=== PATIENT | male | born 1935 | race Caucasian/White ===

== ENCOUNTER → 2016-12-01 | Outpatient (CLI) | payer BC ==
[~2016-12-01] MED LIST: ALPHTAB4 PO; ASCO500T3 PO; ASPCH81X PO; CALCTAB5 PO; CLOP1TAB15 PO; LISI10TA PO; LORA-741 PO; LPR25 PO; NTRGSL/4 SL; PRED-301 PO; PRED1SUS3 OPR; SIMV40TA2 PO
[2016-12-01 12:44] LABS: BLOOD UREA NITROGEN 25 mg/dl (7-18)
== END | disposition home or self-care (01) ==
LOC: C.LABPVFM 09:50
PROVIDERS: ATTEND Surgery
DX: K42.9 Umbilical hernia without obstruction or gangrene (principal)

== ENCOUNTER → 2016-12-02 | Outpatient (CLI) | payer BC ==
[~2016-12-02] MED LIST changes: +OPTIRAY 320 IV PRN
--- NOTE | 2016-12-02 11:46 | DIAGNOSTIC IMAGING REPORT ---
CT SCAN OF THE ABDOMEN AND PELVIS WITH IV CONTRAST CLINICAL HISTORY: Umbilical hernia. Preoperative examination. COMPARISON STUDY: Abdominal CT dated 07/10/2013. TECHNIQUE: Following the IV administration of 94 cc of Optiray 320, CT scan of the abdomen and pelvis is performed from the lung bases to the proximal femora. Images are reviewed in the axial, sagittal, and coronal planes. IV contrast was administered without complication. Automated dose control exposure was utilized. CT DOSE: 569.54 mGy.cm FINDINGS: Lung bases: The heart is enlarged and without pericardial effusion. The coronary arteries are densely calcified. Subendocardial fat deposition within the left ventricle suggest previous myocardial infarct. The lung bases are clear noting dependent atelectasis. There is a tiny hiatal hernia. Liver: The contrast-enhanced liver is normal in size, contour, and attenuation. There is no intrahepatic biliary ductal dilatation. The hepatic veins and portal veins are patent. Gallbladder: Gallstones are identified. The gallbladder is otherwise normal in appearance. Spleen: Normal in size and attenuation. Pancreas: Moderately atrophic and grossly unremarkable. Adrenal glands: Unremarkable. Kidneys: The contrast enhanced kidneys are atrophic and without hydronephrosis. The kidneys enhance symmetrically. Numerous foci of cortical scarring are seen bilaterally. Numerous bilateral renal cysts measure up to 8 cm. Additional subcentimeter cortical hypodensities also likely represent cysts but are too small for definitive characterization. Abdominal vasculature: There is advanced atherosclerotic calcification and ectasia of the abdominal aorta. There is focal thrombosis identified in the left internal iliac artery with a 1.2 cm aneurysm. High-grade stenosis is seen within the right internal iliac artery. Bowel: There is a small duodenal diverticulum. The colon is tortuous. There is moderate colonic fecal retention. There is mild to moderate colonic diverticulosis without CT evidence of acute diverticulitis. Findings are consistent with previous right hemicolectomy with ileocolic anastomosis. No bowel obstruction is seen. The appendix is not identified and presumed surgically absent. Peritoneum: There is no intraperitoneal free air or abdominal ascites. There are numerous small fat-containing ventral hernias. A supraumbilical hernia on image #180 shows an orifice measuring 2.7 cm. A slightly more inferior ventral hernia in the right upper abdomen is similar image #192. A fat-containing ventral hernia in the right midabdomen is seen on image #239. A fat-containing ventral hernia in the umbilicus is seen on image #300. A fat-containing hernia in the ventral pelvis as seen on image #332. Foci of fat necrosis are present within the omentum. Lymphadenopathy: None. Pelvic viscera: The prostate gland is diminutive. The bladder wall appears thickened and trabeculated suggesting the sequelae of chronic outlet obstruction. Skeletal structures: The skeletal structures are osteopenic. There is mild lumbosacral spondylosis. No lytic or blastic lesions are seen. IMPRESSION: 1. There are numerous small fat-containing ventral hernias identified as detailed above. None of these hernias contain bowel. 2. There are postoperative changes from right hemicolectomy with ileocolic anastomosis. No bowel obstruction is seen. 3. There is moderate colonic fecal retention. 4. Mild to moderate colonic diverticulosis without CT evidence of acute diverticulitis. 5. Cardiomegaly. 6. Cholelithiasis. 7. 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 8. Additional findings as above. Electronically signed by: Rakesh Lanier M.D. 12/02/2016 11:44 AM Dictated Date/Time: 12/02/2016 11:33 AM
== END | disposition home or self-care (01) ==
LOC: C.CTS 09:56
PROVIDERS: ATTEND Surgery
DX: K42.9 Umbilical hernia without obstruction or gangrene (principal); K43.9 Ventral hernia without obstruction or gangrene; K59.00 Constipation, unspecified; I51.7 Cardiomegaly; K80.20 Calculus of gallbladder without cholecystitis without obstruction; I72.3 Aneurysm of iliac artery

== ENCOUNTER → 2017-03-11 | Outpatient (CLI) | payer BC ==
[~2017-03-11] MED LIST changes: -OPTIRAY 320 IV PRN
[2017-03-11 13:00] LABS: ALT/SGPT 19 U/L (12-78); AST/SGOT 16 U/L (15-37); BLOOD UREA NITROGEN 22 mg/dl (7-18); BUN/CREATININE RATIO 18.6 (10-20); CALCIUM 8.3 mg/dl (8.5-10.1); CARBON DIOXIDE 30 mmol/L (21-32); CHLORIDE 109 mmol/L (98-107); GLUCOSE 111 mg/dl (70-99); POTASSIUM 4.2 mmol/L (3.5-5.1); SODIUM 142 mmol/L (136-145)
[2017-03-11 13:02] LABS: CHOLESTEROL/HDL RATIO 2.6
[2017-03-11 13:06] LABS: ALB/GLOB RATIO 1.2 (0.9-2); ALKALINE PHOSPHATASE 63 U/L (45-117)
== END | disposition home or self-care (01) ==
LOC: C.LABPVFM 07:42
PROVIDERS: ATTEND Family Medicine
DX: E55.9 Vitamin D deficiency, unspecified (principal); K42.9 Umbilical hernia without obstruction or gangrene; E78.5 Hyperlipidemia, unspecified

== ENCOUNTER → 2017-09-22 | Outpatient (CLI) | payer BC ==
[2017-09-22 13:47] LABS: CHOLESTEROL/HDL RATIO 2.3
[2017-09-22 13:56] LABS: ALT/SGPT 17 U/L (12-78); AST/SGOT 13 U/L (15-37); BLOOD UREA NITROGEN 16 mg/dl (7-18); BUN/CREATININE RATIO 14.3 (10-20); CALCIUM 8.2 mg/dl (8.5-10.1); CARBON DIOXIDE 27 mmol/L (21-32); CHLORIDE 109 mmol/L (98-107); CREATININE 1.13 mg/dl (0.60-1.40); GLUCOSE 92 mg/dl (70-99); POTASSIUM 3.9 mmol/L (3.5-5.1); SODIUM 143 mmol/L (136-145)
[2017-09-22 13:58] LABS: ALB/GLOB RATIO 1.1 (0.9-2); ALKALINE PHOSPHATASE 62 U/L (45-117)
== END | disposition home or self-care (01) ==
LOC: C.LABPVFM 07:24
PROVIDERS: ATTEND Family Medicine
DX: K43.2 Incisional hernia without obstruction or gangrene (principal); E78.5 Hyperlipidemia, unspecified

== ENCOUNTER 2018-06-19 21:33 | Inpatient (IN) | payer BC, OTHER ==
[~2018-06-19] VITALS: Ht 172.7 cm; Wt 85.1 kg
[2018-06-19] MEDS ORDERED: SODIUM CHLORIDE 0.9% 1000ML 1,000 ML IV SCH (21:42)
[2018-06-19 21:51] LABS: BASO % 0.3 %; BASO ABS # 0.02 K/uL (0-0.2); EOS % 0.7 %; EOS ABS # 0.05 K/uL (0-0.5); HEMOGLOBIN 14.1 g/dL (14.0-18.0); IG# 0.03 K/uL (0.00-0.02); LYMPH % 25.7 %; LYMPH ABS # 1.82 K/uL (1.2-3.4); MEAN CELL VOLUME 94.6 fL (80-100); MEAN CORPUSCULAR HEMOGLOBIN 31.8 pg (25-34); MEAN CORPUSCULAR HGB CONC 33.6 g/dl (32-36); MEAN PLATELET VOLUME 10.3 fL (7.4-10.4); MONO % 14.7 %; MONO ABS # 1.04 K/uL (0.11-0.59); NEUT % 58.2 %; NEUT ABS # 4.13 K/uL (1.4-6.5); PLATELET COUNT 173 K/uL (130-400); RED CELL DISTRIBUTION WIDTH CV 13.7 % (11.5-14.5); RED CELL DISTRIBUTION WIDTH SD 47.3 fL (36.4-46.3); WHITE BLOOD COUNT 7.09 K/uL (4.8-10.8)
--- NOTE | 2018-06-19 21:56 | DIAGNOSTIC IMAGING REPORT ---
CT OF THE HEAD WITHOUT CONTRAST CLINICAL HISTORY: Stroke alert. COMPARISON STUDY: No previous studies for comparison. CT DOSE: 537.48 mGy.cm TECHNIQUE: Helical axial images of the head were obtained without IV contrast. Automated exposure control was utilized for the study. A dose lowering technique was utilized adhering to the principles of ALARA. FINDINGS: No acute intracranial hemorrhage, midline shift or mass effect is present. Ventricular system is normal. The basilar cisterns are patent. There are no extra axial collections. White matter hypodensities suggest moderate small vessel disease. Apparent increased attenuation of a sylvian branch of the left middle cerebral artery is likely artifactual. There are no findings to suggest acute dural sinus thrombosis or acute territorial infarct. There are no significant calvarial abnormalities. Visualized portions of the sinuses and mastoid air cells are clear. IMPRESSION: 1. No acute intracranial hemorrhage or mass effect. 2. Apparent increased attenuation of a sylvian branch of the left middle cerebral artery is likely artifactual. Thrombus could appear similar although is considered less likely. Electronically signed by: Reuben Loaiza M.D. 06/19/2018 9:55 PM Dictated Date/Time: 06/19/2018 9:48 PM
[2018-06-19 22:02] LABS: PTT PATIENT 23.3 SECONDS (21.0-31.0)
[2018-06-19 22:15] LABS: BLOOD UREA NITROGEN 21 mg/dl (7-18); CALCIUM 8.4 mg/dl (8.5-10.1); CARBON DIOXIDE 24 mmol/L (21-32); CKMB 1.2 ng/ml (0.5-3.6); CREATININE 1.26 mg/dl (0.60-1.40); GLUCOSE 119 mg/dl (70-99); POTASSIUM 3.8 mmol/L (3.5-5.1); SODIUM 141 mmol/L (136-145)
[2018-06-19] MEDS ORDERED: OPTIRAY 320 IV PRN (22:15)
[2018-06-19] MEDS ORDERED: ASPIRIN 81 MG CHEW PO STA (22:30)
--- NOTE | 2018-06-19 22:32 | DIAGNOSTIC IMAGING REPORT ---
CT ANGIOGRAPHY OF THE NECK WITH CONTRAST CLINICAL HISTORY: Left-sided weakness. Slurred speech. COMPARISON STUDY: No previous studies for comparison. Technique: CT angiography of the carotid and vertebral arteries was obtained using Mopio 320 IV and 3D reconstruction on an independent workstation. NASCET criteria was utilized. A dose lowering technique was utilized adhering to the principles of ALARA. CT DOSE: 524.85 mGy.cm Findings: Lung apices are clear. There are minimal secretions within the trachea below the level of the thoracic inlet. No mucosal lesion is identified although these may be occult by CT. There is no cervical lymphadenopathy or mass. There is moderate plaque within visual portions of the aortic arch. There is no significant stenosis within the bilateral common carotid or internal carotid arteries. There is minimal plaque within the cervical portions of the bilateral internal carotid arteries. There is moderate plaque within the bilateral cavernous carotids without severe stenosis. There is no dissection within the major vessels of the neck. The left vertebral artery is dominant. There is moderate plaque with mild stenosis at the origin of the left vertebral artery which is tortuous. There is mild to moderate stenosis at the origin of the right vertebral artery. The right vertebral artery likely ends in PICA. The CTA of the head will be reported separately. IMPRESSION: 1. No stenosis within the bilateral common carotid or cervical portions of the internal carotid arteries. No dissection. 2. Dominant left vertebral artery. Moderate plaque at the origin of the left vertebral artery with mild stenosis. Electronically signed by: Reuben Loaiza M.D. 06/19/2018 10:31 PM Dictated Date/Time: 06/19/2018 10:23 PM
--- NOTE | 2018-06-19 22:35 | DIAGNOSTIC IMAGING REPORT ---
CTA ANGIOGRAPHY OF THE HEAD CLINICAL HISTORY: Left-sided weakness. Slurred speech. COMPARISON STUDY: Head CT performed earlier today. TECHNIQUE: Helical axial images of the head were obtained following uneventful intravenous administration of 89 cc of Optiray 320. A dose lowering technique was utilized adhering to the principles of ALARA. FINDINGS: There is moderate plaque within the bilateral cavernous carotids with mild stenosis. There is no severe stenosis within the intracranial vessels. No abrupt vessel cut off, intracranial aneurysm or dissection is identified. The right vertebral artery is diminutive and likely ends in PICA. Posterior circulation is intact. No acute intracranial hemorrhage, midline shift or mass effect is identified. Ventricular system is normal. Basilar cisterns are patent. IMPRESSION: 1. No abrupt vessel cut off or severe stenosis within the intracranial vessels. No intracranial aneurysm. 2. Moderate atherosclerotic plaque within the intracranial vessels without high-grade stenosis. Electronically signed by: Reuben Loaiza M.D. 06/19/2018 10:34 PM Dictated Date/Time: 06/19/2018 10:31 PM
--- NOTE | 2018-06-19 23:02 | DIAGNOSTIC IMAGING REPORT ---
CHEST ONE VIEW PORTABLE CLINICAL HISTORY: Stroke. COMPARISON STUDY: Chest radiograph September 24, 2013. FINDINGS: No pneumothorax is noted. Mild left basilar opacity is present. A possible small left pleural effusion is probably artifactual. There is no evidence for pulmonary edema. Mild cardiomegaly is unchanged. IMPRESSION: 1. No acute cardiopulmonary findings. 2. Mild left basilar opacity which favors atelectasis. Electronically signed by: Reuben Loaiza M.D. 06/19/2018 11:01 PM Dictated Date/Time: 06/19/2018 10:59 PM
--- NOTE | 2018-06-19 23:43 | EMERGENCY ROOM VISIT NOTE ---
History Report prepared by Jayy: Hodan Fuentes Under the Supervision of: Dr. Larry Barber D.O. First contact with patient: 21:36 Chief Complaint: NEURO SYMPTOMS Stated Complaint: Left sided weakness, slurred speech- now resolved History of Present Illness The patient is an 83 year old male who presents to the Emergency Room with complaints of sudden neuro symptoms starting 2.5 hours ago. Per nursing staff, the patient called his son around 1900 since he did not feel right. They report that the son arrived around 194. They state that the son reported his father babbling, left facial droop, and having left arm weakness. They state that by the time EMS arrived her symptoms resolved. The patient complains of left arm weakness. The patient denies headache, change in vision, chest pain, and abdominal pain. History limited secondary to mentation upon presentation. Source of History: patient, nursing staff Onset: 2.5 hours ago Position: other (left side) Quality: other (neuro symptoms) Timing: other (sudden) Associated Symptoms: + weakness, No headache, No chest pain, No abdominal pain Note: The nursing staff states that the patient' son complains of the patient having a left sided facial droop. The patient denies change in vision. Review of Systems See HPI for pertinent positives & negatives. A total of 10 systems reviewed and were otherwise negative. Past Medical & Surgical Medical Problems: (1) Heart disease (2) HTN (hypertension) Surgical Problems: (1) History of coronary artery stent placement Family History Cancer Diabetes mellitus FH: gallbladder disease Heart disease Hypertension Social History Smoking Status: Former Smoker Marital Status: Housing Status: lives with significant other Occupation Status: retired Current/Historical Medications Scheduled Rlihy-O-Lmazomhaeiawf (Beano), 1 TAB PO DAILY Ascorbic Acid (Vitamin C), 500 MG PO DAILY Aspirin (Aspirin 81 Low Dose), 1 TAB PO DAILY Clopidogrel (Plavix), 75 MG PO NOON Lisinopril (Zestril), 5 MG PO DAILY Metoprolol Tartrate (Lopressor), 25 MG PO BID Prednisone (Prednisone), 2.5 MG PO BID Simvastatin (Zocor), 40 MG PO HS Scheduled PRN Lorazepam (Ativan), 0.5-1 MG PO BID PRN for Anxiety Melatonin (Melatonin), 1 MG PO HS PRN for Sleep Nitroglycerin (Nitrostat), 0.4 MG SL UD PRN for Chest Pain Allergies Coded Allergies: Lactose Intolerance (GI) (Verified Allergy, Unknown, GI UPSET, 06/20/18) Penicillins (Verified Allergy, Unknown, HIVES, 06/20/18) Shellfish (Verified Allergy, Unknown, HIVES, 06/20/18) Sulfa Drugs (Verified Allergy, Unknown, HIVES, 06/20/18) Physical Exam Vital Signs Date Time Temp Pulse Resp B/P (MAP) Pulse Ox O2 Delivery O2 Flow Rate FiO2 06/20/18 00:03 63 20 185/100 95 Room Air 06/19/18 23:00 61 16 196/101 98 Room Air 06/19/18 22:25 67 16 204/90 96 Room Air 06/19/18 22:00 57 16 213/103 96 Room Air 06/19/18 21:51 96 Room Air 06/19/18 21:40 36.4 66 20 209/104 96 Room Air Physical Exam GENERAL: Sitting up in bed, confused, disheveled. EYE EXAM: normal conjunctiva. OROPHARYNX: no exudate, no erythema, lips, buccal mucosa, and tongue normal and mucous membranes are moist NECK: supple, no nuchal rigidity, no adenopathy, non-tender LUNGS: Clear to auscultation. Normal chest wall mechanics HEART: no murmurs, S1 normal and S2 normal ABDOMEN: abdomen soft, non-tender, normo-active bowel sounds, no masses, no rebound or guarding. BACK: Back is symmetrical on inspection and there is no deformity, no midline tenderness, no CVA tenderness. SKIN: no rashes and no bruising UPPER EXTREMITIES: upper extremities are grossly normal. LOWER EXTREMITIES: No pitting edema. NEURO EXAM: Awake, alert. Able to state name. Difficulty following commands. Slightly gargled speech. No weakness of the upper and lower extremities. No drift. Unable to perform finger to nose. Medical Decision & Procedures ER Provider Diagnostic Interpretation: Radiology results as stated below per my review and the radiologist's interpretation: CT OF THE HEAD WITHOUT CONTRAST CLINICAL HISTORY: Stroke alert. COMPARISON STUDY: No previous studies for comparison. CT DOSE: 537.48 mGy.cm TECHNIQUE: Helical axial images of the head were obtained without IV contrast. Automated exposure control was utilized for the study. A dose lowering technique was utilized adhering to the principles of ALARA. FINDINGS: No acute intracranial hemorrhage, midline shift or mass effect is present. Ventricular system is normal. The basilar cisterns are patent. There are no extra axial collections. White matter hypodensities suggest moderate small vessel disease. Apparent increased attenuation of a sylvian branch of the left middle cerebral artery is likely artifactual. There are no findings to suggest acute dural sinus thrombosis or acute territorial infarct. There are no significant calvarial abnormalities. Visualized portions of the sinuses and mastoid air cells are clear. IMPRESSION: 1. No acute intracranial hemorrhage or mass effect. 2. Apparent increased attenuation of a sylvian branch of the left middle cerebral artery is likely artifactual. Thrombus could appear similar although is considered less likely. Electronically signed by: Reuben Loaiza M.D. 06/19/2018 9:55 PM Dictated Date/Time: 06/19/2018 9:48 PM CHEST ONE VIEW PORTABLE CLINICAL HISTORY: Stroke. COMPARISON STUDY: Chest radiograph September 24, 2013. FINDINGS: No pneumothorax is noted. Mild left basilar opacity is present. A possible small left pleural effusion is probably artifactual. There is no evidence for pulmonary edema. Mild cardiomegaly is unchanged. IMPRESSION: 1. No acute cardiopulmonary findings. 2. Mild left basilar opacity which favors atelectasis. Electronically signed by: Reuben Loaiza M.D. 06/19/2018 11:01 PM Dictated Date/Time: 06/19/2018 10:[address] ANGIOGRAPHY OF THE NECK WITH CONTRAST CLINICAL HISTORY: Left-sided weakness. Slurred speech. COMPARISON STUDY: No previous studies for comparison. Technique: CT angiography of the carotid and vertebral arteries was obtained using NexioraTouchPal 320 IV and 3D reconstruction on an independent workstation. NASCET criteria was utilized. A dose lowering technique was utilized adhering to the principles of ALARA. CT DOSE: 524.85 mGy.cm Findings: Lung apices are clear. There are minimal secretions within the trachea below the level of the thoracic inlet. No mucosal lesion is identified although these may be occult by CT. There is no cervical lymphadenopathy or mass. There is moderate plaque within visual portions of the aortic arch. There is no significant stenosis within the bilateral common carotid or internal carotid arteries. There is minimal plaque within the cervical portions of the bilateral internal carotid arteries. There is moderate plaque within the bilateral cavernous carotids without severe stenosis. There is no dissection within the major vessels of the neck. The left vertebral artery is dominant. There is moderate plaque with mild stenosis at the origin of the left vertebral artery which is tortuous. There is mild to moderate stenosis at the origin of the right vertebral artery. The right vertebral artery likely ends in PICA. The CTA of the head will be reported separately. IMPRESSION: 1. No stenosis within the bilateral common carotid or cervical portions of the internal carotid arteries. No dissection. 2. Dominant left vertebral artery. Moderate plaque at the origin of the left vertebral artery with mild stenosis. Electronically signed by: Reuben Loaiza M.D. 06/19/2018 10:31 PM Dictated Date/Time: 06/19/2018 10:23 PM CTA ANGIOGRAPHY OF THE HEAD CLINICAL HISTORY: Left-sided weakness. Slurred speech. COMPARISON STUDY: Head CT performed earlier today. TECHNIQUE: Helical axial images of the head were obtained following uneventful intravenous administration of 89 cc of Optiray 320. A dose lowering technique was utilized adhering to the principles of ALARA. FINDINGS: There is moderate plaque within the bilateral cavernous carotids with mild stenosis. There is no severe stenosis within the intracranial vessels. No abrupt vessel cut off, intracranial aneurysm or dissection is identified. The right vertebral artery is diminutive and likely ends in PICA. Posterior circulation is intact. No acute intracranial hemorrhage, midline shift or mass effect is identified. Ventricular system is normal. Basilar cisterns are patent. IMPRESSION: 1. No abrupt vessel cut off or severe stenosis within the intracranial vessels. No intracranial aneurysm. 2. Moderate atherosclerotic plaque within the intracranial vessels without high-grade stenosis. Electronically signed by: Reuben Loaiza M.D. 06/19/2018 10:34 PM Dictated Date/Time: 06/19/2018 10:31 PM Laboratory Results 06/19/18 21:41 Red Blood Count 4.44, Mean Corpuscular Volume 94.6, Mean Corpuscular Hemoglobin 31.8, Mean Corpuscular Hemoglobin Concent 33.6, Mean Platelet Volume 10.3, Neutrophils (%) (Auto) 58.2, Lymphocytes (%) (Auto) 25.7, Monocytes (%) (Auto) 14.7, Eosinophils (%) (Auto) 0.7, Basophils (%) (Auto) 0.3, Neutrophils # (Auto ) 4.13, Lymphocytes # (Auto) 1.82, Monocytes # (Auto) 1.04, Eosinophils # (Auto ) 0.05, Basophils # (Auto) 0.02 06/19/18 21:41 Test 06/19/18 21:41 06/19/18 21:52 06/19/18 21:53 06/19/18 22:55 White Blood Count 7.09 K/uL (4.8-10.8) Red Blood Count 4.44 M/uL (4.7-6.1) Hemoglobin 14.1 g/dL (14.0-18.0) Hematocrit 42.0 % (42-52) Mean Corpuscular Volume 94.6 fL (80-100) Mean Corpuscular Hemoglobin 31.8 pg (25-34) Mean Corpuscular Hemoglobin Concent 33.6 g/dl (32-36) Platelet Count 173 K/uL (130-400) Mean Platelet Volume 10.3 fL (7.4-10.4) Neutrophils (%) (Auto) 58.2 % Lymphocytes (%) (Auto) 25.7 % Monocytes (%) (Auto) 14.7 % Eosinophils (%) (Auto) 0.7 % Basophils (%) (Auto) 0.3 % Neutrophils # (Auto) 4.13 K/uL (1.4-6.5) Lymphocytes # (Auto) 1.82 K/uL (1.2-3.4) Monocytes # (Auto) 1.04 K/uL (0.11-0.59) Eosinophils # (Auto) 0.05 K/uL (0-0.5) Basophils # (Auto) 0.02 K/uL (0-0.2) RDW Standard Deviation 47.3 fL (36.4-46.3) RDW Coefficient of Variation 13.7 % (11.5-14.5) Immature Granulocyte % (Auto) 0.4 % Immature Granulocyte # (Auto) 0.03 K/uL (0.00-0.02) Prothrombin Time 10.2 SECONDS (9.0-12.0) Prothromb Time International Ratio 1.0 (0.9-1.1) Activated Partial Thromboplast Time 23.3 SECONDS (21.0-31.0) Partial Thromboplastin Ratio 0.9 Anion Gap 10.0 mmol/L (3-11) Est Creatinine Clear Calc Drug Dose 49.0 ml/min Estimated GFR () 61.2 Estimated GFR (Non- 52.8 BUN/Creatinine Ratio 16.8 (10-20) Calcium Level 8.4 mg/dl (8.5-10.1) Magnesium Level 2.2 mg/dl (1.8-2.4) Total Creatine Kinase 55 U/L (39-308) Creatine Kinase MB 1.2 ng/ml (0.5-3.6) Creatine Kinase MB Ratio 2.2 (0-3.0) Troponin I < 0.015 ng/ml (0-0.045) Chemistry Specimen Hemolysis Lactic Acid Level 1.6 mmol/L (0.4-2.0) Bedside Glucose 111 mg/dl (70-99) Urine Color YELLOW Urine Appearance CLEAR (CLEAR) Urine pH 6.5 (4.5-7.5) Urine Specific Carmi 1.016 (1.000-1.030) Urine Protein NEG (NEG) Urine Glucose (UA) NEG (NEG) Urine Ketones NEG (NEG) Urine Occult Blood TRACE (NEG) Urine Nitrite NEG (NEG) Urine Bilirubin NEG (NEG) Urine Urobilinogen NEG (NEG) Urine Leukocyte Esterase NEG (NEG) Urine WBC (Auto) 0 /hpf (0-5) Urine RBC (Auto) 5-10 /hpf (0-4) Urine Hyaline Casts (Auto) 0 /lpf (0-5) Urine Epithelial Cells (Auto) 5-10 /lpf (0-5) Urine Bacteria (Auto) NEG (NEG) Laboratory results per my review. Medications Administered Medications (Trade) Dose Ordered Sig/Parker Route Start Time Stop Time Status Last Admin Dose Admin Sodium Chloride 1,000 ml @ 50 mls/hr Q20H IV 06/19/18 21:42 07/19/18 21:41 06/19/18 22:06 50 MLS/HR ECG Per My Interpretation Indication: weakness Rate (beats per minute): 60 Rhythm: sinus rhythm Findings: 1st degree AV block, other (normal axis, no PVCs) ED Course ED COURSE: Vital signs were reviewed and showed hypertension. The patients medical record was reviewed The above diagnostic studies were performed and reviewed. ED treatments and interventions as stated above. 8: The patient was evaluated in room A2. A complete history and physical examination was performed. 2141: Ordered NSS 1000 ml @ 50 mls/hr IV. 4: I discussed the patient's case with Dr. Savannah Odonnell. He recommends CTAs and no TPA at this time. 2253: I discussed the patient's case with Dr. Tyesha Odonnell. He will evaluate the patient via the tele-stroke. 2305: Upon reevaluation, the patient is doing okay. I discussed my findings with the patient and his family and they understand and agree with the treatment plan. Based on the patients age, coexisting illnesses, exam and lab findings the decision to treat as an inpatient was made. The patient remained stable while under my care. The patient will be evaluated for further management. 2313: I reviewed the patient's case with Dr. Nola BARBER Hospitalist. She will evaluate the patient for further management. 2326: I discussed the patient's case with Dr. Sandra Odonnell. He agrees with no TPA and bringing him in. Medical Decision Differential Diagnosis includes but is not limited to ischemic Stroke, hemorrhagic stroke, bells palsy, mass, neoplasm, migraine headache, seizure, subarachnoid hemorrhage, TIA, and transient global amnesia. Patient is an 83-year-old male who presents the ER for left-sided weakness associated with facial droop and slurred speech. The symptoms resolved upon presentation. On my evaluation patient was confused. Neurologic exam was intact otherwise. CBC along with BMP, lactic acid and troponin was negative. UA was negative. Patient was given fluids. CT head was performed and showed questionable left MCA per radiology which would not be consistent with presentation. Stroke alert was called on my initial evaluation. Discussed with neurology from [facility]. They agreed that he is not a TPA candidate. Recommended CTAs. CTs were performed and showed nothing to explain current symptoms. Patient was evaluated by neurology. They recommended fluids and admission for stroke workup. Patient is close to baseline upon admission assist with the hospitalist. Patient was updated at bedside. Medication Reconcilliation Current Medication List: was personally reviewed by me Blood Pressure Screening Patient's blood pressure: Elevated blood pressure Will be further monitored by the hospitalist. Consults Time Called: 2199 Consulting Physician: Dr. Nuñez Neurology Returned Call: [phone] I discussed the patient's case with Dr. Savannah Odonnell. He recommends CTAs and no TPA at this time. Additional Consults: Time Called: 2252 Consulted Physician: Dr. Arambula Neurology Returned Call: [phone] Additional Comments: I discussed the patient's case with Dr. Arambula Neurology. He will evaluate the patient via the tele-stroke. Time Called: 2304 Consulted Physician: Dr. Nola BARBER Hospitalist Returned Call: [phone] Additional Comments: I reviewed the patient's case with Dr. Nola BARBER Hospitalist. She will evaluate the patient for further management. Impression Primary Impression: TIA (transient ischemic attack) Additional Impression: HTN (hypertension) Scribe Attestation The scribe's documentation has been prepared under my direction and personally reviewed by me in its entirety. I confirm that the note above accurately reflects all work, treatment, procedures, and medical decision making performed by me. Departure Information Dispostion Being Evaluated By Hospitalist Referrals Gita Álvarez M.D. (PCP) Patient Instructions My [facility] Stroke History Time Last Known Well Unknown Stroke t-PA Criteria Reviewed Does NOT meet criteria for t-PA Reason t-PA Not Given Treatment not indicated Problem Qualifiers Additional Impression: HTN (hypertension) Hypertension type: unspecified Qualified Codes: I10 - Essential (primary) hypertension
[2018-06-20] MEDS ORDERED: PHARMACIST DISCHARGE MED REC CONSULT PRN
[2018-06-20] MEDS ORDERED: MAGNESIUM HYDROXIDE SUSP 30 ML UDC PO PRN
[2018-06-20] MEDS ORDERED: ACETAMINOPHEN 325 MG TAB PO PRN
[2018-06-20] MEDS ORDERED: ONDANSETRON INJ 2 MG/ML 2 ML VIAL IV PRN
[2018-06-20] MEDS ORDERED: ASPI1CHW12 PO ×2 (00:19)
[2018-06-20] MEDS ORDERED: LISI-729 PO ×2 (00:20)
[2018-06-20] MEDS ORDERED: ATV/1 PO ×2 (00:23)
[2018-06-20] MEDS ORDERED: MELA1CAP PO ×2 (00:24)
--- NOTE | 2018-06-20 00:43 | History and Physical ---
History & Physical Date & Time of Service: Jun 20, 2018 at 00:22 Chief Complaint: Left sided weakness, slurred speech- now resolved Primary Care Physician: Gita Álvarez M.D. History of Present Illness Source: patient Patient is a 83-year-old male with a past medical history of CAD, hypertension, hyperlipidemia, and arthritis on chronic prednisone that presents with a 1 hour episode of confusion and left-sided weakness. The patient states he was at home this evening watching television when he all of a sudden started having confusion with difficulty speaking and word finding. The patient called his son who states that his father was having slurred speech along with confusion and called EMS. The patient also states that he was having weakness and heaviness in his left arm during that period of time. He states that once he was picked up by EMS he started noticing improvement in the ambulance. On arrival to the ED he was initially confused although over the last hour states that he has returned to his baseline mental status. The patient denies any headaches, vision changes, lightheadedness, nausea, vomiting, fever, chills or any other acute complaints at this time. Past Medical/Surgical History Medical Problems: (1) Colon adenoma (2) Heart disease Surgical Problems: (1) History of coronary artery stent placement Family History Cancer Diabetes mellitus FH: gallbladder disease Heart disease Hypertension Social History Smoking Status: Former Smoker Marital Status: Housing status: lives with family Occupational Status: retired Immunizations History of Influenza Vaccine: Yes Influenza Vaccine Date: Aug 20, 2013 History of Tetanus Vaccine?: Unknown History of Pneumococcal: Yes Pneumococcal Date: Sep 20, 2012 History of Hepatitis B Vaccine: Unknown Allergies Coded Allergies: Lactose Intolerance (GI) (Verified Allergy, Unknown, GI UPSET, 06/20/18) Penicillins (Verified Allergy, Unknown, HIVES, 06/20/18) Shellfish (Verified Allergy, Unknown, HIVES, 06/20/18) Sulfa Drugs (Verified Allergy, Unknown, HIVES, 06/20/18) Home Medications Scheduled [id number] (Beano), 1 TAB PO DAILY Ascorbic Acid (Vitamin C), 500 MG PO DAILY Aspirin (Aspirin 81 Low Dose), 1 TAB PO DAILY Clopidogrel (Plavix), 75 MG PO NOON Lisinopril (Zestril), 5 MG PO DAILY Metoprolol Tartrate (Lopressor), 25 MG PO BID Prednisone (Prednisone), 2.5 MG PO BID Simvastatin (Zocor), 40 MG PO HS Scheduled PRN Lorazepam (Ativan), 0.5-1 MG PO BID PRN for Anxiety Melatonin (Melatonin), 1 MG PO HS PRN for Sleep Nitroglycerin (Nitrostat), 0.4 MG SL UD PRN for Chest Pain Review of Systems Constitutional: No fever, No chills, No sweats, No weakness, No fatigue Eyes: No worsening of vision, No diplopia Respiratory: No cough, No sputum, No wheezing, No shortness of breath, No dyspnea on exertion Cardiovascular: No chest pain, No palpitations Abdomen: No pain, No nausea, No vomiting, No diarrhea, No constipation Musculoskeletal: No joint pain, No swelling, No calf pain Genitourinary - Male: No dysuria, No urinary frequency Neurologic: No memory loss, No weakness, No numbness/tingling, No vertigo, No balance problems Endocrine: No fatigue, No excessive thirst, No excessive urination Physical Exam Vital Signs Date Time Temp Pulse Resp B/P (MAP) Pulse Ox O2 Delivery O2 Flow Rate FiO2 06/20/18 00:03 63 20 185/100 95 Room Air 06/19/18 23:00 61 16 196/101 98 Room Air 06/19/18 22:25 67 16 204/90 96 Room Air 06/19/18 22:00 57 16 213/103 96 Room Air 06/19/18 21:51 96 Room Air 06/19/18 21:40 36.4 66 20 209/104 96 Room Air General Appearance: WD/WN, no apparent distress Head: normocephalic, atraumatic Eyes: normal inspection, sclerae normal Neck: supple, no carotid bruits Respiratory/Chest: chest non-tender, lungs clear, normal breath sounds Cardiovascular: regular rate, rhythm, no edema, no gallop Abdomen/GI: normal bowel sounds, non tender, soft Extremities/Musculoskelatal: no calf tenderness, no pedal edema Neurologic/Psych: alert, normal reflexes, oriented x 3 Diagnostics Laboratory Results Results Past 24 Hours Test 06/19/18 21:41 06/19/18 21:52 06/19/18 21:53 06/19/18 22:55 Range/Units White Blood Count 7.09 4.8-10.8 K/uL Red Blood Count 4.44 4.7-6.1 M/uL Hemoglobin 14.1 14.0-18.0 g/dL Hematocrit 42.0 42-52 % Mean Corpuscular Volume 94.6 80-100 fL Mean Corpuscular Hemoglobin 31.8 25-34 pg Mean Corpuscular Hemoglobin Concent 33.6 32-36 g/dl Platelet Count 173 130-400 K/uL Mean Platelet Volume 10.3 7.4-10.4 fL Neutrophils (%) (Auto) 58.2 % Lymphocytes (%) (Auto) 25.7 % Monocytes (%) (Auto) 14.7 % Eosinophils (%) (Auto) 0.7 % Basophils (%) (Auto) 0.3 % Neutrophils # (Auto) 4.13 1.4-6.5 K/uL Lymphocytes # (Auto) 1.82 1.2-3.4 K/uL Monocytes # (Auto) 1.04 0.11-0.59 K/uL Eosinophils # (Auto) 0.05 0-0.5 K/uL Basophils # (Auto) 0.02 0-0.2 K/uL RDW Standard Deviation 47.3 36.4-46.3 fL RDW Coefficient of Variation 13.7 11.5-14.5 % Immature Granulocyte % (Auto) 0.4 % Immature Granulocyte # (Auto) 0.03 0.00-0.02 K/uL Prothrombin Time 10.2 9.0-12.0 SECONDS Prothromb Time International Ratio 1.0 0.9-1.1 Activated Partial Thromboplast Time 23.3 21.0-31.0 SECONDS Partial Thromboplastin Ratio 0.9 Sodium Level 141 136-145 mmol/L Potassium Level 3.8 3.5-5.1 mmol/L Chloride Level 108 98-107 mmol/L Carbon Dioxide Level 24 21-32 mmol/L Anion Gap 10.0 3-11 mmol/L Blood Urea Nitrogen 21 7-18 mg/dl Creatinine 1.26 0.60-1.40 mg/dl Est Creatinine Clear Calc Drug Dose 49.0 ml/min Estimated GFR () 61.2 Estimated GFR (Non- 52.8 BUN/Creatinine Ratio 16.8 10-20 Random Glucose 119 70-99 mg/dl Calcium Level 8.4 8.5-10.1 mg/dl Magnesium Level 2.2 1.8-2.4 mg/dl Total Creatine Kinase 55 39-308 U/L Creatine Kinase MB 1.2 0.5-3.6 ng/ml Creatine Kinase MB Ratio 2.2 0-3.0 Troponin I < 0.015 0-0.045 ng/ml Chemistry Specimen Hemolysis Lactic Acid Level 1.6 0.4-2.0 mmol/L Bedside Glucose 111 70-99 mg/dl Urine Color YELLOW Urine Appearance CLEAR CLEAR Urine pH 6.5 4.5-7.5 Urine Specific [place] 1.016 1.000-1.030 Urine Protein NEG NEG Urine Glucose (UA) NEG NEG Urine Ketones NEG NEG Urine Occult Blood TRACE NEG Urine Nitrite NEG NEG Urine Bilirubin NEG NEG Urine Urobilinogen NEG NEG Urine Leukocyte Esterase NEG NEG Urine WBC (Auto) 0 0-5 /hpf Urine RBC (Auto) 5-10 0-4 /hpf Urine Hyaline Casts (Auto) 0 0-5 /lpf Urine Epithelial Cells (Auto) 5-10 0-5 /lpf Urine Bacteria (Auto) NEG NEG Test 06/19/18 23:48 Range/Units Impression Assessment and Plan Patient is a 83-year-old male with a past medical history of CAD, hypertension, hyperlipidemia, and arthritis on chronic prednisone that presents with a 1 hour episode of confusion and left-sided weakness. Transient Ischemic Attack - CT Head: 1. No acute intracranial hemorrhage or mass effect. 2. Apparent increased attenuation of a sylvian branch of the left middle cerebral artery is likely artifactual. Thrombus could appear similar although is considered less likely. - CTA Head: 1. No abrupt vessel cut off or severe stenosis within the intracranial vessels. No intracranial aneurysm. 2. Moderate atherosclerotic plaque within the intracranial vessels without high- grade stenosis. - CTA Neck: 1. No stenosis within the bilateral common carotid or cervical portions of the internal carotid arteries. No dissection. 2. Dominant left vertebral artery. Moderate plaque at the origin of the left vertebral artery with mild stenosis. - MRI brain combo ordered - Echo ordered - Neurology consult - Bedside swallow eval - PT/OT - Neuro checks q4h - Continue Aspirin, Plavix, and Statin - Hold home antihypertensives - PRN IV Lopressor 5mg q4h - Admit Telemetry CAD s/p 3 stents - Continue home Aspirin and Plavix - EKG: NSR with 1st degree AV Block Hypertension - Hold home antihypertensives (Lisinopril and Lopressor) HLD - Continue home Statin Arthritis - Continue home Prednisone Anxiety - Hold home Ativan DVT - SCDs Code Status - Full Resuscitation Resuscitation Status Full Code VTE Prophylaxis Will order VTE Prophylaxis: Yes Resident Tracking Resident Involvement: Resident Care Provided Care Provided: Adult Hospital Medicine History Patient seen and examined, chart reviewed, case discussed with Dr. Jackson and I agree with his assessment and plan as documented above. Briefly, patient is an 83yo male with history of CAD s/p stent x 3, HTN, HLP on ASA/Plavix and Statin presenting with episode of stroke-like symptoms. 19:00 episode of confusion, left arm weakness, slurred speech which resolved within 1 hour. Patient presently with mild headache otherwise no complaints. Feels he is back to his baseline. Telestroke consulted - patient is not a candidate for tPA On physical exam patient is afebrile, HD stable, NAD Gen: AA&O HEENT: NC/AT, PERRL, MMM, neck supple, no JVD Heart: +S1/S2, regular, no m/r/g Lungs: CTA, no rales/rhonchi/wheezes Abd: +BS, soft, NT/ND Ext: warm, no edema Neuro: no deficits noted Labs and images reviewed. CTA with moderate plaque and mild L vertebral stenosis but no high grade lesions. Assessment/Plan: 83yo male with CAD, HTN, HLP presenting with stroke-like symptoms Concern for TIA. Admit to telemetry. MRI Brain. Neuro checks. Neuro consult. PT/OT Continue ASA, Plavix, Statin Permissive HTN - Labetalol IV PRN Remainder of plan as above
[2018-06-20] MEDS ORDERED: NITROGLYCERIN 0.4 MG SL PER TAB CHARGE SL PRN ×2 (00:45)
[2018-06-20 02:00] VITALS: BP 186/79; PULSE 62; TEMP 36.6; O2SAT 94; Ht 172.7 cm; Wt 85.1 kg
[2018-06-20] MEDS ORDERED: GADAVIST IV PRN (03:00)
[2018-06-20 03:18] VITALS: BP 165/82; PULSE 55; TEMP 36.4; O2SAT 94
[2018-06-20 05:47] LABS: BASO % 0.3 %; BASO ABS # 0.02 K/uL (0-0.2); EOS % 0.5 %; EOS ABS # 0.04 K/uL (0-0.5); HEMATOCRIT 40.1 % (42-52); HEMOGLOBIN 13.5 g/dL (14.0-18.0); IG# 0.04 K/uL (0.00-0.02); LYMPH ABS # 1.56 K/uL (1.2-3.4); MEAN CELL VOLUME 93.5 fL (80-100); MEAN CORPUSCULAR HEMOGLOBIN 31.5 pg (25-34); MEAN CORPUSCULAR HGB CONC 33.7 g/dl (32-36); MEAN PLATELET VOLUME 9.6 fL (7.4-10.4); MONO % 15.5 %; MONO ABS # 1.15 K/uL (0.11-0.59); NEUT % 62.2 %; NEUT ABS # 4.63 K/uL (1.4-6.5); PLATELET COUNT 145 K/uL (130-400); RED CELL DISTRIBUTION WIDTH CV 13.6 % (11.5-14.5); WHITE BLOOD COUNT 7.44 K/uL (4.8-10.8)
[2018-06-20 06:16] LABS: CREATININE 1.01 mg/dl (0.60-1.40); POTASSIUM 3.6 mmol/L (3.5-5.1)
[2018-06-20 06:31] VITALS: BP 180/79; PULSE 56; TEMP 36.6; O2SAT 94
[2018-06-20 06:47] LABS: HEMOGLOBIN A1C 6.5 % (4.5-5.6)
--- NOTE | 2018-06-20 07:17 | DIAGNOSTIC IMAGING REPORT ---
MRI OF THE BRAIN COMBO CLINICAL HISTORY: Left-sided weakness. COMPARISON STUDY: CT of the brain dated 06/19/2018. TECHNIQUE: MRI of the brain was performed utilizing various T1 and T2-weighted sequences in the axial, sagittal, and coronal planes. Contrast-enhanced sequences were acquired following the administration of 9 cc of Gadavist. The examination is modestly degraded by motion artifact. FINDINGS: Brain parenchyma: There are age-related involutional changes noting advanced confluent subcortical and periventricular microangiopathic disease. Small chronic lacunar infarcts are noted in the right edwina and the left cerebellar hemisphere. There is no hemorrhage or mass effect. There is no restricted diffusion to suggest acute ischemia. No enhancing mass lesion is identified on the postcontrast images. Jacob-white matter differentiation is preserved. No extra-axial fluid collection is seen. The cerebellar tonsils are normal in configuration. Ventricles, sulci, and cisterns: Prominent secondary to involutional change. Pituitary and sella: Partially empty sella is incidentally noted. Intracranial vasculature: Normal flow voids are maintained at the skull base. Orbits: The bony orbits are grossly intact. Orbital contents are normal in appearance noting bilateral ocular lens implants. Sinuses and mastoids: Clear. Calvarium: Unremarkable. Cervical cord: Partially visualized cervical spinal cord is normal in morphology and signal intensity. IMPRESSION: No acute intracranial abnormality. Electronically signed by: Rakesh Lanier M.D. 06/20/2018 7:16 AM Dictated Date/Time: 06/20/2018 7:05 AM
[2018-06-20] MEDS ORDERED: PERFLUTREN LIPID MICROSPHERE (DEFINITY) IV ONE (07:47)
[2018-06-20] MEDS ORDERED: CLOPIDOGREL BISULFATE 75 MG TAB PO SCH (09:00)
[2018-06-20] MEDS ORDERED: ASPIRIN 81 MG ECTAB PO SCH (09:00)
[2018-06-20] MEDS ORDERED: ASCORBIC ACID 500 MG TAB PO SCH (09:00)
--- NOTE | 2018-06-20 11:05 | Neurology Consultation ---
Neurology Consultation Date of Consultation: Jun 20, 2018. Attending Physician: Kyle Humphrey M.D. Primary Care Physician: Gita Álvarez M.D. Reason for Consultation: Consultation for TIA History of Present Illness Source: patient, clinic records, hospital records This is an 83-year-old male who presents with TIA-like symptoms. Reported that his left side suddenly felt numb and heavy yesterday lasting for 30 minutes to 1 hour. Was also noted to have garbled speech. Family reported that he seemed confused. Son reports that about a month ago he had a similar episode where he appeared confused and had garbled speech for about 20 minutes. There is no focal neurological symptoms at that time. Patient denies any history of seizures. Denies any history of strokes. Patient and family report that he has had in his neurological baseline this morning. Patient is on aspirin and Plavix per cardiology and is compliant with medications. Reports that maybe once a week he forgets to take his aspirin Plavix. Total cholesterol 127, LDL 67, HDL 47, triglycerides 65, hemoglobin A1c 6.5. MRI of the brain report and images reviewed by myself. Patient does have significant subcortical small vessel ischemic disease. Also signs that may be consistent with a tiny old right edwina and left cerebellar chronic ischemic stroke. CTA of the head and neck were reviewed and noted moderate atherosclerosis. No critical stenosis. Patient is followed by cardiology and outpatient notes were reviewed. Past Medical/Surgical History Medical Problems: (1) TIA (transient ischemic attack) Status: Acute Hypertension, CAD, dyslipidemia, anxiety Family History Family history significant for father and brother with stroke. Family history of diabetes, CAD, and hypertension Social History Patient is normally independent in his activities of daily living. Lives with his . No tobacco use. Smoking Status: Never smoker Marital Status: Housing Status: lives with significant other Occupation Status: retired Allergies Coded Allergies: Lactose Intolerance (GI) (Verified Allergy, Unknown, GI UPSET, 06/20/18) Penicillins (Verified Allergy, Unknown, HIVES, 06/20/18) Shellfish (Verified Allergy, Unknown, HIVES, 06/20/18) Sulfa Drugs (Verified Allergy, Unknown, HIVES, 06/20/18) Current Inpatient Medications Current Inpatient Medications Medications (Trade) Dose Ordered Sig/Parker Route Start Time Stop Time Status Last Admin Dose Admin Ioversol (Optiray 320) 100 ml UD PRN IV 06/19/18 22:15 06/23/18 22:14 Acetaminophen (Tylenol Tab) 650 mg Q4H PRN PO 06/20/18 00:00 07/20/18 00:00 06/20/18 04:49 650 MG Magnesium Hydroxide (Milk Of Magnesia Susp) 30 ml Q12H PRN PO 06/20/18 00:00 07/20/18 00:00 Ondansetron HCl (Zofran Inj) 4 mg Q6H PRN IV 06/20/18 00:00 07/20/18 00:00 Nitroglycerin (Nitrostat Tab) 0.4 mg UD PRN SL 06/20/18 00:00 07/20/18 00:00 Miscellaneous Information (Pharmacist Discharge Med Rec Consult) 1 ea UD PRN N/A 06/20/18 00:00 07/20/18 00:00 Ascorbic Acid (Vitamin C Tab) 500 mg DAILY PO 06/20/18 09:00 07/20/18 08:59 06/20/18 08:58 500 MG Aspirin (Ecotrin Tab) 81 mg DAILY PO 06/20/18 09:00 07/20/18 08:59 06/20/18 08:58 81 MG Clopidogrel Bisulfate (plAVix TAB) 75 mg QAM PO 06/20/18 09:00 07/20/18 08:59 06/20/18 08:58 75 MG Nitroglycerin (Nitrostat Tab) 0.4 mg UD PRN SL 06/20/18 00:45 07/20/18 00:44 Prednisone (PredniSONE TAB) 2.5 mg BID PO 06/20/18 09:00 07/20/18 08:59 06/20/18 08:58 2.5 MG Simvastatin (Zocor Tab) 40 mg HS PO 06/20/18 21:00 07/20/18 20:59 Gadobutrol (Gadavist) 9 mmol UD PRN IV 06/20/18 03:00 06/24/18 02:59 Review of Systems Complete review of systems otherwise negative except for the above-noted HPI. Physical Exam Vital Signs (Past 24 Hrs): Date Time Temp Pulse Resp B/P (MAP) Pulse Ox O2 Delivery O2 Flow Rate FiO2 06/20/18 08:00 Room Air 06/20/18 06:31 36.6 56 20 180/79 (112) 94 Room Air 06/20/18 03:18 36.4 55 20 165/82 (109) 94 Room Air 06/20/18 02:59 Room Air 06/20/18 02:00 36.6 62 22 186/79 94 Room Air 06/20/18 00:03 63 20 185/100 95 Room Air 06/19/18 23:00 61 16 196/101 98 Room Air 06/19/18 22:25 67 16 204/90 96 Room Air 06/19/18 22:00 57 16 213/103 96 Room Air 06/19/18 21:51 96 Room Air 06/19/18 21:40 36.4 66 20 209/104 96 Room Air Gen.: Patient is alert and oriented in no acute distress, sitting in chair Heart: Regular rate and rhythm Extremities: No gross deformities or rashes noted Neurological examination: Mental status: Patient is alert and oriented to person place and time. Able to give his own history. Good fund of knowledge. Attention and concentration normal for the situation. Recent and remote memory intact Speech is fluent without any dysarthria or aphasia noted Cranial nerves: Funduscopic examination was difficult to visualize. Pupils equally round and reactive to light. Extraocular muscles intact without nystagmus. No facial asymmetry noted. Facial sensation intact. Tongue midline. Good palatal elevation. Good shoulder shrug bilaterally. Hearing grossly intact voice. Strength: 5/5 both proximal and distal in all extremities .Tone is normal. Sensation: Grossly intact to light touch in all extremities Deep tendon reflexes: +1 in bilateral biceps and patellar. Coordination: Patient has good finger to nose without dysmetria Station within the chair is normal. Laboratory Results Past 24 Hours: 06/20/18 05:26 Red Blood Count 4.29, Mean Corpuscular Volume 93.5, Mean Corpuscular Hemoglobin 31.5, Mean Corpuscular Hemoglobin Concent 33.7, Mean Platelet Volume 9.6, Neutrophils (%) (Auto) 62.2, Lymphocytes (%) (Auto) 21.0, Monocytes (%) (Auto) 15.5, Eosinophils (%) (Auto) 0.5, Basophils (%) (Auto) 0.3, Neutrophils # (Auto ) 4.63, Lymphocytes # (Auto) 1.56, Monocytes # (Auto) 1.15, Eosinophils # (Auto ) 0.04, Basophils # (Auto) 0.02 06/20/18 05:26 Test 06/19/18 21:41 06/19/18 21:52 06/19/18 21:53 06/19/18 22:55 Prothrombin Time 10.2 SECONDS (9.0-12.0) Prothromb Time International Ratio 1.0 (0.9-1.1) Activated Partial Thromboplast Time 23.3 SECONDS (21.0-31.0) Partial Thromboplastin Ratio 0.9 Estimated Average Glucose 140 mg/dl Hemoglobin A1c 6.5 % (4.5-5.6) Magnesium Level 2.2 mg/dl (1.8-2.4) Total Creatine Kinase 55 U/L (39-308) Creatine Kinase MB 1.2 ng/ml (0.5-3.6) Creatine Kinase MB Ratio 2.2 (0-3.0) Troponin I < 0.015 ng/ml (0-0.045) Chemistry Specimen Hemolysis Lactic Acid Level 1.6 mmol/L (0.4-2.0) Bedside Glucose 111 mg/dl (70-99) Urine Color YELLOW Urine Appearance CLEAR (CLEAR) Urine pH 6.5 (4.5-7.5) Urine Specific [place] 1.016 (1.000-1.030) Urine Protein NEG (NEG) Urine Glucose (UA) NEG (NEG) Urine Ketones NEG (NEG) Urine Occult Blood TRACE (NEG) Urine Nitrite NEG (NEG) Urine Bilirubin NEG (NEG) Urine Urobilinogen NEG (NEG) Urine Leukocyte Esterase NEG (NEG) Urine WBC (Auto) 0 /hpf (0-5) Urine RBC (Auto) 5-10 /hpf (0-4) Urine Hyaline Casts (Auto) 0 /lpf (0-5) Urine Epithelial Cells (Auto) 5-10 /lpf (0-5) Urine Bacteria (Auto) NEG (NEG) Test 06/20/18 05:26 06/20/18 10:36 White Blood Count 7.44 K/uL (4.8-10.8) Red Blood Count 4.29 M/uL (4.7-6.1) Hemoglobin 13.5 g/dL (14.0-18.0) Hematocrit 40.1 % (42-52) Mean Corpuscular Volume 93.5 fL (80-100) Mean Corpuscular Hemoglobin 31.5 pg (25-34) Mean Corpuscular Hemoglobin Concent 33.7 g/dl (32-36) Platelet Count 145 K/uL (130-400) Mean Platelet Volume 9.6 fL (7.4-10.4) Neutrophils (%) (Auto) 62.2 % Lymphocytes (%) (Auto) 21.0 % Monocytes (%) (Auto) 15.5 % Eosinophils (%) (Auto) 0.5 % Basophils (%) (Auto) 0.3 % Neutrophils # (Auto) 4.63 K/uL (1.4-6.5) Lymphocytes # (Auto) 1.56 K/uL (1.2-3.4) Monocytes # (Auto) 1.15 K/uL (0.11-0.59) Eosinophils # (Auto) 0.04 K/uL (0-0.5) Basophils # (Auto) 0.02 K/uL (0-0.2) RDW Standard Deviation 46.0 fL (36.4-46.3) RDW Coefficient of Variation 13.6 % (11.5-14.5) Immature Granulocyte % (Auto) 0.5 % Immature Granulocyte # (Auto) 0.04 K/uL (0.00-0.02) Anion Gap 9.0 mmol/L (3-11) Est Creatinine Clear Calc Drug Dose 59.9 ml/min Estimated GFR () 79.9 Estimated GFR (Non- 68.9 BUN/Creatinine Ratio 16.2 (10-20) Calcium Level 8.0 mg/dl (8.5-10.1) Triglycerides Level 65 mg/dl (0-150) Cholesterol Level 127 mg/dl (0-200) HDL Cholesterol 47 mg/dl LDL Cholesterol, Calculated 67 mg/dl VLDL Cholesterol, Calculated 13 mg/dl Cholesterol/HDL Ratio 2.7 Imaging As noted above in HPI Impression This is a 83-year-old male with likely TIA involving confusion, left-sided numbness/heaviness, and garbled speech. Differential diagnosis includes focal seizure which could present as a stroke mimic (especially considering similar episode of confusion and garbled speech a month ago). Vascular risk factors include hypertension and dyslipidemia that appear to be under reasonable control at this time (hypertension in hospital would be consistent with stroke presentation). Patient is on max antiplatelet therapy of aspirin and Plavix. Patient is back to his neurological baseline at this time. Plan Recommend routine EEG to look for stroke mimics such as focal seizure. This can be done as an outpatient if desired. Follow-up echocardiogram results for cardiogenic causes for TIA I have sent for homocystine and anticardiolipin antibodies for other secondary causes of TIA/stroke. If the patient's in hospital workup is unremarkable, I would recommend a Holter monitor or 30 day event monitor to look for paroxysmal A. fib since this would change his medical management if he had it. Follow-up in neurology clinic for reevaluation in 1 month Instructed the patient that if he has any additional strokelike episodes, should return to the ER immediately. No recommended medication changes at this time. Neurological recommendations for stroke risk factor modifications: BP goals 130/80-110/70 after the 1st month Total cholesterol goal 100-200, and LDL goal less than 100 Hemoglobin A1c goal less than 7 Encourage regular cardiovascular exercise at least 30 minutes 3 times per week Thank you for allowing me to participate in this patient's care. If there is any questions or concerns, feel free to call/page me.
[2018-06-20 11:42] VITALS: BP 144/80; PULSE 61; TEMP 36.4; O2SAT 96
--- NOTE | 2018-06-20 12:05 | ECHOCARDIOGRAM REPORT ---
*NOTICE TO RECEIVING REPUBLICAN AGENCY This information is strictly Confidential and protected under [place] law. [place] law prohibits you from making any further disclosure of this information unless further disclosure is expressly permitted by the written consent of the person to whom it pertains or is authorized by law. A general authorization for the release of medical or other information is not sufficient for this purpose. Hospital accepts no responsibility if the information is made available to any other person, INCLUDING THE PATIENT. Interpretation Summary * Name: CONSTANTINO WEIR Study Date: 06/20/2018 06:51 AM BP: 165/82 mmHg * Patient Location: C.2E\S\E201\S\1 HR: 55 * : 1935 (M/d/yy) Gender: Male Height: 67 in * Age: 83 yrs Ethnicity: [place] Weight: 195 lb * Ordering Physician: Shmuel Jackson * Referring Physician: Self, Referred * Performed By: Sangita Rose RDCS * * Reason For Study: Alt. of Consciousness, Stroke * BSA: 2.0 m2 * -- Conclusions -- * 1. Normal LV size, borderline concentric LVH. * 2. LVEF 50-55%. Basilar inferior wall hypokinesis. * 3. Normal RV size and function. * 4. Grade I diastolic dysfunction. * 5. Aortic valve sclerosis without stenosis. * 6. Normal estimated RA and PA pressures. * 7. Negative salline contrast study for interatrial shunt. * 8. No prior studies for comparison. Procedure Details * A complete two-dimensional transthoracic echocardiogram was performed (2D, M-mode, Doppler and color flow Doppler). * The study was technically difficult. * The study was technically difficult, but visualization was adequate with the administration of Definity ultrasound contrast. * A saline contrast injection was performed to assess for cardiac shunting. * The injection was performed through an intravenous line in the right arm. * The attending nurse who injected the saline contrast was Carol Guillaume RN. * A total of 20 cc of agitated saline was given. * A contrast injection of Definity was performed to improve assessment of LV function. * Contrast was injected into an intravenous site in the right arm. * One vial of Definity ultrasound contrast was diluted in normal saline to a total volume of 10 ml. A total of '2' ml of solution was administered during imaging. * Lot # [id number] of Definity utilized for procedure. * Expiration date . * The attending nurse who injected the contrast agent was Carol Guillaume RN. Left Ventricle * The left ventricle is grossly normal size. * There is normal left ventricular wall thickness. * Ejection Fraction = 50-55%. * Basilar inferior wall hypokinetic Right Ventricle * The right ventricle is grossly normal size. * The right ventricular systolic function is normal as assessed by tricuspid annular plane systolic excursion (TAPSE) (normal >1.5 cm). Atria * The left atrium is mildly dilated. * The right atrium is mildly dilated. * Injection of contrast documented no interatrial shunt. Mitral Valve * The mitral valve is grossly normal. * There is no mitral valve stenosis. * There is trace mitral regurgitation. Tricuspid Valve * The tricuspid valve is not well visualized, but is grossly normal. * There is trace tricuspid regurgitation. Aortic Valve * The aortic valve opens well. * Aortic valve sclerosis mild, without significant aortic valvular stenosis. * The aortic valve is trileaflet. * No hemodynamically significant valvular aortic stenosis. * There is no significant aortic regurgitation. Pulmonic Valve * The pulmonary valve is inadequately visualized, but the Doppler data is adequate for interpretation. * Trace pulmonic valvular regurgitation. Great Vessels * The aortic root and proximal ascending aorta are normal sized. * Normal inferior vena cava size and collapsability with sniff indicates a normal right atrial pressure of 3 mmHg * There is no evidence of pulmonary hypertension. The PA systolic pressure is less than 36 mmHg. Left Ventricular Diastolic Function * Grade I diastolic dysfunction, (abnormal relaxation pattern). MMode 2D Measurements and Calculations IVSd 1.1 cm IVSs 1.1 cm LVIDd 4.4 cm LVIDs 3.1 cm LVPWd 1.2 cm LVPWs 1.5 cm IVS/LVPW 0.87 FS 27.9 % EDV(Teich) 85.5 ml ESV(Teich) 39.0 ml EF(Teich) 54.4 % EDV(cubed) 82.5 ml ESV(cubed) 30.9 ml EF(cubed) 62.6 % % IVS thick 5.9 % % LVPW thick 19.9 % LV mass(C)d 174.1 grams LV mass(C)dI 87.0 grams/m\S\2 LV mass(C)s 130.3 grams LV mass(C)sI 65.1 grams/m\S\2 SV(Teich) 46.5 ml SI(Teich) 23.2 ml/m\S\2 SV(cubed) 51.6 ml SI(cubed) 25.8 ml/m\S\2 Ao root diam 3.2 cm Ao root area 7.9 cm\S\2 ACS 1.8 cm LA dimension 3.5 cm asc Aorta Diam 3.7 cm LA/Ao 1.1 LVAd ap4 33.6 cm\S\2 LVLd ap4 7.8 cm EDV(MOD-sp4) 117.4 ml EDV(sp4-el) 122.9 ml LVAs ap4 23.6 cm\S\2 LVLs ap4 8.1 cm ESV(MOD-sp4) 59.5 ml ESV(sp4-el) 58.6 ml EF(MOD-sp4) 49.3 % EF(sp4-el) 52.3 % LVAd ap2 43.0 cm\S\2 LVLd ap2 9.3 cm EDV(MOD-sp2) 164.1 ml EDV(sp2-el) 169.7 ml LVAs ap2 29.3 cm\S\2 LVLs ap2 9.2 cm ESV(MOD-sp2) 81.8 ml ESV(sp2-el) 79.5 ml EF(MOD-sp2) 50.1 % EF(sp2-el) 53.2 % LVLd %diff 15.8 % EDV(MOD-bp) 150.8 ml LVLs %diff 11.7 % ESV(MOD-bp) 71.8 ml EF(MOD-bp) 52.4 % SV(MOD-sp4) 57.9 ml SI(MOD-sp4) 29.0 ml/m\S\2 SV(MOD-sp2) 82.3 ml SI(MOD-sp2) 41.1 ml/m\S\2 SV(MOD-bp) 79.1 ml SI(MOD-bp) 39.5 ml/m\S\2 SV(sp4-el) 64.3 ml SI(sp4-el) 32.1 ml/m\S\2 SV(sp2-el) 90.2 ml SI(sp2-el) 45.1 ml/m\S\2 Doppler Measurements and Calculations MV E max ashely 57.2 cm/sec MV A max ashely 87.3 cm/sec MV E/A 0.66 MV dec time 0.36 sec Ao V2 max 143.6 cm/sec Ao max PG 8.2 mmHg Ao max PG (full) 3.1 mmHg LV V1 max PG 5.1 mmHg LV V1 max 113.0 cm/sec PA V2 max 107.5 cm/sec PA max PG 4.6 mmHg PI max ashely 134.7 cm/sec PI max PG 7.3 mmHg PI dec slope 235.8 cm/sec\S\2 PI P1/2t 167.2 msec
--- NOTE | 2018-06-20 13:03 | Discharge Instructions ---
Discharge Instructions Date of Service Jun 20, 2018. Admission Reason for Admission: TIA Discharge Discharge Diagnosis / Problem: TIA Discharge Goals Goal(s): Diagnostic testing, Therapeutic intervention Activity Recommendations Activity Limitations: as noted below Lifting Limitations: gradually increase as tolerated Please complete workup with testing as recommended by Dr Nuñez, EEG ( brain wave test to eval for seizure) and holter monitor to evaluate for irregular heart beat that could lead to TIA . Instructions / Follow-Up Instructions / Follow-Up Risk Factors for Stroke: You can reduce your chances of stroke by working with your medical provider to adopt a healthy lifestyle. Some specific ways to lower your chance of stroke are: * If you are a smoker, now is the time to stop smoking cigarettes * If you are diabetic, improve the control of your blood sugars * Avoid excessive amounts of alcohol * Control high blood pressure * Lose weight if you are overweight * Be sure to lead an active lifestyle * Eat a healthy diet low in salt, cholesterol and fat You should know about other risk factors for stroke that you are unable to control. These include: * Age 55 years or older * Male gender * Certain racial groups: , or / * Family History of Stroke, Mini stroke or Heart Attack * Sickle Cell Disease Follow Up: It is important for you to keep your follow up appointments with your medical provider. Current Hospital Diet Patient's current hospital diet: AHA Diet (Heart Healthy) Discharge Diet Recommended Diet: AHA Diet (Heart Healthy) Pending Studies Studies pending at discharge: no Laboratory Results Hemoglobin A1c Test 06/19/18 21:41 Range/Units Estimated Average Glucose 140 mg/dl Hemoglobin A1c 6.5 H 4.5-5.6 % Lipid Panel Test 06/20/18 05:26 Range/Units Triglycerides Level 65 0-150 mg/dl Cholesterol Level 127 0-200 mg/dl HDL Cholesterol 47 mg/dl Cholesterol/HDL Ratio 2.7 LDL Cholesterol, Calculated 67 mg/dl Medical Emergencies . Who to Call and When: Medical Emergencies: Call 911 immediately if you experience any of the following warning signs and symptoms of Stroke: * Sudden numbness or weakness of the face, arm or leg, especially on one side of the body * Sudden confusion, trouble speaking or understanding * Sudden trouble seeing in one or both eyes * Sudden trouble walking, dizziness, loss of balance or coordination * Sudden severe headache with no cause Do not delay calling 911 if you experience any warning signs or symptoms of a stroke. Delay in seeking medical attention may affect what treatments can be given to you. . Non-Emergent Contact Non-Emergency issues call your: Primary Care Provider, Neurologist . . "Provider Documentation" section prepared by Kyle Humphrey. . Stroke Core Measures Reason no t-PA for Stroke: Treatment not indicated Reason no antithrom by day 2: Treatment provided - N/A Reason no antithrom at D/C: Treatment not indicated Reason no statin at D/C: Treatment provided - N/A Reason no anticoag w/a fib: Treatment provided - N/A
[2018-06-20 13:18] VITALS: BP 144/80; PULSE 61; TEMP 36.4; O2SAT 96
--- NOTE | 2018-06-20 13:20 | Discharge Summary ---
Discharge Summary Date of Service Jun 20, 2018. Discharge Summary Admission Date: Jun 19, 2018 at 23:58 Discharge Date: Jun 20, 2018 Discharge Disposition: Home Principal Diagnosis: tia Immunizations: Have You Had Influenza Vaccine: Yes Influenza Vaccine Date: Aug 20, 2013 History of Tetanus Vaccine?: Unknown History of Pneumococcal: Yes Pneumococcal Date: Sep 20, 2012 History of Hepatitis B Vaccine: Unknown Medication Reconciliation Continued Medications: Pncmg-P-Kchdkyyhkfdsz (Beano) 1 Tab Tab 1 TAB PO DAILY Ascorbic Acid (Vitamin C) 500 Mg Tab 500 MG PO DAILY Aspirin (Aspirin 81 Low Dose) 81 Mg Chw 1 TAB PO DAILY Clopidogrel (Plavix) 75 Mg Tab 75 MG PO NOON Lisinopril (Zestril) 5 Mg Tab 5 MG PO DAILY, TAB Lorazepam (Ativan) 1 Mg Tab 0.5-1 MG PO BID PRN for Anxiety, TAB Melatonin (Melatonin) 1 Mg Cap 1 MG PO HS PRN for Sleep Metoprolol Tartrate (Lopressor) 25 Mg Tab 25 MG PO BID Nitroglycerin (Nitrostat) 0.4 Mg Tab 0.4 MG SL UD PRN for Chest Pain PLACE 1 TABLET UNDER THE TONGUE EVERY 5 MINUTES UP TO 3 DOSES NEEDED FOR CHEST PAIN. Prednisone (Prednisone) 5 Mg Tab 2.5 MG PO BID Simvastatin (Zocor) 40 Mg Tab 40 MG PO HS Discharge Exam Review of Systems: Constitutional: No fever, No chills Cardiovascular: No chest pain, No orthopnea Abdomen: No pain, No nausea Neurologic: No memory loss, No paralysis, No weakness Physical Exam: General Appearance: WD/WN, no apparent distress Respiratory/Chest: chest non-tender, lungs clear, normal breath sounds Cardiovascular: regular rate, rhythm, no murmur Hospital Course 83 M with reversible speech issues, did have similar one week ago, neurologic imaging negative for acute or subacute stroke. Neurology will work up out pt with EEG and holter monitor. will continue with aspirin and plavix plus a statin at this point, pt is resistent to escalating statin to atorvo at this point family was present at bedside and updated Total Time Spent: Greater than 30 minutes This includes examination of the patient, discharge planning, medication reconciliation, and communication with other providers. Discharge Instructions Please refer to the electronic Patient Visit Report (Discharge Instructions) for additional information. Additional Copies To Lesli Yeboah D.O.
--- NOTE | 2018-06-20 14:03 | Pharmacy Progress Note ---
Pharmacist Stroke Counseling Date of Service Jun 20, 2018. Scope Pharmacy has been consulted to provide medication discharge counseling for this patient admitted with ischemic stroke/hemorrhagic stroke/ transient ischemic attack as per the Pharmacist Discharge Counseling for Stroke Patients Protocol. Medications on Discharge Continued Medications: Sgmls-Y-Qozzbaeqakius (Beano) 1 Tab Tab 1 TAB PO DAILY Ascorbic Acid (Vitamin C) 500 Mg Tab 500 MG PO DAILY Aspirin (Aspirin 81 Low Dose) 81 Mg Chw 1 TAB PO DAILY Clopidogrel (Plavix) 75 Mg Tab 75 MG PO NOON Lisinopril (Zestril) 5 Mg Tab 5 MG PO DAILY, TAB Lorazepam (Ativan) 1 Mg Tab 0.5-1 MG PO BID PRN for Anxiety, TAB Melatonin (Melatonin) 1 Mg Cap 1 MG PO HS PRN for Sleep Metoprolol Tartrate (Lopressor) 25 Mg Tab 25 MG PO BID Nitroglycerin (Nitrostat) 0.4 Mg Tab 0.4 MG SL UD PRN for Chest Pain PLACE 1 TABLET UNDER THE TONGUE EVERY 5 MINUTES UP TO 3 DOSES NEEDED FOR CHEST PAIN. Prednisone (Prednisone) 5 Mg Tab 2.5 MG PO BID Simvastatin (Zocor) 40 Mg Tab 40 MG PO HS Action The above medications, specifically ones for stroke treatment/prophylaxis, have been reviewed in detail with the patient and/or patient medical field representative(s) prior to discharge. This includes indication, common adverse reactions, drug interactions, and medication administration. Medication counseling has been employed using the teach-back method to ensure understanding. Outcome The patient and/or patient medical field representative(s) have demonstrated understanding of the medications. Please note, they are aware that the pharmacist will call them within 72 hours post-discharge to confirm that the appropriate medications are being taken and answer any further medication related questions the patient might have at that time. Contact information Individual to be contacted: Patient Relationship to patient (if applicable): n/a Phone number: [phone] Best time to call: 9 am or later Additional comments: Mr. Martinez was pleasant to speak with. He had no home medication changes during his stay and was already on aspirin/plavix/simvastatin. He had not questions regarding these medications and says that he has not had any issues with them in the past. He states that he is usually good at taking the medications but will forget every once in a while. Aware of follow-up phone call to be placed- if patient is at home cell phone does not have service- may need to try both numbers or try home number first. Thank you for allowing pharmacy to be involved in the care of this patient. Please call [phone] or [phone] with any additional questions
[2018-06-20] MEDS ORDERED: SIMVASTATIN 40 MG TAB PO SCH (21:00)
[2018-06-23 06:33] LABS: ANTICARDIOLIPID AB IGA <11 APL (< = 11)
--- NOTE | 2018-06-24 16:07 | Pharmacy Progress Note ---
Pharmacist Post D/C Phone Note Date of phone call: Jun 24, 2018. Individual with whom pharmacist spoke to: Patient The following questions were reviewed during the phone call with responses listed below each: Can you tell me the medications that you are currently taking as well as when and how you take each medication? Medications Dose Route/Sig Max Daily Dose Days Date Category Dose Instructions Melatonin 1 Mg Cap 1 Mg PO HS PRN 06/20/18 Reported Ativan (Lorazepam) 1 Mg Tab 0.5-1 Mg PO BID PRN 06/20/18 Reported Note: has 0.5mg tablets Zestril (Lisinopril) 5 Mg Tab 5 Mg PO DAILY 06/20/18 Reported Aspirin 81 Low Dose (Aspirin) 81 Mg Chw 1 Tab PO DAILY 06/20/18 Reported Plavix (Clopidogrel Bisulfate) 75 Mg Tab 75 Mg PO NOON 06/26/15 Reported Beano (Mbeas-R-Xkxmrdmmluros) 1 Tab Tab 1 Tab PO DAILY 06/26/15 Reported Vitamin C (Ascorbic Acid) 500 Mg Tab 500 Mg PO DAILY 04/01/13 Reported Lopressor (Metoprolol Tartrate) 25 Mg Tab 25 Mg PO BID 04/01/13 Reported Nitrostat (Nitroglycerin) 0.4 Mg Tab 0.4 Mg SL UD PRN 12/01/[address] 1 TABLET UNDER THE TONGUE EVERY 5 MINUTES UP TO 3 DOSES NEEDED FOR CHEST PAIN. Zocor (Simvastatin) 40 Mg Tab 40 Mg PO HS 12/01/06 Reported Prednisone 5 Mg Tab 2.5 Mg PO BID 12/01/06 Reported Docusate 100mg once daily Vitamin E 400 units once daily When have you missed any doses of your medications? - Denies, knows what to do if he forgets What side effects are you having from your medications? - Denies, has been on these Rx's for >5 years What questions do you have about your medications? - None at this time What problems are you having obtaining your medications? - Denies, has "good insurance" When is your next appointment with your primary care doctor? - Saw PCP today Additional comments: * No medication changes made this admission. Patient seems knowledgeable and aware of Rx's. Uses pillbox. The patient and/or patient outside energy sales representatives(s) were unable to be reached for a follow-up phone call within the 72 hour time frame. Thank you for allowing us to be involved in the care of this patient.
== END 2018-06-20 14:15 | disposition home or self-care (01) | DRG 69 ==
LOC: EDBD 21:33 → C.EDA 21:36 → C.2E 23:58 → ENRESERV 06-20 00:16 → C.2E 06-20 00:46
PROVIDERS: ADMIT Student in an Organized Health Care Education/Training Program; ATTEND Internal Medicine
DX: G45.9 Transient cerebral ischemic attack, unspecified (principal); I25.10 Atherosclerotic heart disease of native coronary artery without angina pectoris; I10 Essential (primary) hypertension; E78.5 Hyperlipidemia, unspecified; R41.0 Disorientation, unspecified; R53.1 Weakness; F41.9 Anxiety disorder, unspecified; Z79.52 Long term (current) use of systemic steroids; Z79.82 Long term (current) use of aspirin; Z79.899 Other long term (current) drug therapy; Z82.3 Family history of stroke; Z88.0 Allergy status to penicillin; Z88.2 Allergy status to sulfonamides; Z87.891 Personal history of nicotine dependence

== ENCOUNTER → 2018-06-23 | Outpatient (CLI) | payer BC ==
[~2018-06-23] MED LIST changes: +ASPI1CHW12 PO; +ATV/1 PO; +LISI-729 PO; +MELA1CAP PO
--- NOTE | 2018-06-24 13:33 | EEG Procedure Note ---
EEG Procedure Note Date of Service Jun 23, 2018. Start / End Times Start Time: 2:08pm End Time: 2:28pm Referring Physician Klye Humphrey History This is a 83-year-old male who presented with TIA-like symptoms. EEG for further evaluation of possible seizure etiology. Home Medication List Scheduled Apaum-Q-Bxpnwwlufjmol (Beano), 1 TAB PO DAILY Ascorbic Acid (Vitamin C), 500 MG PO DAILY Aspirin (Aspirin 81 Low Dose), 1 TAB PO DAILY Clopidogrel (Plavix), 75 MG PO NOON Lisinopril (Zestril), 5 MG PO DAILY Metoprolol Tartrate (Lopressor), 25 MG PO BID Prednisone (Prednisone), 2.5 MG PO BID Simvastatin (Zocor), 40 MG PO HS Scheduled PRN Lorazepam (Ativan), 0.5-1 MG PO BID PRN for Anxiety Melatonin (Melatonin), 1 MG PO HS PRN for Sleep Nitroglycerin (Nitrostat), 0.4 MG SL UD PRN for Chest Pain Description This is a 21 electrode EEG with a single channel dedicated to limited EKG. The electrodes were placed in accordance with the International 10-20 system. At the start of the recording the patient was in an awake state. Background was well organized and composed of symmetric mixed alpha and beta frequencies. There was a symmetric well-formed moderate amplitude 8-9 Hz posterior dominant rhythm that was reactive to eye opening and closure. Hyperventilation was not done. Intermittent photic stimulation at various frequencies produced no abnormalities. Drowsiness was indicated by loss of muscle artifact and slowing of background rhythm. There was no sleep transients. Interpretation This is a normal awake and drowsy routine EEG. There was no electrographic seizures or epileptiform discharges. Clinical Correlation A normal EEG does not rule out epilepsy if there is a strong clinical suspicion.
== END | disposition home or self-care (01) ==
LOC: C.NEUR 13:54
PROVIDERS: ATTEND Internal Medicine
DX: G45.9 Transient cerebral ischemic attack, unspecified (principal)

== ENCOUNTER 2020-01-31 10:39 | Observation (INO) ==
[2020-01-31] MEDS ORDERED: CLINDAMYCIN PHOS 300 MG/2 ML VIAL ONE (10:51)
[2020-01-31] MEDS ORDERED: fentaNYL citrate 100 MCG/2 ML VIAL ONE (11:11)
[2020-01-31] MEDS ORDERED: MIDAZOLAM HCL 5 MG/ML 1 ML VIAL ONE (11:11)
[2020-01-31] MEDS ORDERED: BACITRACIN OINT 0.9 GM PKT ONE (11:21)
[2020-01-31] MEDS ORDERED: BACITRACIN INJ 50,000 UNIT VIAL ONE (11:21)
[2020-01-31] MEDS ORDERED: LIDOCAINE HCL 1% 20 ML VIAL ONE (11:21)
--- NOTE | 2020-01-31 11:48 | History & Physical Bridge Note ---
Date of Service January 31, 2020 History & Physical Bridge Note I have examined the patient, reviewed the History & Physical and in the interval since the performance of the History & Physical I have noted the following changes of clinical significance: no changes noted. He continues to have exertional fatigue and chest discomfort and he continues to have intermittent lightheadedness and dizziness. I discussed the indications, procedure, risks and alternatives of pacemaker implantation with him and he understands and agrees to proceed. Consent obtained. I reviewed conscious sedation with him and he agrees. Consent obtained.
--- NOTE | 2020-01-31 11:49 | Pre Anesthesia Assessment ---
Date of Service January 31, 2020 Pre Sedation Assessment Vital Signs Temp Pulse Resp BP Pulse Ox 01/31/20 10:48 36.7 C 60 16 205/90 H 96 Cardiovascular RRR, no murmur, no edema + bradycardic Respiratory normal respiratory effort, lungs clear to auscultation Pre-Sedation Airway Assessment Smoking Status: Never smoker Hx Sleep Apnea: No Hx Difficult Intubation: No Short, Thick Neck: No Thyromental Distance: > or= 3.5 Finger Breadths Oral Cavity: + WNL Mallampati Class: III ASA: ASA3 NPO Status Date of Last Intake of Fluids: 01/30/20 Date of Last Intake of Solid Food: 01/30/20 Procedure Planning Contraindications for Sedation: none Current Medications Reviewed: Yes Notes The planned sedation has been discussed with the patient. Informed Consent was obtained. I have identified the patient, determined the appropriateness of sedation and have assessed the patient immediately prior to the procedure. All medicine(s) and interventions are by my order.
--- NOTE | 2020-01-31 13:02 | Electrophysiology Report ---
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 The left prepectoral region was anesthetized with 1% lidocaine local anesthetic and left axillary venipuncture was performed by percutaneous technique and a guidewire placed through the left subclavian vein into the superior vena cava. The area was further infiltrated with 1% lidocaine local anesthetic and a 5 cm incision was made parallel to the left clavicle and 2 cm below it and carried down to the anterior pectoralis fascia. A pacemaker pocket was formed by blunt dissection anterior to the pectoralis fascia and a bacitracin-soaked sponge (50,000 units in 50 cc normal saline solution) was placed in the pocket. An 8 [place] Medtronic lead introducer was placed over the guidewire into the left subclavian vein, the dilator and guidewire were removed and a bipolar active fixation steroid tipped ventricular lead was advanced through the introducer into the superior vena cava. A guidewire was placed through the introducer and the introducer was stripped from the lead and guidewire. Another 8 [place] Medtronic lead introducer was placed over the guidewire into the left subclavian vein, the dilator and guidewire were removed and a bipolar active fixation steroid tipped atrial lead was advanced through the introducer into the superior vena cava. A guidewire was placed back through the introducer and the introducer was stripped from the lead and guidewire. Using a curved stylette the ventricular lead was advanced through the right ventricular outflow tract into the pulmonary artery and then using a straight stylette was positioned in the right ventricular apex. The screw was extended fixing the lead in position. Pacing and sensing thresholds were evaluated in bipolar configuration and are recorded on the implant data sheet. Using a curved stylette the atrial lead was positioned in the region of the atrial appendage and the screw extended fixing the lead in position. Pacing and sensing thresholds were evaluated in bipolar configuration and are recorded on the implant data sheet. Once the leads were in position they were attached to the anterior pectoralis fascia using 2 sutures of 2-0 silk around each lead collar. The bacitracin-soa ked sponge was removed from the pocket, hemostasis was obtained, the pacemaker was attached to the leads and placed in the pocket with the leads coiled beneath it. The incision was closed with a running double subcutaneous closure of 3-0 Vicryl absorbable suture, followed by running subcuticular skin closure of 4-0 Vicryl absorbable suture. Bacitracin ointment was placed on the incision and a pressure dressing applied. [facility] [place] Electrophysiology codes Indication for Procedure (1) Mobitz (type) I (Wenckebach's) atrioventricular block: (2) Sinus node dysfunction: Pacing Procedure 1: Pacin Insert/Replace Pacer A & V PG Moderate Sedation Codes Moderate Sedation Codes Procedure 1: Sedation/Anesthesia: 58459 Mod Sedation by the same physician;Init15 Min Child Age 5 & Up Procedure 2: Sedation/Anesthesia: 38728 Mod Sedation by the same physician; Ea [id number] Minutes
[2020-01-31] MEDS ORDERED: BENZONATATE 100 MG CAPSULE PO PRN (13:05)
[2020-01-31] MEDS ORDERED: NITROGLYCERIN SL 0.4 MG/TAB TAB SL PRN (13:08)
--- NOTE | 2020-01-31 13:13 | Post Anesthesia Assessment ---
Date of Service January 31, 2020 Post Sedation Assessment Vital Signs Temp Pulse Resp BP Pulse Ox 01/31/20 13:00 62 17 121/102 H 94 01/31/20 10:48 36.7 C 60 16 205/90 H 96 Recovery Score Activity: Moves 4 extremities Respiration: Deep Breath/Cough Circulation: +/-20% PreAnes Value Consciousness: Fully Awake Oxygen Saturation: > 92% On Room Air Post Anesthesia Score: 10 Discharge Sedation Level of Care: Fast Track Phase II Post Sedation Plan On clinical assessment, the patient appears to have tolerated the sedation without complications. Patient is recovering as anticipated. Patient will continue to be monitored by nursing and may be discharged when sedation discharge criteria are met per below protocol. Upon Completions of procedure up to 15 minutes continue every 5 minute vital signs and the P.A.R. score; then discharge to a Phase I or Fast Track to Phase II per the following guidelines: * Discharge Patient to appropriate Phase II area if PAR is 8 or greater or return to pre- procedure baseline. The post - procedure orders will be as directed. * If PAR score is less than 8 or not return to pre-procedure baseline then patient will follow Phase I monitoring till PAR is reached for Phase II. The Phase I may be done in procedure room or may call to secure a Phase I area. * If naloxone or flumazenil are used for reversal, hold in Phase I for continued monitoring from when last reversal dose was given for a minimum of 60 minutes or longer pending the nurse and/or physician discretion of patient condition before discharge to Phase II. Please call the Sedation Physician to re-evaluate and complete post-note for discharge to Phase II area. Do NOT discharge from procedure sedation or Phase 1 until post- sedation evaluation note is complete by procedure /sedation MD Sedation Discharge Instructions to be given to the patient at discharge to home.
--- NOTE | 2020-01-31 13:59 | Electrocardiogram Report ---
Test Reason : Blood Pressure : / mmHG Vent. Rate : 061 BPM Atrial Rate : 060 BPM P-R Int : 206 ms QRS Dur : 186 ms QT Int : 496 ms P-R-T Axes : 016 -70 086 degrees QTc Int : 499 ms AV dual-paced rhythm Abnormal ECG When compared with ECG of 19-JUN-2018 21:57, Electronic ventricular pacemaker has replaced Sinus rhythm Confirmed by Billy Cutler ([id number]) on 01/31/2020 1:58:41 PM Referred By: Billy Cutler Confirmed By:Billy Cutler
[2020-01-31] MEDS: METOPROLOL TARTRATE 50 MG TAB PO SCH ×2 (14:58→20:56)
[2020-01-31] MEDS: ACETAMINOPHEN 325 MG TAB PO PRN (20:59)
[2020-01-31] MEDS ORDERED: SIMVASTATIN 40 MG TAB PO SCH (21:00)
[2020-02-01] MEDS: ACETAMINOPHEN 325 MG TAB PO PRN (03:40)
[2020-02-01] MEDS: METOPROLOL TARTRATE 50 MG TAB PO SCH (08:30)
[2020-02-01] MEDS ORDERED: POTASSIUM CHLORIDE 10 MEQ TABCR PO SCH (09:00)
[2020-02-01] MEDS ORDERED: ASPIRIN 81 MG ECTAB PO SCH (09:00)
[2020-02-01] MEDS ORDERED: FUROSEMIDE 20 MG TAB PO SCH (09:00)
[2020-02-01] MEDS ORDERED: ALPHA D GALACTOSIDASE PO SCH (09:00)
[2020-02-01] MEDS ORDERED: lisinopriL 5 MG TAB PO SCH (09:00)
[2020-02-01] MEDS ORDERED: DOCUSATE SODIUM 100 MG CAP PO SCH (09:00)
[2020-02-01] MEDS ORDERED: ASCORBIC ACID 500 MG TAB PO SCH (09:00)
[2020-02-01] MEDS ORDERED: CLOPIDOGREL BISULFATE 75 MG TAB PO SCH (09:00)
--- NOTE | 2020-02-01 09:20 | XRay Report ---
XR chest 2V PA/lateral CLINICAL HISTORY: EXACT TIME ORDERED Evaluate for pneumothorax and l COMPARISON STUDY: 12/13/2019 FINDINGS: The cardiac and mediastinal contours remain stable. There has been interval placement of a left subclavian dual-chamber central venous pacemaker. Electrode position appears unremarkable. There is no focal pulmonary consolidation. There is no failure. There are small pleural effusions. There i s no pneumothorax. There are subsegmental atelectatic changes at the left lung base.[ IMPRESSION: No evidence of pneumothorax status post placement of a left subclavian dual-chamber centr al venous pacemaker. ACT 112: Negative or not required by law. Electronically signed by: Candido Forman M.D. 02/01/2020 9:19 AM
--- NOTE | 2020-02-01 11:14 | Cardiology Progress Note ---
Date of Service February 01, 2020 Assessment & Plan (1) Status post placement of cardiac pacemaker: He is doing well postop, the site looks good today, the chest x-ray looks good and he feels well. The pacemaker is working well. He is stable for discharge. (2) Mobitz (type) I (Wenckebach's) atrioventricular block: He is pacing most of the time now, especially with the increase in beta- blockade. We left him programmed to the DDDR mode rather than adding MVP. (3) Sinus node dysfunction: He is pacing most of the time in the atrium, in part due to the increase in beta-blockade. He is in rate responsive mode. (4) Hypertension: He was very hypertensive yesterday, his blood pressure is considerably improved and is borderline today. With his coronary disease he probably should be on higher doses of beta-blockade so I am going to discharge him on 50 mg twice a day of metoprolol tartrate, we may be able to increase that as an outpatient. Admission and Anticipated Discharge Date Admission Date: January 31, 2020 Subjective He had some bleeding last evening following surgery, it was external and a pressure dressing was applied, there was no significant blood loss. Overnight he has felt well, he has minimal discomfort and no chest discomfort. No palpitations. Physical Exam Physical Exam: The site looks good, the original dressing from the OR was saturated, the pressure dressing over it has no significant blood on it. The incision is clean and dry today, there is no hematoma and only the expected ecchymosis. Results & Data ([facility]) Vital Signs (Past 12 Hours) Vital Signs Temp Pulse Pulse Resp BP BP Pulse Ox 02/01/20 10:33 36.5 C 60 20 142/69 H 145/75 H 95 02/01/20 08:00 36.5 C 60 20 142/69 H 95 02/01/20 04:29 36.4 C L 61 18 145/75 H 94 02/01/20 01:05 60 Diagnostic Findings Electrocardiogram: Appropriate AV sequential pacing. Telemetry: Normal pacing function, predominantly AV sequential pacing Chest x-ray: Good lead position, no pneumothorax Pacemaker evaluation: Excellent pacing and sensing characteristics PG Care Time/CCT Total # of Minutes Spent Total Time Spent with Patient: Total time spent is greater than 50% in coordination of care (as documented) at patient's floor/unit and/or counseling patient: Coding Level of Care Code 77192 Post Operative Follow-Up Diagnoses Status post placement of cardiac pacemaker Z95.0 Mobitz (type) I (Wenckebach's) atrioventricular block I44.1 Sinus node dysfunction I49.5 Hypertension I10 CPT Codes Dual Lead Pacemaker System - 51637 ([id number])
--- NOTE | 2020-02-13 07:37 | Discharge Summary ---
Date of Service January 31, 2020 Admission HPI Per Admitting Provider This is an 84-year-old male presenting with bradycardia and noted to be in second-degree AV block. He had periods of Mobitz type II AV block as well as periods of complete heart block and pauses in excess of 3 seconds. He therefore was brought to the hospital for pacemaker implantation. Admission Exam Per Admitting Provider Constitutional: Alert, cooperative and in no distress. Pulmonary: Clear to auscultation bilaterally. Cardiac: Regular slow rhythm with no murmur, gallop or rub. Abdomen: Soft, nontender with normal bowel sounds. Extremities: No edema. Skin: No rash, ecchymoses or petechiae. Principal Diagnosis Symptomatic second-degree AV block Discharge Exam [facility] Mallampati Class: III Respiratory normal respiratory effort, lungs clear to auscultation Cardiovascular RRR, no murmur, no edema Rate/Rhythm: + bradycardic Skin The incision was clean and dry without drainage. Discharge Data Allergies Allergy/AdvReac Type Severity Reaction Status Date / Time lactose Allergy Unknown GI UPSET Verified 02/06/20 19:11 Penicillins Allergy Unknown HIVES Verified 02/06/20 19:11 shellfish derived Allergy Unknown HIVES Verified 02/06/20 19:11 Sulfa (Sulfonamide Allergy Unknown HIVES Verified 02/06/20 19:11 Antibiotics) sulfamethoxazole Allergy . Verified 02/06/20 19:11 [From Bactrim] trimethoprim [From Bactrim] Allergy . Verified 02/06/20 19:11 Procedures Performed Operation Date: 01/31/20 12:00 Actual Procedures p Pacer with A/V Leads (Dual) - Nitin Rainey MD Ordered Studies 01/31/20 11:34 CL Cath Imgs for PACS use only Routine Hospital Course (1) Status post placement of cardiac pacemaker: He is doing well postop, the site looks good today, the chest x-ray looks good and he feels well. The pacemaker is working well. He is stable for discharge. (2) Mobitz (type) I (Wenckebach's) atrioventricular block: He is pacing most of the time now, especially with the increase in beta-blockade. We left him programmed to the DDDR mode rather than adding MVP. (3) Sinus node dysfunction: He is pacing most of the time in the atrium, in part due to the increase in beta-blockade. He is in rate responsive mode. (4) Hypertension: He was very hypertensive yesterday, his blood pressure is considerably improved and is borderline today. With his coronary disease he probably should be on higher doses of beta-blockade so I am going to discharge him on 50 mg twice a day of metoprolol tartrate, we may be able to increase that as an outpatient. Total Time Total Time Spent Total Time Spent (In Minutes): 20 Discharge Plan Discharge Items Patient Disposition: Home - Self-Care Reason For Visit: Complete Heart Block Discharge Diagnosis: Pacemaker implantation Activity: Per Instructions section Bathing: Keep incision dry Non-emergency contact: Primary Care Provider Call non-emergency contact if: you have any medication questions Follow-up/Referrals: Nitin Rainey MD [Physician] - 02/05/20 10:00 am Gita Álvarez MD [Primary Care Provider] - Diet: Heart Healthy Addtl Attending Provider Instructions: ACTIVITY RECOMMENDATIONS: * Do not raise affected arm over head for 2 weeks. SPECIAL CARE INSTRUCTIONS: * If bleeding occurs, apply direct pressure to area for 5 minutes. * Call your doctor if you have severe pain, fever, drainage or bleeding at site. * Keep dressing on and dry for 48 hours then remove. * Keep any scheduled doctor's appointment. * Implant Card - hand held device with website information given. SKIN IRRITATION: * You may experience some redness and/or swelling in the area where radiation was administered. If any skin irritation occurs, please contact your family physician. FOLLOW UP VISIT: Keep any scheduled doctor appointments. Pending Studies at Discharge: No Stand-Alone Forms: My [facility], Smoking Cessation Medications and DC Order Prescriptions: Continued simvastatin 40 mg tablet 40 mg PO QPM Qty: 90 RF: 3 melatonin 1 mg tablet 1 mg PO HS PRN (Reason: Sleep) RF: 0 rnzwf-y-dijzwidmciekj 150 unit tablet 1 tab PO QAM RF: 0 ascorbic acid (vitamin C) 500 mg tablet 500 mg PO QAM RF: 0 docusate sodium 100 mg capsule 300 mg PO QPM RF: 0 nitroglycerin 0.4 mg tablet, sublingual 0.4 mg SL DIRECTED PRN (Reason: Chest Pain) Qty: 1 RF: 0 vitamin E succinate 400 unit tablet 600 units PO BID RF: 0 prednisone 5 mg tablet 5 mg PO QPM Qty: 180 RF: 0 Discontinued metoprolol tartrate 25 mg tablet 12.5 mg PO BID Qty: 180 RF: 3 No Action metoprolol tartrate 100 mg tablet 100 mg PO BID Qty: 60 RF: 11 aspirin 81 mg Tablet,Delayed Release (Dr/Ec) 81 mg PO QAM RF: 0 clopidogrel 75 mg tablet 75 mg PO QAM RF: 0 lisinopril 5 mg tablet 5 mg PO QAM RF: 0 Discharge Orders: Discharge Order (Routine); Ordered 02/01/20 Ordered By: Nitin Rainey Admission Data Admit Date/Time: 01/31/20 12:22 Attending Provider: Nitin Rainey Admit Provider: Nitin Rainey Primary Care Provider: Gita Álvarez Other Interventions: Discharge Summary Assessment (RN) Last Done: 02/01/20 10:33 DC Date/Time DO NOT enter until pt leaves facility: 02/01/20 14:47 Coding Level of Care Code 45920 OBS Care - Discharge Diagnoses Status post placement of cardiac pacemaker Z95.0 Mobitz (type) I (Wenckebach's) atrioventricular block I44.1 Sinus node dysfunction I49.5 Hypertension I10 Hypertension type: unspecified
== END 2020-02-01 14:47 | disposition home or self-care (01) ==
LOC: 2S 10:39 → EP 10:39

== ENCOUNTER 2020-04-22 07:02 | Observation (INO) ==
[2020-04-22] MEDS ORDERED: NITROGLYCERIN SL 0.4 MG/TAB TAB SL PRN ×2 (07:25→10:43)
--- NOTE | 2020-04-22 07:49 | XRay Report ---
XR chest 1V portable HISTORY: Atypical Chest Pain COMPARISON: Chest 02/06/2020. FINDINGS: No pneumothorax. The heart is top normal in size. This remains unchanged. Left-sided dual-c hamber pacemaker is again noted. No evidence for pulmonary edema. Bibasilar linear densities, left gr eater than right persists. Suspect a trace left pleural effusion. This is also unchanged. IMPRESSION: No significant change compared to the prior study. No acute process. Bibasilar linear densities and a trace left pleural effusion persists. ACT 112: Negative or not required by law. Electronically signed by: Andrew Tafoya M.D. 04/22/2020 7:47 AM
[2020-04-22 08:05] LABS: Basophils # (auto) 0.01 K/uL (0-0.2); Basophils % (auto) 0.1 %; Eosinophils # (auto) 0.03 K/uL (0-0.5); Eosinophils % (auto) 0.4 %; Hematocrit (blood only) 43.1 % (42-52); Hemoglobin 14.1 g/dL (14.0-18.0); Immature Granulocytes # (auto) 0.07 K/uL (0.00-0.02); Immature Granulocytes % (auto) 0.9 %; Lymphocytes # (auto) 1.18 K/uL (1.2-3.4); Lymphocytes % (auto) 15.3 %; Mean Corpuscular Hemoglobin 31.9 pg (25-34); Mean Corpuscular Hgb Conc 32.7 g/dL (32-36); Mean Corpuscular Volume 97.5 fL (80-100); Mean Platelet Volume 10.2 fL (7.4-10.4); Monocytes # (auto) 0.98 K/uL (0.11-0.59); Monocytes % (auto) 12.7 %; Neutrophils # (auto) 5.46 K/uL (1.4-6.5); Neutrophils % (auto) 70.6 %; Platelet Count 163 K/uL (130-400); RDW Coefficient of Variation 14.1 % (11.5-14.5); RDW Standard Deviation 50.6 fL (36.4-46.3); Red Blood Count 4.42 M/uL (4.7-6.1); White Blood Count 7.73 K/uL (4.8-10.8)
[2020-04-22 08:10] LABS: Partial Thromboplastin Ratio 0.8; Prothrombin Time 10.7 Seconds (9.0-12.0)
[2020-04-22 08:12] LABS: Albumin Level 3.3 gm/dl (3.4-5.0); BUN Creatinine Ratio 24.3 (10-20); Calcium 8.5 mg/dl (8.5-10.1); Creatinine Clr Calc Pharmacy 44.6 ml/min; Est GFR (African American) 54.9; Est GFR (Non-African American) 47.4; Potassium 4.1 mmol/L (3.5-5.1)
[2020-04-22 08:16] LABS: Albumin Globulin Ratio 1.2 (0.9-2); Bilirubin,Total 0.5 mg/dl (0.2-1); Globulin 2.8 gm/dl (2.5-4.0); Total Protein 6.1 gm/dl (6.4-8.2); Troponin I 0.033 ng/ml (0-0.045)
--- NOTE | 2020-04-22 09:08 | CT Scan Report ---
CT SCAN OF THE LUMBAR SPINE WITHOUT IV CONTRAST CLINICAL HISTORY: Low back pain. Radiculopathy. COMPARISON STUDY: Abdominal CT dated 12/02/2016. TECHNIQUE: CT scan of the lumbar spine is performed from the lower thoracic spine to the sacrum. Imag es are reviewed in the axial, sagittal, and coronal planes. IV contrast was not administered for this examination. A dose lowering technique was utilized adhering to the principles of ALARA. CT DOSE: 783.89 mGy.cm FINDINGS: The skeletal structures are osteopenic. There is no evidence of fracture or malalignment in volving the lumbar spine. There is straightening of the lumbar lordosis. Anterior and lateral margina l osteophytes are seen throughout. No lytic or blastic lesion is identified. The transverse and spino us processes appear intact. There is no evidence of spondylolysis. There is mild multilevel degenerat franklin disc space narrowing. There are posterior disc bulges at all levels. There is likely moderate mahesh tral canal stenosis at L4-L5. There is bilateral subarticular stenosis at this level with probable im pingement on the exiting bilateral L4 nerve roots. There is right-sided subarticular stenosis at L5-S 1 with possible impingement of exiting right L5 nerve root. At least mild central canal stenosis is s een at L3-L4. There is minimal facet arthropathy at L5-S1. The visualized sacrum and bony pelvis appe ar intact. The paraspinous soft tissues are normal as imaged. There is advanced atherosclerotic calci fication and mild ectasia of the abdominal aorta. A small hiatal hernia is noted. No retroperitoneal lymphadenopathy is seen. Foci of cortical scarring are noted in the left kidney. Right renal cysts ar e partially imaged. IMPRESSION: 1. No acute bony abnormality is identified. 2. 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 See discussio n for detailed findings. ACT 112: Negative or not required by law. Dictated: 04/22/2020 8:23 AM Transcribed: 04/22/2020 9:06 AM Hailey [id number] Pina Electronically signed by: Rakesh Lanier M.D. 04/22/2020 9:07 AM
--- NOTE | 2020-04-22 10:09 | Emergency Department Note ---
History of Present Illness General Chief complaint: Chest Pain Stated complaint: Chest pain Time Seen by Provider: 04/22/20 07:07 Source: patient, EMS and RN notes reviewed Mode of arrival: EMS Limitations: no limitations History of Present Illness Provider complaint: Chest pain, right hip pain. Maximum Pain Intensity: 6 This patient is an 84-year-old male who presents emergency department with complaints of chest pain and right hip pain. The patient states he has an extensive cardiac history including multiple stents. He has been seen several times recently for right hip pain. Patient is currently using a crutch to get around his home. He states while trying to ambulate to the restroom he developed a substernal chest pain that was significant but "quick." He denies any radiation of that pain. He states he took one nitroglycerin tablet with relief of the discomfort. He believes the exertion from trying to walk created the pain. Patient states he has been referred to orthopedic surgery but does not have an appointment scheduled. Patient lives at home with his son. Patient denies any difficulty with urination or bowel movements. He denies any recent falls. Home Medications Home Medications Medication Instructions Recorded Confirmed Type melatonin 1 mg tablet 1 mg PO HS PRN 05/05/19 04/22/20 History udten-m-ivkhctzqesidu 150 unit 1 tab PO QAM tab 08/22/19 04/22/20 History tablet ascorbic acid (vitamin C) 500 mg 500 mg PO QAM tab 08/22/19 04/22/20 History tablet prednisone 5 mg tablet 5 mg PO BID #180 tab 10/02/19 04/22/20 History simvastatin 40 mg tablet 40 mg PO QPM #90 tab 01/17/20 04/22/20 Rx aspirin 81 mg PO QAM 02/06/20 04/22/20 History metoprolol tartrate 100 mg tablet 100 mg PO BID #60 tab 02/07/20 04/22/20 Rx nitroglycerin 0.4 mg sublingual 0.4 mg SL DIRECTED PRN #25 tab 03/22/20 04/22/20 Rx tablet lisinopril 5 mg tablet 10 mg PO QAM #90 tab 04/18/20 04/22/20 Rx Stool Softener 325mg 325 mg PO HS 04/22/20 04/22/20 History Vitamin E 500 Iu 500 unit PO QAM 04/22/20 04/22/20 History acetaminophen [Tylenol Extra 500 mg PO Q6H PRN 04/22/20 04/22/20 History Strength] hydrocodone-acetaminophen [[employer]] 1 tab PO Q4H PRN #20 tab 04/24/20 Rx methylprednisolone [Medrol (Esequiel)] See Rx Instructions .ROUTE 04/24/20 Rx .COMPLEX #21 ea Allergies Allergy/AdvReac Type Severity Reaction Status Date / Time lactose Allergy Unknown GI UPSET Verified 04/22/20 07:33 Penicillins Allergy Unknown HIVES Verified 04/22/20 07:33 shellfish derived Allergy Unknown HIVES Verified 04/22/20 07:33 Sulfa (Sulfonamide Allergy Unknown HIVES Verified 04/22/20 07:33 Antibiotics) sulfamethoxazole Allergy . Verified 04/22/20 07:33 [From Bactrim] trimethoprim [From Bactrim] Allergy . Verified 04/22/20 07:33 Past Med/Surg History Medical History Chronic anticoagulation Colon adenoma (Inactive 09/20/13) Cough DM (diabetes mellitus), type 2 Heart disease Hypertension Lumbar radicular pain Mobitz (type) I (Wenckebach's) atrioventricular block Mobitz (type) II atrioventricular block Obesity, diabetes, and hypertension syndrome Stable angina pectoris Steroid dependent Surgical History History of bladder surgery History of coronary artery stent placement History of cystoscopy with insertion of ureteral stent History of partial colectomy History of tonsillectomy Status post placement of cardiac pacemaker (Acute) Family History Sister Cancer Mother Colorectal cancer Diabetes Father Myocardial infarction Stroke Other TIA (transient ischemic attack) Denies family history of Ovarian cancer Prostate cancer Breast cancer Social History Preferred Language: Irish Communication Ability: Effective Visual Impairment: No Limitations Hearing Ability: Normal Tv Technician Required: No Beliefs That Will Affect Care: None marital status: / Current Living Situation: Family Current Living Situation Comment: Patient's youngest son lives with him. 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 and A total of 10 systems reviewed and were otherwise negative Physical Exam Vital Signs Vital Signs - 24 hr 04/22/20 07:09 04/22/20 07:30 04/22/20 07:31 Temperature 37.1 C Temperature Source Oral Pulse Rate 68 Pulse Rate [Right Finger] Respiratory Rate 20 Respiratory Effort / Characteristics Non-Labored Spontaneous Respiratory Depth Normal Respiratory Pattern Regular Blood Pressure 159/75 H Blood Pressure [Left Arm] Blood Pressure Mean 103 Blood Pressure Mean [Left Arm] Blood Pressure Position Lying Blood Pressure Position [Left Arm] Pulse Oximetry 93 93 94 Oxygen Delivery Method Room Air Room Air Room Air Sepsis Recent Fever Within 48 Hours No Sepsis New/Unexplained Change in Mental Status No Sepsis Action Taken by Nursing No Action Required 04/22/20 08:00 Temperature Temperature Source Pulse Rate Pulse Rate [Right Finger] 64 Respiratory Rate 20 Respiratory Effort / Characteristics Non-Labored Spontaneous Respiratory Depth Normal Respiratory Pattern Regular Blood Pressure Blood Pressure [Left Arm] 130/85 Blood Pressure Mean Blood Pressure Mean [Left Arm] 100 Blood Pressure Position Blood Pressure Position [Left Arm] Lying Pulse Oximetry 93 Oxygen Delivery Method Room Air Sepsis Recent Fever Within 48 Hours Sepsis New/Unexplained Change in Mental Status Sepsis Action Taken by Nursing Vital signs reviewed. General: Chronically ill-appearing 84 yo male, in no significant distress. HEENT: No scleral icterus, PERRLA, neck supple. Atraumatic. Cardiovascular: Regular rate and rhythm, no extra sounds. Pulmonary: Clear to auscultation bilaterally, normal work of breathing. Abdomen: Soft, nontender, nondistended, positive bowel sounds. Musculoskeletal: Atraumatic, no peripheral edema. +R straight leg raise. Non- tender to palpation of R hip/bursa. Neurologic: Patient awake alert and oriented x 3 Skin: Warm, dry, no rash Course Administered Medications Discontinued Medications Hydrocodone Bitart/Acetaminophen ([employer] 5/325) 1 tab PO Q4H PRN PRN Reason: Pain Stop: 05/07/20 08:38 Last Admin: 04/23/20 15:15 Dose: 1 tab Documented by: [id number] Admin: 04/23/20 10:37 Dose: 1 tab Documented by: [id number] Aspirin (Ecotrin Ectab) 81 mg PO [facility] Stop: 05/23/20 08:59 Last Admin: 04/24/20 08:50 Dose: 81 mg Documented by: [id number] Admin: 04/23/20 09:05 Dose: 81 mg Documented by: [id number] Bismuth Subsalicylate (Pepto-Bismol) 30 ml PO QID PRN PRN Reason: Diarrhea Stop: 05/22/20 21:02 Last Admin: 04/23/20 23:56 Dose: 30 ml Documented by: [id number] Admin: 04/22/20 21:52 Dose: 30 ml Documented by: [id number] Clopidogrel Bisulfate (Plavix) 75 mg PO [facility] Stop: 05/23/20 08:59 Last Admin: 04/23/20 09:04 Dose: 75 mg Documented by: [id number] Docusate Sodium (Colace) 200 mg PO [facility] Stop: 05/22/20 20:59 Last Admin: 04/23/20 21:33 Dose: 200 mg Documented by: [id number] Admin: 04/22/20 20:55 Dose: Not Given Documented by: [id number] Lisinopril (Zestril) 10 mg PO [facility] Stop: 05/23/20 08:59 Last Admin: 04/24/20 08:50 Dose: 10 mg Documented by: [id number] Admin: 04/23/20 09:05 Dose: 10 mg Documented by: [id number] Melatonin (Melatonin) 3 mg PO HS PRN PRN Reason: Sleep Stop: 05/24/20 01:10 Last Admin: 04/24/20 01:31 Dose: 3 mg Documented by: [id number] Methylprednisolone (Medrol) 8 mg PO 0930,2100 [facility] Stop: 04/23/20 21:01 Last Admin: 04/23/20 21:33 Dose: 8 mg Documented by: [id number] Admin: 04/23/20 10:38 Dose: 8 mg Documented by: [id number] Methylprednisolone (Medrol) 4 mg PO 1300,1800 [facility] Stop: 04/23/20 18:01 Last Admin: 04/23/20 17:52 Dose: 4 mg Documented by: [id number] Admin: 04/23/20 12:46 Dose: 4 mg Documented by: [id number] Methylprednisolone (Medrol) 4 mg PO 0700,1300,1800 [facility] Stop: 04/24/20 18:01 Last Admin: 04/24/20 12:32 Dose: 4 mg Documented by: [id number] Admin: 04/24/20 06:26 Dose: 4 mg Documented by: [id number] Metoprolol Tartrate (Lopressor) 100 mg PO BID [facility] Stop: 05/22/20 20:59 Last Admin: 04/24/20 09:40 Dose: 100 mg Documented by: [id number] Admin: 04/23/20 21:34 Dose: 100 mg Documented by: [id number] Admin: 04/23/20 09:04 Dose: Not Given Documented by: [id number] Admin: 04/22/20 20:55 Dose: 100 mg Documented by: [id number] Nitroglycerin (Nitrostat) 0.4 mg SL PRN PRN PRN Reason: Chest Pain Stop: 05/22/20 10:42 Last Admin: 04/22/20 14:58 Dose: 0.4 mg Documented by: [id number] Oxycodone HCl (Roxicodone Immediate Rel) 5 mg PO Q6H PRN PRN Reason: Pain Stop: 05/06/20 10:53 Last Admin: 04/23/20 16:27 Dose: 5 mg Documented by: [id number] Admin: 04/22/20 22:01 Dose: 5 mg Documented by: [id number] Prednisone (Prednisone) 5 mg PO BID [facility] Stop: 05/22/20 20:59 Last Admin: 04/24/20 09:40 Dose: 5 mg Documented by: [id number] Admin: 04/23/20 21:34 Dose: 5 mg Documented by: [id number] Admin: 04/23/20 09:04 Dose: 5 mg Documented by: [id number] Admin: 04/22/20 20:55 Dose: 5 mg Documented by: [id number] Simvastatin (Zocor) 40 mg PO QPM [facility] Stop: 05/22/20 20:59 Last Admin: 04/23/20 21:34 Dose: 40 mg Documented by: [id number] Admin: 04/22/20 20:55 Dose: 40 mg Documented by: [id number] Medical Decision Making Differential Diagnosis DDx: Acute coronary syndrome, pulmonary embolus, aortic dissection, musculoskeletal pain, pneumonia, pleural effusion, pneumothorax, compression fx, hip fx, arthritis, herniated disc, spinal stenosis Medical Records Attestation: I reviewed the patient's medical records. Home Medications Current Medication List: was personally reviewed by me Laboratory Data Attestation: I reviewed the patient's lab results. Result diagrams: 04/23/20 05:28 04/23/20 05:28 Lab Results 04/22/20 04/22/20 04/22/20 Range/Units 07:14 07:14 07:14 WBC 7.73 (4.8-10.8) K/uL RBC 4.42 L (4.7-6.1) M/uL Hgb 14.1 (14.0-18.0) g/dL Hct 43.1 (42-52) % MCV 97.5 (80-100) fL MCH 31.9 (25-34) pg MCHC 32.7 (32-36) g/dL RDW Std Deviation 50.6 H (36.4-46.3) fL RDW Coeff of Mike 14.1 (11.5-14.5) % Plt Count 163 (130-400) K/uL MPV 10.2 (7.4-10.4) fL Immature Gran % (Auto) 0.9 % Neut % (Auto) 70.6 % Lymph % (Auto) 15.3 % [place] % (Auto) 12.7 % Eos % (Auto) 0.4 % Baso % (Auto) 0.1 % Immature Gran # (Auto) 0.07 H (0.00-0.02) K/uL Neut # (Auto) 5.46 (1.4-6.5) K/uL Lymph # (Auto) 1.18 L (1.2-3.4) K/uL [place] # (Auto) 0.98 H (0.11-0.59) K/uL Eos # (Auto) 0.03 (0-0.5) K/uL Baso # (Auto) 0.01 (0-0.2) K/uL PT 10.7 (9.0-12.0) Seconds INR 1.0 (0.9-1.1) APTT 22.0 (21.0-31.0) Seconds PTT Ratio 0.8 Sodium 139 (136-145) mmol/L Potassium 4.1 (3.5-5.1) mmol/L Chloride 109 H (98-107) mmol/L Carbon Dioxide 24 (21-32) mmol/L Anion Gap 6.0 (3-11) BUN 33 H (7-18) mg/dl Creatinine 1.37 (0.6-1.4) mg/dl Est Cr Clr Drug Dosing 44.6 ml/min Est GFR ( Amer) 54.9 Est GFR (Non-Af Amer) 47.4 BUN/Creatinine Ratio 24.3 H (10-20) Glucose 139 H (70-99) mg/dl Calcium 8.5 (8.5-10.1) mg/dl Total Bilirubin 0.5 (0.2-1) mg/dl AST 17 (15-37) U/L ALT 19 (12-78) U/L Alkaline Phosphatase 53 (45-117) U/L Troponin I 0.033 (0-0.045) ng/ml Total Protein 6.1 L (6.4-8.2) gm/dl Albumin 3.3 L (3.4-5.0) gm/dl Globulin 2.8 (2.5-4.0) gm/dl Albumin/Globulin Ratio 1.2 (0.9-2) Lipase 126 (73-393) U/L 04/22/20 Range/Units 09:01 WBC (4.8-10.8) K/uL RBC (4.7-6.1) M/uL Hgb (14.0-18.0) g/dL Hct (42-52) % MCV (80-100) fL MCH (25-34) pg MCHC (32-36) g/dL RDW Std Deviation (36.4-46.3) fL RDW Coeff of Mike (11.5-14.5) % Plt Count (130-400) K/uL MPV (7.4-10.4) fL Immature Gran % (Auto) % Neut % (Auto) % Lymph % (Auto) % [place] % (Auto) % Eos % (Auto) % Baso % (Auto) % Immature Gran # (Auto) (0.00-0.02) K/uL Neut # (Auto) (1.4-6.5) K/uL Lymph # (Auto) (1.2-3.4) K/uL [place] # (Auto) (0.11-0.59) K/uL Eos # (Auto) (0-0.5) K/uL Baso # (Auto) (0-0.2) K/uL PT (9.0-12.0) Seconds INR (0.9-1.1) APTT (21.0-31.0) Seconds PTT Ratio Sodium (136-145) mmol/L Potassium (3.5-5.1) mmol/L Chloride (98-107) mmol/L Carbon Dioxide (21-32) mmol/L Anion Gap (3-11) BUN (7-18) mg/dl Creatinine (0.6-1.4) mg/dl Est Cr Clr Drug Dosing ml/min Est GFR ( Amer) Est GFR (Non-Af Amer) BUN/Creatinine Ratio (10-20) Glucose (70-99) mg/dl Calcium (8.5-10.1) mg/dl Total Bilirubin (0.2-1) mg/dl AST (15-37) U/L ALT (12-78) U/L Alkaline Phosphatase (45-117) U/L Troponin I 0.034 (0-0.045) ng/ml Total Protein (6.4-8.2) gm/dl Albumin (3.4-5.0) gm/dl Globulin (2.5-4.0) gm/dl Albumin/Globulin Ratio (0.9-2) Lipase (73-393) U/L Imaging Data Attestation: I personally reviewed and interpreted this imaging study as follows: Radiologist's Impression: XR chest 1V portable HISTORY: Atypical Chest Pain COMPARISON: Chest 02/06/2020. FINDINGS: No pneumothorax. The heart is top normal in size. This remains unchanged. Left-sided dual-chamber pacemaker is again noted. No evidence for pulmonary edema. Bibasilar linear densities, left greater than right persists. Suspect a trace left pleural effusion. This is also unchanged. IMPRESSION: No significant change compared to the prior study. No acute process. Bibasilar linear densities and a trace left pleural effusion persists. ACT 112: Negative or not required by law. Electronically signed by: Andrew Tafoya M.D. 04/22/2020 7:47 AM Dictated: 04/22/20 0746 Transcribed: 04/22/20 0746CT SCAN OF THE LUMBAR SPINE WITHOUT IV CONTRAST CLINICAL HISTORY: Low back pain. Radiculopathy. COMPARISON STUDY: Abdominal CT dated 12/02/2016. TECHNIQUE: CT scan of the lumbar spine is performed from the lower thoracic spine to the sacrum. Images are reviewed in the axial, sagittal, and coronal planes. IV contrast was not administered for this examination. A dose lowering technique was utilized adhering to the principles of ALARA. CT DOSE: 783.89 mGy.cm FINDINGS: The skeletal structures are osteopenic. There is no evidence of fracture or malalignment involving the lumbar spine. There is straightening of the lumbar lordosis. Anterior and lateral marginal osteophytes are seen throughout. No lytic or blastic lesion is identified. The transverse and spinous processes appear intact. There is no evidence of spondylolysis. There is mild multilevel degenerative disc space narrowing. There are posterior disc bulges at all levels. There is likely moderate central canal stenosis at L4-L5. There is bilateral subarticular stenosis at this level with probable impingement on the exiting bilateral L4 nerve roots. There is right-sided subarticular stenosis at L5-S1 with possible impingement of exiting right L5 nerve root. At least mild central canal stenosis is seen at L3-L4. There is minimal facet arthropathy at L5-S1. The visualized sacrum and bony pelvis appear intact. The paraspinous soft tissues are normal as imaged. There is advanced atherosclerotic calcification and mild ectasia of the abdominal aorta. A small hiatal hernia is noted. No retroperitoneal lymphadenopathy is seen. Foci of cortical scarring are noted in the left kidney. Right renal cysts are partially imaged. IMPRESSION: 1. No acute bony abnormality is identified. 2. 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 See discussion for detailed findings. ACT 112: Negative or not required by law. Dictated: 04/22/2020 8:23 AM Transcribed: 04/22/2020 9:06 AM Hailey [id number] [email or web address] Electronically signed by: Rakesh Lanier M.D. 04/22/2020 9:07 AM Dictated: 04/22/20 0823 Transcribed: 04/22/20905 ECG Data Attestation: I personally reviewed and interpreted this ECG as follows: Indication: + chest pain Rate (beats per minute): 68 Rhythm: + other (atrially sensed, V paced) ECG Findings: + Other (widened QRS, no ectopy) Blood Pressure Blood Pressure Findings: Elevated blood pressure Blood Pressure Disposition: further management by hospitalist LUDWIN Narrative This pt was evaluated and appeared to be in no distress. An order for cardiac monitoring was placed and the pt is noted to be in a paced rhythm at 68 bpm. 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 EKG reveals a paced rhythm and pt is pain free at this time. CXR is neg for acute process with chronic bibasilar linear densities and a trace left pleural effusion. CT lumbar spine was performed and is significant for spinal stenosis at L4-L5. Pt has not been ambulatory with any safety or confidence and now has developed angina with exertion. Trop is neg today. He will be evaluated by the hospitalist for further cardiac evaluation, given extensive cardiac history, and evaluation of spinal stenosis. Pt is aware and agrees. Impression & Plan Spinal stenosis at L4-L5 level, Intractable low back pain, Chest pain on exertion Discharge Plan Visit Data *Final* Discharge Date/Time: 04/22/20 10:29 Chief Complaint: Chest Pain Stated Complaint: Chest pain ED Provider: Savannah Marie Discharge Problem: Spinal stenosis at L4-L5 level, Intractable low back pain, Chest pain on exertion Patient Disposition: Admitted As Inpatient Discharge Instructions Interventions: ED Discharge Assessment Last Done: 04/22/20 10:29
--- NOTE | 2020-04-22 10:41 | Electrocardiogram Report ---
Test Reason : Blood Pressure : / mmHG Vent. Rate : 068 BPM Atrial Rate : 068 BPM P-R Int : 202 ms QRS Dur : 184 ms QT Int : 446 ms P-R-T Axes : 061 -75 092 degrees QTc Int : 474 ms Poor data quality, interpretation may be adversely affected Atrial-sensed ventricular-paced rhythm Abnormal ECG When compared with ECG of 06-FEB-2020 18:38, Vent. rate has increased BY 4 BPM Confirmed by Billy Cutler ([id number]) on 04/22/2020 10:41:13 AM Referred By: REFERRED SELF Confirmed By:Billy Cutler
[2020-04-22] MEDS ORDERED: ACETAMINOPHEN 325 MG TAB PO PRN (10:43)
[2020-04-22] MEDS ORDERED: NON-FORMULARY MEDICATION (Melatonin 1 MG) PO PRN (10:43)
--- NOTE | 2020-04-22 15:01 | Orthopedic Consultation ---
Date of Consultation April 22, 2020 Assessment & Plan (1) Neurogenic claudication due to lumbar spinal stenosis: At this time the patient has a CAT scan available for review. It is highly suspicious for significant stenosis and subsequent neural compression across the L4-5 level. His symptoms definitely appear to be radicular in nature. We discussed a consultation with interventional pain management for possible trial of epidural injections. He is interested in pursuing this modality. He currently does obtain some relief from p.o. oxycodone. Present on Admission?: Yes History of Present Illness Reason for Consultation: Right leg pain Attending Physician: Zachary James MD History of Present Illness This is an 84-year-old male who presents with about 1 week of significant right leg pain. Denies any precipitating trauma fall or event. He states is markedly limiting his ability to stand and ambulate for any distance. He denies any left leg symptoms. Denies any numbness and tingling while he is in bed. He denies any history of previous injections into the lumbar spine. Allergies Allergy/AdvReac Type Severity Reaction Status Date / Time lactose Allergy Unknown GI UPSET Verified 04/22/20 07:33 Penicillins Allergy Unknown HIVES Verified 04/22/20 07:33 shellfish derived Allergy Unknown HIVES Verified 04/22/20 07:33 Sulfa (Sulfonamide Allergy Unknown HIVES Verified 04/22/20 07:33 Antibiotics) sulfamethoxazole Allergy . Verified 04/22/20 07:33 [From Bactrim] trimethoprim [From Bactrim] Allergy . Verified 04/22/20 07:33 Home Medications Home Medications Medication Instructions Recorded Confirmed Type melatonin 1 mg tablet 1 mg PO HS PRN 05/05/19 04/22/20 History oacdf-r-awvccmmmirojo 150 unit 1 tab PO QAM tab 08/22/19 04/22/20 History tablet ascorbic acid (vitamin C) 500 mg 500 mg PO QAM tab 08/22/19 04/22/20 History tablet prednisone 5 mg tablet 5 mg PO BID #180 tab 10/02/19 04/22/20 History simvastatin 40 mg tablet 40 mg PO QPM #90 tab 01/17/20 04/22/20 Rx aspirin 81 mg PO QAM 02/06/20 04/22/20 History metoprolol tartrate 100 mg tablet 100 mg PO BID #60 tab 02/07/20 04/22/20 Rx clopidogrel 75 mg tablet 75 mg PO QAM #90 tab 03/05/20 04/22/20 Rx nitroglycerin 0.4 mg sublingual 0.4 mg SL DIRECTED PRN #25 tab 03/22/20 04/22/20 Rx tablet lisinopril 5 mg tablet 10 mg PO QAM #90 tab 04/18/20 04/22/20 Rx oxycodone 5 mg PO Q6H PRN #14 tab 04/20/20 04/22/20 Rx Stool Softener 325mg 325 mg PO HS 04/22/20 04/22/20 History Vitamin E 500 Iu 500 unit PO QAM 04/22/20 04/22/20 History acetaminophen [Tylenol Extra 500 mg PO Q6H PRN 04/22/20 04/22/20 History Strength] Patient History Medical History Colon adenoma (Inactive 09/20/13) Cough DM (diabetes mellitus), type 2 Heart disease Hypertension Mobitz (type) I (Wenckebach's) atrioventricular block Mobitz (type) II atrioventricular block Obesity, diabetes, and hypertension syndrome Stable angina pectoris Surgical History History of bladder surgery History of coronary artery stent placement History of cystoscopy with insertion of ureteral stent History of partial colectomy History of tonsillectomy Status post placement of cardiac pacemaker (Acute) Family History Sister Cancer Mother Colorectal cancer Diabetes Father Myocardial infarction Stroke Other TIA (transient ischemic attack) Denies family history of Ovarian cancer Prostate cancer Breast cancer Social History Preferred Language: Yoruba Communication Ability: Effective Visual Impairment: No Limitations Hearing Ability: Normal Emergency Operator Required: No Beliefs That Will Affect Care: None marital status: / Current Living Situation: Family Current Living Situation Comment: Patient's youngest son lives with him. 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 This +5-5 plantar flexion dorsiflexion extensor pollicis longus. He is nontender to palpation of the greater trochanter and IT band. Results & Data ([facility]) Vital Signs (Past 12 Hours) Vital Signs Temp Pulse Pulse Resp BP BP Pulse Ox 04/22/20 10:45 36.9 C 65 16 167/81 H 96 04/22/20 10:40 36.9 C 65 16 167/81 H 96 04/22/20 10:00 68 20 156/88 H 95 04/22/20 08:00 64 20 130/85 93 04/22/20 07:31 94 04/22/20 07:30 93 04/22/20 07:09 37.1 C 68 20 159/75 H 93
--- NOTE | 2020-04-22 15:49 | History & Physical Report ---
Date of Service April 22, 2020 Assessment & Plan (1) Neurogenic claudication due to lumbar spinal stenosis: Pain began last Wednesday. With 3 ED visits in the last week for pain control. Reports he has trouble at home due to the pain. - PT/OT - Orthopedic consult appreciated - Will see if injection can help; pain management team consulted (2) Coronary artery arteriosclerosis: Episode of angina the morning of 04/22. Has failed ranolazine in the past. Has 6 prior stents per cardiology notes. - Continue beta-ruth -> Could consider titration if needed given his pacemaker. - Continue ASA, Plavix, ACEi, and statin - Nitroglycerin PRN (3) Hypertension: BP presently 150/85. - Continue home beta-ruth & ACEi (4) Intermittent complete heart block: S/p pacemaker in 01/2020. - No inpatient needs (5) Rheumatoid arthritis: Has seen Dr. العراقي in the past. Also has polymyalgia rheumatica per notes. - Continue home prednisone 5 mg PO BID (6) DVT prophylaxis: SCDs - Low DVT risk per admission calculator Admission and Anticipated Discharge Date Admission Date: April 22, 2020 History of Present Illness Primary Care Provider: Lavelle Parker, DO 84yo M w/ hx of significant CAD (s/p up to 6 stents per cardiology notes), pacemaker for AV block, rheumatoid arthritis who presents with ongoing left leg pain. Per the patient, he was standing at his kitchen sink doing dishes. He reports he was putting more weight on the right leg and had a sudden-onset, sharp pain in the right leg that radiated down the lateral aspect of the right leg. He denies any numbness or weakness in the right leg or elsewhere. He has been to the ER several times and has been planned to see orthopedics; however, he has had more trouble coping at home and returned to the ER for additional pain control. This morning, he had an episode of angina that resolved with 1 nitroglycerin within a few minutes. He reports he has had only 1 other episode in the last few months. He has a cough that has been ongoing for years which has not had any major findings. He reports his PCP worked it up, but said no testing resulted in any major cause found. Allergies Allergy/AdvReac Type Severity Reaction Status Date / Time lactose Allergy Unknown GI UPSET Verified 04/22/20 07:33 Penicillins Allergy Unknown HIVES Verified 04/22/20 07:33 shellfish derived Allergy Unknown HIVES Verified 04/22/20 07:33 Sulfa (Sulfonamide Allergy Unknown HIVES Verified 04/22/20 07:33 Antibiotics) sulfamethoxazole Allergy . Verified 04/22/20 07:33 [From Bactrim] trimethoprim [From Bactrim] Allergy . Verified 04/22/20 07:33 Home Medications Home Medications Medication Instructions Recorded Confirmed Type melatonin 1 mg tablet 1 mg PO HS PRN 05/05/19 04/22/20 History likiu-g-ttmwtupvdbiit 150 unit 1 tab PO QAM tab 08/22/19 04/22/20 History tablet ascorbic acid (vitamin C) 500 mg 500 mg PO QAM tab 08/22/19 04/22/20 History tablet prednisone 5 mg tablet 5 mg PO BID #180 tab 10/02/19 04/22/20 History simvastatin 40 mg tablet 40 mg PO QPM #90 tab 01/17/20 04/22/20 Rx aspirin 81 mg PO QAM 02/06/20 04/22/20 History metoprolol tartrate 100 mg tablet 100 mg PO BID #60 tab 02/07/20 04/22/20 Rx clopidogrel 75 mg tablet 75 mg PO QAM #90 tab 03/05/20 04/22/20 Rx nitroglycerin 0.4 mg sublingual 0.4 mg SL DIRECTED PRN #25 tab 03/22/20 04/22/20 Rx tablet lisinopril 5 mg tablet 10 mg PO QAM #90 tab 04/18/20 04/22/20 Rx oxycodone 5 mg PO Q6H PRN #14 tab 04/20/20 04/22/20 Rx Stool Softener 325mg 325 mg PO HS 04/22/20 04/22/20 History Vitamin E 500 Iu 500 unit PO QAM 04/22/20 04/22/20 History acetaminophen [Tylenol Extra 500 mg PO Q6H PRN 04/22/20 04/22/20 History Strength] Past Med/Surg History Medical History Colon adenoma (Inactive 09/20/13) Cough DM (diabetes mellitus), type 2 Heart disease Hypertension Mobitz (type) I (Wenckebach's) atrioventricular block Mobitz (type) II atrioventricular block Obesity, diabetes, and hypertension syndrome Stable angina pectoris Surgical History History of bladder surgery History of coronary artery stent placement History of cystoscopy with insertion of ureteral stent History of partial colectomy History of tonsillectomy Status post placement of cardiac pacemaker (Acute) Family History Sister Cancer Mother Colorectal cancer Diabetes Father Myocardial infarction Stroke Other TIA (transient ischemic attack) Denies family history of Ovarian cancer Prostate cancer Breast cancer Social History Preferred Language: Armenian Communication Ability: Effective Visual Impairment: No Limitations Hearing Ability: Normal Hand Blocker Required: No Beliefs That Will Affect Care: None marital status: / Current Living Situation: Family Current Living Situation Comment: Patient's youngest son lives with him. 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 Feels Safe at Home: Yes Smoking Status: Former smoker Age Started Using Tobacco: 17 ; Cigarettes Per Day: 1/2 pack per day ; Second Hand Exposure: No ; Hx Alcohol Use: No Hx Substance Use: No Dental Care, Regularly: Yes Physical Activity Frequency: 3-4 Times per Week Review of Systems Review of Systems: All systems reviewed & are unremarkable except as noted in HPI & below Physical Exam Constitutional: WD/WN, vitals as above Eyes: EOM intact bilaterally; no conjunctival abnormality ENMT: external ear and nose normal, oropharynx normal Neck: trachea midline, no thyromegaly normal visual inspection Respiratory: normal respiratory effort, lungs clear to auscultation no respiratory distress Cardiovascular: RRR, no murmur, no edema Chest (Breasts): Chest: + pacemaker Gastrointestinal (Abdomen): Inspection/Auscultation: abdomen normal to inspection; abdomen not distended Musculoskeletal: no cyanosis or clubbing, extremities motor strength 5/5 Skin: no rashes, warm and dry Neurologic: moves all extremities and awake Psychiatric: Orientation: alert, oriented to person and cooperative Results & Data Results & Data ([facility]) Vital Signs (Past 12 Hours) Vital Signs Temp Pulse Pulse Resp BP BP Pulse Ox 04/22/20 15:40 36.9 C 70 16 151/84 H 96 04/22/20 10:45 36.9 C 65 16 167/81 H 96 04/22/20 10:40 36.9 C 65 16 167/81 H 96 04/22/20 10:00 68 20 156/88 H 95 04/22/20 08:00 64 20 130/85 93 04/22/20 07:31 94 04/22/20 07:30 93 04/22/20 07:09 37.1 C 68 20 159/75 H 93 PG Care Time/CCT Total # of Minutes Spent Total Time Spent with Patient: Total time spent is greater than 50% in coordination of care (as documented) at patient's floor/unit and/or counseling patient: Coding Level of Care Code 65247 OBS Care - Level 3 Diagnoses Neurogenic claudication due to lumbar spinal stenosis M48.062 Coronary artery arteriosclerosis I25.10 Hypertension I10 Hypertension type: unspecified Intermittent complete heart block I44.2 Rheumatoid arthritis M06.9 DVT prophylaxis Z29.9 (1) Hypertension Hypertension type: unspecified Qualified Code(s): I10 - Essential (primary) hypertension
--- NOTE | 2020-04-22 16:08 | Electrocardiogram Report ---
Test Reason : Blood Pressure : / mmHG Vent. Rate : 069 BPM Atrial Rate : 069 BPM P-R Int : 214 ms QRS Dur : 180 ms QT Int : 442 ms P-R-T Axes : 061 -76 093 degrees QTc Int : 473 ms Atrial-sensed ventricular-paced rhythm with prolonged AV conduction Abnormal ECG When compared with ECG of 22-APR-2020 07:09, No significant change was found Confirmed by Billy Cutler ([id number]) on 04/22/2020 4:08:35 PM Referred By: REFERRED SELF Confirmed By:Billy Cutler
[2020-04-22] MEDS: METOPROLOL TARTRATE 100 MG TAB PO SCH (20:55)
[2020-04-22] MEDS: SIMVASTATIN 40 MG TAB PO SCH (20:55)
[2020-04-22] MEDS: DOCUSATE SODIUM 100 MG CAP PO SCH (20:55)
[2020-04-22] MEDS: predniSONE 5 MG TAB PO SCH (20:55)
[2020-04-22] MEDS: BISMUTH SUBSALICYLATE SUSP PO PRN (21:52)
[2020-04-22] MEDS: OXYCODONE HCL IR 5 MG TAB (IMMEDIATE RELEASE) PO PRN (22:01)
[2020-04-23 06:05] LABS: Hematocrit (blood only) 41.3 % (42-52); Hemoglobin 13.7 g/dL (14.0-18.0); Mean Corpuscular Hemoglobin 31.9 pg (25-34); Mean Corpuscular Hgb Conc 33.2 g/dL (32-36); Mean Corpuscular Volume 96.3 fL (80-100); Mean Platelet Volume 9.7 fL (7.4-10.4); Platelet Count 155 K/uL (130-400); RDW Standard Deviation 48.7 fL (36.4-46.3); Red Blood Count 4.29 M/uL (4.7-6.1); White Blood Count 7.22 K/uL (4.8-10.8)
[2020-04-23 06:42] LABS: BUN Creatinine Ratio 27.5 (10-20); Calcium 8.2 mg/dl (8.5-10.1); Est GFR (African American) 67.8; Est GFR (Non-African American) 58.5; Magnesium 2.1 mg/dl (1.8-2.4); Potassium 4.3 mmol/L (3.5-5.1)
[2020-04-23] MEDS ORDERED: methylPREDNISolone 4 MG TAB, 6 DAY TAPER PO SCH (08:45)
--- NOTE | 2020-04-23 08:52 | Pain Management Consultation ---
Date of Consultation April 23, 2020 Assessment & Plan (1) Neurogenic claudication due to lumbar spinal stenosis: Present on Admission?: Yes (2) Lumbar radicular pain: Present on Admission?: Yes (3) Chronic anticoagulation: Present on Admission?: Yes (4) Steroid dependent: * Patient has predominant complaint of lumbar radicular pain and a right L5 distribution with CT scan findings suggesting central canal stenosis and possible impingement of the exiting right L5 nerve root. Treatment options were discussed and reviewed. We discussed a course of oral steroid burst dose/taper versus pursuing epidural steroid injections. Due to his current chronic anticoagulation therapy he would need to be able to safely hold clopidogrel for 7 days prior to pursuing a lumbar OMARI. This will need to be discussed further with cardiology prior to initiation. Patient wishes to pursue the oral Medrol Dosepak initially with consideration of OMARI should he fail to improve symptomatically. * Will also initiate hydrocodone/acetaminophen 5/325 1 tablet p.o. every 4 hours PRN for breakthrough pain due to his side effect complaints of oxycodone * We would be happy to see the patient in the outpatient setting with persisting complaints for consideration of OMARI should he fail to respond to Medrol Dosepak Thank you for allowing us to participate in the care of Mr. Weir Present on Admission?: Yes History of Present Illness Reason for Consultation: Right lower extremity radicular pain Requesting Physician: Daniele Roque DO Attending Physician: Zachary James MD History of Present Illness Mr. Weir is an 84-year-old white male who was admitted due to intractable pain in the right lower extremity. Patient reported onset of right lower extremity radicular pain approximate 1 week ago without known injury. Patient underwent ED evaluation on multiple occasions and was subsequently admitted due to pain and feeling unsteady on his feet. He reports his pain is 90% radicular in the right lower extremity in an L5 distribution to the ankle. He rates the pain at a 4/10 at its best and 9/10 at its worst. Pain is at its best with sitting and supine positions and at its worse with standing and ambulatory activities. He describes a constant aching sensation with occasional sharp shooting characteristic pain. He denies any significant axial low back pain. He has no left lower extremity radicular pain. He denies paresthesias. He denies pain in the right groin. He has no bowel or bladder incontinence and denies saddle anesthesias. Patient reports chronic steroid use due to polymyalgia rheumatica currently on 5 mg twice daily. He does have history of multiple stents placed and on chronic clopidogrel therapy currently followed by Dr. Cutler. Patient reports oxycodone is beneficial at diminishing his pain but he is experiencing some side effects of sedation/brain fog. Patient has no further constitutional complaints this time. Plan of care discussed with Dr. Chacko. Pain Assessment Full Body Front + Back: 1. Right lower extremity radicular pain-L5 distribution Pain scale - at its best (0-10): 4 Pain scale - at its worst (0-10): 9 Allergies Allergy/AdvReac Type Severity Reaction Status Date / Time lactose Allergy Unknown GI UPSET Verified 04/22/20 07:33 Penicillins Allergy Unknown HIVES Verified 04/22/20 07:33 shellfish derived Allergy Unknown HIVES Verified 04/22/20 07:33 Sulfa (Sulfonamide Allergy Unknown HIVES Verified 04/22/20 07:33 Antibiotics) sulfamethoxazole Allergy . Verified 04/22/20 07:33 [From Bactrim] trimethoprim [From Bactrim] Allergy . Verified 04/22/20 07:33 Home Medications Home Medications Medication Instructions Recorded Confirmed Type melatonin 1 mg tablet 1 mg PO HS PRN 05/05/19 04/22/20 History rnypq-h-tohspwyimtrmw 150 unit 1 tab PO QAM tab 08/22/19 04/22/20 History tablet ascorbic acid (vitamin C) 500 mg 500 mg PO QAM tab 08/22/19 04/22/20 History tablet prednisone 5 mg tablet 5 mg PO BID #180 tab 10/02/19 04/22/20 History simvastatin 40 mg tablet 40 mg PO QPM #90 tab 01/17/20 04/22/20 Rx aspirin 81 mg PO QAM 02/06/20 04/22/20 History metoprolol tartrate 100 mg tablet 100 mg PO BID #60 tab 02/07/20 04/22/20 Rx clopidogrel 75 mg tablet 75 mg PO QAM #90 tab 03/05/20 04/22/20 Rx nitroglycerin 0.4 mg sublingual 0.4 mg SL DIRECTED PRN #25 tab 03/22/20 04/22/20 Rx tablet lisinopril 5 mg tablet 10 mg PO QAM #90 tab 04/18/20 04/22/20 Rx oxycodone 5 mg PO Q6H PRN #14 tab 04/20/20 04/22/20 Rx Stool Softener 325mg 325 mg PO HS 04/22/20 04/22/20 History Vitamin E 500 Iu 500 unit PO QAM 04/22/20 04/22/20 History acetaminophen [Tylenol Extra 500 mg PO Q6H PRN 04/22/20 04/22/20 History Strength] Pain History Pain Intensity Pain scale - at its best (0-10): 4 Pain scale - at its worst (0-10): 9 Patient History Medical History Colon adenoma (Inactive 09/20/13) Cough DM (diabetes mellitus), type 2 Heart disease Hypertension Mobitz (type) I (Wenckebach's) atrioventricular block Mobitz (type) II atrioventricular block Obesity, diabetes, and hypertension syndrome Stable angina pectoris Surgical History History of bladder surgery History of coronary artery stent placement History of cystoscopy with insertion of ureteral stent History of partial colectomy History of tonsillectomy Status post placement of cardiac pacemaker (Acute) Family History Sister Cancer Mother Colorectal cancer Diabetes Father Myocardial infarction Stroke Other TIA (transient ischemic attack) Denies family history of Ovarian cancer Prostate cancer Breast cancer Social History Preferred Language: Kinyarwanda Communication Ability: Effective Visual Impairment: No Limitations Hearing Ability: Normal Technical Communication Teacher Required: No Beliefs That Will Affect Care: None marital status: / Current Living Situation: Family Current Living Situation Comment: Patient's youngest son lives with him. 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 Speech and thought process appropriate. Mood and affect appropriate. Cognition intact. Head: Normocephalic and atraumatic. ENT: No evidence of nasal or oral mucosal lesions. Mucous membranes are moist. Neck: Supple without adenopathy and full range of motion. Chest: Nontender to palpation of the costosternal junction. Abdomen: Soft and nondistended. No organomegaly. Bowel sounds active. Back/spine: Loss of lumbar lordosis. Nontender over the midline. No focal facet or SI joint tenderness. Nontender in the paravertebral, quadratus lumborum or gluteal musculature. Lower extremities: SLR equivocal on the right in a sitting position and negative on the left. Strength testing 5/5 with dorsiflexion, plantarflexion, EHL test ing and knee flexion/extension maneuvering. Hip nontender with internal/external rotation. Sensation was intact to sharp and dull distally. Patient is moderately tender in the right L5 distribution below the knee to direct outpatient and nontender on the left. Neurologic: Cranial nerves grossly intact. Ambulatory function not witnessed. Results Diagnostic Review CT: non enhanced and reports reviewed CT Findings: [place] [phone] CT Scan Report Patient: CONSTANTINO WEIR Date: 04/22/20 MR#: [id number]: [id number] [facility] Acct ID:[id number]: [facility] Zip[facility] [place] [address] Age: 84Location: ED Sex: M Room/Bed: Att Phy:Diagnosis: Chest pain Arin Phy: Lavelle Parker, DOService Date: 04/22/20 Fam Phy:Interpreting Phy: Rakesh Lanier MD Admit Phy: Ordering Phy: Chucky Fletcher MD cc: ~ CT SCAN OF THE LUMBAR SPINE WITHOUT IV CONTRAST CLINICAL HISTORY: Low back pain. Radiculopathy. COMPARISON STUDY: Abdominal CT dated 12/02/2016. TECHNIQUE: CT scan of the lumbar spine is performed from the lower thoracic spine to the sacrum. Images are reviewed in the axial, sagittal, and coronal planes. IV contrast was not administered for this examination. A dose lowering technique was utilized adhering to the principles of ALARA. CT DOSE: 783.89 mGy.cm FINDINGS: The skeletal structures are osteopenic. There is no evidence of fracture or malalignment involving the lumbar spine. There is straightening of the lumbar lordosis. Anterior and lateral marginal osteophytes are seen throughout. No lytic or blastic lesion is identified. The transverse and spinous processes appear intact. There is no evidence of spondylolysis. There is mild multilevel degenerative disc space narrowing. There are posterior disc bulges at all levels. There is likely moderate central canal stenosis at L4-L5. There is bilateral subarticular stenosis at this level with probable impingement on the exiting bilateral L4 nerve roots. There is right-sided subarticular stenosis at L5-S1 with possible impingement of exiting right L5 nerve root. At least mild central canal stenosis is seen at L3-L4. There is minimal facet arthropathy at L5-S1. The visualized sacrum and bony pelvis appear intact. The paraspinous soft tissues are normal as imaged. There is advanced atherosclerotic calcification and mild ectasia of the abdominal aorta. A small hiatal hernia is noted. No retroperitoneal lymphadenopathy is seen. Foci of cortical scarring are noted in the left kidney. Right renal cysts are partially imaged. IMPRESSION: 1. No acute bony abnormality is identified. 2. 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 See discussion for detailed findings. ACT 112: Negative or not required by law. Dictated: 04/22/2020 8:23 AM Transcribed: 04/22/2020 9:06 AM Hailey [id number] [email or web address] Electronically signed by: Rakesh Lanier M.D. 04/22/2020 9:07 AM Dictated: 04/22/20 0823 Transcribed: 04/22/20 0906 Previous Records Review Previous Records: personally reviewed by me
[2020-04-23] MEDS ORDERED: CLOPIDOGREL BISULFATE 75 MG TAB PO SCH (09:00)
[2020-04-23] MEDS: METOPROLOL TARTRATE 100 MG TAB PO SCH ×2 (09:04→21:34)
[2020-04-23] MEDS: predniSONE 5 MG TAB PO SCH ×2 (09:04→21:34)
[2020-04-23] MEDS: ASPIRIN 81 MG ECTAB PO SCH (09:05)
[2020-04-23] MEDS: lisinopriL 10 MG TAB PO SCH (09:05)
[2020-04-23] MEDS: HYDROCODONE/ACETAMOPHEN 5/325MG TAB PO PRN ×2 (10:37→15:15)
[2020-04-23] MEDS: methylPREDNISolone 4 MG TAB PO SCH ×4 (10:38→21:33)
--- NOTE | 2020-04-23 15:27 | Hospitalist Progress Note ---
Date of Service April 23, 2020 Assessment & Plan (1) Neurogenic claudication due to lumbar spinal stenosis: Pain began last Wednesday. With 3 ED visits in the last week for pain control. Reports he has trouble at home due to the pain. - PT/OT - Orthopedic consult appreciated - Will see if injection can help; pain management team consulted. Will trial steroid taper per pain management. Would need to be off Plavix for 7 days before they would consider injection. Will discuss with cardiology. (2) Coronary artery arteriosclerosis: Episode of angina the morning of 04/22. Has failed ranolazine in the past. Has 6 prior stents per cardiology notes. - Continue beta-ruth -> Could consider titration if needed given his pacemaker. - Continue ASA, Plavix, ACEi, and statin - Nitroglycerin PRN -> No further angina today. (3) Hypertension: BP presently 175/75. - Continue home beta-ruth & ACEi (4) Intermittent complete heart block: S/p pacemaker in 01/2020. - No inpatient needs (5) Rheumatoid arthritis: Has seen Dr. العراقي in the past. Also has polymyalgia rheumatica per notes. - Stop home prednisone 5 mg PO BID for steroid taper. (6) DVT prophylaxis: SCDs - Low DVT risk per admission calculator Admission and Anticipated Discharge Date Admission Date: April 22, 2020 Subjective Still with some right leg pain that has been worse with being up and around with PT/OT. Reports no fevers/chills, chest pain, shortness of breath, abdominal pain, nausea, or vomiting. Physical Exam Constitutional: WD/WN, vitals as above Eyes: EOM intact bilaterally; no conjunctival abnormality ENMT: external ear and nose normal, oropharynx normal Neck: trachea midline, no thyromegaly normal visual inspection Respiratory: normal respiratory effort, lungs clear to auscultation no respiratory distress Cardiovascular: RRR, no murmur, no edema Chest (Breasts): Chest: + pacemaker Gastrointestinal (Abdomen): Inspection/Auscultation: abdomen normal to inspection; abdomen not distended Musculoskeletal: no cyanosis or clubbing, extremities motor strength 5/5 Skin: no rashes, warm and dry Neurologic: moves all extremities and awake Psychiatric: Orientation: alert, oriented to person and cooperative Results & Data Results & Data ([facility]) Vital Signs (Past 12 Hours) Vital Signs Temp Pulse Resp BP Pulse Ox 04/23/20 07:00 36.6 C 56 L 16 137/69 95 PG Care Time/CCT Total # of Minutes Spent Total Time Spent with Patient: Total time spent is greater than 50% in coordination of care (as documented) at patient's floor/unit and/or counseling patient: Coding Level of Care Code 67752 Subseq Obs Care Lvl 2 Diagnoses Neurogenic claudication due to lumbar spinal stenosis M48.062 Coronary artery arteriosclerosis I25.10 Hypertension I10 Hypertension type: unspecified Intermittent complete heart block I44.2 Rheumatoid arthritis M06.9 DVT prophylaxis Z29.9 (1) Hypertension Hypertension type: unspecified Qualified Code(s): I10 - Essential (primary) hypertension
[2020-04-23] MEDS: OXYCODONE HCL IR 5 MG TAB (IMMEDIATE RELEASE) PO PRN (16:27)
[2020-04-23] MEDS: DOCUSATE SODIUM 100 MG CAP PO SCH (21:33)
[2020-04-23] MEDS: SIMVASTATIN 40 MG TAB PO SCH (21:34)
[2020-04-23] MEDS: BISMUTH SUBSALICYLATE SUSP PO PRN (23:56)
[2020-04-24] MEDS ORDERED: MELATONIN 3 MG TAB PO PRN (01:11)
--- NOTE | 2020-04-24 06:18 | Communication Note ---
Date of Service: April 24, 2020 Notified that pt had an episode of confusion when using the bathroom, didnt know where he was. Was back to being re-oriented a few mins later once back in bed. Resident Activity Tracking Resident Involvement: Safe Expert Coverage Note Care Provided: Adult Hospital Medicine
--- NOTE | 2020-04-24 06:20 | Communication Note ---
Date of Service: April 24, 2020 Did receive melatonin overnight to help with sleep. Resident Activity Tracking Resident Involvement: Benefit Authorizer Coverage Note Care Provided: Adult Hospital Medicine
[2020-04-24] MEDS: methylPREDNISolone 4 MG TAB PO SCH ×2 (06:26→12:32)
[2020-04-24] MEDS: lisinopriL 10 MG TAB PO SCH (08:50)
[2020-04-24] MEDS: ASPIRIN 81 MG ECTAB PO SCH (08:50)
--- NOTE | 2020-04-24 09:17 | Pain Management Progress Note ---
Date of Service April 24, 2020 Assessment & Plan (1) Neurogenic claudication due to lumbar spinal stenosis: (2) Lumbar radicular pain: (3) Chronic anticoagulation: (4) Steroid dependent: * Patient reporting moderate improvement in his symptomatic complaints at this time. Continue Medrol Dosepak * Continue as needed use of hydrocodone/acetaminophen for moderate pain and oxycodone for more severe pain * Continue to progress with PT/OT * No immediate plan for OMARI given symptom improvement-will await response to Medrol Dosepak. Patient may follow-up in outpatient pain clinic as needed. Will sign off on patient at this time. Subjective Mr. Martinez is reporting improvement in his right lower extremity radicular pain today. He is reporting his pain is a 2-3/10 at this time. He has not been out of bed this morning, which typically exacerbates his symptoms. He did work with PT/OT yesterday and did walk with minimal exacerbation of symptoms. The patient denies any significant axial low back pain or left lower extremity radicular pain. He has no further constitutional complaints. Pain Assessment Pain Assessment Full Body Front + Back: 1. Right lower extremity radicular pain Pain scale - at its best (0-10): 2 Pain scale - at its worst (0-10): 5 Physical Exam Physical Exam: General: Patient was sitting quietly in the exam room in no acute distress watching TV. Speech and thought process appropriate. Mood and affect appropriate. Cognition appeared to be intact. Lower extremities: Sensation was intact distally. Strength 5/5 with dorsi plantar flexion. Straight leg raising was negative bilaterally. Neurologic: Cranial nerves grossly intact. Ambulation not witnessed.
[2020-04-24] MEDS: predniSONE 5 MG TAB PO SCH (09:40)
[2020-04-24] MEDS: METOPROLOL TARTRATE 100 MG TAB PO SCH (09:40)
--- NOTE | 2020-04-24 18:25 | Discharge Summary ---
Date of Service April 24, 2020 Admission HPI Per Admitting Provider 84yo M w/ hx of significant CAD (s/p up to 6 stents per cardiology notes), pacemaker for AV block, rheumatoid arthritis who presents with ongoing left leg pain. Per the patient, he was standing at his kitchen sink doing dishes. He reports he was putting more weight on the right leg and had a sudden-onset, sharp pain in the right leg that radiated down the lateral aspect of the right leg. He denies any numbness or weakness in the right leg or elsewhere. He has been to the ER several times and has been planned to see orthopedics; however, he has had more trouble coping at home and returned to the ER for additional pain control. This morning, he had an episode of angina that resolved with 1 nitroglycerin within a few minutes. He reports he has had only 1 other episode in the last few months. He has a cough that has been ongoing for years which has not had any major findings. He reports his PCP worked it up, but said no testing resulted in any major cause found. Principal Diagnosis Radicular back pain Discharge Exam Constitutional WD/WN, vitals as above Eyes EOM intact bilaterally; no conjunctival abnormality ENMT external ear and nose normal, oropharynx normal Neck trachea midline, no thyromegaly normal visual inspection Respiratory normal respiratory effort, lungs clear to auscultation no respiratory distress Cardiovascular RRR, no murmur, no edema Chest (Breasts) Chest: + pacemaker Gastrointestinal (Abdomen) Inspection/Auscultation: abdomen normal to inspection; abdomen not distended Musculoskeletal no cyanosis or clubbing, extremities motor strength 5/5 Skin no rashes, warm and dry Neurologic moves all extremities and awake Psychiatric Orientation: alert, oriented to person and cooperative Discharge Data Allergies Allergy/AdvReac Type Severity Reaction Status Date / Time lactose Allergy Unknown GI UPSET Verified 04/22/20 07:33 Penicillins Allergy Unknown HIVES Verified 04/22/20 07:33 shellfish derived Allergy Unknown HIVES Verified 04/22/20 07:33 Sulfa (Sulfonamide Allergy Unknown HIVES Verified 04/22/20 07:33 Antibiotics) sulfamethoxazole Allergy . Verified 04/22/20 07:33 [From Bactrim] trimethoprim [From Bactrim] Allergy . Verified 04/22/20 07:33 Consultations 04/22/20 09:16 ED Decision to Admit Stat 04/22/20 10:43 Consult Orthopedic Surgery Routine 04/22/20 15:01 Consult Pain Management Routine Ordered Studies 04/22/20 07:33 CT lumbar spine wo con Stat Hospital Course (1) Neurogenic claudication due to lumbar spinal stenosis: Pain began last Wednesday. With 3 ED visits in the last week for pain control. Reports he has trouble at home due to the pain. - PT/OT - Orthopedic consult appreciated - Will hold Plavix for now after discussion with log snaker, Dr. Cutler. Will hopefully get injection next week. Discharged on steroid taper and Tylenol #3. (2) Coronary artery arteriosclerosis: Episode of angina the morning of 04/22. Has failed ranolazine in the past. Has 6 prior stents per cardiology notes. - Continue beta-ruth -> Could consider titration if needed given his pacemaker. - Continue ASA, Plavix, ACEi, and statin - Nitroglycerin PRN -> No further angina in 2 days prior to discharge. Cardiology follow up. (3) Hypertension: BP presently 175/75. - Continue home beta-ruth & ACEi (4) Intermittent complete heart block: S/p pacemaker in 01/2020. - No inpatient needs (5) Rheumatoid arthritis: Has seen Dr. العراقي in the past. Also has polymyalgia rheumatica per notes. - Stop home prednisone 5 mg PO BID for steroid taper. Will restart once done with steroid burst. (6) DVT prophylaxis: SCDs - Low DVT risk per admission calculator Total Time Total Time Spent Total Time Spent (In Minutes): 35 Discharge Plan Discharge Items Patient Disposition: Home - Home Health Services Reason For Visit: RIGHT LEG PAIN Discharge Diagnosis: Sciatic nerve pain in the right leg Activity: Resume your previous activity Non-emergency contact: Primary Care Provider and Specialist Call non-emergency contact if: your symptoms worsen Follow-up/Referrals: Lamberto Chacko MD, FIPP [Anesthesiologist] - 05/03/20 1:00 pm (Your initial visits is with Nori at Dr Chacko's office at [address] [place] [address], [place] [address]. The phone number is [phone]. If you need to change this appointment, please call [phone].) Lavelle Parker DO [Primary Care Provider] - 04/29/20 9:30 am (Your appointment is with merly Madera. If you need to change this appointment, please call [phone].) Diet: Heart Healthy Addtl Attending Provider Instructions: Please take the Medrol Dose pack according to the instructions on the label: You will take a total of 6 tablets the first day, tapering it down to a single tablet on day 6. After you're done with your steroid burst, please return to taking your normal baseline prednisone. Please follow up with the Pain Management doctors next week for an injection. DO NOT take your Plavix for until you get your injection. This was approved by your log snaker Dr. Cutler. Please use the Tylenol #3 sparingly. If you use it with regular Tylenol (also called acetaminophen), please do not go over 3 grams (3,000 mg) of Tylenol in any day. Pending Studies at Discharge: No Stand-Alone Forms: [facility], Opioid Pain Management, Smoking Cessation Medications and DC Order Prescriptions: New hydrocodone-acetaminophen [[place]] 5-325 mg Tablet 1 tab PO Q4H PRN (Reason: pain) Qty: 20 RF: 0 methylprednisolone [Medrol (Esequiel)] 4 mg tablets,dose pack See Rx Instructions .ROUTE .COMPLEX Qty: 21 RF: 0 Continued simvastatin 40 mg tablet 40 mg PO QPM Qty: 90 RF: 3 metoprolol tartrate 100 mg tablet 100 mg PO BID Qty: 60 RF: 11 nitroglycerin 0.4 mg tablet, sublingual 0.4 mg SL DIRECTED PRN (Reason: Chest Pain) Qty: 25 RF: 3 melatonin 1 mg tablet 1 mg PO HS PRN (Reason: Sleep) RF: 0 murac-o-ttknlwbypaddv 150 unit tablet 1 tab PO QAM RF: 0 ascorbic acid (vitamin C) 500 mg tablet 500 mg PO QAM RF: 0 prednisone 5 mg tablet 5 mg PO BID Qty: 180 RF: 0 lisinopril 5 mg tablet 10 mg PO QAM Qty: 90 RF: 0 acetaminophen [Tylenol Extra Strength] 500 mg Tablet 500 mg PO Q6H PRN (Reason: Pain) RF: 0 Stool Softener 325mg 325 mg PO HS RF: 0 Vitamin E 500 Iu 500 unit PO QAM RF: 0 aspirin 81 mg Tablet,Delayed Release (Dr/Ec) 81 mg PO QAM RF: 0 Discontinued clopidogrel 75 mg tablet 75 mg PO QAM Qty: 90 RF: 3 oxycodone 5 mg tablet 5 mg PO Q6H PRN (Reason: pain) Qty: 14 RF: 0 Discharge Orders: Discharge Order (Routine); Ordered 04/24/20 Ordered By: Zachary Ontiveros/Other Patient Handouts: Relieving Back Pain Admission Data Admit Date/Time: 04/22/20 10:00 Attending Provider: Zachary James Admit Provider: Zachary James Primary Care Provider: Lavelle Parker Other Providers: Savannah Marie ; Daniele Roque ; Lamberto Chacko ; [place] Other Interventions: Discharge Summary Assessment (RN) Last Done: 04/24/20 13:32 DC Date/Time DO NOT enter until pt leaves facility: 04/24/20 15:40 Coding Level of Care Code 83736 OBS Care - Discharge Diagnoses Neurogenic claudication due to lumbar spinal stenosis M48.062 Coronary artery arteriosclerosis I25.10 Hypertension I10 Hypertension type: unspecified Intermittent complete heart block I44.2 Rheumatoid arthritis M06.9 DVT prophylaxis Z29.9
[2020-04-24] MEDS ORDERED: methylPREDNISolone 4 MG TAB PO SCH (21:00)
[2020-04-25] MEDS ORDERED: methylPREDNISolone 4 MG TAB PO SCH (07:00)
[2020-04-26] MEDS ORDERED: methylPREDNISolone 4 MG TAB PO SCH (07:00)
[2020-04-27] MEDS ORDERED: methylPREDNISolone 4 MG TAB PO SCH (07:00)
[2020-04-28] MEDS ORDERED: methylPREDNISolone 4 MG TAB PO SCH (07:00)
== END 2020-04-24 15:40 | disposition home health service (06) ==
LOC: 3W 07:02 → ED 07:02 → 3W 10:29

== ENCOUNTER 2020-05-27 06:59 | Inpatient (IN) ==
[2020-05-27] MEDS ORDERED: NITROGLYCERIN 2% OINTMENT 30GM TUBE EXT STA (07:23)
--- NOTE | 2020-05-27 07:34 | Emergency Department Note ---
Impression & Plan Chest pain ED Provider Note CHIEF COMPLAINT: Chest pain HISTORY OF PRESENTING ILLNESS: This is an 85-year-old male with past medical history significant for CAD, 3 previous MIs and 6 cardiac stents, who presents to the emergency department via EMS with complaint of chest pain that started th morning around 5:20 AM. Patient states he had been up for several minutes watching TV and he decided to get up and go get breakfast, while he was walking to the kitchen he started to get midsternal chest pain that he describes as pressure and severe. He states the pain was initially a 9/10, he took 2 sublingual nitroglycerin tablets, which improved his pain level to a 4/10 currently. He notes that he had 4 chewable aspirin given to him by EMS. He states the chest pain is constant, does not radiate, and continues to improve. He has had some associated shortness of breath which is also improving. He was placed on 2 L oxygen on arrival to the ED for oxygen saturation of 91% on room air. He does not use oxygen at home. He denies any fevers or chills. He denies any cough, URI symptoms, vomiting or diarrhea, loss of taste or smell, recent travel, or sick contacts concerning for COVID-19. Dr. Cutler is his esol teacher. REVIEW OF SYSTEMS: A complete 10 point review of systems was reviewed with the patient with pertinent positives and negatives as per history of present illness. All else were negative. PAST MEDICAL HISTORY: CAD, VA, cardiac stents, cardiac pacemaker, hypertension, hyperlipidemia, TIA SOCIAL HISTORY: Lives at home, he is a former smoker (quit 40 years ago) ALLERGIES: Reviewed in chart and with the patient PHYSICAL EXAM: CONSTITUTIONAL: Pleasant and cooperative. Nontoxic-appearing and in no acute distress. Well appearing and well nourished. HEENT: Normocephalic, atraumatic. PERRL, EOMI. NECK: Supple, full active range of motion without discomfort. RESPIRATORY: Clear to auscultation bilaterally with no wheezing, crackles, rhonchi or stridor. Equal expansion bilaterally. CARDIOVASCULAR: Regular rate and rhythm with no murmurs, rubs or gallops. Normal peripheral perfusion, 2+ distal pulses in all 4 extremities. 1+ pitting edema in the bilateral ankles. GASTROINTESTINAL: Soft, nontender, nondistended. No palpable masses or HSM. Bowel sounds present in all quadrants. MUSCULOSKELETAL: Full range of motion of all joints without discomfort. INTEGUMENTARY: No rash or other significant dermatologic conditions noted. NEUROLOGIC: Alert and oriented X 4 with normal affect. Normal strength and sensation in all 4 extremities. Normal speech. ED COURSE AND MEDICAL DECISION MAKING: CC: Patient presenting with complaint of chest pain DIFFERENTIAL DIAGNOSIS: Includes, but not limited to acute coronary syndrome including VA and unstable angina, pulmonary embolism, aortic dissection, pneumothorax, pericarditis, myocarditis, anxiety, musculoskeletal pain, GERD, costochondritis, pneumonia, among others. INTERPRETATION OF LABS: No leukocytosis, no anemia, mild thrombocytopenia, no significant electrolyte abnormalities, mildly elevated BUN and creatinine which appears consistent with baseline, normal liver enzymes and lipase. Initial t roponin is slightly detectable, but not clinically elevated. IMAGING: XR chest 1V portable HISTORY: 85 years-old Male Chest Pain acute atypical chest pain COMPARISON: Chest radiograph 04/22/2020 TECHNIQUE: Portable AP view of the chest FINDINGS: Cardiomediastinal and hilar silhouettes are within normal limits. Calcified plaque of the thoracic aortic arch. Left subclavian pacer. No pneumothorax. Small left pleural effusion with left greater than right bibasilar opacities, not significantly changed from comparison. The bones appear grossly intact. IMPRESSION: Unchanged small left pleural effusion with mild bibasilar opacities suggestive of probable atelectasis. EKG: Shows atrial sensed ventricular paced rhythm with a rate of 77 bpm, no ectopy, no significant change when compared to previous EKG from 04/22/2020 by my interpretation. MEDICATION RECONCILIATION: I attest that I have personally reviewed the patient's current medication list. INITIAL VITAL SIGNS REVIEW: I reviewed the patient's initial vital signs and interpret them as follows: T: Afebrile; BP: Hypertensive; HR: Within normal limits; RR: Within normal limits; Pulse Ox: Within normal limits on 2 L oxygen. Blood pressure screening: The patient was found to have an elevated blood pressure and was referred to the inpatient team for further management. MDM SUMMARY: Patient was evaluated at bedside, history and physical exam performed. Patient is alert and oriented, in no acute distress, resting, in the stretcher. He currently rates his chest discomfort a 4/10 which was improved with nitroglycerin at home. He already received 324 chewable aspirin. EKG reviewed at bedside, noting ventricular paced rhythm that appears to be sensing appropriately. Cardiac monitoring: An order was placed for continuous cardiac monitoring. The monitor shows a rate of 78 bpm with V paced rhythm. The patient's story is concerning for unstable angina, he is high risk for ACS by heart score with a score of 7 points. Orders were placed at bedside for labs, chest x-ray to evaluate for cardiopulmonary disease, and nitro placed was placed, given his improvement with sublingual nitro. Patient discussed with Dr. Rodriguez, who agrees with my assessment, plan, and disposition. Labs and imaging reviewed as above, labs are fairly unremarkable, though troponin is slightly detectable. Chest x-ray is stable. Patient reassessed multiple times throughout ED stay, his chest pain continues to improve after the Nitropaste, though he still says his pain is pretty much resolved. Given the patient's significant risk factors and history as well as a slightly detectable troponin and chest pain that is relieved with nitroglycerin, I do feel that he is reasonable for admission/observation. I spoke on the phone with Dr. Petit, hospitalist, who agrees to evaluate the patient for the admission. Additional treatment for the patient's chest pain was deferred to the inpatient team. Patient was updated on all results and plan for admission, he verbalized understanding and was agreeable to this plan. The patient was stable at time of admission. The chart was completed utilizing bluepulse Speech voice recognition software. Grammatical errors, random word insertions, pronoun errors, and incomplete sentences are an occasional consequence of this system due to software limitations, ambient noise, and hardware issues. Any formal questions or concerns about the content, text, or information contained within the body of t his dictation should be directly addressed to the nurse practitioner for clarification. Past Med/Surg History Medical History Chronic anticoagulation (Chronic) Colon adenoma (Inactive 09/20/13) Coronary artery arteriosclerosis (Acute) Cough DM (diabetes mellitus), type 2 Heart disease Hyperlipidemia (Acute) Hypertension Lumbar radicular pain (Acute) Mobitz (type) I (Wenckebach's) atrioventricular block Mobitz (type) II atrioventricular block Obesity, diabetes, and hypertension syndrome Rheumatoid arthritis (Acute) Right hip pain Stable angina pectoris Steroid dependent (Chronic) Ventral hernia Surgical History History of bladder surgery History of coronary artery stent placement History of cystoscopy with insertion of ureteral stent History of partial colectomy History of tonsillectomy Status post placement of cardiac pacemaker (Acute) Family History Sister Cancer Mother Colorectal cancer Diabetes Father Myocardial infarction Stroke Other TIA (transient ischemic attack) Denies family history of Ovarian cancer Prostate cancer Breast cancer Social History Smoking Status: Former smoker Tobacco Type: Cigarettes Age Started Using Tobacco: 17; Cigarettes Per Day: 1/2 pack per day; Second Hand Exposure: No; Hx Alcohol Use: No Hx Substance Use: No Preferred Language: Chinese Communication Ability: Effective Visual Impairment: No Limitations Hearing Ability: Normal Manager Corporate Responsibility Required: No Beliefs That Will Affect Care: None marital status: / Current Living Situation: Parent Current Living Situation Comment: Patient's youngest son lives with him. 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 Other Information That Helps Us Care for You: No Feels Safe at Home: Yes Safety Concerns: Feels Safe At This Time caffeine: No Dental Care, Regularly: Yes Physical Activity Frequency: 3-4 Times per Week Seatbelt Use: always Sunscreen Use: No Allergies Allergies Allergy/AdvReac Type Severity Reaction Status Date / Time lactose Allergy Unknown GI UPSET Verified 05/23/20 10:00 Penicillins Allergy Unknown HIVES Verified 05/23/20 10:00 shellfish derived Allergy Unknown HIVES Verified 05/23/20 10:00 Sulfa (Sulfonamide Allergy Unknown HIVES Verified 05/23/20 10:00 Antibiotics) sulfamethoxazole Allergy . Verified 05/23/20 10:00 [From Bactrim] trimethoprim [From Bactrim] Allergy . Verified 05/23/20 10:00 Home Meds Home Medications Medication Instructions Recorded Confirmed melatonin 1 mg tablet 1 mg PO HS PRN 05/05/19 05/27/20 oidfa-l-qsngyqlbbrhoy 150 unit 1 tab PO QAM tab 08/22/19 05/27/20 tablet ascorbic acid (vitamin C) 500 mg 500 mg PO QAM tab 08/22/19 05/27/20 tablet prednisone 5 mg tablet 5 mg PO BID #180 tab 10/02/19 05/27/20 aspirin 81 mg PO QAM 02/06/20 05/27/20 Stool Softener 325mg 325 mg PO HS 04/22/20 05/27/20 Vitamin E 500 Iu 500 unit PO QAM 04/22/20 05/27/20 acetaminophen [Tylenol Extra 500 mg PO Q6H PRN 04/22/20 05/27/20 Strength] clopidogrel 75 mg tablet 75 mg PO DAILY 05/23/20 05/27/20 Previous Rx's Medication Instructions Recorded simvastatin 40 mg tablet 40 mg PO QPM #90 tab 01/17/20 metoprolol tartrate 100 mg tablet 100 mg PO BID #60 tab 02/07/20 nitroglycerin 0.4 mg sublingual 0.4 mg SL DIRECTED PRN #25 tab 03/22/20 tablet gabapentin 100 mg capsule 100 mg PO .COMPLEX #90 cap 04/29/20 furosemide 40 mg tablet 40 mg PO DAILY PRN #30 tab 05/03/20 Lift Chair #1 ea 05/09/20 metformin 500 mg tablet 500 mg PO DAILY #30 tab 05/16/20 olmesartan 5 mg tablet 5 mg PO DAILY #30 tab 05/16/20 hydrocodone 5 mg-acetaminophen 325 1 tab PO Q4H PRN #20 tab 05/24/20 mg tablet Results & Data (ED) Vital Signs Vital Signs - 24 hr 05/27/20 07:09 05/27/20 07:51 05/27/20 08:48 Temperature 36.7 C Temperature Source Oral Pulse Rate 76 Pulse Rate [Left Finger] 72 63 Respiratory Rate 18 18 18 Blood Pressure 146/85 H Blood Pressure [Left Arm] 122/71 131/81 Blood Pressure Mean 105 Blood Pressure Mean [Left Arm] 88 97 Pulse Oximetry 99 94 97 Oxygen Delivery Method Nasal Cannula Nasal Cannula Nasal Cannula Oxygen Flow Rate 2 2 2 Sepsis Recent Fever Within 48 Hours No Sepsis New/Unexplained Change in Mental Status No Sepsis Action Taken by Nursing No Action Required Laboratory Data Result diagrams: 05/27/20 06:22 05/27/20 06:22 Lab Results 05/27/20 05/27/20 05/27/20 Range/Units 06:22 06:22 06:22 WBC 9.88 (4.8-10.8) K/uL RBC 4.42 L (4.7-6.1) M/uL Hgb 14.3 (14.0-18.0) g/dL Hct 41.7 L (42-52) % MCV 94.3 (80-100) fL MCH 32.4 (25-34) pg MCHC 34.3 (32-36) g/dL RDW Std Deviation 47.7 H (36.4-46.3) fL RDW Coeff of Mike 13.8 (11.5-14.5) % Plt Count 124 L (130-400) K/uL MPV 10.6 H (7.4-10.4) fL Immature Gran % (Auto) 0.9 % Neut % (Auto) 67.2 % Lymph % (Auto) 20.3 % [place] % (Auto) 11.2 % Eos % (Auto) 0.3 % Baso % (Auto) 0.1 % Neut # (Auto) 6.63 H (1.4-6.5) K/uL Lymph # (Auto) 2.01 (1.2-3.4) K/uL [place] # (Auto) 1.11 H (0.11-0.59) K/uL Eos # (Auto) 0.03 (0-0.5) K/uL Baso # (Auto) 0.01 (0-0.2) K/uL Immature Gran # (Auto) 0.09 H (0.00-0.02) K/uL PT 11.6 (9.0-12.0) Seconds INR 1.1 (0.9-1.1) APTT 25.1 (21.0-31.0) Seconds PTT Ratio 0.9 Sodium 141 (136-145) mmol/L Potassium 3.5 (3.5-5.1) mmol/L Chloride 107 (98-107) mmol/L Carbon Dioxide 26 (21-32) mmol/L Anion Gap 8.0 (3-11) BUN 29 H (7-18) mg/dl Creatinine 1.41 H (0.6-1.4) mg/dl Est Cr Clr Drug Dosing 43.4 ml/min Est GFR ( Amer) 52.6 Est GFR (Non-Af Amer) 45.4 BUN/Creatinine Ratio 20.4 H (10-20) Glucose 164 H (70-99) mg/dl Calcium 8.5 (8.5-10.1) mg/dl Total Bilirubin 0.8 (0.2-1) mg/dl AST 12 L (15-37) U/L ALT 18 (12-78) U/L Alkaline Phosphatase 65 (45-117) U/L Troponin I 0.029 (0-0.045) ng/ml Total Protein 6.3 L (6.4-8.2) gm/dl Albumin 3.1 L (3.4-5.0) gm/dl Globulin 3.2 (2.5-4.0) gm/dl Albumin/Globulin Ratio 1.0 (0.9-2) Lipase 99 (73-393) U/L Administered Medications Gabapentin (Neurontin) 100 mg PO TID [facility] Stop: 06/26/20 13:59 Last Admin: 05/27/20 13:50 Dose: 100 mg Documented by: [id number] Heparin Sodium/Dextrose (Heparin Sodium/Dextrose) 25,000 units in 500 mls @ 18 mls/hr IV .Q24H [facility]; Protocol Stop: 06/26/20 12:14 Last Admin: 05/27/20 12:18 Dose: 900 units/hr, 18 mls/hr Documented by: [id number] Cosigned by: [id number] Insulin Aspart (Novolog Flexpen) 0 units SC ACHS [facility] Stop: 06/26/20 11:29 Last Admin: 05/27/20 12:04 Dose: 2 units Documented by: [id number] Cosigned by: [id number] Nystatin (Mycostatin) 5 ml PO QID SHASHI Stop: 06/06/20 12:59 Last Admin: 05/27/20 13:51 Dose: 5 ml Documented by: [id number] Discontinued Medications Nitroglycerin (Nitro-Bid 2%) 1 inch EXT NOW STA Stop: 05/27/20 07:24 Last Admin: 05/27/20 07:51 Dose: 1 inch Documented by: [id number] Discharge Plan Visit Data *Final* Discharge Date/Time: 05/27/20 09:52 Chief Complaint: Chest Pain ED Provider: Nirmal Rodriguez ED Midlevel Provider: Ryann Pennington Discharge Problem: Chest pain Patient Disposition: Admitted As Inpatient Discharge Instructions Interventions: ED Discharge Assessment Last Done: 05/27/20 09:52 Discharge Problem: Chest pain Qualifiers: Chest pain type: chest pain due to myocardial ischemia Ischemic chest pain type: unstable angina pectoris Qualified Code(s): I20.0 - Unstable angina
[2020-05-27 07:38] LABS: Basophils # (auto) 0.01 K/uL (0-0.2); Basophils % (auto) 0.1 %; Eosinophils # (auto) 0.03 K/uL (0-0.5); Eosinophils % (auto) 0.3 %; Hematocrit (blood only) 41.7 % (42-52); Hemoglobin 14.3 g/dL (14.0-18.0); Immature Granulocytes # (auto) 0.09 K/uL (0.00-0.02); Immature Granulocytes % (auto) 0.9 %; Lymphocytes # (auto) 2.01 K/uL (1.2-3.4); Lymphocytes % (auto) 20.3 %; Mean Corpuscular Hemoglobin 32.4 pg (25-34); Mean Corpuscular Hgb Conc 34.3 g/dL (32-36); Mean Corpuscular Volume 94.3 fL (80-100); Mean Platelet Volume 10.6 fL (7.4-10.4); Monocytes # (auto) 1.11 K/uL (0.11-0.59); Monocytes % (auto) 11.2 %; Neutrophils # (auto) 6.63 K/uL (1.4-6.5); Neutrophils % (auto) 67.2 %; Platelet Count 124 K/uL (130-400); RDW Coefficient of Variation 13.8 % (11.5-14.5); RDW Standard Deviation 47.7 fL (36.4-46.3); Red Blood Count 4.42 M/uL (4.7-6.1); White Blood Count 9.88 K/uL (4.8-10.8)
--- NOTE | 2020-05-27 07:44 | XRay Report ---
XR chest 1V portable HISTORY: 85 years-old Male Chest Pain acute atypical chest pain COMPARISON: Chest radiograph 04/22/2020 TECHNIQUE: Portable AP view of the chest FINDINGS: Cardiomediastinal and hilar silhouettes are within normal limits. Calcified plaque of the thoracic ao rtic arch. Left subclavian pacer. No pneumothorax. Small left pleural effusion with left greater than right bibasilar opacities, not significantly changed from comparison. The bones appear grossly intac t. IMPRESSION: Unchanged small left pleural effusion with mild bibasilar opacities suggestive of probabl e atelectasis. ACT 112: Negative or not required by law. The above report was generated using voice recognition software. It may contain grammatical, syntax o r spelling errors. Electronically signed by: Asher Bass M.D. 05/27/2020 7:43 AM
[2020-05-27 07:46] LABS: Albumin Level 3.1 gm/dl (3.4-5.0); BUN Creatinine Ratio 20.4 (10-20); Calcium 8.5 mg/dl (8.5-10.1); Creatinine Clr Calc Pharmacy 43.4 ml/min; Est GFR (African American) 52.6; Est GFR (Non-African American) 45.4; Potassium 3.5 mmol/L (3.5-5.1)
[2020-05-27 07:49] LABS: INR 1.1 (0.9-1.1); Partial Thromboplastin Ratio 0.9; Partial Thromboplastin Time 25.1 Seconds (21.0-31.0); Prothrombin Time 11.6 Seconds (9.0-12.0)
[2020-05-27 07:50] LABS: Bilirubin,Total 0.8 mg/dl (0.2-1); Globulin 3.2 gm/dl (2.5-4.0); Total Protein 6.3 gm/dl (6.4-8.2); Troponin I 0.029 ng/ml (0-0.045)
--- NOTE | 2020-05-27 09:29 | History & Physical Report ---
Date of Service May 27, 2020 Assessment & Plan (1) Chest pain: Typical chest pain in patient with known CAD. This may represent unstable angina. Last cath about 2006 (at [facility]). Last echo 2017. Pain relieved with nitro SL and paste. Had chest pain responding to SL nitro about 2 weeks ago as well. Follows with Dr Cutler, [facility] Cardiology. Patient now chest pain free. Plan: * cont nitropaste * serial troponins * echo * pacemaker interrogation to ensure no dysrhythmia this am * continue usual cardiac meds including aspirin, BB, plavix, statin * check lipids in am * troponins, echo, etc will dictate plan of care * [facility] cardiology consultation requested * just had Lipids checked earlier this month; LDL was 76; defer on repeat lipids at this time (2) Coronary artery arteriosclerosis: s/p multiple SC events in the distant past. s/p multiple stents (6). Last heart cath 2006 - [facility]. Cont asa, plavix, statin, BB, ARB. Adding topical nitrates. If troponin is + then heparinize. (3) Hyperlipidemia: See above. Controlled. Cont statin. (4) Hypertension: Uncontrolled in face of chest pain. Adding topical nitrates. Cont BB, ARB. Titrate these meds if needed. (5) Rheumatoid arthritis: Controlled. Cont prednisone 5mg BID. (6) DM (diabetes mellitus), type 2: Hold metformin. Novolog sliding scale. BSGs ac/hs. DM diet. Hb A1C 7.4% earlier this month. Add lantus if needed. (7) Status post placement of cardiac pacemaker: 2nd to high degree AV block - 2019. Request pacer interrogation. 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 (9) Chronic kidney disease, stage 3a: Cr stable today. Repeat BMP in am. (10) Thrombocytopenia: Cause? nothing infectious by history. Simply repeat BMP am. If it continues downward trend then will need work-up. (11) DVT prophylaxis: heparin SC update son with whom he lives later today History of Present Illness Chief Complaint: chest pain Primary Care Provider: Lavelle Parker, 85yo male with history of CAD s/p 3 acute MIs and 6 prior stents (last heart cath was at [facility] in 2006), pacemaker status, prednisone-dependent RA, and T2DM who presents with acute onset of chest heaviness starting this am at 0520. Patient awoke about 5am this am. Was initially in living room. Walked to kitchen to cook breakfast. Upon arrival he went to the refrigerator and opened the door. At that point he developed the chest heaviness across sternal area and left-sided of chest. No radiation of pain. Did have associated dyspnea. Pain was similar yet different than the pain he had had with prior MIs. Pain was 9/10 on pain scale. Took 2 SL nitros at home - pain went to 5/10. Never had diaphoresis, nausea or emesis. Called 911 - brought to [facility]. Nitropaste applied in ER. Pain now 0-1/10. Did have pain about 2 weeks ago - resolved with SL nitro then. Other than fatigue yesterday he has felt well. No recent fevers, chills, loss of smell, loss of taste, nausea, emesis, abd pain, runny nose, congestion, sore throat or rash. Celebrated 85th birthday yesterday. Sees Dr Cutler - [facility] cardiology. Allergies Allergy/AdvReac Type Severity Reaction Status Date / Time lactose Allergy Unknown GI UPSET Verified 05/23/20 10:00 Penicillins Allergy Unknown HIVES Verified 05/23/20 10:00 shellfish derived Allergy Unknown HIVES Verified 05/23/20 10:00 Sulfa (Sulfonamide Allergy Unknown HIVES Verified 05/23/20 10:00 Antibiotics) sulfamethoxazole Allergy . Verified 05/23/20 10:00 [From Bactrim] trimethoprim [From Bactrim] Allergy . Verified 05/23/20 10:00 Home Medications Home Medications Medication Instructions Recorded Confirmed Type melatonin 1 mg tablet 1 mg PO HS PRN 05/05/19 05/27/20 History brmxt-g-jzjnjtbpsfeww 150 unit 1 tab PO QAM tab 08/22/19 05/27/20 History tablet ascorbic acid (vitamin C) 500 mg 500 mg PO QAM tab 08/22/19 05/27/20 History tablet prednisone 5 mg tablet 5 mg PO BID #180 tab 10/02/19 05/27/20 History simvastatin 40 mg tablet 40 mg PO QPM #90 tab 01/17/20 05/27/20 Rx aspirin 81 mg PO QAM 02/06/20 05/27/20 History metoprolol tartrate 100 mg tablet 100 mg PO BID #60 tab 02/07/20 05/27/20 Rx nitroglycerin 0.4 mg sublingual 0.4 mg SL DIRECTED PRN #25 tab 03/22/20 05/27/20 Rx tablet Stool Softener 325mg 325 mg PO HS 04/22/20 05/27/20 History Vitamin E 500 Iu 500 unit PO QAM 04/22/20 05/27/20 History acetaminophen [Tylenol Extra 500 mg PO Q6H PRN 04/22/20 05/27/20 History Strength] gabapentin 100 mg capsule 100 mg PO .COMPLEX #90 cap 04/29/20 05/27/20 Rx furosemide 40 mg tablet 40 mg PO DAILY PRN #30 tab 05/03/20 05/27/20 Rx Lift Chair #1 ea 05/09/20 05/27/20 Rx metformin 500 mg tablet 500 mg PO DAILY #30 tab 05/16/20 05/27/20 Rx olmesartan 5 mg tablet 5 mg PO DAILY #30 tab 05/16/20 05/27/20 Rx clopidogrel 75 mg tablet 75 mg PO DAILY 05/23/20 05/27/20 History hydrocodone 5 mg-acetaminophen 325 1 tab PO Q4H PRN #20 tab 05/24/20 05/27/20 Rx mg tablet Past Med/Surg History Medical History Chronic anticoagulation (Chronic) Colon adenoma (Inactive 09/20/13) Coronary artery arteriosclerosis (Acute) Cough DM (diabetes mellitus), type 2 Heart disease Hyperlipidemia (Acute) Hypertension Lumbar radicular pain (Acute) Mobitz (type) I (Wenckebach's) atrioventricular block Mobitz (type) II atrioventricular block Obesity, diabetes, and hypertension syndrome Rheumatoid arthritis (Acute) Right hip pain Stable angina pectoris Steroid dependent (Chronic) Ventral hernia Surgical History History of bladder surgery History of coronary artery stent placement History of cystoscopy with insertion of ureteral stent History of partial colectomy History of tonsillectomy Status post placement of cardiac pacemaker (Acute) Family History Sister Cancer Mother Colorectal cancer Diabetes Father Myocardial infarction Stroke Other TIA (transient ischemic attack) Denies family history of Ovarian cancer Prostate cancer Breast cancer Social History Smoking Status: Former smoker Tobacco Type: Cigarettes Age Started Using Tobacco: 17; Cigarettes Per Day: 1/2 pack per day; Second Hand Exposure: No; Hx Alcohol Use: No Hx Substance Use: No Preferred Language: Arabic Communication Ability: Effective Visual Impairment: No Limitations Hearing Ability: Normal Healthcare Financial Analyst Required: No Beliefs That Will Affect Care: None marital status: / Current Living Situation: Parent Current Living Situation Comment: Patient's youngest son lives with him. 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 Other Information That Helps Us Care for You: No Feels Safe at Home: Yes Safety Concerns: Feels Safe At This Time caffeine: No Dental Care, Regularly: Yes Physical Activity Frequency: 3-4 Times per Week Seatbelt Use: always Sunscreen Use: No Review of Systems Constitutional: + fatigue; no fever, no chills, no anorexia and no weight loss Eyes: no worsening vision Ear, Nose, Mouth, Throat: no nasal congestion, no nasal discharge and no sore throat Respiratory: + dyspnea; no cough and no dyspnea on exertion Cardiovascular: as per Subjective / HPI and + chest pain; no orthopnea, no paroxysmal nocturnal dyspnea, no palpitations and no edema Gastrointestinal: no abdominal pain, no nausea, no vomiting and no diarrhea/loose stools Genitourinary: no dysuria and no hematuria Musculoskeletal: + joint pain; no back pain and no neck pain Integumentary: no rash Neurologic: no localized weakness and no loss of sensation Psychiatric: no depression Endocrine: + fatigue Hematologic / Lymphatic: no easy bleeding Physical Exam Constitutional: well developed and well nourished; no acute distress and no altered mental status Eyes: PERRL (lens implants b/l ) ENMT: Ears: no TM abnormality Mouth: + oral mucosal abnormality (thrush plaques); oral mucous membranes not dry Neck: trachea midline, no thyromegaly Respiratory: normal respiratory effort, lungs clear to auscultation Cardiovascular: Rate/Rhythm: regular rate and regular rhythm (extra beats however) Heart Sounds: normal S1 and normal S2; no murmur Vessels: posterior tibial pulses present and dorsalis pedis pulses present; no JVD Extremities: no edema Chest (Breasts): Additional Comments: pacemaker - left upper chest ; no reproducible chest wall pain Gastrointestinal (Abdomen): normal bowel sounds, soft, nontender, no hepatosplenomegaly Inspection/Auscultation: + visible herniation (ventral - reducible; scar - midline ) Musculoskeletal: no cyanosis or clubbing, extremities motor strength 5/5 Skin: no rashes, warm and dry Neurologic: deep tendon reflexes 2+ bilaterally and moves all extremities; no focal motor deficits Psychiatric: A+Ox3, euthymic affect Lymphatic: no cervical lymphadenopathy Results & Data Results & Data ([facility]) Vital Signs (Past 12 Hours) Vital Signs Temp Pulse Pulse Resp BP BP Pulse Ox 05/27/20 08:48 63 18 131/81 97 05/27/20 07:51 72 18 122/71 94 05/27/20 07:09 36.7 C 76 18 146/85 H 99 Laboratory Results Laboratory Results - last 24 hr 05/27/20 05/27/20 05/27/20 06:22 06:22 06:22 WBC 9.88 RBC 4.42 L Hgb 14.3 Hct 41.7 L MCV 94.3 MCH 32.4 MCHC 34.3 RDW Std Deviation 47.7 H RDW Coeff of Mike 13.8 Plt Count 124 L MPV 10.6 H Immature Gran % (Auto) 0.9 Neut % (Auto) 67.2 Lymph % (Auto) 20.3 Cross % (Auto) 11.2 Eos % (Auto) 0.3 Baso % (Auto) 0.1 Neut # (Auto) 6.63 H Lymph # (Auto) 2.01 Cross # (Auto) 1.11 H Eos # (Auto) 0.03 Baso # (Auto) 0.01 Immature Gran # (Auto) 0.09 H PT 11.6 INR 1.1 APTT 25.1 PTT Ratio 0.9 Sodium 141 Potassium 3.5 Chloride 107 Carbon Dioxide 26 Anion Gap 8.0 BUN 29 H Creatinine 1.41 H Est Cr Clr Drug Dosing 43.4 Est GFR ( Amer) 52.6 Est GFR (Non-Af Amer) 45.4 BUN/Creatinine Ratio 20.4 H Glucose 164 H Calcium 8.5 Total Bilirubin 0.8 AST 12 L ALT 18 Alkaline Phosphatase 65 Troponin I 0.029 Total Protein 6.3 L Albumin 3.1 L Globulin 3.2 Albumin/Globulin Ratio 1.0 Lipase 99 Diagnostic Findings cxr - EKG - atrial sensed ventricular paced rhythm Code Status & VTE Plan Code Status full level 1 VTE Prophylaxis Plan VTE Prophylaxis will be ordered: Yes PG Care Time/CCT Total # of Minutes Spent Total Time Spent with Patient: Total time spent is greater than 50% in coordination of care (as documented) at patient's floor/unit and/or counseling patient: Coding Level of Care Code 19520 Initial Inpt Care Lvl 3 Diagnoses Chest pain I20.0 Chest pain type: chest pain due to myocardial ischemia Ischemic chest pain type: unstable angina pectoris Coronary artery arteriosclerosis I25.10 Hyperlipidemia E78.2 Hyperlipidemia type: mixed hyperlipidemia Hypertension I10 Hypertension type: unspecified Rheumatoid arthritis M06.9 Rheumatoid arthritis location: unspecified site Rheumatoid factor presence: unspecified presence DM (diabetes mellitus), type 2 E11.9 Diabetes mellitus terminal press operator insulin use: without terminal press operator use Diabetes mellitus complication status: without complication Status post placement of cardiac pacemaker Z95.0 Steroid dependent F19.20 Chronic kidney disease, stage 3a N18.3 Thrombocytopenia D69.6 DVT prophylaxis Z29.9 (1) Rheumatoid arthritis Rheumatoid arthritis location: unspecified site Rheumatoid factor presence: unspecified presence Qualified Code(s): M06.9 - Rheumatoid arthritis, unspecifi ed (2) DM (diabetes mellitus), type 2 Diabetes mellitus terminal press operator insulin use: without detention use Diabetes mellitus complication status: without complication Qualified Code(s): E11.9 - Type 2 diabetes mellitus without complications (3) Hyperlipidemia Hyperlipidemia type: mixed hyperlipidemia Qualified Code(s): E78.2 - Mixed hyperlipidemia (4) Chest pain Chest pain type: chest pain due to myocardial ischemia Ischemic chest pain type: unstable angina pectoris Qualified Code(s): I20.0 - Unstable angina (5) Hypertension Hypertension type: unspecified Qualified Code(s): I10 - Essential (primary) hypertension
[2020-05-27] MEDS ORDERED: ONDANSETRON INJ 2 MG/ML 2 ML VIAL IV PRN (10:29)
[2020-05-27] MEDS ORDERED: FUROSEMIDE 40 MG TAB PO PRN (10:29)
[2020-05-27] MEDS ORDERED: NITROGLYCERIN SL 0.4 MG/TAB TAB SL PRN (10:29)
[2020-05-27] MEDS ORDERED: HYDROCODONE/ACETAMOPHEN 5/325MG TAB PO PRN (10:33)
[2020-05-27] MEDS ORDERED: GLUCOSE 10 TABS/TUBE PO PRN (10:45)
[2020-05-27] MEDS ORDERED: GLUCOSE 40% GEL 15 GM TUBE PO PRN (10:45)
[2020-05-27] MEDS ORDERED: GLUCAGON FOR INJ 1 MG VIAL IM PRN (10:45)
[2020-05-27] MEDS ORDERED: CARBOHYDRATES FOR HYPOGLYCEMIA PO PRN (10:45)
[2020-05-27] MEDS ORDERED: DEXTROSE 50% 50 ML SYRINGE IV PRN (10:45)
[2020-05-27] MEDS: INSULIN ASPART 100 UNITS/ML 3 ML PEN SC SCH ×3 (12:04→20:45)
[2020-05-27] MEDS ORDERED: Heparin IV Low Dose *NO* Bolus IV SCH (12:15)
[2020-05-27] MEDS: HEPARIN SODIUM/DEXTROSE 25,000 UNITS/500 ML BAG IV SCH (12:18)
[2020-05-27] MEDS: GABAPENTIN 100 MG CAP PO SCH ×2 (13:50→20:44)
[2020-05-27] MEDS: NYSTATIN SUSP 500,000 U/5 ML UDC PO SCH ×3 (13:51→20:43)
--- NOTE | 2020-05-27 14:03 | Electrocardiogram Report ---
Test Reason : Blood Pressure : / mmHG Vent. Rate : 076 BPM Atrial Rate : 076 BPM P-R Int : 220 ms QRS Dur : 188 ms QT Int : 458 ms P-R-T Axes : 057 -77 089 degrees QTc Int : 515 ms Atrial-sensed ventricular-paced rhythm with prolonged AV conduction with occasional Premature ventric ular complexes Abnormal ECG When compared with ECG of 27-MAY-2020 07:04, (unconfirmed) Premature ventricular complexes are now Present Confirmed by Nitin Rainey ([id number]) on 05/27/2020 2:03:07 PM Referred By: REFERRED SELF Confirmed By:Nitin Rainey
--- NOTE | 2020-05-27 15:22 | Cardiology Consultation ---
Date of Consultation May 27, 2020 Assessment & Plan (1) Chest pain on exertion: His chest pain is almost certainly due to cardiac ischemia. His symptoms are characteristic, they occur with minimal exertion but are exertional, they are relieved by rest and his troponin is slightly elevated. It sounds as though he has unstable angina and will need to be evaluated. I would continue heparin and make sure his blood pressure is well controlled to help limit his angina. (2) Coronary artery arteriosclerosis: He has known coronary disease with stents in the past, placed at [facility]. I discussed options with him which include catheterization and intervention if needed or if possible here versus transfer to [place] and he would prefer to go to [place]. I understand his daughter lives there, plus his prior procedures have been done there. He is not having rest pain therefore I think it is safe for him to travel, it is not an emergency situation where we would have to take him to the lab right now. (3) Cardiac pacemaker: His pacemaker is working well, it was placed for AV block but does pace in the atrium however not at increased rates and I doubt is contributory to his angina. We probably should do an echocardiogram at some point to make sure he is not developed a pacemaker induced cardiomyopathy which would decrease his contractile efficiency and could worsen his angina, in that case a biventricular device may be indicated. That could be done here or at [place] depending on the timing of his transfer. History of Present Illness Reason for Consultation: Chest pain Attending Physician: Moise Petit History of Present Illness This is a 85-year-old gentleman who has a history of hypertension, dyslipidemia, AV block for which we implanted a dual-chamber pacemaker on February 01, 2020. He has been having difficulty with angina, that is been present for a long time and he has failed Ranexa and continues difficulty with exertional angina. His coronary artery disease history is uncertain, he apparently has had 6 stents placed but I do not have details, it was done at [facility] and he is not sure of the times. He thinks the first time might have been around 2001 in the last around 2004 but I do not know how accurate these might be. This admission was prompted by him walking across her room and getting substernal chest pain which brought him to the emergency room and is unrelieved by nitroglycerin at home, although it was relieved by nitroglycerin here. He also had chest discomfort when walking to the bathroom here in the hospital just a few minutes ago. His pacemaker was interrogated this afternoon, it is pacing about 20% of the time in the atrium however the heart rate profile indicates that is not pacing at high rates so adjustment of rate response would not be effective in eliminating the angina. At rest now on heparin he is pain-free. His electrocardiogram shows ventricular pacing and is not helpful. His troponin was 0.029 on presentation (negative), a second measurement 4 hours later was 0.274 which is positive. His creatinine is slightly elevated at 1.41, electrolytes are unremarkable and his hemoglobin is normal. His blood pressure is somewhat elevated, it was 146/85 on presentation. Allergies Allergy/AdvReac Type Severity Reaction Status Date / Time lactose Allergy Unknown GI UPSET Verified 05/23/20 10:00 Penicillins Allergy Unknown HIVES Verified 05/23/20 10:00 shellfish derived Allergy Unknown HIVES Verified 05/23/20 10:00 Sulfa (Sulfonamide Allergy Unknown HIVES Verified 05/23/20 10:00 Antibiotics) sulfamethoxazole Allergy . Verified 05/23/20 10:00 [From Bactrim] trimethoprim [From Bactrim] Allergy . Verified 05/23/20 10:00 Home Medications Home Medications Medication Instructions Recorded Confirmed Type melatonin 1 mg tablet 1 mg PO HS PRN 05/05/19 05/27/20 History jcxjx-l-bjdjltljzgcsh 150 unit 1 tab PO QAM tab 08/22/19 05/27/20 History tablet ascorbic acid (vitamin C) 500 mg 500 mg PO QAM tab 08/22/19 05/27/20 History tablet prednisone 5 mg tablet 5 mg PO BID #180 tab 10/02/19 05/27/20 History simvastatin 40 mg tablet 40 mg PO QPM #90 tab 01/17/20 05/27/20 Rx aspirin 81 mg PO QAM 02/06/20 05/27/20 History metoprolol tartrate 100 mg tablet 100 mg PO BID #60 tab 02/07/20 05/27/20 Rx nitroglycerin 0.4 mg sublingual 0.4 mg SL DIRECTED PRN #25 tab 03/22/20 05/27/20 Rx tablet Stool Softener 325mg 325 mg PO HS 04/22/20 05/27/20 History Vitamin E 500 Iu 500 unit PO QAM 04/22/20 05/27/20 History acetaminophen [Tylenol Extra 500 mg PO Q6H PRN 04/22/20 05/27/20 History Strength] gabapentin 100 mg capsule 100 mg PO .COMPLEX #90 cap 04/29/20 05/27/20 Rx furosemide 40 mg tablet 40 mg PO DAILY PRN #30 tab 05/03/20 05/27/20 Rx Lift Chair #1 ea 05/09/20 05/27/20 Rx metformin 500 mg tablet 500 mg PO DAILY #30 tab 05/16/20 05/27/20 Rx olmesartan 5 mg tablet 5 mg PO DAILY #30 tab 05/16/20 05/27/20 Rx clopidogrel 75 mg tablet 75 mg PO DAILY 05/23/20 05/27/20 History hydrocodone 5 mg-acetaminophen 325 1 tab PO Q4H PRN #20 tab 05/24/20 05/27/20 Rx mg tablet Patient History Medical History Chronic anticoagulation (Chronic) Colon adenoma (Inactive 09/20/13) Coronary artery arteriosclerosis (Acute) Cough DM (diabetes mellitus), type 2 Heart disease Hyperlipidemia (Acute) Hypertension Lumbar radicular pain (Acute) Mobitz (type) I (Wenckebach's) atrioventricular block Mobitz (type) II atrioventricular block Obesity, diabetes, and hypertension syndrome Rheumatoid arthritis (Acute) Right hip pain Stable angina pectoris Steroid dependent (Chronic) Ventral hernia Surgical History History of bladder surgery History of coronary artery stent placement History of cystoscopy with insertion of ureteral stent History of partial colectomy History of tonsillectomy Status post placement of cardiac pacemaker (Acute) Family History Sister Cancer Mother Colorectal cancer Diabetes Father Myocardial infarction Stroke Other TIA (transient ischemic attack) Denies family history of Ovarian cancer Prostate cancer Breast cancer Social History Smoking Status: Former smoker Tobacco Type: Cigarettes Age Started Using Tobacco: 17; Cigarettes Per Day: 1/2 pack per day; Second Hand Exposure: No; Hx Alcohol Use: No Hx Substance Use: No Preferred Language: Albanian Communication Ability: Effective Visual Impairment: No Limitations Hearing Ability: Normal Circulation Analyst Required: No Beliefs That Will Affect Care: None marital status: / Current Living Situation: Parent Current Living Situation Comment: Patient's youngest son lives with him. 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 HEENT: Unremarkable Neck: No jugular venous distention, carotid pulses are normal and equal bilaterally without bruits. Pulmonary: Clear to auscultation bilaterally. Cardiac: Regular rhythm with no murmur, gallop or rub. Abdomen: Soft, nontender with normal bowel sounds. Extremities: No edema. Distal pulses intact. Neurologic: No focal findings. Gait is steady. Skin: The device site is well-healed without erythema, swelling or tenderness. No rash, ecchymoses or petechiae. Results & Data ([facility]) Vital Signs (Past 12 Hours) Vital Signs Temp Pulse Pulse Resp BP BP Pulse Ox 05/27/20 11:39 36.5 C 65 20 146/84 H 95 05/27/20 10:16 36.7 C 73 18 172/80 H 93 05/27/20 09:52 66 18 144/81 H 99 05/27/20 08:48 63 18 131/81 97 05/27/20 07:51 72 18 122/71 94 05/27/20 07:09 36.7 C 76 18 146/85 H 99 Laboratory Results Cardiac Enzymes 05/27/20 05/27/20 Range/Units 06:22 10:36 AST 12 L (15-37) U/L Troponin I 0.029 0.274 H* (0-0.045) ng/ml Coagulation 05/27/20 Range/Units 06:22 PT 11.6 (9.0-12.0) Seconds APTT 25.1 (21.0-31.0) Seconds CBC 05/27/20 Range/Units 06:22 WBC 9.88 (4.8-10.8) K/uL RBC 4.42 L (4.7-6.1) M/uL Hgb 14.3 (14.0-18.0) g/dL Hct 41.7 L (42-52) % Plt Count 124 L (130-400) K/uL Neut # (Auto) 6.63 H (1.4-6.5) K/uL Lymph # (Auto) 2.01 (1.2-3.4) K/uL [place] # (Auto) 1.11 H (0.11-0.59) K/uL Eos # (Auto) 0.03 (0-0.5) K/uL Baso # (Auto) 0.01 (0-0.2) K/uL Comprehensive Metabolic Panel 05/27/20 Range/Units 06:22 Sodium 141 (136-145) mmol/L Potassium 3.5 (3.5-5.1) mmol/L Chloride 107 (98-107) mmol/L Carbon Dioxide 26 (21-32) mmol/L BUN 29 H (7-18) mg/dl Creatinine 1.41 H (0.6-1.4) mg/dl Glucose 164 H (70-99) mg/dl Calcium 8.5 (8.5-10.1) mg/dl AST 12 L (15-37) U/L ALT 18 (12-78) U/L Alkaline Phosphatase 65 (45-117) U/L Total Protein 6.3 L (6.4-8.2) gm/dl Albumin 3.1 L (3.4-5.0) gm/dl Intake and Output 05/27/20 05/27/20 05/27/20 06:59 14:59 22:59 Intake Total 200 / 200 Output Total Balance 199 / 199 Intake: Oral 200 / 200 Output: # Bowel Movements Other: Weight 83.6 kg Patient Weight 05/28/20 06:59 Weight 83.6 kg Diagnostic Findings Telemetry: Atrial sensing and ventricular pacing throughout Pacemaker interrogation: Functioning well, appropriate heart rate distribution with 20% atrial pacing however the atrial pacing is at lower rates not higher rates. PG Care Time/CCT Total # of Minutes Spent Total Time Spent with Patient: Total time spent is greater than 50% in c oordination of care (as documented) at patient's floor/unit and/or counseling patient: Coding Level of Care Code 18558 Initial Inpt Care Lvl 3 Diagnoses Chest pain on exertion R07.9 Coronary artery arteriosclerosis I25.10 Cardiac pacemaker Z95.0
--- NOTE | 2020-05-27 16:31 | XCELERA ---
[id number]
[2020-05-27] MEDS: NITROGLYCERIN 2% OINTMENT 30GM TUBE EXT SCH (18:15)
[2020-05-27 18:25] LABS: Partial Thromboplastin Ratio 1.4; Partial Thromboplastin Time 38.6 Seconds (21.0-31.0)
[2020-05-27] MEDS ORDERED: HEPARIN IV BOLUS 4,500 UNITS in SYRINGE 0 ML IV ONE (18:45)
[2020-05-27] MEDS: METOPROLOL TARTRATE 100 MG TAB PO SCH (20:43)
[2020-05-27] MEDS: SIMVASTATIN 40 MG TAB PO SCH (20:44)
[2020-05-27] MEDS: predniSONE 5 MG TAB PO SCH (20:45)
[2020-05-27] MEDS ORDERED: HEPARIN SOD 5,000 UNIT/0.5 ML VIAL SQ SCH (21:00)
[2020-05-28] MEDS: NITROGLYCERIN 2% OINTMENT 30GM TUBE EXT SCH ×4 (00:10→17:18)
[2020-05-28 01:53] LABS: Basophils # (auto) 0.01 K/uL (0-0.2); Basophils % (auto) 0.1 %; Eosinophils # (auto) 0.02 K/uL (0-0.5); Eosinophils % (auto) 0.2 %; Hematocrit (blood only) 39.6 % (42-52); Hemoglobin 13.5 g/dL (14.0-18.0); Lymphocytes # (auto) 1.37 K/uL (1.2-3.4); Lymphocytes % (auto) 13.2 %; Mean Corpuscular Hgb Conc 34.1 g/dL (32-36); Mean Corpuscular Volume 93.8 fL (80-100); Monocytes # (auto) 1.14 K/uL (0.11-0.59); Neutrophils # (auto) 7.75 K/uL (1.4-6.5); Neutrophils % (auto) 74.5 %; Platelet Count 100 K/uL (130-400); RDW Coefficient of Variation 13.9 % (11.5-14.5); RDW Standard Deviation 47.8 fL (36.4-46.3); Red Blood Count 4.22 M/uL (4.7-6.1); White Blood Count 10.39 K/uL (4.8-10.8)
[2020-05-28 02:09] LABS: BUN Creatinine Ratio 20.8 (10-20); Calcium 8.1 mg/dl (8.5-10.1); Creatinine Clr Calc Pharmacy 46.7 ml/min; Est GFR (African American) 61.5; Est GFR (Non-African American) 53.1; Potassium 3.8 mmol/L (3.5-5.1)
[2020-05-28 02:18] LABS: Partial Thromboplastin Ratio 3.3
[2020-05-28 02:21] LABS: Partial Thromboplastin Time 91.4 Seconds (21.0-31.0)
[2020-05-28] MEDS: INSULIN ASPART 100 UNITS/ML 3 ML PEN SC SCH ×4 (07:47→20:46)
[2020-05-28] MEDS: GABAPENTIN 100 MG CAP PO SCH ×3 (07:54→20:45)
[2020-05-28] MEDS: CLOPIDOGREL BISULFATE 75 MG TAB PO SCH (07:54)
[2020-05-28] MEDS: predniSONE 5 MG TAB PO SCH ×2 (07:54→20:45)
[2020-05-28] MEDS: ASPIRIN 81 MG ECTAB PO SCH (07:54)
[2020-05-28] MEDS: METOPROLOL TARTRATE 100 MG TAB PO SCH ×2 (07:54→20:45)
[2020-05-28] MEDS: NYSTATIN SUSP 500,000 U/5 ML UDC PO SCH ×4 (07:55→20:44)
[2020-05-28] MEDS ORDERED: OLMESARTAN MEDOXOMIL 5 MG TAB PO SCH (09:00)
[2020-05-28 09:33] LABS: Partial Thromboplastin Ratio 2.1
[2020-05-28 09:38] LABS: Partial Thromboplastin Time 58.5 Seconds (21.0-31.0)
[2020-05-28] MEDS ORDERED: NITROGLYCERIN/D5W 100MCG/ML 20ML SYR ONE (12:24)
[2020-05-28] MEDS ORDERED: fentaNYL citrate 100 MCG/2 ML VIAL ONE (12:24)
[2020-05-28] MEDS ORDERED: HEPARIN (PORCINE) 1000 UNIT/ML 10 ML (CATH LAB USE ONLY) ONE (12:24)
[2020-05-28] MEDS ORDERED: MIDAZOLAM HCL 1 MG/ML 2ML VIAL ONE (12:24)
[2020-05-28] MEDS ORDERED: NiCARDipine HCL INJ 2.5 MG/ML 10 ML AMP ONE (12:24)
--- NOTE | 2020-05-28 13:15 | Pre Anesthesia Assessment ---
Date of Service May 28, 2020 Pre Sedation Assessment Vital Signs Temp Pulse Resp BP Pulse Ox 05/28/20 11:57 97.9 F 54 L 20 139/77 98 05/28/20 07:52 98.1 F 60 16 138/81 94 05/28/20 06:22 60 142/78 H 05/28/20 03:21 98.1 F 67 18 139/78 94 05/28/20 00:11 98.2 F 58 L 18 131/78 95 05/27/20 19:34 98.1 F 75 18 149/81 H 94 05/27/20 15:46 97.7 F 75 18 138/84 95 Cardiovascular RRR, no murmur, no edema Respiratory normal respiratory effort, lungs clear to auscultation Pre-Sedation Airway Assessment Smoking Status: Former smoker Hx Sleep Apnea: No Hx Difficult Intubation: No Short, Thick Neck: No Thyromental Distance: > or= 3.5 Finger Breadths Oral Cavity: + Dentures and + WNL Mallampati Class: III ASA: ASA3 NPO Status Date of Last Intake of Fluids: 05/28/20 Time of Last Intake of Fluids: 07:00 Date of Last Intake of Solid Food: 05/27/20 Time of Last Intake of Solid Foods: 18:00 Procedure Planning Contraindications for Sedation: none Current Medications Reviewed: Yes Notes The planned sedation has been discussed with the patient. Informed Consent was obtained. I have identified the patient, determined the appropriateness of sedation and have assessed the patient immediately prior to the procedure. All medicine(s) and interventions are by my order.
--- NOTE | 2020-05-28 13:20 | Cardiology Progress Note ---
Date of Service May 28, 2020 Assessment & Plan (1) Angina pectoris, crescendo: -class IV symptoms and positive biomarkers. -for cardiac catheterization today. (2) Coronary artery arteriosclerosis: -longstanding disease with 6 intracoronary stents (details unknown). -did have chronic stable angina pectoris until recently -failed a trial of Ranexa due to side effects. 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 -DDD pacer, January 2020. -normal interrogation. (4) Hypertension: -adequate control on current regimen. (5) Hyperlipidemia: -would convert simvastatin to atorvastatin or rosuvastatin. Admission and Anticipated Discharge Date Admission Date: May 27, 2020 Subjective the patient is resting comfortably in bed without complaints of angina pectoris since he was started on intravenous amiodarone. He understands the need for an urgent cardiac catheterization. Physical Exam Physical Exam: In general this is a well-developed well-nourished white male in no acute distress. HEENT exam is negative. Neck reveals normal carotid upstrokes without bruits. No JVD. There is no thyromegaly. Cardiovascular exam reveals a regular rhythm with a normal S1 and S2. No murmurs, S3, or S4 are noted. Chest reveals a palpable pacemaker in the left subclavicular region. Lungs are clear without rales, rhonchi, or wheezes. Abdomen is soft without bruits. Extremities reveal intact radial artery and posterior tibial pulses bilaterally. There is no peripheral edema. Results & Data ([facility]) Vital Signs (Past 12 Hours) Vital Signs Temp Pulse Resp BP Pulse Ox 05/28/20 11:57 36.6 C 54 L 20 139/77 98 05/28/20 07:52 36.7 C 60 16 138/81 94 05/28/20 06:22 60 142/78 H 05/28/20 03:21 36.7 C 67 18 139/78 94 Laboratory Results Initial troponin was 0.029 with follow-up values of 0.274 and 0.25. Diagnostic Findings color television console monitor notes appropriate pacing. PG Care Time/CCT Total # of Minutes Spent Total Time Spent with Patient: Total time spent is greater than 50% in coordination of care (as documented) at patient's floor/unit and/or counseling patient: Coding Level of Care Code 97831 Subseq Hosp Care Lvl 3 Diagnoses Angina pectoris, crescendo I20.0 Coronary artery arteriosclerosis I25.10 Cardiac pacemaker Z95.0 Hypertension I10 Hypertension type: unspecified Hyperlipidemia E78.2 Hyperlipidemia type: mixed hyperlipidemia (1) Hypertension Hypertension type: unspecified Qualified Code(s): I10 - Essential (primary) hypertension (2) Hyperlipidemia Hyperlipidemia type: mixed hyperlipidemia Qualified Code(s): E78.2 - Mixed hyperlipidemia
--- NOTE | 2020-05-28 14:11 | Post Anesthesia Assessment ---
Date of Service May 28, 2020 Post Sedation Assessment Vital Signs Temp Pulse Resp BP Pulse Ox 05/28/20 11:57 97.9 F 54 L 20 139/77 98 05/28/20 07:52 98.1 F 60 16 138/81 94 05/28/20 06:22 60 142/78 H 05/28/20 03:21 98.1 F 67 18 139/78 94 05/28/20 00:11 98.2 F 58 L 18 131/78 95 05/27/20 19:34 98.1 F 75 18 149/81 H 94 05/27/20 15:46 97.7 F 75 18 138/84 95 Recovery Score Activity: Moves 4 extremities Respiration: Deep Breath/Cough Circulation: +/-20% PreAnes Value Consciousness: Fully Awake Oxygen Saturation: O2 needed for >90% Discharge Sedation Level of Care: Fast Track Phase II Post Sedation Plan On clinical assessment, the patient appears to have tolerated the sedation without complications. Patient is recovering as anticipated. Patient will continue to be monitored by nursing and may be discharged when sedation discharge criteria are met per below protocol. Upon Completions of procedure up to 15 minutes continue every 5 minute vital signs and the P.A.R. score; then discharge to a Phase I or Fast Track to Phase II per the following guidelines: * Discharge Patient to appropriate Phase II area if PAR is 8 or greater or return to pre- procedure baseline. The post - procedure orders will be as directed. * If PAR score is less than 8 or not return to pre-procedure baseline then patient will follow Phase I monitoring till PAR is reached for Phase II. The Phase I may be done in procedure room or may call to secure a Phase I area. * If naloxone or flumazenil are used for reversal, hold in Phase I for continued monitoring from when last reversal dose was given for a minimum of 60 minutes or longer pending the nurse and/or physician discretion of patient condition before discharge to Phase II. Please call the Sedation Physician to re-evaluate and complete post-note for discharge to Phase II area. Do NOT discharge from procedure sedation or Phase 1 until post- sedation evaluation note is complete by procedure /sedation MD Sedation Discharge Instructions to be given to the patient at discharge to home.
--- NOTE | 2020-05-28 14:12 | Cardiac Catheterization ---
[facility] Data: Manager Of Administration Cardiac Status Clinical evaluation leading to the procedure CAD Presenation: Non STEMI Anginal Classification: CCS IV Heart Failure: No Cardiogenic Shock within 24 Hours: No Cardiac Arrest within 24 Hours: No Imaging Studies Past 6 Months: Yes Stress Studies Past 6 Months: No Diagnostic Physicians Name: Riki Phan MD Status: Elective Closure Device Percutaneous Entry Location: Radial Closure Device: Radial Band Recommendations: Medical Therapy and/or Counseling Intraprocedure Events Significant Disection: No Perforation: No Cardiac Cath Procedure Full Procedure Date May 28, 2020 Pre-Procedure Diagnosis Pre-Procedure Diagnosis: Non STEMI AUC Score AUC Score: 8 Post-Procedure Diagnosis Post-Procedure Diagnosis: Severe CAD and Normal Intracardiac Pressures Procedure(s) Performed Procedure(s) Performed: Coronary Angiography, Left Heart Cath and IVUS Display Manager Riki Phan MD Systems Testing Laboratory Technician(s) Vaibhav Estimated Blood Loss Estimated Blood Loss: 10 Medication(s) Medication(s): Fentanyl, Heparin, Lidocaine 1%, Nicardipine, Nitroglycerin and Versed Summary of Findings Indication: NSTEMI Access: 6 Fr slender right radial artery Catheters: Coffeen, EBU 3.5 guide Findings: LM -large caliber, 60% proximal stenosis ectatic at bifurcation LAD -medium caliber, calcified, 40 to 50% ostial, proximal stent widely patent, distal most mid segment stent with 70 % in-stent restenosis, mid to distal LAD with diffuse severe disease prior to 100% chronic occlusion at apex. Small second diagonal with mild diffuse disease. Third diagonal occluded at the ostium and fills via left to left collaterals Circumflex -medium caliber, mild diffuse proximal disease, mid segment ectatic at takeoff of OM 2. 70% distal disease prior to left PLB. Small OM1 with diffuse disease. RCA -medium caliber, dominant, patent ostial to mid stents with 30 to 40% in- stent restenosis. Right PDA with diffuse 40 to 50% proximal disease. Right posterior AV branch with 70% focal stenosis LVEDP - 6 --IVUS of left main Left main cannulated with EBU 3.5 guide Doll Wig Maker 50 wire placed into distal LAD. Attempted to wire cross apical LAD occlusion but behaved more like chronic lesion. Mango DSP SON catheter placed in mid LAD Pullback revealed patent proximal LAD stent, heavily calcified, circumferential moderate stenosis at ostial LAD. Calcified proximal left main stenosis, MLA 4.9 mm Catheter, wire removed and post procedure no apparent complications. Arterial Closure: TR band Summary: 1. Severe left main coronary artery disease - 50 to 60%, severe by IVUS (MLA 4.9 mm) 2. Patent RCA, LAD stents 70% in-stent restenosis involving distal most aspect of mid LAD stent 3. Severe multivessel distal coronary artery disease Severe diffuse distal LAD disease prior to apical chronic 100% occlusion 70% distal circumflex 70% small right posterior AV branch 4. Normal intracardiac filling pressure Recommendations: No acute high risk coronary lesions identified. Suspect acute symptoms secondary to small vessel, distal disease. Does have severe left main disease and reviewed images with cardiac surgery at [facility] (Dr. Quinones). Diffuse disease distal vessels thought not to be targets for bypass. Recommend optimized medical management. Continue heparin fusion for 48 hours. Continue DAPT with aspirin, clopidogrel. Previously failed Ranexa. Consider calcium channel ruth. Hemodynamics Rest Ao:: 107/50/75 Final Ao: 151/66/95 LV: 133/6 Recommendations Recommendations: Medical Therapy and/or Counseling Specimens Specimens: None Radiation Exposure (mGy) 1731 Contrast (mls) 40 Fluids (cc crystalloids) Fluids (cc crystalloids): 75 Drains Drains: none Anesthesia moderate Procedural Complication(s) None Disposition PCU I attest to the content of the Intraoperative Record and any orders documented therein. Any exceptions are noted below. [facility] Card Cath Procedure Codes Cardiac Catheterization Procedure 1: Cardiovascular Cath Procedures: 11187 Coronaries and LHC (+/-LV) Therapeutic Services & Ancillary Proc Procedure 1: Cardiovascular Tx and Anc Procedures: 45771 IV Ultrasound (Coronary or Graft) Moderate Sedation Procedure 1: Sedation/Anesthesia: 12567 Mod Sedation by the same physician;Init15 Min Child Age 5 & Up Procedure 2: Sedation/Anesthesia: 85563 Mod Sedation by the same physician; Ea [id number] Minutes PG Care Time/CCT Total # of Minutes Spent Total Time Spent with Patient: Total time spent is greater than 50% in coord ination of care (as documented) at patient's floor/unit and/or counseling patient:
[2020-05-28] MEDS ORDERED: OR MISCELLANEOUS MED ONE (18:11)
[2020-05-28] MEDS ORDERED: SODIUM CHLORIDE 0.9% 1000ML 1,000 ML IV SCH (18:15)
[2020-05-28] MEDS: HEPARIN SODIUM/DEXTROSE 25,000 UNITS/500 ML BAG IV SCH (19:06)
[2020-05-28] MEDS: OLMESARTAN MEDOXOMIL 5 MG TAB PO SCH (20:44)
[2020-05-28] MEDS: SIMVASTATIN 40 MG TAB PO SCH (20:44)
--- NOTE | 2020-05-28 20:59 | Hospitalist Progress Note ---
Date of Service May 28, 2020 Assessment & Plan (1) NSTEMI (non-ST elevated myocardial infarction): very mild. minimal troponin increase with peak at 0.274. remains on heparin drip x 48 hours. cont asa, plavix, beta ruth, ARB, statin. LDL 76 earlier this month - consider changing simvastatin to lipitor or crestor. to laboratory director today with Dr Phan. (2) Coronary artery arteriosclerosis: s/p multiple AK events in the distant past. s/p multiple stents (6). Last heart cath 2006 - [facility]. Cont asa, plavix, statin, BB, ARB. Cont topical nitrates. Cont heparin drip. To laboratory director today. (3) Chronic systolic CHF (congestive heart failure): EF 35-40% with apical hypokinesis c/w ischemic cardiomyopathy. he is compensated on exam. cont BB cont ARB cont lasix (4) Hyperlipidemia: See above. Controlled. Cont statin. Consider changing to lipitor or crestor. (5) Hypertension: Uncontrolled. Increase ARB. Cont topical nitrates for now. Cont BB. (6) Rheumatoid arthritis: Controlled. Cont prednisone 5mg BID. (7) DM (diabetes mellitus), type 2: Hold metformin. Novolog sliding scale. BSGs ac/hs. DM diet. Hb A1C 7.4% earlier this month. Add lantus if needed. 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 Pacer interrogation done - no recent dysrhythmia; plenty of battery life remaining. 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 (10) Chronic kidney disease, stage 3a: Cr stable today. Repeat BMP in am. (11) Thrombocytopenia: Cause? nothing infectious by history. recheck CBC am. (12) DVT prophylaxis: heparin drip updated son again today likely to need rehab PT, OT evals following cath will need screening COVID PCR if rehab needed Admission and Anticipated Discharge Date Admission Date: May 27, 2020 Subjective saw patient prior to heart cath chest-pain free overnight no dyspnea no orthopnea feeling good except for fatigue tele with paced rhythm interrogation of pacer -- no dysrhythmia; paces >90% of the time Review of Systems Constitutional: + fatigue; no fever and no chills Respiratory: + cough (chronic - "months" - dry mainly); no dyspnea Cardiovascular: no chest pain and no palpitations Gastrointestinal: no abdominal pain Physical Exam Constitutional: well developed and well nourished; no acute distress and no altered mental status ENMT: external ear and nose normal, oropharynx normal Mouth: + oral mucosal abnormality (thrush plaques much better already) Respiratory: normal respiratory effort, lungs clear to auscultation Cardiovascular: Rate/Rhythm: regular rate and regular rhythm Heart Sounds: normal S1 and normal S2; no murmur Vessels: posterior tibial pulses present and dorsalis pedis pulses present; no JVD Extremities: no edema Gastrointestinal (Abdomen): normal bowel sounds, soft, nontender, no hepatosplenomegaly Psychiatric: A+Ox3, euthymic affect Results & Data Results & Data ([facility]) Vital Signs (Past 12 Hours) Vital Signs Temp Pulse Resp BP Pulse Ox 05/28/20 19:12 37.0 C 62 18 144/71 H 98 05/28/20 16:35 58 L 16 153/88 H 96 05/28/20 16:05 62 16 160/87 H 94 05/28/20 15:35 60 16 172/88 H 95 05/28/20 15:20 61 16 160/85 H 96 05/28/20 15:05 64 16 160/87 H 94 05/28/20 14:50 52 L 16 147/82 H 96 05/28/20 14:35 36.6 C 58 L 16 142/76 H 93 05/28/20 14:21 58 L 16 142/78 H 92 05/28/20 14:13 58 L 16 149/75 H 92 05/28/20 11:57 36.6 C 54 L 20 139/77 98 Laboratory Results Laboratory Results - last 24 hr 05/28/20 05/28/20 05/28/20 01:31 01:31 01:31 WBC 10.39 RBC 4.22 L Hgb 13.5 L Hct 39.6 L MCV 93.8 MCH 32.0 MCHC 34.1 RDW Std Deviation 47.8 H RDW Coeff of Mike 13.9 Plt Count 100 L MPV 10.0 Immature Gran % (Auto) 1.0 Neut % (Auto) 74.5 Lymph % (Auto) 13.2 Hanson % (Auto) 11.0 Eos % (Auto) 0.2 Baso % (Auto) 0.1 Neut # (Auto) 7.75 H Lymph # (Auto) 1.37 Hanson # (Auto) 1.14 H Eos # (Auto) 0.02 Baso # (Auto) 0.01 Immature Gran # (Auto) 0.10 H APTT 91.4 H* PTT Ratio 3.3 Sodium 141 Potassium 3.8 Chloride 108 H Carbon Dioxide 27 Anion Gap 6.0 BUN 26 H Creatinine 1.24 Est Cr Clr Drug Dosing 46.7 Est GFR ( Amer) 61.5 Est GFR (Non-Af Amer) 53.1 BUN/Creatinine Ratio 20.8 H Glucose 193 H POC Glucose Calcium 8.1 L SARS-CoV-2 RNA (RT-PCR) 05/28/20 05/28/20 05/28/20 07:13 08:58 11:18 WBC RBC Hgb Hct MCV MCH MCHC RDW Std Deviation RDW Coeff of Mike Plt Count MPV Immature Gran % (Auto) Neut % (Auto) Lymph % (Auto) Hanson % (Auto) Eos % (Auto) Baso % (Auto) Neut # (Auto) Lymph # (Auto) Hanson # (Auto) Eos # (Auto) Baso # (Auto) Immature Gran # (Auto) APTT 58.5 H* PTT Ratio 2.1 Sodium Potassium Chloride Carbon Dioxide Anion Gap BUN Creatinine Est Cr Clr Drug Dosing Est GFR ( Amer) Est GFR (Non-Af Amer) BUN/Creatinine Ratio Glucose POC Glucose 148 H 137 H Calcium SARS-CoV-2 RNA (RT-PCR) 05/28/20 05/28/20 16:16 19:00 WBC RBC Hgb Hct MCV MCH MCHC RDW Std Deviation RDW Coeff of Mike Plt Count MPV Immature Gran % (Auto) Neut % (Auto) Lymph % (Auto) Hanson % (Auto) Eos % (Auto) Baso % (Auto) Neut # (Auto) Lymph # (Auto) Hanson # (Auto) Eos # (Auto) Baso # (Auto) Immature Gran # (Auto) APTT PTT Ratio Sodium Potassium Chloride Carbon Dioxide Anion Gap BUN Creatinine Est Cr Clr Drug Dosing Est GFR ( Amer) Est GFR (Non-Af Amer) BUN/Creatinine Ratio Glucose POC Glucose 106 H Calcium SARS-CoV-2 RNA (RT-PCR) Pending PG Care Time/CCT Total # of Minutes Spent Total Time Spent with Patient: Total time spent is greater than 50% in coordination of care (as documented) at patient's floor/unit and/or counseling patient: Coding Level of Care Code 96966 Subseq Hosp Care Lvl 3 Diagnoses NSTEMI (non-ST elevated myocardial infarction) I21.4 Coronary artery arteriosclerosis I25.10 Chronic systolic CHF (congestive heart failure) I50.22 Hyperlipidemia E78.2 Hyperlipidemia type: mixed hyperlipidemia Hypertension I10 Hypertension type: unspecified Rheumatoid arthritis M06.9 Rheumatoid arthritis location: unspecified site Rheumatoid factor presence: unspecified presence DM (diabetes mellitus), type 2 E11.9 Diabetes mellitus complication status: without complication Diabetes mellitus long chain beamer insulin use: without group home use Status post placement of cardiac pacemaker Z95.0 Steroid dependent F19.20 Chronic kidney disease, stage 3a N18.3 Thrombocytopenia D69.6 DVT prophylaxis Z29.9 (1) Rheumatoid arthritis Rheumatoid arthritis location: unspecified site Rheumatoid factor presence: unspecified presence Qualified Code(s): M06.9 - Rheumatoid arthritis, unspecified (2) DM (diabetes mellitus), type 2 Diabetes mellitus complication status: without complication Diabetes mellitus long chain beamer insulin use: without long chain beamer use Qualified Code(s): E11.9 - Type 2 diabetes mellitus without complications (3) Hyperlipidemia Hyperlipidemia type: mixed hyperlipidemia Qualified Code(s): E78.2 - Mixed hyperlipidemia (4) Hypertension Hypertension type: unspecified Qualified Code(s): I10 - Essential (primary) hypertension
[2020-05-28] MEDS: CYANOCOBALAMIN 500 MCG TABLET (VITAMIN B-12) PO SCH (22:21)
[2020-05-29 01:39] LABS: Partial Thromboplastin Ratio 1.5; Partial Thromboplastin Time 41.9 Seconds (21.0-31.0)
[2020-05-29] MEDS ORDERED: HEPARIN IV BOLUS 3,000 UNITS in SYRINGE 0 ML IV ONE (02:30)
[2020-05-29] MEDS: ACETAMINOPHEN 500 MG TAB PO PRN (05:57)
[2020-05-29] MEDS: INSULIN ASPART 100 UNITS/ML 3 ML PEN SC SCH ×4 (07:46→21:24)
[2020-05-29] MEDS: CYANOCOBALAMIN 500 MCG TABLET (VITAMIN B-12) PO SCH (07:49)
[2020-05-29] MEDS: METOPROLOL TARTRATE 100 MG TAB PO SCH ×2 (07:49→21:35)
[2020-05-29] MEDS: ASPIRIN 81 MG ECTAB PO SCH (07:50)
[2020-05-29] MEDS: OLMESARTAN MEDOXOMIL 5 MG TAB PO SCH ×2 (07:50→21:35)
[2020-05-29] MEDS: GABAPENTIN 100 MG CAP PO SCH ×3 (07:51→21:35)
[2020-05-29] MEDS: CLOPIDOGREL BISULFATE 75 MG TAB PO SCH (07:51)
[2020-05-29] MEDS: predniSONE 5 MG TAB PO SCH ×2 (07:52→21:35)
[2020-05-29] MEDS: NYSTATIN SUSP 500,000 U/5 ML UDC PO SCH ×4 (07:52→21:35)
[2020-05-29 08:43] LABS: Basophils # (auto) 0.01 K/uL (0-0.2); Basophils % (auto) 0.1 %; Eosinophils # (auto) 0.03 K/uL (0-0.5); Eosinophils % (auto) 0.3 %; Hematocrit (blood only) 40.3 % (42-52); Hemoglobin 13.7 g/dL (14.0-18.0); Immature Granulocytes # (auto) 0.04 K/uL (0.00-0.02); Immature Granulocytes % (auto) 0.5 %; Lymphocytes # (auto) 1.21 K/uL (1.2-3.4); Lymphocytes % (auto) 13.7 %; Mean Corpuscular Hemoglobin 32.2 pg (25-34); Mean Corpuscular Volume 94.8 fL (80-100); Monocytes # (auto) 0.63 K/uL (0.11-0.59); Monocytes % (auto) 7.1 %; Neutrophils # (auto) 6.94 K/uL (1.4-6.5); Neutrophils % (auto) 78.3 %; Platelet Count 118 K/uL (130-400); RDW Standard Deviation 48.5 fL (36.4-46.3); Red Blood Count 4.25 M/uL (4.7-6.1); White Blood Count 8.86 K/uL (4.8-10.8)
[2020-05-29 09:10] LABS: BUN Creatinine Ratio 18.9 (10-20); Calcium 8.2 mg/dl (8.5-10.1); Creatinine Clr Calc Pharmacy 48.6 ml/min; Est GFR (Non-African American) 55.2
[2020-05-29 09:13] LABS: Partial Thromboplastin Time 56.7 Seconds (21.0-31.0)
[2020-05-29] MEDS ORDERED: ISOSORBIDE MONO EXTENDED REL 30 MG TABCR PO ONE (11:00)
--- NOTE | 2020-05-29 13:01 | Cardiology Progress Note ---
Date of Service May 29, 2020 Assessment & Plan (1) Angina pectoris, crescendo: -suspect secondary to distal LAD disease. -continue heparin for another 24 hours. (2) Coronary artery arteriosclerosis: -severe, inoperable three-vessel disease. -continue heparin for another 24 hours. -failed a trial of Ranexa due to side effects. 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 -DDD pacer, January 2020. -normal interrogation on this admission. (4) Hypertension: -adequate control on current regimen. (5) Hyperlipidemia: -would convert simvastatin to atorvastatin or rosuvastatin. Admission and Anticipated Discharge Date Admission Date: May 27, 2020 Subjective The patient is resting comfortably in bed complaints of chest pain dyspnea. Results of his cardiac catheterization reviewed in detail. Physical Exam Physical Exam: In general this is a well-developed well-nourished white male in no acute distress. HEENT exam is negative. Neck reveals normal carotid upstrokes without bruits. No JVD. There is no thyromegaly. Cardiovascular exam reveals a regular rhythm with a normal S1 and S2. No murmurs, S3, or S4 are noted. Chest reveals a palpable pacemaker in the left subclavicular region. Lungs are clear without rales, rhonchi, or wheezes. Abdomen is soft without bruits. Extremities reveal An ecchymosis adjacent to the right wrist dressing. There is no peripheral edema. Results & Data ([facility]) Vital Signs (Past 12 Hours) Vital Signs Temp Pulse Pulse Resp BP Pulse Ox 05/29/20 11:30 36.5 C 50 L 19 113/65 97 05/29/20 08:33 57 L 05/29/20 08:01 37.0 C 62 19 162/81 H 95 05/29/20 03:22 36.7 C 57 L 16 151/75 H 94 Diagnostic Findings monitoring engineer notes appropriate pacing. PG Care Time/CCT Total # of Minutes Spent Total Time Spent with Patient: Total time spent is greater than 50% in coordination of care (as documented) at patient's floor/unit and/or counseling patient: Coding Level of Care Code 38469 Subseq Hosp Care Lvl 3 Diagnoses Angina pectoris, crescendo I20.0 Coronary artery arteriosclerosis I25.10 Cardiac pacemaker Z95.0 Hypertension I10 Hypertension type: unspecified Hyperlipidemia E78.2 Hyperlipidemia type: mixed hyperlipidemia (1) Hypertension Hypertension type: unspecified Qualified Code(s): I10 - Essential (primary) hypertension (2) Hyperlipidemia Hyperlipidemia type: mixed hyperlipidemia Qualified Code(s): E78.2 - Mixed hyperlipidemia
--- NOTE | 2020-05-29 16:30 | Electrocardiogram Report ---
Test Reason : Blood Pressure : / mmHG Vent. Rate : 077 BPM Atrial Rate : 077 BPM P-R Int : 224 ms QRS Dur : 188 ms QT Int : 454 ms P-R-T Axes : 076 -79 092 degrees QTc Int : 513 ms Atrial-sensed ventricular-paced rhythm with prolonged AV conduction Abnormal ECG When compared with ECG of 22-APR-2020 15:17, Vent. rate has increased BY 8 BPM Confirmed by Nitin Rainey ([id number]) on 05/29/2020 4:29:34 PM Referred By: Confirmed By:Nitin Rainey
--- NOTE | 2020-05-29 21:15 | Hospitalist Progress Note ---
Date of Service May 29, 2020 Assessment & Plan (1) NSTEMI (non-ST elevated myocardial infarction): mild event. minimal troponin increase with peak at 0.274. s/p heart cath yesterday by Dr Phan. stents patent, but has new areas of occlusion including distal LAD which accounts for wall motion abnormality. also with left main disease. medical management advised by Dr Phan. heparin drip x 48 hours is complete today at noon. cont asa, plavix, beta ruth, ARB, statin. LDL 76 earlier this month - change simvastatin to lipitor 40mg daily. needs better BP control - see below. appreciate cardiology assistance. (2) Coronary artery arteriosclerosis: s/p multiple [place] events in the distant past. s/p multiple stents (6). Last heart cath 2006 - [facility]. Cont asa, plavix, statin, BB, ARB. Cath results from yesterday noted. Med management advised. Increase ARB. Add imdur 30mg daily which will also help BP control. Complete heparin drip today. (3) Chronic systolic CHF (congestive heart failure): EF 35-40% with apical hypokinesis c/w ischemic cardiomyopathy. he is compensated on exam. cont BB cont ARB cont lasix (4) Hyperlipidemia: See above. Controlled. Cont statin - change to high-intensity lipitor 40mg HS. (5) Hypertension: Uncontrolled. Increased ARB. add imdur 30mg daily. cont BB. (6) Rheumatoid arthritis: Controlled. Cont prednisone 5mg BID. (7) DM (diabetes mellitus), type 2: Hold metformin. Novolog sliding scale. BSGs ac/hs. DM diet. Hb A1C 7.4% earlier this month. controlled at this time. 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 Pacer interrogation done - no recent dysrhythmia; plenty of battery life remaining. 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 (10) Chronic kidney disease, stage 3a: Cr stable today. Repeat BMP in am. (11) Thrombocytopenia: Cause? nothing infectious by history. platelet count improving today. cont to follow. recent b12 level low-normal - replace. folate wnl. (12) Candidiasis of mouth and esophagus: improving cont nystatin PO (13) DVT prophylaxis: heparin drip then add heparin 5000 SC BID after drip is done updated son again today by phone screening COVID pending needs rehab- social work assisting Admission and Anticipated Discharge Date Admission Date: May 27, 2020 Subjective tele - pacing no chest pain since hospital day #1 eating well last BM yesterday no dyspnea no QUINN just mild fatigue agreeable to rehab placement Review of Systems Constitutional: + fatigue; no fever, no chills and no anorexia Respiratory: + cough; no dyspnea Cardiovascular: no chest pain, no orthopnea, no paroxysmal nocturnal dyspnea and no edema Gastrointestinal: no abdominal pain, no nausea and no vomiting Physical Exam Constitutional: well developed and well nourished; no acute distress and no altered mental status ENMT: external ear and nose normal, oropharynx normal Mouth: + oral mucosal abnormality (thrush plaques resolved); oral mucous membranes not dry Respiratory: normal respiratory effort, lungs clear to auscultation Cardiovascular: Rate/Rhythm: regular rate and regular rhythm Heart Sounds: normal S1 and normal S2; no murmur Vessels: posterior tibial pulses present and dorsalis pedis pulses present; no JVD Extremities: no edema Gastrointestinal (Abdomen): normal bowel sounds, soft, nontender, no hepatosplenomegaly Inspection/Auscultation: + visible herniation (ventral - reducible; scar - midline ) Psychiatric: A+Ox3, euthymic affect Results & Data Results & Data ([facility]) Vital Signs (Past 12 Hours) Vital Signs Temp Pulse Resp BP Pulse Ox Pulse Ox 05/29/20 19:11 36.4 C L 69 22 135/68 92 05/29/20 15:09 94 05/29/20 15:03 36.7 C 59 L 18 105/65 91 05/29/20 13:16 98 05/29/20 11:30 36.5 C 50 L 19 113/65 97 Laboratory Results Laboratory Results - last 24 hr 05/28/20 05/29/20 05/29/20 20:13 01:13 07:28 WBC RBC Hgb Hct MCV MCH MCHC RDW Std Deviation RDW Coeff of Mike Plt Count MPV Immature Gran % (Auto) Neut % (Auto) Lymph % (Auto) [place] % (Auto) Eos % (Auto) Baso % (Auto) Neut # (Auto) Lymph # (Auto) [place] # (Auto) Eos # (Auto) Baso # (Auto) Immature Gran # (Auto) APTT 41.9 H PTT Ratio 1.5 Sodium Potassium Chloride Carbon Dioxide Anion Gap BUN Creatinine Est Cr Clr Drug Dosing Est GFR ( Amer) Est GFR (Non-Af Amer) BUN/Creatinine Ratio Glucose POC Glucose 125 H 142 H Calcium Specimen Hemolysis 05/29/20 05/29/20 05/29/20 08:26 08:26 08:26 WBC 8.86 RBC 4.25 L Hgb 13.7 L Hct 40.3 L MCV 94.8 MCH 32.2 MCHC 34.0 RDW Std Deviation 48.5 H RDW Coeff of Mike 14.0 Plt Count 118 L MPV 10.0 Immature Gran % (Auto) 0.5 Neut % (Auto) 78.3 Lymph % (Auto) 13.7 [place] % (Auto) 7.1 Eos % (Auto) 0.3 Baso % (Auto) 0.1 Neut # (Auto) 6.94 H Lymph # (Auto) 1.21 [place] # (Auto) 0.63 H Eos # (Auto) 0.03 Baso # (Auto) 0.01 Immature Gran # (Auto) 0.04 H APTT 56.7 H* PTT Ratio 2.0 Sodium 140 Potassium 4.0 Chloride 109 H Carbon Dioxide 26 Anion Gap 5.0 BUN 23 H Creatinine 1.20 Est Cr Clr Drug Dosing 48.6 Est GFR ( Amer) 64.0 Est GFR (Non-Af Amer) 55.2 BUN/Creatinine Ratio 18.9 Glucose 182 H POC Glucose Calcium 8.2 L Specimen Hemolysis 05/29/20 05/29/20 05/29/20 11:20 16:19 20:11 WBC RBC Hgb Hct MCV MCH MCHC RDW Std Deviation RDW Coeff of Mike Plt Count MPV Immature Gran % (Auto) Neut % (Auto) Lymph % (Auto) [place] % (Auto) Eos % (Auto) Baso % (Auto) Neut # (Auto) Lymph # (Auto) [place] # (Auto) Eos # (Auto) Baso # (Auto) Immature Gran # (Auto) APTT PTT Ratio Sodium Potassium Chloride Carbon Dioxide Anion Gap BUN Creatinine Est Cr Clr Drug Dosing Est GFR ( Amer) Est GFR (Non-Af Amer) BUN/Creatinine Ratio Glucose POC Glucose 134 H 130 H 139 H Calcium Specimen Hemolysis PG Care Time/CCT Total # of Minutes Spent Total Time Spent with Patient: Total time spent is greater than 50% in search marketing coordinator rdination of care (as documented) at patient's floor/unit and/or counseling patient: Coding Level of Care Code 77233 Subseq Hosp Care Lvl 3 Diagnoses NSTEMI (non-ST elevated myocardial infarction) I21.4 Coronary artery arteriosclerosis I25.10 Chronic systolic CHF (congestive heart failure) I50.22 Hyperlipidemia E78.2 Hyperlipidemia type: mixed hyperlipidemia Hypertension I10 Hypertension type: unspecified Rheumatoid arthritis M06.9 Rheumatoid arthritis location: unspecified site Rheumatoid factor presence: unspecified presence DM (diabetes mellitus), type 2 E11.9 Diabetes mellitus complication status: without complication Diabetes mellitus ferry terminal supervisor insulin use: without longterm use Status post placement of cardiac pacemaker Z95.0 Steroid dependent F19.20 Chronic kidney disease, stage 3a N18.3 Thrombocytopenia D69.6 Candidiasis of mouth and esophagus B37.81; B37.0 DVT prophylaxis Z29.9 (1) Rheumatoid arthritis Rheumatoid arthritis location: unspecified site Rheumatoid factor presence: unspecified presence Qualified Code(s): M06.9 - Rheumatoid arthritis, unspecified (2) DM (diabetes mellitus), type 2 Diabetes mellitus complication status: without complication Diabetes mellitus longterm insulin use: without ferry terminal supervisor use Qualified Code(s): E11.9 - Type 2 diabetes mellitus without complications (3) Hyperlipidemia Hyperlipidemia type: mixed hyperlipidemia Qualified Code(s): E78.2 - Mixed hyperlipidemia (4) Hypertension Hypertension type: unspecified Qualified Code(s): I10 - Essential (primary) hypertension
[2020-05-29] MEDS: ATORVASTATIN 40 MG TAB PO SCH (21:35)
[2020-05-30 07:25] LABS: BUN Creatinine Ratio 22.9 (10-20); Calcium 8.5 mg/dl (8.5-10.1); Creatinine Clr Calc Pharmacy 43.5 ml/min; Est GFR (Non-African American) 48.3; Potassium 4.2 mmol/L (3.5-5.1)
[2020-05-30] MEDS: INSULIN ASPART 100 UNITS/ML 3 ML PEN SC SCH ×4 (08:11→20:23)
[2020-05-30] MEDS: OLMESARTAN MEDOXOMIL 5 MG TAB PO SCH ×2 (08:16→21:02)
[2020-05-30] MEDS: CYANOCOBALAMIN 500 MCG TABLET (VITAMIN B-12) PO SCH (08:16)
[2020-05-30] MEDS: GABAPENTIN 100 MG CAP PO SCH ×3 (08:16→21:01)
[2020-05-30] MEDS: CLOPIDOGREL BISULFATE 75 MG TAB PO SCH (08:16)
[2020-05-30] MEDS: METOPROLOL TARTRATE 100 MG TAB PO SCH ×2 (08:17→21:02)
[2020-05-30] MEDS: ISOSORBIDE MONO EXTENDED REL 30 MG TABCR PO SCH (08:17)
[2020-05-30] MEDS: ASPIRIN 81 MG ECTAB PO SCH (08:17)
[2020-05-30] MEDS: NYSTATIN SUSP 500,000 U/5 ML UDC PO SCH ×4 (08:18→21:01)
[2020-05-30] MEDS: HEPARIN SOD 5,000 UNIT/0.5 ML VIAL SQ SCH ×3 (10:07→21:02)
[2020-05-30] MEDS: predniSONE 5 MG TAB PO SCH ×2 (10:07→21:01)
[2020-05-30] MEDS ORDERED: BISMUTH SUBSALICYLATE 262 MG CHEW PO PRN (13:41)
[2020-05-30] MEDS: ATORVASTATIN 40 MG TAB PO SCH (21:02)
--- NOTE | 2020-05-30 23:18 | Hospitalist Progress Note ---
Date of Service May 30, 2020 Assessment & Plan (1) NSTEMI (non-ST elevated myocardial infarction): mild event. minimal troponin increase with peak at 0.274. s/p heart cath Dr Phan. prior stents patent, but has new areas of occlusion including distal LAD which accounts for wall motion abnormality. also with left main disease. medical management advised by Dr Phan. heparin drip x 48 hours complete. cont asa, plavix, beta ruth, ARB, statin. LDL 76 earlier this month - changed simvastatin to lipitor 40mg daily. added imdur 30mg daily. appreciate cardiology assistance. (2) Coronary artery arteriosclerosis: s/p multiple [place] events in the distant past. s/p multiple stents (6). Last heart cath 2006 - [facility]. Cont asa, plavix, statin, BB, ARB. Cath results noted. Med management advised. Increased ARB. Added imdur 30mg daily. Completec heparin drip. (3) Chronic systolic CHF (congestive heart failure): EF 35-40% with apical hypokinesis c/w ischemic cardiomyopathy. he remains compensated on exam. cont BB cont ARB cont lasix (4) Hyperlipidemia: See above. Controlled. Cont statin - changed to high-intensity lipitor 40mg HS. (5) Hypertension: Improved control with ARB increase and addition of imdur. (6) Rheumatoid arthritis: Controlled. Cont prednisone 5mg BID. (7) DM (diabetes mellitus), type 2: Hold metformin. Novolog sliding scale. BSGs ac/hs. DM diet. Hb A1C 7.4% earlier this month. controlled at this time. 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 Pacer interrogation done - no recent dysrhythmia; plenty of battery life remaining. 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 (10) Chronic kidney disease, stage 3a: Cr stable again today. Repeat BMP in am. (11) Thrombocytopenia: Cause? nothing infectious by history. platelet count began to improved on last count. cont to follow. repeat cbc am. recent b12 level low-normal - replace. folate wnl. (12) Candidiasis of mouth and esophagus: improving/resolving cont nystatin PO (13) DVT prophylaxis: heparin 5000 SC TID updated son by phone yesterday screening COVID is negative needs rehab- social work assisting Admission and Anticipated Discharge Date Admission Date: May 27, 2020 Subjective no issues overnight. tele w/ pacing. stable in RA. no dyspnea, CP, QUINN. with eating lunch did have a brief episode of burping/indigestion but this is now gone. usually uses pepto at home prn for symptoms like this. Review of Systems Constitutional: + fatigue; no fever, no chills and no anorexia Ear, Nose, Mouth, Throat: no nasal congestion and no sore throat Respiratory: no cough, no dyspnea and no dyspnea on exertion Cardiovascular: no chest pain, no orthopnea and no paroxysmal nocturnal dyspnea Gastrointestinal: no nausea and no vomiting Physical Exam Constitutional: well developed and well nourished; no acute distress and no altered mental status ENMT: external ear and nose normal, oropharynx normal Mouth: + oral mucosal abnormality (thrush plaques resolved); oral mucous membranes not dry Respiratory: normal respiratory effort, lungs clear to auscultation Cardiovascular: Rate/Rhythm: regular rate and regular rhythm Heart Sounds: normal S1 and normal S2; no murmur Vessels: posterior tibial pulses present and dorsalis pedis pulses present; no JVD Extremities: no edema Gastrointestinal (Abdomen): normal bowel sounds, soft, nontender, no hepatosplenomegaly Inspection/Auscultation: + visible herniation (ventral - reducible; scar - midline ) Psychiatric: Orientation: alert and oriented x 3 Affect: + flat affect Results & Data Results & Data ([facility]) Vital Signs (Past 12 Hours) Vital Signs Temp Pulse Resp BP Pulse Ox 05/30/20 19:04 36.9 C 69 19 107/63 95 05/30/20 15:03 36.6 C 68 17 136/80 92 05/30/20 12:07 36.5 C 61 19 122/70 91 Laboratory Results Laboratory Results - last 24 hr 05/28/20 05/30/20 05/30/20 19:00 06:27 07:42 Sodium 142 Potassium 4.2 Chloride 113 H Carbon Dioxide 27 Anion Gap 2.0 L BUN 31 H Creatinine 1.34 Est Cr Clr Drug Dosing 43.5 Est GFR ( Amer) 56.0 Est GFR (Non-Af Amer) 48.3 BUN/Creatinine Ratio 22.9 H Glucose 140 H POC Glucose 125 H Calcium 8.5 SARS-CoV-2 RNA (RT-PCR) NEGATIVE 07/05/30/20 05/30/20 11:32 16:06 20:09 Sodium Potassium Chloride Carbon Dioxide Anion Gap BUN Creatinine Est Cr Clr Drug Dosing Est GFR ( Amer) Est GFR (Non-Af Amer) BUN/Creatinine Ratio Glucose POC Glucose 112 H 178 H 150 H Calcium SARS-CoV-2 RNA (RT-PCR) PG Care Time/CCT Total # of Minutes Spent Total Time Spent with Patient: Total time spent is greater than 50% in coordination of care (as documented) at patient's floor/unit and/or counseling patient: Coding Level of Care Code 76928 Subseq Hosp Care Lvl 2 Diagnoses NSTEMI (non-ST elevated myocardial infarction) I21.4 Coronary artery arteriosclerosis I25.10 Chronic systolic CHF (congestive heart failure) I50.22 Hyperlipidemia E78.2 Hyperlipidemia type: mixed hyperlipidemia Hypertension I10 Hypertension type: unspecified Rheumatoid arthritis M06.9 Rheumatoid arthritis location: unspecified site Rheumatoid factor presence: unspecified presence DM (diabetes mellitus), type 2 E11.9 Diabetes mellitus long term care social worker insulin use: without jail use Diabetes mellitus complication status: without complication Status post placement of cardiac pacemaker Z95.0 Steroid dependent F19.20 Chronic kidney disease, stage 3a N18.3 Thrombocytopenia D69.6 Candidiasis of mouth and esophagus B37.81; B37.0 DVT prophylaxis Z29.9 (1) Hyperlipidemia Hyperlipidemia type: mixed hyperlipidemia Qualified Code(s): E78.2 - Mixed hyperlipidemia (2) Hypertension Hypertension type: unspecified Qualified Code(s): I10 - Essential (primary) hypertension (3) Rheumatoid arthritis Rheumatoid arthritis location: unspecified site Rheumatoid factor presence: unspecified presence Qualified Code(s): M06.9 - Rheumatoid arthritis, unspecified (4) DM (diabetes mellitus), type 2 Diabetes mellitus jail insulin use: without long term care social worker use Diabetes mellitus complication status: without complication Qualified Code(s): E11.9 - Type 2 diabetes mellitus without complications
[2020-05-31] MEDS: HEPARIN SOD 5,000 UNIT/0.5 ML VIAL SQ SCH ×3 (05:39→20:29)
[2020-05-31 06:15] LABS: Hematocrit (blood only) 39.8 % (42-52); Hemoglobin 13.4 g/dL (14.0-18.0); Mean Corpuscular Hemoglobin 31.9 pg (25-34); Mean Corpuscular Hgb Conc 33.7 g/dL (32-36); Mean Corpuscular Volume 94.8 fL (80-100); Mean Platelet Volume 9.9 fL (7.4-10.4); Platelet Count 122 K/uL (130-400); RDW Coefficient of Variation 14.1 % (11.5-14.5); RDW Standard Deviation 48.5 fL (36.4-46.3); White Blood Count 7.89 K/uL (4.8-10.8)
[2020-05-31 06:46] LABS: BUN Creatinine Ratio 22.6 (10-20); Calcium 8.7 mg/dl (8.5-10.1); Creatinine Clr Calc Pharmacy 45.5 ml/min; Est GFR (African American) 59.2; Est GFR (Non-African American) 51.1; Potassium 4.3 mmol/L (3.5-5.1)
[2020-05-31] MEDS: OLMESARTAN MEDOXOMIL 5 MG TAB PO SCH ×2 (08:07→20:28)
[2020-05-31] MEDS: METOPROLOL TARTRATE 100 MG TAB PO SCH ×2 (08:07→20:27)
[2020-05-31] MEDS: GABAPENTIN 100 MG CAP PO SCH ×3 (08:08→20:27)
[2020-05-31] MEDS: CLOPIDOGREL BISULFATE 75 MG TAB PO SCH (08:08)
[2020-05-31] MEDS: NYSTATIN SUSP 500,000 U/5 ML UDC PO SCH ×4 (08:08→20:27)
[2020-05-31] MEDS: predniSONE 5 MG TAB PO SCH ×2 (08:08→20:27)
[2020-05-31] MEDS: ASPIRIN 81 MG ECTAB PO SCH (08:09)
[2020-05-31] MEDS: INSULIN ASPART 100 UNITS/ML 3 ML PEN SC SCH ×4 (08:09→20:28)
[2020-05-31] MEDS: CYANOCOBALAMIN 500 MCG TABLET (VITAMIN B-12) PO SCH (08:09)
[2020-05-31] MEDS: ISOSORBIDE MONO EXTENDED REL 30 MG TABCR PO SCH (08:09)
--- NOTE | 2020-05-31 13:13 | Cardiology Progress Note ---
Date of Service May 31, 2020 Assessment & Plan (1) Angina pectoris, crescendo: -suspect secondary to distal LAD disease. -stable off heparin. (2) Coronary artery arteriosclerosis: -severe, inoperable, three-vessel disease. -may a to consider another trial of Ranexa. -Ranexa was discontinued by the patient due to fatigue and somnolence. 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 -DDD pacer, January 2020. -normal interrogation on this admission. (4) Hypertension: -adequate control on current regimen. (5) Hyperlipidemia: -simvastatin changed to atorvastatin. Admission and Anticipated Discharge Date Admission Date: May 27, 2020 Subjective The patient is resting comfortably in bed without complaints of chest pain or dyspnea. He is anxious for hospital discharge. Physical Exam Physical Exam: In general this is a well-developed well-nourished white male in no acute distress. HEENT exam is negative. Neck reveals normal carotid upstrokes without bruits. No JVD. There is no thyromegaly. Cardiovascular exam reveals a regular rhythm with a normal S1 and S2. No murmurs, S3, or S4 are noted. Chest reveals a palpable pacemaker in the left subclavicular region. Lungs are clear without rales, rhonchi, or wheezes. Abdomen is soft without bruits. Extremities reveal An ecchymosis adjacent to the right wrist dressing. There is no peripheral edema. Results & Data ([facility]) Vital Signs (Past 12 Hours) Vital Signs Temp Pulse Resp BP Pulse Ox 05/31/20 11:39 36.5 C 57 L 16 117/65 91 05/31/20 07:42 36.4 C L 61 24 123/64 96 05/31/20 03:42 36.6 C 63 18 157/83 H 94 PG Care Time/CCT Total # of Minutes Spent Total Time Spent with Patient: Total time spent is greater than 50% in coordination of care (as documented) at patient's floor/unit and/or counseling patient: Coding Level of Care Code 59171 Subseq Hosp Care Lvl 3 Diagnoses Angina pectoris, crescendo I20.0 Coronary artery arteriosclerosis I25.10 Cardiac pacemaker Z95.0 Hypertension I10 Hypertension type: unspecified Hyperlipidemia E78.2 Hyperlipidemia type: mixed hyperlipidemia (1) Hypertension Hypertension type: unspecified Qualified Code(s): I10 - Essential (primary) hypertension (2) Hyperlipidemia Hyperlipidemia type: mixed hyperlipidemia Qualified Code(s): E78.2 - Mixed hyperlipidemia
--- NOTE | 2020-05-31 19:42 | XRay Report ---
XR chest 2V PA/lateral CLINICAL HISTORY: hypoxia COMPARISON STUDY: 05/27/2020 FINDINGS: The heart is borderline enlarged. There is a left subclavian dual-chamber central venous pa cemaker. There is no failure. There are improving left basilar airspace opacities likely atelectatic. No significant pleural effusions are visualized.[ IMPRESSION: 1. No acute findings 2. Improving left basilar airspace opacities likely atelectatic ACT 112: Negative or not required by law. Electronically signed by: Candido Forman M.D. 05/31/2020 7:40 PM
[2020-05-31] MEDS: ATORVASTATIN 40 MG TAB PO SCH (20:27)
[2020-05-31] MEDS: RANOLAZINE 500 MG ER TAB PO SCH (20:33)
--- NOTE | 2020-05-31 22:00 | Hospitalist Progress Note ---
Date of Service May 31, 2020 Assessment & Plan (1) NSTEMI (non-ST elevated myocardial infarction): mild event. minimal troponin increase with peak at 0.274. s/p heart cath Dr Phan on 05/28/20. prior stents patent, but has new areas of occlusion including distal LAD which accounts for wall motion abnormality seen on echo. also with left main disease. medical management advised by Dr Phan. heparin drip x 48 hours completed. cont asa, plavix, beta ruth, ARB, statin. LDL 76 earlier this month - changed simvastatin to lipitor 40mg daily. added imdur 30mg daily. had additional chest pain yesterday -- spoke with Dr Cutler -- will re-trial ranexa 500mg BID. reassess in am. (2) Coronary artery arteriosclerosis: s/p multiple [place] events in the distant past. s/p multiple stents (6). s/p heart cath by Dr Phan on 05/28/20 with findings as above. med management recommended. Cont asa, plavix, statin, BB, ARB, nitrates. adding Ranexa for refractory symptoms as recommended by Dr Cutler. start 500mg BID tonight. (3) Chronic systolic CHF (congestive heart failure): EF 35-40% with apical hypokinesis c/w ischemic cardiomyopathy. he continues to remain compensated on exam. cont BB cont ARB cont lasix (4) Hyperlipidemia: See above. Controlled. Cont statin - changed to high-intensity lipitor 40mg HS. (5) Hypertension: Improved control with ARB increase and addition of imdur. (6) Rheumatoid arthritis: Controlled. Cont prednisone 5mg BID. (7) DM (diabetes mellitus), type 2: Hold metformin. Novolog sliding scale. BSGs ac/hs. DM diet. Hb A1C 7.4% earlier this month. controlled at this time. 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 Pacer interrogation done - no recent dysrhythmia; plenty of battery life remaining. 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 (10) Chronic kidney disease, stage 3a: Cr stable. (11) Thrombocytopenia: Cause? nothing infectious by history. recent b12 level low-normal - replace. folate wnl. platelets about 120 -- repeat level am. (12) Candidiasis of mouth and esophagus: resolved cont nystatin PO likely 2nd to chronic steroid usage (13) Chronic cough: etiology?? does patient have chronic lung disease from rheumatoid?? trial of combivent repeat cxr today (14) DVT prophylaxis: heparin 5000 SC TID updated son by phone yesterday and today screening COVID is negative needs rehab- DENIED BY INSURANCE FOR ACUTE REHAB AT [facility]; I called and spoke with medical operations supervisor at insurance for [id number] -- unsuccessful approved for rehab at [facility] however hopefully can d/c to SNF tomorrow Admission and Anticipated Discharge Date Admission Date: May 27, 2020 Subjective patient had a brief episode - about 3-4 minutes - of "angina" yesterday sometime while straining to have bowel movement. he thinks he told the staff but isn't sure. did not mention it to Dr Cutler. pain self-resolved. he did not need SL nitro. pain was similar to the pains he had at home prior to admission. no chest pain spells since then. no dyspnea. continues with chronic cough. feels fine otherwise. tele with pacing. Review of Systems Constitutional: + fatigue; no fever, no chills and no anorexia Respiratory: + cough and + dyspnea on exertion (at baseline); no dyspnea and no wheezing Cardiovascular: as per Subjective / HPI and + chest pain; no orthopnea, no paroxysmal nocturnal dyspnea and no edema Gastrointestinal: no abdominal pain Physical Exam Constitutional: well developed and well nourished; no acute distress and no altered mental status ENMT: external ear and nose normal, oropharynx normal Respiratory: normal respiratory effort, lungs clear to auscultation Cardiovascular: Rate/Rhythm: regular rate and regular rhythm Heart Sounds: normal S1 and normal S2; no murmur Vessels: posterior tibial pulses present and dorsalis pedis pulses present; no JVD Extremities: no edema Gastrointestinal (Abdomen): normal bowel sounds, soft, nontender, no hepatosplenomegaly Inspection/Auscultation: + visible herniation (ventral - reducible; scar - midline ) Psychiatric: Orientation: alert and oriented x 3 Affect: + flat affect Results & Data Results & Data ([facility]) Vital Signs (Past 12 Hours) Vital Signs Temp Pulse Resp BP Pulse Ox 05/31/20 18:59 36.6 C 57 L 19 137/75 93 05/31/20 15:10 36.8 C 59 L 19 137/76 91 05/31/20 11:39 36.5 C 57 L 16 117/65 91 Laboratory Results Laboratory Results - last 24 hr 05/31/20 05/31/20 05/31/20 05:32 05:32 07:45 WBC 7.89 RBC 4.20 L Hgb 13.4 L Hct 39.8 L MCV 94.8 MCH 31.9 MCHC 33.7 RDW Std Deviation 48.5 H RDW Coeff of Mike 14.1 Plt Count 122 L MPV 9.9 Sodium 143 Potassium 4.3 Chloride 111 H Carbon Dioxide 27 Anion Gap 5.0 BUN 29 H Creatinine 1.28 Est Cr Clr Drug Dosing 45.5 Est GFR ( Amer) 59.2 Est GFR (Non-Af Amer) 51.1 BUN/Creatinine Ratio 22.6 H Glucose 125 H POC Glucose 128 H Calcium 8.7 05/31/20 05/31/20 05/31/20 11:33 16:27 20:08 WBC RBC Hgb Hct MCV MCH MCHC RDW Std Deviation RDW Coeff of Mike Plt Count MPV Sodium Potassium Chloride Carbon Dioxide Anion Gap BUN Creatinine Est Cr Clr Drug Dosing Est GFR ( Amer) Est GFR (Non-Af Amer) BUN/Creatinine Ratio Glucose POC Glucose 106 H 155 H 162 H Calcium PG Care Time/CCT Total # of Minutes Spent Total Time Spent with Patient: Total time spent is greater than 50% in coordination of care (as documented) at patient's floor/unit and/or counseling patient: Coding Level of Care Code 11583 Subseq Hosp Care Lvl 3 Diagnoses NSTEMI (non-ST elevated myocardial infarction) I21.4 Coronary artery arteriosclerosis I25.10 Chronic systolic CHF (congestive heart failure) I50.22 Hyperlipidemia E78.2 Hyperlipidemia type: mixed hyperlipidemia Hypertension I10 Hypertension type: unspecified Rheumatoid arthritis M06.9 Rheumatoid arthritis location: unspecified site Rheumatoid factor presence: unspecified presence DM (diabetes mellitus), type 2 E11.9 Diabetes mellitus lobsterman insulin use: without lobsterman use Diabetes mellitus complication status: without complication Status post placement of cardiac pacemaker Z95.0 Steroid dependent F19.20 Chronic kidney disease, stage 3a N18.3 Thrombocytopenia D69.6 Candidiasis of mouth and esophagus B37.81; B37.0 Chronic cough R05 DVT prophylaxis Z29.9 (1) Hyperlipidemia Hyperlipidemia type: mixed hyperlipidemia Qualified Code(s): E78.2 - Mixed hyperlipidemia (2) Hypertension Hypertension type: unspecified Qualified Code(s): I10 - Essential (primary) hypertension (3) Rheumatoid arthritis Rheumatoid arthritis location: unspecified site Rheumatoid factor presence: unspecified presence Qualified Code(s): M06.9 - Rheumatoid arthritis, unspecified (4) DM (diabetes mellitus), type 2 Diabetes mellitus penitentiary insulin use: without lobsterman use Diabetes mellitus complication status: without complication Qualified Code(s): E11.9 - Type 2 diabetes mellitus without complications
[2020-06-01] MEDS: HEPARIN SOD 5,000 UNIT/0.5 ML VIAL SQ SCH ×2 (05:31→13:15)
[2020-06-01] MEDS: IPRATROPIUM BROMIDE HFA INHALER INH SCH ×4 (07:01→19:01)
[2020-06-01] MEDS: ALBUTEROL HFA 8 GM INHALER INH SCH ×4 (07:01→19:01)
[2020-06-01 07:24] LABS: Platelet Count 130 K/uL (130-400)
[2020-06-01 07:57] LABS: BUN Creatinine Ratio 19.9 (10-20); Calcium 8.9 mg/dl (8.5-10.1); Creatinine Clr Calc Pharmacy 42.2 ml/min; Est GFR (African American) 54.5; Potassium 4.1 mmol/L (3.5-5.1)
[2020-06-01] MEDS: INSULIN ASPART 100 UNITS/ML 3 ML PEN SC SCH ×4 (08:29→20:29)
[2020-06-01] MEDS: GABAPENTIN 100 MG CAP PO SCH ×3 (08:30→20:26)
[2020-06-01] MEDS: METOPROLOL TARTRATE 100 MG TAB PO SCH (08:30)
[2020-06-01] MEDS: RANOLAZINE 500 MG ER TAB PO SCH ×2 (08:30→20:26)
[2020-06-01] MEDS: ASPIRIN 81 MG ECTAB PO SCH (08:31)
[2020-06-01] MEDS: CYANOCOBALAMIN 500 MCG TABLET (VITAMIN B-12) PO SCH (08:31)
[2020-06-01] MEDS: NYSTATIN SUSP 500,000 U/5 ML UDC PO SCH ×4 (08:31→20:26)
[2020-06-01] MEDS: ISOSORBIDE MONO EXTENDED REL 30 MG TABCR PO SCH (08:31)
[2020-06-01] MEDS: predniSONE 5 MG TAB PO SCH ×2 (08:31→20:26)
[2020-06-01] MEDS: CLOPIDOGREL BISULFATE 75 MG TAB PO SCH (08:31)
[2020-06-01] MEDS: OLMESARTAN MEDOXOMIL 5 MG TAB PO SCH (08:31)
--- NOTE | 2020-06-01 12:20 | Cardiology Progress Note ---
Date of Service June 01, 2020 Assessment & Plan (1) Angina pectoris, crescendo: -suspect secondary to distal LAD disease. -tolerating Ranexa thus far. -stable for hospital discharge. (2) Coronary artery arteriosclerosis: -severe, inoperable, three-vessel disease. 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 -DDD pacer, January 2020. -normal interrogation on this admission. (4) Hypertension: -adequate control on current regimen. (5) Hyperlipidemia: -tolerating atorvastatin. Admission and Anticipated Discharge Date Admission Date: May 27, 2020 Subjective The patient is resting comfortably in bed complaints of angina pectoris or dyspnea. Physical Exam Physical Exam: In general this is a well-developed well-nourished white male in no acute distress. HEENT exam is negative. Neck reveals normal carotid upstrokes without bruits. No JVD. There is no thyromegaly. Cardiovascular exam reveals a regular rhythm with a normal S1 and S2. No murmurs, S3, or S4 are noted. Chest reveals a palpable pacemaker in the left subclavicular region. Lungs are clear without rales, rhonchi, or wheezes. Abdomen is soft without bruits. Extremities reveal An ecchymosis adjacent to the right wrist dressing. There is no peripheral edema. Results & Data ([facility]) Vital Signs (Past 12 Hours) Vital Signs Temp Pulse Pulse Resp BP Pulse Ox 06/01/20 12:09 36.5 C 54 L 18 113/63 94 06/01/20 11:11 57 L 18 94 06/01/20 07:38 36.5 C 62 18 154/57 H 94 06/01/20 07:26 60 06/01/20 07:05 57 L 18 93 06/01/20 04:46 36.6 C 58 L 18 154/83 H 93 06/01/20 00:30 57 L Diagnostic Findings electronic device monitor notes appropriate pacing. PG Care Time/CCT Total # of Minutes Spent Total Time Spent with Patient: Total time spent is greater than 50% in coordination of care (as documented) at patient's floor/unit and/or counseling patient: Coding Level of Care Code 07340 Subseq Hosp Care Lvl 3 Diagnoses Angina pectoris, crescendo I20.0 Coronary artery arteriosclerosis I25.10 Cardiac pacemaker Z95.0 Hypertension I10 Hypertension type: unspecified Hyperlipidemia E78.2 Hyperlipidemia type: mixed hyperlipidemia (1) Hypertension Hypertension type: unspecified Qualified Code(s): I10 - Essential (primary) hypertension (2) Hyperlipidemia Hyperlipidemia type: mixed hyperlipidemia Qualified Code(s): E78.2 - Mixed hyperlipidemia
[2020-06-01] MEDS ORDERED: predniSONE 20 MG TAB PO STA (14:24)
[2020-06-01] MEDS ORDERED: SODIUM CHLORIDE 0.9% 1000ML 250 ML IV ONE (14:42)
[2020-06-01] MEDS ORDERED: OPTIRAY 320 125ml IV ONE (16:08)
--- NOTE | 2020-06-01 16:15 | CT Scan Report ---
CT angio chest PE protocol CT DOSE: 535.88 mGycm HISTORY: Dyspnea hypoxia, chest pains; eval PE; eval ILD/PF TECHNIQUE: Multiaxial CT images of the chest were performed following the intravenous administration of contrast to evaluate the pulmonary arteries. Maximal intensity projection images were also obtaine d. A dose lowering technique was utilized adhering to the principles of ALARA. COMPARISON STUDY: None. FINDINGS: Diffuse bilateral pulmonary emboli. This involves the distal right main pulmonary artery wi th components of the right lower and to a lesser extent right upper lobe pulmonary arterial vasculatu re. There is involvement of the distal left main pulmonary artery with involvement of the lingular as wel l as left lower lobe pulmonary arterial vasculature. No significant mediastinal or hilar adenopathy. The pulmonary apices are clear. There is no infiltrat franklin process involving the left lung base. Trace amount pleural fluid at both lung bases. There is a c ardiac pacer in good position. IMPRESSION: 1. Extensive bilateral pulmonary emboli. 2. Small focal parenchymal infiltrate left lung base. ACT 112: Negative or not required by law. The above report was generated using voice recognition software. It may contain grammatical, syntax or spelling errors. Electronically signed by: Gentry Pike M.D. 06/01/2020 4:13 PM
[2020-06-01] MEDS ORDERED: Heparin IV Standard *NO* Bolus IV SCH (16:36)
[2020-06-01 18:08] LABS: Basophils # (auto) 0.01 K/uL (0-0.2); Basophils % (auto) 0.1 %; Eosinophils # (auto) 0.02 K/uL (0-0.5); Eosinophils % (auto) 0.3 %; Hematocrit (blood only) 38.4 % (42-52); Immature Granulocytes # (auto) 0.07 K/uL (0.00-0.02); Immature Granulocytes % (auto) 0.9 %; Lymphocytes # (auto) 0.73 K/uL (1.2-3.4); Lymphocytes % (auto) 9.9 %; Mean Corpuscular Hemoglobin 32.3 pg (25-34); Mean Corpuscular Volume 95.5 fL (80-100); Mean Platelet Volume 9.8 fL (7.4-10.4); Monocytes % (auto) 6.8 %; Neutrophils # (auto) 6.06 K/uL (1.4-6.5); Platelet Count 119 K/uL (130-400); RDW Coefficient of Variation 14.2 % (11.5-14.5); RDW Standard Deviation 49.8 fL (36.4-46.3); Red Blood Count 4.02 M/uL (4.7-6.1); White Blood Count 7.39 K/uL (4.8-10.8)
[2020-06-01 18:18] LABS: INR 1.1 (0.9-1.1); Partial Thromboplastin Ratio 0.9; Partial Thromboplastin Time 24.7 Seconds (21.0-31.0); Prothrombin Time 11.4 Seconds (9.0-12.0)
[2020-06-01] MEDS: HEPARIN SODIUM/DEXTROSE 25,000 UNITS/500 ML BAG IV SCH (18:29)
[2020-06-01 18:33] LABS: Mean Corpuscular Hgb Conc 33.9 g/dL (32-36)
[2020-06-01] MEDS: METOPROLOL TARTRATE 50 MG TAB PO SCH (20:26)
[2020-06-01] MEDS: ATORVASTATIN 40 MG TAB PO SCH (20:26)
--- NOTE | 2020-06-01 21:41 | Hospitalist Progress Note ---
Date of Service June 01, 2020 Assessment & Plan (1) Pulmonary emboli: extensive and b/l on CTA 06/01/20. this very well may have been contributing to presenting chest pain at admission. did receive heparin for 48 hours earlier this stay. will place back on heparin. check LE dopplers. h/o colon ca about 15 years ago - will need to CT abd/pelvis to look for recurrence. he has also been sedentary last few weeks per son. O2 NC and supportive care. (2) NSTEMI (non-ST elevated myocardial infarction): mild event. minimal troponin increase with peak at 0.274. could have been NSTEMI from CAD or even RV infarction from PEs (retrospectively). s/p heart cath Dr Phan on 05/28/20. prior stents patent, but has new areas of occlusion including distal LAD which accounts for wall motion abnormality seen on echo. also with left main disease. medical management advised by Dr Phan. cont asa, plavix, beta ruth, ARB, statin. LDL 76 earlier this month - changed simvastatin to lipitor 40mg daily. added imdur 30mg daily. re-trialing ranexa 500mg BID. appreciate cardiology consultation. (3) Coronary artery arteriosclerosis: s/p multiple WI events in the distant past. s/p multiple stents (6). s/p heart cath by Dr Phan on 05/28/20 with findings as above. med management recommended. Cont asa, plavix, statin, BB, ARB, nitrates, ranexa (hold ARB and cut BB dose due to low BP today, however). (4) Chronic systolic CHF (congestive heart failure): EF 35-40% with apical hypokinesis c/w ischemic cardiomyopathy. he continues to remain compensated on exam. cont BB but lower dose due to LOW bp today cont ARB cont lasix (5) Hyperlipidemia: See above. Controlled. Cont statin - changed to high-intensity lipitor 40mg HS. (6) Hypertension: orthostatic today cut dose of metoprolol by 1/2 hold ARB (7) Rheumatoid arthritis: Controlled. Cont prednisone 5mg BID. Gave a small stress dose of 20mg extra today. (8) DM (diabetes mellitus), type 2: Hold metformin. Novolog sliding scale. BSGs ac/hs. DM diet. Hb A1C 7.4% earlier this month. controlled at this time. (9) Status post placement of cardiac pacemaker: 2nd to high degree AV block - 2019. Pacer interrogation done - no recent dysrhythmia; plenty of battery life remaining. 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 (11) Chronic kidney disease, stage 3a: Cr stable. BMP am. (12) Thrombocytopenia: Cause? consumption in setting of PEs? nothing infectious by history. recent b12 level low-normal - replace. folate wnl. repeat CBC am. (13) Candidiasis of mouth and esophagus: resolved cont nystatin PO likely 2nd to chronic steroid usage (14) Chronic cough: etiology?? PEs?? (15) DVT prophylaxis: heparin infusion updated son by phone again today -- told him about PEs screening COVID is negative needs rehab- DENIED BY INSURANCE FOR ACUTE REHAB [facility]; I called and spoke with biomedical service engineer at insurance for [id number] -- unsuccessful approved for rehab at [facility] however holding on discharge due to PEs Admission and Anticipated Discharge Date Admission Date: May 27, 2020 Subjective patient states he had sat in the chair for several hours this am. started to feel dizzy/lightheaded. he asked to get back in bed. upon return his vision was "out of focus" (not blurry, no field cuts). the visual disturbance is now gone. he has been noted to be hypoxic -- intermittently requiring NC O2. he denies chest pain at rest or with activity. eating ok. tele - pacing. Review of Systems Constitutional: + fatigue; no fever Respiratory: + dyspnea on exertion Cardiovascular: no chest pain, no orthopnea, no paroxysmal nocturnal dyspnea and no edema Gastrointestinal: no abdominal pain Physical Exam Constitutional: well developed and well nourished; no acute distress and no altered mental status Eyes: PERRL no visual field cuts by direct confrontation ENMT: external ear and nose normal, oropharynx normal Mouth: + oral mucosal abnormality (thrush plaques resolved) Respiratory: normal respiratory effort, lungs clear to auscultation Cardiovascular: Rate/Rhythm: regular rate and regular rhythm Heart Sounds: normal S1 and normal S2; no murmur Vessels: posterior tibial pulses present and dorsalis pedis pulses present; no JVD Extremities: no edema Gastrointestinal (Abdomen): normal bowel sounds, soft, nontender, no hepatosplenomegaly Inspection/Auscultation: + visible herniation (ventral - reducible; scar - midline ) Psychiatric: Orientation: alert and oriented x 3 Affect: + flat affect Results & Data Results & Data ([facility]) Vital Signs (Past 12 Hours) Vital Signs Temp Pulse Pulse Resp BP Pulse Ox 06/01/20 19:01 65 18 92 06/01/20 19:00 36.7 C 63 20 155/81 H 92 06/01/20 16:00 54 L 88 L 06/01/20 15:30 36.8 C 57 L 18 115/68 90 06/01/20 12:09 36.5 C 54 L 18 113/63 94 06/01/20 11:11 57 L 18 94 Laboratory Results Laboratory Results - last 24 hr 06/01/20 06/01/20 06/01/20 07:06 07:06 07:15 WBC RBC Hgb Hct MCV MCH MCHC RDW Std Deviation RDW Coeff of Mike Plt Count 130 MPV Immature Gran % (Auto) Neut % (Auto) Lymph % (Auto) [place] % (Auto) Eos % (Auto) Baso % (Auto) Neut # (Auto) Lymph # (Auto) [place] # (Auto) Eos # (Auto) Baso # (Auto) Immature Gran # (Auto) PT INR APTT PTT Ratio Sodium 141 Potassium 4.1 Chloride 110 H Carbon Dioxide 26 Anion Gap 5.0 BUN 27 H Creatinine 1.37 Est Cr Clr Drug Dosing 42.2 Est GFR ( Amer) 54.5 Est GFR (Non-Af Amer) 47.0 BUN/Creatinine Ratio 19.9 Glucose 119 H POC Glucose 119 H Calcium 8.9 06/01/20 06/01/20 06/01/20 11:08 16:24 17:56 WBC 7.39 RBC 4.02 L Hgb 13.0 L Hct 38.4 L MCV 95.5 MCH 32.3 MCHC 33.9 RDW Std Deviation 49.8 H RDW Coeff of Mike 14.2 Plt Count 119 L MPV 9.8 Immature Gran % (Auto) 0.9 Neut % (Auto) 82.0 Lymph % (Auto) 9.9 Dup[place] % (Auto) 6.8 Eos % (Auto) 0.3 Baso % (Auto) 0.1 Neut # (Auto) 6.06 Lymph # (Auto) 0.73 L Dupage # (Auto) 0.50 Eos # (Auto) 0.02 Baso # (Auto) 0.01 Immature Gran # (Auto) 0.07 H PT INR APTT PTT Ratio Sodium Potassium Chloride Carbon Dioxide Anion Gap BUN Creatinine Est Cr Clr Drug Dosing Est GFR ( Amer) Est GFR (Non-Af Amer) BUN/Creatinine Ratio Glucose POC Glucose 122 H 108 H Calcium 06/01/20 06/01/20 17:56 20:01 WBC RBC Hgb Hct MCV MCH MCHC RDW Std Deviation RDW Coeff of Mike Plt Count MPV Immature Gran % (Auto) Neut % (Auto) Lymph % (Auto) Dup[place] % (Auto) Eos % (Auto) Baso % (Auto) Neut # (Auto) Lymph # (Auto) [place] # (Auto) Eos # (Auto) Baso # (Auto) Immature Gran # (Auto) PT 11.4 INR 1.1 APTT 24.7 PTT Ratio 0.9 Sodium Potassium Chloride Carbon Dioxide Anion Gap BUN Creatinine Est Cr Clr Drug Dosing Est GFR ( Amer) Est GFR (Non-Af Amer) BUN/Creatinine Ratio Glucose POC Glucose [address] chest - b/l extensive PEs PG Care Time/CCT Total # of Minutes Spent Total Time Spent with Patient: Total time spent is greater than 50% in coordination of care (as documented) at patient's floor/unit and/or counseling patient: Coding Level of Care Code 02348 Subseq Hosp Care Lvl 3 Diagnoses Pulmonary emboli I26.99 Acute cor pulmonale presence: without acute cor pulmonale Chronicity: acute Pulmonary embolism type: unspecified NSTEMI (non-ST elevated myocardial infarction) I21.4 Coronary artery arteriosclerosis I25.10 Chronic systolic CHF (congestive heart failure) I50.22 Hyperlipidemia E78.2 Hyperlipidemia type: mixed hyperlipidemia Hypertension I10 Hypertension type: unspecified Rheumatoid arthritis M06.9 Rheumatoid arthritis location: unspecified site Rheumatoid factor presence: unspecified presence DM (diabetes mellitus), type 2 E11.9 Diabetes mellitus complication status: without complication Diabetes mellitus salvage determiner insulin use: without long-term use Status post placement of cardiac pacemaker Z95.0 Steroid dependent F19.20 Chronic kidney disease, stage 3a N18.3 Thrombocytopenia D69.6 Candidiasis of mouth and esophagus B37.81; B37.0 Chronic cough R05 DVT prophylaxis Z29.9 (1) Rheumatoid arthritis Rheumatoid arthritis location: unspecified site Rheumatoid factor presence: unspecified presence Qualified Code(s): M06.9 - Rheumatoid arthritis, unspecified (2) DM (diabetes mellitus), type 2 Diabetes mellitus complication status: without complication Diabetes mellitus long-term insulin use: without salvage determiner use Qualified Code(s): E11.9 - Type 2 diabetes mellitus without complications (3) Hyperlipidemia Hyperlipidemia type: mixed hyperlipidemia Qualified Code(s): E78.2 - Mixed hyperlipidemia (4) Pulmonary emboli Acute cor pulmonale presence: without acute cor pulmonale Chronicity: acute Pulmonary embolism type: unspecified Qualified Code(s): I26.99 - Other pulmonary embolism without acute cor pulmonale (5) Hypertension Hypertension type: unspecified Qualified Code(s): I10 - Essential (primary) hypertension
[2020-06-02 00:38] LABS: Hematocrit (blood only) 39.5 % (42-52); Hemoglobin 13.4 g/dL (14.0-18.0); Mean Corpuscular Hemoglobin 32.1 pg (25-34); Mean Corpuscular Hgb Conc 33.9 g/dL (32-36); Mean Corpuscular Volume 94.7 fL (80-100); Mean Platelet Volume 9.8 fL (7.4-10.4); Platelet Count 134 K/uL (130-400); RDW Standard Deviation 48.4 fL (36.4-46.3); Red Blood Count 4.17 M/uL (4.7-6.1); White Blood Count 7.48 K/uL (4.8-10.8)
[2020-06-02 00:55] LABS: BUN Creatinine Ratio 19.5 (10-20); Calcium 8.5 mg/dl (8.5-10.1); Creatinine Clr Calc Pharmacy 40.2 ml/min; Est GFR (African American) 51.3; Est GFR (Non-African American) 44.3; Potassium 4.7 mmol/L (3.5-5.1)
[2020-06-02 01:01] LABS: Partial Thromboplastin Ratio 2.5
[2020-06-02 01:06] LABS: Partial Thromboplastin Time 69.9 Seconds (21.0-31.0)
[2020-06-02] MEDS: IPRATROPIUM BROMIDE HFA INHALER INH SCH ×4 (07:18→19:36)
[2020-06-02] MEDS: ALBUTEROL HFA 8 GM INHALER INH SCH ×4 (07:18→19:36)
[2020-06-02 07:47] LABS: Partial Thromboplastin Ratio 3.2
[2020-06-02 08:01] LABS: Partial Thromboplastin Time 88.8 Seconds (21.0-31.0)
[2020-06-02] MEDS: INSULIN ASPART 100 UNITS/ML 3 ML PEN SC SCH ×4 (08:05→20:25)
[2020-06-02] MEDS: RANOLAZINE 500 MG ER TAB PO SCH ×2 (08:07→20:03)
[2020-06-02] MEDS: METOPROLOL TARTRATE 50 MG TAB PO SCH ×2 (08:08→20:03)
[2020-06-02] MEDS: GABAPENTIN 100 MG CAP PO SCH ×3 (08:08→20:03)
[2020-06-02] MEDS: NYSTATIN SUSP 500,000 U/5 ML UDC PO SCH ×4 (08:09→20:03)
[2020-06-02] MEDS: CYANOCOBALAMIN 500 MCG TABLET (VITAMIN B-12) PO SCH (08:09)
[2020-06-02] MEDS: ISOSORBIDE MONO EXTENDED REL 30 MG TABCR PO SCH (08:09)
[2020-06-02] MEDS: predniSONE 5 MG TAB PO SCH ×2 (08:09→20:04)
[2020-06-02] MEDS: ASPIRIN 81 MG ECTAB PO SCH (08:10)
[2020-06-02] MEDS: CLOPIDOGREL BISULFATE 75 MG TAB PO SCH (08:10)
--- NOTE | 2020-06-02 10:33 | Ultrasound Report ---
US venous doppler LE BI CLINICAL HISTORY: Bilateral pulmonary embolism. Suspected DVT. COMPARISON STUDY: 04/18/2020 FINDINGS: Grayscale color flow and spectral Doppler waveform analysis was performed. There is extensive right lower extremity DVT involving the common femoral and superficial femoral vei ns. There was slow flow within the popliteal vein. The proximal trifurcation veins of the right calf appear patent. On the left, there is no thrombus in the common femoral superficial femoral or popliteal veins. There is thrombus within the popliteal vein branch within the popliteal fossa. IMPRESSION: 1. Acute lower extremity DVT. ACT 112: Negative or not required by law. Electronically signed by: Candido Forman M.D. 06/02/2020 10:32 AM
--- NOTE | 2020-06-02 11:19 | Cardiology Progress Note ---
Date of Service June 02, 2020 Assessment & Plan (1) Pulmonary emboli: -likely secondary to acute right lower extremity DVT. -Stable on intravenous heparin. (2) Angina pectoris, crescendo: -suspect secondary to distal LAD disease vs his extensive pulmonary emboli. -tolerating Ranexa. (3) Coronary artery arteriosclerosis: -severe, inoperable, three-vessel disease. 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 -DDD pacer, January 2020. -normal interrogation on this admission. (5) Hypertension: -adequate control on current regimen. (6) Hyperlipidemia: -tolerating atorvastatin. Admission and Anticipated Discharge Date Admission Date: May 27, 2020 Subjective The patient is resting comfortably in bed without complaints of chest pain or dyspnea. We have discussed his new diagnosis of a pulmonary embolism. Physical Exam Physical Exam: In general this is a well-developed well-nourished white male in no acute distress. HEENT exam is negative. Neck reveals normal carotid upstrokes without bruits. No JVD. There is no thyromegaly. Cardiovascular exam reveals a regular rhythm with a normal S1 and S2. No murmurs, S3, or S4 are noted. Chest reveals a palpable pacemaker in the left subclavicular region. Lungs are clear without rales, rhonchi, or wheezes. Abdomen is soft without bruits. Extremities reveal an ecchymosis on the right wrist. There is no peripheral edema. Results & Data ([facility]) Vital Signs (Past 12 Hours) Vital Signs Temp Pulse Resp BP Pulse Ox 06/02/20 08:03 36.5 C 53 L 18 123/61 95 06/02/20 07:18 56 L 18 97 06/02/20 03:31 36.6 C 57 L 18 161/95 H 94 06/01/20 23:30 36.6 C 54 L 18 161/84 H 93 Diagnostic Findings nurse monitoring notes appropriate pacing. PG Care Time/CCT Total # of Minutes Spent Total Time Spent with Patient: Total time spent is greater than 50% in coordination of care (as documented) at patient's floor/unit and/or counseling patient: Coding Level of Care Code 92906 Subseq Hosp Care Lvl 3 Diagnoses Pulmonary emboli I26.99 Pulmonary embolism type: unspecified Chronicity: acute Acute cor pulmonale presence: without acute cor pulmonale Angina pectoris, crescendo I20.0 Coronary artery arteriosclerosis I25.10 Cardiac pacemaker Z95.0 Hypertension I10 Hypertension type: unspecified Hyperlipidemia E78.2 Hyperlipidemia type: mixed hyperlipidemia (1) Hypertension Hypertension type: unspecified Qualified Code(s): I10 - Essential (primary) hypertension (2) Hyperlipidemia Hyperlipidemia type: mixed hyperlipidemia Qualified Code(s): E78.2 - Mixed hyperlipidemia (3) Pulmonary emboli Pulmonary embolism type: unspecified Chronicity: acute Acute cor pulmonale presence: without acute cor pulmonale Qualified Code(s): I26.99 - Other pulmonary embolism without acute cor pulmonale
[2020-06-02] MEDS: HEPARIN SODIUM/DEXTROSE 25,000 UNITS/500 ML BAG IV SCH ×2 (13:48→16:15)
[2020-06-02] MEDS ORDERED: predniSONE 10 MG TABLET PO ONE (15:00)
[2020-06-02 15:22] LABS: Partial Thromboplastin Ratio 2.4
[2020-06-02 15:25] LABS: Partial Thromboplastin Time 68.1 Seconds (21.0-31.0)
[2020-06-02] MEDS: HYDROCORTISONE ACETATE 25 MG SUPP PR SCH ×2 (16:14→20:05)
[2020-06-02 19:20] LABS: Hematocrit (blood only) 38.3 % (42-52); Hemoglobin 12.9 g/dL (14.0-18.0)
[2020-06-02] MEDS: ATORVASTATIN 40 MG TAB PO SCH (20:04)
--- NOTE | 2020-06-02 20:23 | Hospitalist Progress Note ---
Date of Service June 02, 2020 Assessment & Plan (1) Pulmonary emboli: b/l extensive PEs on CTA 06/01/20. with b/l DVTs as confirmed today. PEs may have been contributing to presenting chest pain at admission. did receive heparin for 48 hours earlier this stay for NSTEMI. then standard dosing heparin initiated 06/01/20 for PEs. patient reports severe back pain and radicular pain requiring epidural injections in early May. much of the summer he has been quite sedentary because of the back pain. thus, prolonged immobility may be the reason for the DVT/PEs. alternatively he had colon ca in the past requiring hemicolectomy. can't rule out colon ca recurrence or other malignancy contributing to heightened VTE risk. cont heparin (see below re: rectal bleeding). do not start coumadin or novel agent in light of bleeding today. if GI bleeding persists we would be forced to stop the heparin and ask vascular to place IVC filter. cont O2 NC and supportive care. (2) Rectal bleeding: small hemorrhoid on LAURA but doubt it is the cause of lower GI bleeding. last colonoscopy was 2014. had extensive diverticular disease throughout much of the colon. rectal bleeding could be diverticular. bleeding could also be a new malignancy. plan - * anusol 25mg CT TID * H/H q6h * downgrade diet to full liquids * if rectal bleeding persists we would have no choice but to STOP THE HEPARIN infusion and ask vascular surgery to consult for consideration of IVC filter * if bleeding persists would also need to consider holding asa/plavix (3) DVT (deep venous thrombosis): b/l see "PE" above (4) NSTEMI (non-ST elevated myocardial infarction): mild event at admission. minimal troponin increase with peak at 0.274. could have been NSTEMI from CAD or even RV infarction from PEs (retrospectively). s/p heart cath Dr Phan on 05/28/20. prior stents patent, but w/ new areas of occlusion including distal LAD which accounts for wall motion abnormality seen on echo. also with left main disease. medical management advised by Dr Phan. cont asa, plavix, beta ruth, nitrates, ranexa but if rectal bleeding persists hold asa/plavix. LDL 76 earlier this month - changed simvastatin to lipitor 40mg daily. appreciate cardiology consultation. (5) Coronary artery arteriosclerosis: s/p multiple [place] events in the distant past. s/p multiple stents (6). s/p heart cath by Dr Phan on 05/28/20 with findings as above. med management recommended. Cont asa, plavix, statin, BB, ARB, nitrates, ranexa (holding ARB and cut BB dose due to low BP and bleeding; hold asa/plavix as well). (6) Chronic systolic CHF (congestive heart failure): EF 35-40% with apical hypokinesis c/w ischemic cardiomyopathy. he continues to remain compensated on exam. cont BB but at lower dose hold ARB cont lasix prn (7) Hyperlipidemia: See above. Controlled. Cont statin - changed to high-intensity lipitor 40mg HS. (8) Hypertension: metoprolol dose reduced by 50% holding ARB cont nitrates cautiously (9) Rheumatoid arthritis: Controlled. Cont prednisone 5mg BID. Gave another small stress dose of steroids today in light of GI issues, etc. (10) DM (diabetes mellitus), type 2: Controlled. Cont to hold metformin. Novolog sliding scale. BSGs ac/hs. DM diet. Hb A1C 7.4% earlier this month. 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 Pacer interrogation done - no recent dysrhythmia; plenty of battery life remaining. 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 (13) Chronic kidney disease, stage 3a: Cr stable. BMP am. (14) Thrombocytopenia: suspect due to consumption in setting of PEs. recent b12 level low-normal - replace. folate wnl. repeat CBC am. (15) Candidiasis of mouth and esophagus: resolved cont nystatin PO likely 2nd to chronic steroid usage (16) Chronic cough: etiology?? PEs?? bronchial? other? cont albuterol. treat PEs. (17) History of colon cancer: s/p hemicolectomy last colonoscopy [address] Kellogg with several polyps & diverticular disease along with small, non-bleeding, internal hemorrhoids (18) DVT prophylaxis: heparin infusion but may need to stop such -- see above updated son Yassine by phone again today -- told him about rectal bleeding and plan if the bleeding persists screening COVID was negative needs rehab- DENIED BY INSURANCE FOR ACUTE REHAB AT [facility]; I called and spoke with medical research assistant at insurance for [id number] -- unsuccessful approved for rehab at [facility] however [id number] patient NOT ready for d/c due to PEs/DVTs and now rectal bleeding Admission and Anticipated Discharge Date Admission Date: May 27, 2020 Subjective tele - pacing overnight during my rounds patient reports "feeling good today" no episodes of chest pain, dyspnea, QUINN or dizziness eating well o2 weaned off several hours after I had seen him the nurses reported BRBPR that was painless I went to the bedside for a 2nd time - he reported no recent BRBPR at home or melena denied any rectal pain LAURA was performed - chaperoned by nursing staff following the 2nd visit the nurses informed me again that he had a 2nd episode of BRBPR Review of Systems Constitutional: no fever Respiratory: + cough (chronic - feels that inhaler helps ); no dyspnea Cardiovascular: no chest pain, no orthopnea, no paroxysmal nocturnal dyspnea and no edema Gastrointestinal: + blood in stools; no abdominal pain, no nausea, no vomiting and no melena Physical Exam Constitutional: well developed and well nourished; no acute distress and no altered mental status ENMT: external ear and nose normal, oropharynx normal Respiratory: normal respiratory effort, lungs clear to auscultation Cardiovascular: Rate/Rhythm: regular rate and regular rhythm Heart Sounds: normal S1 and normal S2; no murmur Vessels: posterior tibial pulses present and dorsalis pedis pulses present; no JVD Extremities: no edema Gastrointestinal (Abdomen): normal bowel sounds, soft, nontender, no hepatosplenomegaly Inspection/Auscultation: + visible herniation (ventral - reducible; scar - midline ) Rectal Exam: + hemorrhoids (internal - about 6o'clock - small, nonbleeding); no rectal mass Psychiatric: Orientation: alert and oriented x 3 Affect: + flat affect Results & Data Results & Data ([facility]) Vital Signs (Past 12 Hours) Vital Signs Temp Pulse Pulse Resp BP Pulse Ox 06/02/20 20:07 66 06/02/20 19:36 55 L 18 92 06/02/20 19:05 36.4 C L 52 L 21 107/64 92 06/02/20 17:01 36.4 C L 64 16 123/69 92 06/02/20 16:00 58 L 06/02/20 15:40 127/70 06/02/20 15:28 36.5 C 54 L 22 99/63 L 93 08/02/20 15:20 60 18 93 06/02/20 12:02 36.3 C L 57 L 18 117/65 95 06/02/20 11:31 59 L 06/02/20 11:17 55 L 18 96 Laboratory Results Laboratory Results - last 24 hr 06/02/20 06/02/20 06/02/20 00:31 00:31 00:31 WBC 7.48 RBC 4.17 L Hgb 13.4 L Hct 39.5 L MCV 94.7 MCH 32.1 MCHC 33.9 RDW Std Deviation 48.4 H RDW Coeff of Mike 14.0 Plt Count 134 MPV 9.8 APTT 69.9 H* PTT Ratio 2.5 Sodium 140 Potassium 4.7 Chloride 109 H Carbon Dioxide 25 Anion Gap 6.0 BUN 28 H Creatinine 1.44 H Est Cr Clr Drug Dosing 40.2 Est GFR ( Amer) 51.3 Est GFR (Non-Af Amer) 44.3 BUN/Creatinine Ratio 19.5 Glucose 207 H POC Glucose Calcium 8.5 06/02/20 06/02/20 06/02/20 06:57 07:45 11:27 WBC RBC Hgb Hct MCV MCH MCHC RDW Std Deviation RDW Coeff of Mike Plt Count MPV APTT 88.8 H* PTT Ratio 3.2 Sodium Potassium Chloride Carbon Dioxide Anion Gap BUN Creatinine Est Cr Clr Drug Dosing Est GFR ( Amer) Est GFR (Non-Af Amer) BUN/Creatinine Ratio Glucose POC Glucose 136 H 112 H Calcium 06/02/20 06/02/20 06/02/20 14:50 16:16 19:11 WBC RBC Hgb 12.9 L Hct 38.3 L MCV MCH MCHC RDW Std Deviation RDW Coeff of Mike Plt Count MPV APTT 68.1 H* PTT Ratio 2.4 Sodium Potassium Chloride Carbon Dioxide Anion Gap BUN Creatinine Est Cr Clr Drug Dosing Est GFR ( Amer) Est GFR (Non-Af Amer) BUN/Creatinine Ratio Glucose POC Glucose 193 H Calcium 06/02/20 20:18 WBC RBC Hgb Hct MCV MCH MCHC RDW Std Deviation RDW Coeff of Mike Plt Count MPV APTT PTT Ratio Sodium Potassium Chloride Carbon Dioxide Anion Gap BUN Creatinine Est Cr Clr Drug Dosing Est GFR ( Amer) Est GFR (Non-Af Amer) BUN/Creatinine Ratio Glucose POC Glucose 162 H Calcium Diagnostic Findings dopplers legs - FINDINGS: There is extensive right lower extremity DVT involving the common femoral and superficial femoral veins. There was slow flow within the popliteal vein. The proximal trifurcation veins of the right calf appear patent. On the left, there is no thrombus in the common femoral superficial femoral or popliteal veins. There is thrombus within the popliteal vein branch within the popliteal fossa. PG Care Time/CCT Total # of Minutes Spent Total Time Spent with Patient: Total time spent is greater than 50% in coordination of care (as documented) at patient's floor/unit and/or counseling patient: Coding Level of Care Code 71450 Subseq Hosp Care Lvl 3 Diagnoses Pulmonary emboli I26.99 Pulmonary embolism type: unspecified Chronicity: acute Acute cor pulmonale presence: without acute cor pulmonale Rectal bleeding K62.5 DVT (deep venous thrombosis) I82.403 DVT location: lower extremity Affected thrombotic vein of extremity: unspecified vein of extremity Chronicity: acute Laterality: bilateral NSTEMI (non-ST elevated myocardial infarction) I21.4 Coronary artery arteriosclerosis I25.10 Chronic systolic CHF (congestive heart failure) I50.22 Hyperlipidemia E78.2 Hyperlipidemia type: mixed hyperlipidemia Hypertension I10 Hypertension type: unspecified Rheumatoid arthritis M06.9 Rheumatoid arthritis location: unspecified site Rheumatoid factor presence: unspecified presence DM (diabetes mellitus), type 2 E11.9 Diabetes mellitus alf insulin use: without terminal operations manager use Diabetes mellitus complication status: without complication Status post placement of cardiac pacemaker Z95.0 Steroid dependent F19.20 Chronic kidney disease, stage 3a N18.3 Thrombocytopenia D69.6 Candidiasis of mouth and esophagus B37.81; B37.0 Chronic cough R05 History of colon cancer Z85.038 DVT prophylaxis Z29.9 (1) Pulmonary emboli Pulmonary embolism type: unspecified Chronicity: acute Acute cor pulmonale presence: without acute cor pulmonale Qualified Code(s): I26.99 - Other pulmonary embolism without acute cor pulmonale (2) Hyperlipidemia Hyperlipidemia type: mixed hyperlipidemia Qualified Code(s): E78.2 - Mixed hyperlipidemia (3) Hypertension Hypertension type: unspecified Qualified Code(s): I10 - Essential (primary) hypertension (4) Rheumatoid arthritis Rheumatoid arthritis location: unspecified site Rheumatoid factor presence: unspecified presence Qualified Code(s): M06.9 - Rheumatoid arthritis, unspecified (5) DM (diabetes mellitus), type 2 Diabetes mellitus alf insulin use: without terminal operations manager use Diabetes mellitus complication status: without complication Qualified Code(s): E11.9 - Type 2 diabetes mellitus without complications (6) DVT (deep venous thrombosis) DVT location: lower extremity Affected thrombotic vein of extremity: unspecified vein of extremity Chronicity: acute Laterality: bilateral Qualified Code(s): I82.403 - Acute embolism and thrombosis of unspecified deep veins of lower extremity, bilateral
[2020-06-02 21:41] LABS: Partial Thromboplastin Ratio 2.6
[2020-06-02 21:49] LABS: Partial Thromboplastin Time 72.3 Seconds (21.0-31.0)
[2020-06-03 00:57] LABS: Hematocrit (blood only) 36.2 % (42-52); Hemoglobin 12.1 g/dL (14.0-18.0)
[2020-06-03 07:03] LABS: Hematocrit (blood only) 37.8 % (42-52); Hemoglobin 12.7 g/dL (14.0-18.0)
[2020-06-03] MEDS: IPRATROPIUM BROMIDE HFA INHALER INH SCH (07:05)
[2020-06-03] MEDS: ALBUTEROL HFA 8 GM INHALER INH SCH (07:05)
[2020-06-03 07:41] LABS: BUN Creatinine Ratio 19.6 (10-20); Calcium 8.9 mg/dl (8.5-10.1); Creatinine Clr Calc Pharmacy 36.4 ml/min; Est GFR (African American) 45.5; Est GFR (Non-African American) 39.3; Potassium 4.3 mmol/L (3.5-5.1)
[2020-06-03] MEDS: INSULIN ASPART 100 UNITS/ML 3 ML PEN SC SCH ×4 (08:34→21:25)
[2020-06-03] MEDS: predniSONE 5 MG TAB PO SCH ×2 (08:53→19:43)
[2020-06-03] MEDS: RANOLAZINE 500 MG ER TAB PO SCH ×2 (08:53→19:44)
[2020-06-03] MEDS: GABAPENTIN 100 MG CAP PO SCH ×3 (08:53→19:42)
[2020-06-03] MEDS: NYSTATIN SUSP 500,000 U/5 ML UDC PO SCH ×4 (08:53→19:44)
[2020-06-03] MEDS: METOPROLOL TARTRATE 50 MG TAB PO SCH ×2 (08:53→19:43)
[2020-06-03] MEDS: CYANOCOBALAMIN 500 MCG TABLET (VITAMIN B-12) PO SCH (08:54)
[2020-06-03] MEDS: ISOSORBIDE MONO EXTENDED REL 30 MG TABCR PO SCH (08:55)
[2020-06-03] MEDS: HYDROCORTISONE ACETATE 25 MG SUPP PR SCH ×3 (08:55→21:06)
[2020-06-03] MEDS ORDERED: ALBUTEROL HFA 8 GM INHALER INH PRN (10:23)
[2020-06-03] MEDS ORDERED: IPRATROPIUM BROMIDE HFA INHALER INH PRN (10:23)
--- NOTE | 2020-06-03 11:03 | Cardiology Progress Note ---
Date of Service June 03, 2020 Assessment & Plan (1) Pulmonary emboli: -likely secondary to acute right lower extremity DVT. -stable on intravenous heparin. -rectal bleeding may present an issue. (2) NSTEMI (non-ST elevated myocardial infarction): -may have been secondary to his extensive pulmonary emboli (RV involvement). -he also has evidence of distal LAD disease. -tolerating Ranexa without difficulty. (3) Coronary artery arteriosclerosis: -severe, inoperable, three-vessel disease. 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 -DDD pacer, January 2020. -normal interrogation on this admission. (5) Hypertension: -adequate control on current regimen. (6) Hyperlipidemia: -tolerating atorvastatin. Admission and Anticipated Discharge Date Admission Date: May 27, 2020 Subjective The patient is resting comfortably in bed without complaints of chest pain or dyspnea. Physical Exam Physical Exam: In general this is a well-developed well-nourished white male in no acute distress. HEENT exam is negative. Neck reveals normal carotid upstrokes without bruits. No JVD. There is no thyromegaly. Cardiovascular exam reveals a regular rhythm with a normal S1 and S2. No murmurs, S3, or S4 are noted. Chest reveals a palpable pacemaker in the left subclavicular region. Lungs are clear without rales, rhonchi, or wheezes. Abdomen is soft without bruits. Extremities reveal an ecchymosis on the right wrist. There is no peripheral edema. Results & Data ([facility]) Vital Signs (Past 12 Hours) Vital Signs Temp Pulse Pulse Resp BP Pulse Ox 06/03/20 07:28 36.8 C 62 18 129/80 96 06/03/20 07:06 61 16 91 06/03/20 03:20 36.5 C 54 L 18 136/88 92 06/03/20 00:54 52 L 06/02/20 23:16 36.5 C 52 L 18 144/84 H 94 Diagnostic Findings Appropriate pacing noted on telemetry. PG Care Time/CCT Total # of Minutes Spent Total Time Spent with Patient: Total time spent is greater than 50% in coordination of care (as documented) at patient's floor/unit and/or counseling patient: Coding Level of Care Code 80950 Subseq Hosp Care Lvl 3 Diagnoses Pulmonary emboli I26.99 Pulmonary embolism type: unspecified Chronicity: acute Acute cor pulmonale presence: without acute cor pulmonale NSTEMI (non-ST elevated myocardial infarction) I21.4 Coronary artery arteriosclerosis I25.10 Cardiac pacemaker Z95.0 Hypertension I10 Hypertension type: unspecified Hyperlipidemia E78.2 Hyperlipidemia type: mixed hyperlipidemia (1) Pulmonary emboli Pulmonary embolism type: unspecified Chronicity: acute Acute cor pulmonale presence: without acute cor pulmonale Qualified Code(s): I26.99 - Other pulmonary embolism without acute cor pulmonale (2) Hypertension Hypertension type: unspecified Qualified Code(s): I10 - Essential (primary) hypertension (3) Hyperlipidemia Hyperlipidemia type: mixed hyperlipidemia Qualified Code(s): E78.2 - Mixed hyperlipidemia
[2020-06-03 11:31] LABS: Partial Thromboplastin Time 54.9 Seconds (21.0-31.0)
--- NOTE | 2020-06-03 11:47 | Medical Student H&P ---
Date of Service June 03, 2020 Assessment & Plan (1) Pulmonary emboli: -likely secondary to acute right lower extremity DVT (possiblity due to sedentary lifestyle secondary to backpain). Stable on intravenous heparain, Coumadin should not be given due to rectal bleeding. . Acute cor pulmonale presence: without acute cor pulmonale Chronicity: acute Pulmonary embolism type: unspecified Qualified Code(s): I26.99 - Other pulmonary embolism without acute cor pulmonale (2) NSTEMI (non-ST elevated myocardial infarction): -may have been secondary to his extensive pulmonary emboli (RV involvement). -he also has evidence of distal LAD disease. -tolerating Ranexa without difficulty. - Continue med management with ASA, BB, nitrates, and lipitor. (3) DVT (deep venous thrombosis): Hold plavix due to rectal bleed. If bleeding perrsists consult [facility] for IVC filter placement. Affected thrombotic vein of extremity: unspecified vein of extremity Chronicity: acute DVT location: lower extremity Laterality: bilateral Qualified Code(s): I82.403 - Acute embolism and thrombosis of unspecified deep veins of lower extremity, bilateral (4) Rectal bleeding: H/H monitored q6h. Plavix was held. If bleeding persists stop heparin. History of Present Illness Primary Care Provider: Lavelle Parker DO Yassine is an 85 yo male with a 85yo male with history of CAD s/p 3 acute MIs and 6 prior stents (last heart cath was at [facility] in 2006), pacemaker status, and T2DM who presented on 05/27 with acute chest pain. Pain started while the patient was making breakfast. It was across his sternal area and left chest with no radiation. Pain was 9/10. He took 2 nitroglycerin, lowering pain to 5/10. He had no diaphoresis or n/v. ED determined this to be an NSTEMI. He was admitted to monitor. Started on ranexa. He also reported rectal bleeding. Hemmorhoid was seen on LAURA as well as + occult bleeding. History of extensive diverticular disease. On 06/01 he was SOB and was found to have extensive PE's on CTA as well as bilateral DVT by ultasound. He was placed on heparin. Allergies Allergy/AdvReac Type Severity Reaction Status Date / Time Penicillins Allergy Intermediate HIVES Verified 06/02/20 15:33 shellfish derived Allergy Intermediate HIVES Verified 06/02/20 15:33 Sulfa (Sulfonamide Allergy Intermediate HIVES Verified 06/02/20 15:33 Antibiotics) sulfamethoxazole Allergy Intermediate Hives Verified 06/02/20 15:33 [From Bactrim] trimethoprim [From Bactrim] Allergy Intermediate Hives Verified 06/02/20 15:33 lactose AdvReac Intermediate GI UPSET Verified 06/02/20 15:33 Home Medications Home Medications Medication Instructions Recorded Confirmed Type melatonin 1 mg tablet 1 mg PO HS PRN 05/05/19 05/27/20 History [id number] 150 unit 1 tab PO QAM tab 08/22/19 05/27/20 History tablet ascorbic acid (vitamin C) 500 mg 500 mg PO QAM tab 08/22/19 05/27/20 History tablet prednisone 5 mg tablet 5 mg PO BID #180 tab 10/02/19 05/27/20 History simvastatin 40 mg tablet 40 mg PO QPM #90 tab 01/17/20 05/27/20 Rx aspirin 81 mg PO QAM 02/06/20 05/27/20 History metoprolol tartrate 100 mg tablet 100 mg PO BID #60 tab 02/07/20 05/27/20 Rx nitroglycerin 0.4 mg sublingual 0.4 mg SL DIRECTED PRN #25 tab 03/22/20 05/27/20 Rx tablet Stool Softener 325mg 325 mg PO HS 04/22/20 05/27/20 History Vitamin E 500 Iu 500 unit PO QAM 04/22/20 05/27/20 History acetaminophen [Tylenol Extra 500 mg PO Q6H PRN 04/22/20 05/27/20 History Strength] gabapentin 100 mg capsule 100 mg PO .COMPLEX #90 cap 04/29/20 05/27/20 Rx furosemide 40 mg tablet 40 mg PO DAILY PRN #30 tab 05/03/20 05/27/20 Rx Lift Chair #1 ea 05/09/20 05/27/20 Rx metformin 500 mg tablet 500 mg PO DAILY #30 tab 05/16/20 05/27/20 Rx olmesartan 5 mg tablet 5 mg PO DAILY #30 tab 05/16/20 05/27/20 Rx clopidogrel 75 mg tablet 75 mg PO DAILY 05/23/20 05/27/20 History hydrocodone 5 mg-acetaminophen 325 1 tab PO Q4H PRN #20 tab 05/28/20 Rx mg tablet Past Med/Surg History Medical History Chronic anticoagulation (Chronic) Colon adenoma (Inactive 09/20/13) Coronary artery arteriosclerosis (Acute) Cough DM (diabetes mellitus), type 2 Heart disease Hyperlipidemia (Acute) Hypertension Lumbar radicular pain (Acute) Mobitz (type) I (Wenckebach's) atrioventricular block Mobitz (type) II atrioventricular block Obesity, diabetes, and hypertension syndrome Rheumatoid arthritis (Acute) Right hip pain Stable angina pectoris Steroid dependent (Chronic) Ventral hernia Surgical History History of bladder surgery History of coronary artery stent placement History of cystoscopy with insertion of ureteral stent History of partial colectomy History of tonsillectomy Status post placement of cardiac pacemaker (Acute) Family History Sister Cancer Mother Colorectal cancer Diabetes Father Myocardial infarction Stroke Other TIA (transient ischemic attack) Denies family history of Ovarian cancer Prostate cancer Breast cancer Social History Smoking Status: Former smoker Tobacco Type: Cigarettes Age Started Using Tobacco: 17; Cigarettes Per Day: 1/2 pack per day; Second Hand Exposure: No; Hx Alcohol Use: No Hx Substance Use: No Preferred Language: Hebrew Communication Ability: Effective Visual Impairment: No Limitations Hearing Ability: Normal Business Development Consultant Required: No Beliefs That Will Affect Care: None marital status: / Current Living Situation: Parent Current Living Situation Comment: Patient's youngest son lives with him. 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 Other Information That Helps Us Care for You: No Feels Safe at Home: Yes Safety Concerns: Feels Safe At This Time caffeine: No Dental Care, Regularly: Yes Physical Activity Frequency: 3-4 Times per Week Seatbelt Use: always Sunscreen Use: No Review of Systems + cough (chronic - feels that inhaler helps ); no dyspnea + blood in stools; no abdominal pain, no nausea, no vomiting and no melena + joint pain; no back pain and no neck pain + fatigue Physical Exam Constitutional: well developed and well nourished; no acute distress and no altered mental status Eyes: PERRL Neck: trachea midline, no thyromegaly Respiratory: normal respiratory effort, lungs clear to auscultation Cardiovascular: RRR, no murmur, no edema Rate/Rhythm: regular rate and regular rhythm Heart Sounds: normal S1 and normal S2; no murmur Vessels: posterior tibial pulses present and dorsalis pedis pulses present; no JVD Extremities: no edema Gastrointestinal (Abdomen): normal bowel sounds, soft, nontender, no hepatosplenomegaly Inspection/Auscultation: + visible herniation (ventral - reducible; scar - midline ) Skin: no rashes, warm and dry Psychiatric: A+Ox3, euthymic affect Orientation: alert and oriented x 3 Affect: + flat affect Lymphatic: no cervical lymphadenopathy Results & Data Vital Signs (Past 12 Hours) Vital Signs Temp Pulse Pulse Resp BP Pulse Ox 06/03/20 07:28 36.8 C 62 18 129/80 96 06/03/20 07:06 61 16 91 06/03/20 03:20 36.5 C 54 L 18 136/88 92 06/03/20 00:54 52 L LABS Hgb- 39.5 WBC- 7.4 Code Status & VTE Plan VTE Prophylaxis Plan VTE Prophylaxis will be ordered: Yes
[2020-06-03] MEDS: HEPARIN SODIUM/DEXTROSE 25,000 UNITS/500 ML BAG IV SCH (12:11)
[2020-06-03 14:29] LABS: Hemoglobin 12.5 g/dL (14.0-18.0)
--- NOTE | 2020-06-03 16:53 | Hospitalist Progress Note ---
Date of Service June 03, 2020 Assessment & Plan (1) Pulmonary emboli: b/l extensive PEs on CTA 06/01/20, significant clot burden in right main pulmonary artery with b/l DVTs as confirmed on 06/02/20 PEs likely the cause of his chest pain at presentation, not NSTEMI PE would explain slight bump in troponin to 0.2 did receive heparin for 48 hours earlier this stay for NSTEMI. then standard dosing heparin initiated 06/01/20 for PEs. BP stable today, okay when ambulating continue heparin drip for now, need to monitor rectal bleeding before committing to oral AC (2) Rectal bleeding: small hemorrhoid on LAURA on 06/02 last colonoscopy was 2014. had extensive diverticular disease throughout much of the colon. rectal bleeding could be diverticular. bleeding could also be a new malignancy. no significant drop in Hb, it is 12.5 today, no melena or bright red blood, only passed a small clot ask GI to see tomorrow, not urgent told patient that I would not anticipate any scopes given cardiopulmonary status plan - * anusol 25mg PA TID * continue full liquids (3) DVT (deep venous thrombosis): b/l, more prominent on the right, likely from months of being sedentary see "PE" above (4) NSTEMI (non-ST elevated myocardial infarction): mild event at admission. minimal troponin increase with peak at 0.274. could have been NSTEMI from CAD or even RV infarction from PEs (retrospectively). s/p heart cath Dr Phan on 05/28/20. prior stents patent, but w/ new areas of occlusion including distal LAD which accounts for wall motion abnormality seen on echo. also with left main disease. medical management advised by Dr Phan. cont asa, plavix, beta ruth, nitrates, ranexa but if rectal bleeding persists hold asa/plavix. LDL 76 earlier this month - changed simvastatin to lipitor 40mg daily. appreciate cardiology consultation. (5) Coronary artery arteriosclerosis: s/p multiple ND events in the distant past. s/p multiple stents (6). s/p heart cath by Dr Phan on 05/28/20 with findings as above. med management recommended. Cont asa, plavix, statin, BB, ARB, nitrates, ranexa (holding ARB and cut BB dose due to low BP and bleeding; hold asa/plavix as well). (6) Chronic systolic CHF (congestive heart failure): EF 35-40% with apical hypokinesis c/w ischemic cardiomyopathy. he continues to remain compensated on exam. cont BB but at lower dose hold ARB cont lasix prn (7) Hyperlipidemia: See above. Controlled. Cont statin - changed to high-intensity lipitor 40mg HS. (8) Hypertension: metoprolol dose reduced by 50% holding ARB cont nitrates cautiously (9) Rheumatoid arthritis: Controlled. Cont prednisone 5mg BID. Gave another small stress dose of steroids today in light of GI issues, etc. (10) DM (diabetes mellitus), type 2: Controlled. Cont to hold metformin. Novolog sliding scale. BSGs ac/hs. DM diet. Hb A1C 7.4% earlier this month. 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 Pacer interrogation done - no recent dysrhythmia; plenty of battery life remaining. 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 (13) Chronic kidney disease, stage 3a: Cr stable. BMP am. (14) Thrombocytopenia: suspect due to consumption in setting of PEs. recent b12 level low-normal - replace. folate wnl. repeat CBC am. (15) Candidiasis of mouth and esophagus: resolved cont nystatin PO likely 2nd to chronic steroid usage (16) Chronic cough: etiology?? PEs?? bronchial? other? cont albuterol. treat PEs. (17) History of colon cancer: s/p hemicolectomy last colonoscopy [address] Kellogg with several polyps & diverticular disease along with small, non-bleeding, internal hemorrhoids (18) DVT prophylaxis: heparin infusion but may need to stop such -- see above screening COVID was negative needs rehab- DENIED BY INSURANCE FOR ACUTE REHAB AT [facility]; [id number] patient NOT ready for d/c due to PEs/DVTs and now rectal bleeding Admission and Anticipated Discharge Date Admission Date: May 27, 2020 Subjective patient doing fine today, he wants more that just full liquid diet he said that he had a small BM, was really just gas and a small blood clot, not really stool says he was not short of breath when walking to toilet, felt fine, no chest pain, no light headedness discussed with patient and his daughter the plan for heparin drip Hb stable this morning and afternoon, 12.7 and 12.5, BP stable, no indication to stop heparin at this time if no significant bleeding tomorrow AM then give some food he said his last scope [place] [address] Kellogg, he requests a consult at this time, will ask to see tomorrow discussed that with is current state of bilateral PE and dyspnea, would not expect any type of endoscopy Review of Systems Review of Systems: All systems reviewed & are unremarkable except as noted in Subjective Respiratory: no cough and no dyspnea Cardiovascular: no chest pain and no edema Gastrointestinal: + blood in stools (small clot); no abdominal pain, no nausea, no vomiting, no constipation, no diarrhea/loose stools and no melena Physical Exam Constitutional: WD/WN, vitals as above Eyes: PERRL, conjunctivae normal, anicteric sclerae ENMT: external ear and nose normal, oropharynx normal Neck: trachea midline, no thyromegaly Respiratory: normal respiratory effort, lungs clear to auscultation Cardiovascular: RRR, no murmur, no edema Gastrointestinal (Abdomen): normal bowel sounds, soft, nontender, no hepatosplenomegaly Musculoskeletal: no cyanosis or clubbing, extremities motor strength 5/5 Skin: no rashes, warm and dry Neurologic: patellar DTR's 2+ bilat, sensation intact and PERRL, EOMI, accommodation nl, no face palsy, no dysarthria Psychiatric: A+Ox3, euthymic affect Lymphatic: no cervical or axillary lymphadenopathy Results & Data Results & Data ([facility]) Vital Signs (Past 12 Hours) Vital Signs Temp Pulse Pulse Resp BP Pulse Ox 06/03/20 16:38 52 L 06/03/20 15:25 36.5 C 53 L 20 135/78 95 06/03/20 14:36 63 06/03/20 11:43 37.0 C 56 L 16 118/74 99 06/03/20 07:28 36.8 C 62 18 129/80 96 06/03/20 07:06 61 16 91 Laboratory Results Laboratory Results - last 24 hr 06/03/20 06/03/20 06/03/20 00:43 03:49 06:55 Hgb 12.1 L 12.7 L Hct 36.2 L 37.8 L APTT 83.0 H* PTT Ratio 3.0 Sodium Potassium Chloride Carbon Dioxide Anion Gap BUN Creatinine Est Cr Clr Drug Dosing Est GFR ( Amer) Est GFR (Non-Af Amer) BUN/Creatinine Ratio Glucose POC Glucose Calcium 06/03/20 06/03/20 06/03/20 06:55 07:49 10:58 Hgb Hct APTT 54.9 H* PTT Ratio 2.0 Sodium 140 Potassium 4.3 Chloride 108 H Carbon Dioxide 26 Anion Gap 6.0 BUN 31 H Creatinine 1.59 H Est Cr Clr Drug Dosing 36.4 Est GFR ( Amer) 45.5 Est GFR (Non-Af Amer) 39.3 BUN/Creatinine Ratio 19.6 Glucose 145 H POC Glucose 150 H Calcium 8.9 06/03/20 06/03/20 06/03/20 11:22 14:09 15:58 Hgb 12.5 L Hct 37.0 L APTT PTT Ratio Sodium Potassium Chloride Carbon Dioxide Anion Gap BUN Creatinine Est Cr Clr Drug Dosing Est GFR ( Amer) Est GFR (Non-Af Amer) BUN/Creatinine Ratio Glucose POC Glucose 128 H 125 H Calcium 06/03/20 20:06 Hgb Hct APTT PTT Ratio Sodium Potassium Chloride Carbon Dioxide Anion Gap BUN Creatinine Est Cr Clr Drug Dosing Est GFR ( Amer) Est GFR (Non-Af Amer) BUN/Creatinine Ratio Glucose POC Glucose 168 H Calcium Medications Administered Current Inpatient Medications Acetaminophen (Tylenol) 500 mg PO Q6H PRN PRN Reason: Pain Stop: 06/26/20 10:28 Last Admin: 05/29/20 05:57 Dose: 500 mg Documented by: Hydrocodone Bitart/Acetaminophen ([place] 5/325) 1 tab PO Q4H PRN PRN Reason: Pain Stop: 06/10/20 10:32 Albuterol (Ventolin Hfa) 1 puffs INH QIDR PRN PRN Reason: Shortness Of Breath Or Wheezing Stop: 07/01/20 06:59 Aspirin (Ecotrin Ectab) 81 mg PO QAM SHASHI Stop: 06/27/20 08:59 Last Admin: 06/02/20 08:10 Dose: 81 mg Documented by: Atorvastatin Calcium (Lipitor) 40 mg PO HS SHASHI Stop: 06/28/20 20:59 Last Admin: 06/03/20 19:43 Dose: 40 mg Documented by: Bismuth Subsalicylate (Pepto-Bismol) 1 tab PO Q4H PRN PRN Reason: diarrhea or stomach upset Stop: 06/29/20 13:40 Last Admin: 05/30/20 21:03 Dose: 1 tab Documented by: Clopidogrel Bisulfate (Plavix) 75 mg PO DAILY [facility] Stop: 06/27/20 08:59 Last Admin: 06/02/20 08:10 Dose: 75 mg Documented by: Cyanocobalamin (Vitamin B-12) 1,000 mcg PO QAM [facility] Stop: 06/27/20 20:59 Last Admin: 06/03/20 08:54 Dose: 1,000 mcg Documented by: Dextrose (Dextrose 50%) 25 - 50 ml IV UD PRN; Protocol PRN Reason: Hypoglycemia Protocol Stop: 06/26/20 10:44 Gabapentin (Neurontin) 100 mg PO TID [facility] Stop: 06/26/20 13:59 Last Admin: 06/03/20 19:42 Dose: 100 mg Documented by: Glucagon (Glucagen) 1 mg IM UD PRN; Protocol PRN Reason: Hypoglycemia Protocol Stop: 06/26/20 10:44 Glucose (Glucose 40%) 15 - 30 gm PO UD PRN; Protocol PRN Reason: Hypoglycemia Protocol Stop: 06/26/20 10:44 Glucose (Dex4 Glucose) 4 - 8 tabs PO UD PRN; Protocol PRN Reason: Hypoglycemia Protocol Stop: 06/26/20 10:44 Hydrocortisone (Anusol Hc) 25 mg PA TID [facility] Stop: 07/02/20 15:44 Last Admin: 06/03/20 21:06 Dose: Not Given Documented by: Heparin Sodium/Dextrose (Heparin Sodium/Dextrose) 25,000 units in 500 mls @ 18 mls/hr IV .Q24H [facility]; Protocol Stop: 07/01/20 16:44 Last Admin: 06/03/20 12:11 Dose: 900 units/hr, 18 mls/hr Documented by: Insulin Aspart (Novolog Flexpen) 0 units SC ACHS [facility] Stop: 06/26/20 11:29 Last Admin: 06/03/20 21:25 Dose: 1 units Documented by: Ipratropium [place] (Atrovent Hfa) 1 puffs INH QIDR PRN PRN Reason: Shortness Of Breath Or Wheezing Stop: 07/01/20 06:59 Isosorbide Mononitrate (Imdur Extended Rel) 30 mg PO QAM [facility] Stop: 06/29/20 08:59 Last Admin: 06/03/20 08:55 Dose: 30 mg Documented by: Metoprolol Tartrate (Lopressor) 50 mg PO BID [facility] Stop: 07/01/20 20:59 Last Admin: 06/03/20 19:43 Dose: 50 mg Documented by: Miscellaneous (Carbohydrates For Hypoglycemia) 15 - 30 gm PO UD PRN PRN Reason: Hypoglycemia Treatment Stop: 06/26/20 10:44 Nitroglycerin (Nitrostat) 0.4 mg SL UD PRN PRN Reason: Chest Pain Stop: 06/26/20 10:28 Nystatin (Mycostatin) 5 ml PO QID [facility] Stop: 06/06/20 12:59 Last Admin: 06/03/20 19:44 Dose: 5 ml Documented by: Olmesartan (Benicar) 5 mg PO BID [facility] Stop: 06/27/20 20:59 Last Admin: 06/01/20 08:31 Dose: 5 mg Documented by: Ondansetron HCl (Zofran) 4 mg IV Q6H PRN PRN Reason: Nausea Stop: 06/26/20 10:28 Prednisone (Prednisone) 5 mg PO BID [facility] Stop: 06/26/20 20:59 Last Admin: 06/03/20 19:43 Dose: 5 mg Documented by: Ranolazine (Ranexa) 500 mg PO BID [facility] Stop: 06/30/20 20:59 Last Admin: 06/03/20 19:44 Dose: 500 mg Documented by: PG Care Time/CCT Total # of Minutes Spent Total Time Spent with Patient: Total time spent is greater than 50% in co ordination of care (as documented) at patient's floor/unit and/or counseling patient: Coding Level of Care Code 71786 Subseq Hosp Care Lvl 3 Diagnoses Pulmonary emboli I26.99 Acute cor pulmonale presence: without acute cor pulmonale Chronicity: acute Pulmonary embolism type: unspecified Rectal bleeding K62.5 DVT (deep venous thrombosis) I82.403 Affected thrombotic vein of extremity: unspecified vein of extremity Chronicity: acute DVT location: lower extremity Laterality: bilateral NSTEMI (non-ST elevated myocardial infarction) I21.4 Coronary artery arteriosclerosis I25.10 Chronic systolic CHF (congestive heart failure) I50.22 Hyperlipidemia E78.2 Hyperlipidemia type: mixed hyperlipidemia Hypertension I10 Hypertension type: unspecified Rheumatoid arthritis M06.9 Rheumatoid arthritis location: unspecified site Rheumatoid factor presence: unspecified presence DM (diabetes mellitus), type 2 E11.9 Diabetes mellitus complication status: without complication Diabetes mellitus long-term insulin use: without long-term use Status post placement of cardiac pacemaker Z95.0 Steroid dependent F19.20 Chronic kidney disease, stage 3a N18.3 Thrombocytopenia D69.6 Candidiasis of mouth and esophagus B37.81; B37.0 Chronic cough R05 History of colon cancer Z85.038 DVT prophylaxis Z29.9 (1) Rheumatoid arthritis Rheumatoid arthritis location: unspecified site Rheumatoid factor presence: unspecified presence Qualified Code(s): M06.9 - Rheumatoid arthritis, unspecified (2) DVT (deep venous thrombosis) Affected thrombotic vein of extremity: unspecified vein of extremity Chronicity: acute DVT location: lower extremity Laterality: bilateral Qualified Code(s): I82.403 - Acute embolism and thrombosis of unspecified deep veins of lower extremity, bilateral (3) DM (diabetes mellitus), type 2 Diabetes mellitus complication status: without complication 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
[2020-06-03] MEDS: ATORVASTATIN 40 MG TAB PO SCH (19:43)
[2020-06-04 05:34] LABS: Partial Thromboplastin Ratio 1.9
[2020-06-04 05:49] LABS: Partial Thromboplastin Time 53.5 Seconds (21.0-31.0)
[2020-06-04] MEDS: NYSTATIN SUSP 500,000 U/5 ML UDC PO SCH ×4 (07:59→20:34)
[2020-06-04] MEDS: RANOLAZINE 500 MG ER TAB PO SCH ×2 (08:00→20:35)
[2020-06-04] MEDS: HYDROCORTISONE ACETATE 25 MG SUPP PR SCH ×3 (08:00→20:36)
[2020-06-04] MEDS: predniSONE 5 MG TAB PO SCH ×2 (08:00→20:34)
[2020-06-04] MEDS: METOPROLOL TARTRATE 50 MG TAB PO SCH ×2 (08:01→20:36)
[2020-06-04] MEDS: ISOSORBIDE MONO EXTENDED REL 30 MG TABCR PO SCH (08:01)
[2020-06-04] MEDS: CYANOCOBALAMIN 500 MCG TABLET (VITAMIN B-12) PO SCH (08:01)
[2020-06-04] MEDS: GABAPENTIN 100 MG CAP PO SCH ×3 (08:01→20:34)
[2020-06-04] MEDS: INSULIN ASPART 100 UNITS/ML 3 ML PEN SC SCH ×4 (08:03→20:35)
[2020-06-04 08:16] LABS: Hematocrit (blood only) 38.3 % (42-52); Mean Corpuscular Hemoglobin 32.2 pg (25-34); Mean Corpuscular Hgb Conc 33.9 g/dL (32-36); Mean Corpuscular Volume 94.8 fL (80-100); Mean Platelet Volume 10.2 fL (7.4-10.4); Platelet Count 169 K/uL (130-400); RDW Coefficient of Variation 14.3 % (11.5-14.5); Red Blood Count 4.04 M/uL (4.7-6.1)
[2020-06-04 08:36] LABS: BUN Creatinine Ratio 18.4 (10-20); Calcium 9.3 mg/dl (8.5-10.1); Est GFR (African American) 49.6; Est GFR (Non-African American) 42.8; Potassium 4.7 mmol/L (3.5-5.1)
--- NOTE | 2020-06-04 10:50 | Medical Student Progress Note ---
Date of Service June 04, 2020 Assessment & Plan (1) Pulmonary emboli: -likely secondary to acute right lower extremity DVT (possiblity due to sedentary lifestyle secondary to backpain). Stable on intravenous heparain, Coumadin should not be given due to rectal bleeding. . Acute cor pulmonale presence: without acute cor pulmonale Chronicity: acute Pulmonary embolism type: unspecified Qualified Code(s): I26.99 - Other pulmonary embolism without acute cor pulmonale (2) NSTEMI (non-ST elevated myocardial infarction): -may have been secondary to his extensive pulmonary emboli (RV involvement). -he also has evidence of distal LAD disease. -tolerating Ranexa without difficulty. - Continue med management with ASA, BB, nitrates, and lipitor. (3) DVT (deep venous thrombosis): Hold plavix due to rectal bleed. If bleeding perrsists consult vasc surge for IVC filter placement. Affected thrombotic vein of extremity: unspecified vein of extremity Chronicity: acute DVT location: lower extremity Laterality: bilateral Qualified Code(s): I82.403 - Acute embolism and thrombosis of unspecified deep veins of lower extremity, bilateral (4) Rectal bleeding: H/H monitored q6h. Plavix was held. If bleeding persists stop heparin. Subjective Yassine reports that he feels better today and his strength is improving. He said he walked with the PT this morning around the halls with no SOB or chest pain. He also reports that there was no blood in his stool this morning. His hemoglobin is still stable (and actually increasing) at 13 with a HCT of 38.3. He is not anemic blood his RDW is 49.0 (High) indicating RBC production. patient doing fine today, he wants more that just full liquid diet he said that he had a small BM, was really just gas and a small blood clot, not really stool says he was not short of breath when walking to toilet, felt fine, no chest pain, no light headedness discussed with patient and his daughter the plan for heparin drip Hb stable this morning and afternoon, 12.7 and 12.5, BP stable, no indication to stop heparin at this time if no significant bleeding tomorrow AM then give some food he said his last scope [place] [address] Kellogg, he requests a consult at this time, will ask to see tomorrow discussed that with is current state of bilateral PE and dyspnea, would not expect any type of endoscopy Review of Systems Gastrointestinal: + blood in stools (small clot); no abdominal pain, no nausea, no vomiting, no constipation, no diarrhea/loose stools and no melena Musculoskeletal: + joint pain; no back pain and no neck pain Endocrine: + fatigue Physical Exam Constitutional: well developed and well nourished; no acute distress and no altered mental status Eyes: PERRL Neck: trachea midline, no thyromegaly Respiratory: normal respiratory effort, lungs clear to auscultation Cardiovascular: RRR, no murmur, no edema Rate/Rhythm: regular rate and regular rhythm Heart Sounds: normal S1 and normal S2; no murmur Vessels: posterior tibial pulses present and dorsalis pedis pulses present; no JVD Extremities: no edema Gastrointestinal (Abdomen): normal bowel sounds, soft, nontender, no hepatosplenomegaly Inspection/Auscultation: + visible herniation (ventral - reducible; scar - midline ) Skin: no rashes, warm and dry Psychiatric: A+Ox3, euthymic affect Orientation: alert and oriented x 3 Affect: + flat affect Lymphatic: no cervical lymphadenopathy Results & Data ([facility]) Vital Signs (Past 12 Hours) Vital Signs Temp Pulse Resp BP Pulse Ox 06/04/20 07:11 36.5 C 58 L 20 161/89 H 92 06/04/20 02:59 36.6 C 57 L 18 136/67 94 06/03/20 23:26 36.5 C 58 L 19 164/82 H 91
--- NOTE | 2020-06-04 10:55 | Medical Student Progress Note ---
Date of Service June 04, 2020 Assessment & Plan (1) Pulmonary emboli: -likely secondary to acute right lower extremity DVT (possiblity due to sedentary lifestyle secondary to backpain). Stable on intravenous heparain, Consider coumadin since rectal bleeding is resolved (today) and H/H is stable Acute cor pulmonale presence: without acute cor pulmonale Chronicity: acute Pulmonary embolism type: unspecified Qualified Code(s): I26.99 - Other pulmonary embolism without acute cor pulmonale (2) NSTEMI (non-ST elevated myocardial infarction): -may have been secondary to his extensive pulmonary emboli (RV involvement). -he also has evidence of distal LAD disease. -tolerating Ranexa without difficulty. - Continue med management with ASA, BB, nitrates, and lipitor. (3) DVT (deep venous thrombosis): Consider plavix if rectal bleeding continues to be resolved. If bleeding returns consult vasc surgery for IVC filter placement. Affected thrombotic vein of extremity: unspecified vein of extremity Chronicity: acute DVT location: lower extremity Laterality: bilateral Qualified Code(s): I82.403 - Acute embolism and thrombosis of unspecified deep veins of lower extremity, bilateral (4) Rectal bleeding: H/H monitored q6h. Plavix was held.Stable and not bleeding as of now, so heparin should continue. Subjective Yassine reports that he feels better today and his strength is improving. He said he walked with the PT this morning around the halls with no SOB or chest pain. He also reports that there was no blood in his stool this morning. His hemoglobin is still stable (and actually increasing) at 13 with a HCT of 38.3. He is not anemic blood his RDW is 49.0 (High) indicating RBC production. Review of Systems Respiratory: no dyspnea Gastrointestinal: no abdominal pain, no nausea, no vomiting, no constipation, no diarrhea/loose stools and no melena Musculoskeletal: + joint pain; no back pain and no neck pain Endocrine: + fatigue Physical Exam Constitutional: well developed and well nourished; no acute distress and no altered mental status Eyes: PERRL Neck: trachea midline, no thyromegaly Respiratory: normal respiratory effort, lungs clear to auscultation Cardiovascular: RRR, no murmur, no edema Rate/Rhythm: regular rate and regular rhythm Heart Sounds: normal S1 and normal S2; no murmur Vessels: posterior tibial pulses present and dorsalis pedis pulses present; no JVD Extremities: no edema Gastrointestinal (Abdomen): normal bowel sounds, soft, nontender, no hepatosplenomegaly Inspection/Auscultation: + visible herniation (ventral - reducible; scar - midline ) Skin: no rashes, warm and dry Psychiatric: A+Ox3, euthymic affect Orientation: alert and oriented x 3 Affect: + flat affect Lymphatic: no cervical lymphadenopathy Results & Data ([facility]) Vital Signs (Past 12 Hours) Vital Signs Temp Pulse Resp BP Pulse Ox 06/04/20 07:11 36.5 C 58 L 20 161/89 H 92 06/04/20 02:59 36.6 C 57 L 18 136/67 94 06/03/20 23:26 36.5 C 58 L 19 164/82 H 91
[2020-06-04] MEDS: HEPARIN SODIUM/DEXTROSE 25,000 UNITS/500 ML BAG IV SCH (11:30)
--- NOTE | 2020-06-04 12:17 | Gastrointestinal Consultation ---
Date of Consultation June 04, 2020 Assessment & Plan (1) Rectal bleeding: No further bleeding. Recent colonoscopy in 2014 with findings of diverticulosis, internal hemorrhoids, & 3 hyperplastic polyps. H/H improved from yesterday. -Conservative management, particularly given cardiac issues and current anticoagulation for extensive PEs -Anusol & Metamucil as prescribed as bleeding seems hemorrhoidal -Continue to monitor H/H and for further signs/symptoms of active GI bleeding Present on Admission?: No Supervising Physician Co-Signing Physician Notes I personally evaluated the patient and agree with the findings as documented by Lyric Verma, PAC Exam: abd: soft, nt, nd History of Present Illness Reason for Consultation: Rectal bleeding Attending Physician: Isac Wright, DO History of Present Illness Patien tis an 85 yo male with an extensive PMH of CAD with 6 prior stents, currently hospitalized with an NSTEMI & extensive pulmonary emboli on IV heparin. He developed an episode of bright red blood per rectum. He reports this has not persisted. He has a known history of hemorrhoids and diverticulosis. His last colonoscopy was in 2014 and indicated 3 hyperplastic polyps along with these findings. He has a history of right sided colon cancer s/p resection. His H/H improved since yesterday when the bleeding occurred. Now his H/H is 13/38.3. He denies abdominal pain, nausea, vomiting, changes in his bowel habits or further bleeding. Brother with colon cancer. He reports he feels well today. Allergies Allergy/AdvReac Type Severity Reaction Status Date / Time Penicillins Allergy Intermediate HIVES Verified 06/02/20 15:33 shellfish derived Allergy Intermediate HIVES Verified 06/02/20 15:33 Sulfa (Sulfonamide Allergy Intermediate HIVES Verified 06/02/20 15:33 Antibiotics) sulfamethoxazole Allergy Intermediate Hives Verified 06/02/20 15:33 [From Bactrim] trimethoprim [From Bactrim] Allergy Intermediate Hives Verified 06/02/20 15:33 lactose AdvReac Intermediate GI UPSET Verified 06/02/20 15:33 Home Medications Home Medications Medication Instructions Recorded Confirmed Type melatonin 1 mg tablet 1 mg PO HS PRN 05/05/19 05/27/20 History [id number] 150 unit 1 tab PO QAM tab 08/22/19 05/27/20 History tablet ascorbic acid (vitamin C) 500 mg 500 mg PO QAM tab 08/22/19 05/27/20 History tablet prednisone 5 mg tablet 5 mg PO BID #180 tab 10/02/19 05/27/20 History simvastatin 40 mg tablet 40 mg PO QPM #90 tab 01/17/20 05/27/20 Rx aspirin 81 mg PO QAM 02/06/20 05/27/20 History metoprolol tartrate 100 mg tablet 100 mg PO BID #60 tab 02/07/20 05/27/20 Rx nitroglycerin 0.4 mg sublingual 0.4 mg SL DIRECTED PRN #25 tab 03/22/20 05/27/20 Rx tablet Stool Softener 325mg 325 mg PO HS 04/22/20 05/27/20 History Vitamin E 500 Iu 500 unit PO QAM 04/22/20 05/27/20 History acetaminophen [Tylenol Extra 500 mg PO Q6H PRN 04/22/20 05/27/20 History Strength] gabapentin 100 mg capsule 100 mg PO .COMPLEX #90 cap 04/29/20 05/27/20 Rx furosemide 40 mg tablet 40 mg PO DAILY PRN #30 tab 05/03/20 05/27/20 Rx Lift Chair #1 ea 05/09/20 05/27/20 Rx metformin 500 mg tablet 500 mg PO DAILY #30 tab 05/16/20 05/27/20 Rx olmesartan 5 mg tablet 5 mg PO DAILY #30 tab 05/16/20 05/27/20 Rx clopidogrel 75 mg tablet 75 mg PO DAILY 05/23/20 05/27/20 History hydrocodone 5 mg-acetaminophen 325 1 tab PO Q4H PRN #20 tab 05/28/20 Rx mg tablet Patient History Medical History Chronic anticoagulation (Chronic) Colon adenoma (Inactive 09/20/13) Coronary artery arteriosclerosis (Acute) Cough DM (diabetes mellitus), type 2 Heart disease Hyperlipidemia (Acute) Hypertension Lumbar radicular pain (Acute) Mobitz (type) I (Wenckebach's) atrioventricular block Mobitz (type) II atrioventricular block Obesity, diabetes, and hypertension syndrome Rheumatoid arthritis (Acute) Right hip pain Stable angina pectoris Steroid dependent (Chronic) Ventral hernia Surgical History History of bladder surgery History of coronary artery stent placement History of cystoscopy with insertion of ureteral stent History of partial colectomy History of tonsillectomy Status post placement of cardiac pacemaker (Acute) Family History Sister Cancer Mother Colorectal cancer Diabetes Father Myocardial infarction Stroke Other TIA (transient ischemic attack) Denies family history of Ovarian cancer Prostate cancer Breast cancer Social History Smoking Status: Former smoker Tobacco Type: Cigarettes Age Started Using Tobacco: 17; Cigarettes Per Day: 1/2 pack per day; Second Hand Exposure: No; Hx Alcohol Use: No Hx Substance Use: No Preferred Language: Wolof Communication Ability: Effective Visual Impairment: No Limitations Hearing Ability: Normal Unix Analyst Required: No Beliefs That Will Affect Care: None marital status: / Current Living Situation: Parent Current Living Situation Comment: Patient's youngest son lives with him. 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 Other Information That Helps Us Care for You: No Feels Safe at Home: Yes Safety Concerns: Feels Safe At This Time caffeine: No Dental Care, Regularly: Yes Physical Activity Frequency: 3-4 Times per Week Seatbelt Use: always Sunscreen Use: No Review of Systems Constitutional: no fever and no chills Eyes: no problem reported Respiratory: no cough Cardiovascular: no chest pain Gastrointestinal: no abdominal pain, no vomiting, no change in bowel habits, no diarrhea/loose stools and no blood in stools (no further episodes) Musculoskeletal: no problem reported Integumentary: no rash Psychiatric: no problem reported Hematologic / Lymphatic: no unexplained weight loss Physical Exam Constitutional: WD/WN, vitals as above Eyes: PERRL, conjunctivae normal, anicteric sclerae ENMT: external ear and nose normal, oropharynx normal Neck: normal visual inspection Respiratory: normal respiratory effort Gastrointestinal (Abdomen): Inspection/Auscultation: abdomen normal to inspection Musculoskeletal: Head/Neck/Chest: normocephalic Skin: no rashes Psychiatric: A+Ox3, euthymic affect Results & Data ([facility]) Vital Signs (Past 12 Hours) Vital Signs Temp Pulse Resp BP Pulse Ox 06/04/20 11:54 36.3 C L 49 L 18 103/64 95 08/04/20 07:11 36.5 C 58 L 20 161/89 H 92 06/04/20 02:59 36.6 C 57 L 18 136/67 94 PG Care Time/CCT Total # of Minutes Spent Total Time Spent with Patient: Total time spent is greater than 50% in coordination of care (as documented) at patient's floor/unit and/or counseling patient: Coding Level of Care Code 03535 Initial Inpt Care Lvl 3 Diagnoses Rectal bleeding K62.5
--- NOTE | 2020-06-04 12:49 | Cardiology Progress Note ---
Date of Service June 04, 2020 Assessment & Plan (1) Pulmonary emboli: -secondary to acute right lower extremity DVT. -stable on intravenous heparin. -rectal bleeding may present an issue. -GI consult pending. (2) NSTEMI (non-ST elevated myocardial infarction): -may have been secondary to his extensive pulmonary emboli (and resultant RV involvement). -he also has evidence of distal LAD disease. -tolerating Ranexa without difficulty. (3) Coronary artery arteriosclerosis: -severe, inoperable, three-vessel disease. -continue medical manage. 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 -DDD pacer, January 2020. -normal interrogation on this admission. (5) Hypertension: -adequate control on current regimen. (6) Hyperlipidemia: -tolerating atorvastatin. Admission and Anticipated Discharge Date Admission Date: May 27, 2020 Subjective The patient is resting comfortably in the bedside chair without complaints of chest pain or dyspnea. Did note some bright red blood per rectum this morning. Physical Exam Physical Exam: In general this is a well-developed well-nourished white male in no acute distress. HEENT exam is negative. Neck reveals normal carotid upstrokes without bruits. No JVD. There is no thyromegaly. Cardiovascular exam reveals a regular rhythm with a normal S1 and S2. No murmurs, S3, or S4 are noted. Chest reveals a palpable pacemaker in the left subclavicular region. Diana gs are clear without rales, rhonchi, or wheezes. Abdomen is soft without bruits. Extremities reveal an ecchymosis on the right wrist. There is no peripheral edema. Results & Data ([facility]) Vital Signs (Past 12 Hours) Vital Signs Temp Pulse Resp BP Pulse Ox 06/04/20 11:54 36.3 C L 49 L 18 103/64 95 06/04/20 07:11 36.5 C 58 L 20 161/89 H 92 06/04/20 02:59 36.6 C 57 L 18 136/67 94 Diagnostic Findings property assessment monitor notes appropriate pacing. PG Care Time/CCT Total # of Minutes Spent Total Time Spent with Patient: Total time spent is greater than 50% in coordination of care (as documented) at patient's floor/unit and/or counseling patient: Coding Level of Care Code 99422 Subseq Hosp Care Lvl 3 Diagnoses Pulmonary emboli I26.99 Pulmonary embolism type: unspecified Chronicity: acute Acute cor pulmonale presence: without acute cor pulmonale NSTEMI (non-ST elevated myocardial infarction) I21.4 Coronary artery arteriosclerosis I25.10 Cardiac pacemaker Z95.0 Hypertension I10 Hypertension type: unspecified Hyperlipidemia E78.2 Hyperlipidemia type: mixed hyperlipidemia (1) Pulmonary emboli Pulmonary embolism type: unspecified Chronicity: acute Acute cor pulmonale presence: without acute cor pulmonale Qualified Code(s): I26.99 - Other pulmonary embolism without acute cor pulmonale (2) Hypertension Hypertension type: unspecified Qualified Code(s): I10 - Essential (primary) hypertension (3) Hyperlipidemia Hyperlipidemia type: mixed hyperlipidemia Qualified Code(s): E78.2 - Mixed hyperlipidemia
[2020-06-04] MEDS ORDERED: WARFARIN SOD 10 MG TAB PO ONE (12:54)
[2020-06-04] MEDS: ATORVASTATIN 40 MG TAB PO SCH (20:34)
--- NOTE | 2020-06-04 22:01 | Hospitalist Progress Note ---
Date of Service June 04, 2020 Assessment & Plan (1) Pulmonary emboli: b/l extensive PEs on CTA 06/01/20, significant clot burden in right main pulmonary artery with b/l DVTs as confirmed on 06/02/20 PEs likely the cause of his chest pain at presentation, not NSTEMI PE would explain slight bump in troponin to 0.2 did receive heparin for 48 hours earlier this stay for NSTEMI. then standard dosing heparin initiated 06/01/20 for PEs. BP stable today, okay when ambulating, walked in hallway continue heparin drip, start on Coumadin today will transition to Lovenox, looking for Cr to improve prior to that plan to d/c to SNF on Lovenox bridge, Coumadin (2) NSTEMI (non-ST elevated myocardial infarction): mild event at admission. minimal troponin increase with peak at 0.274. could have been NSTEMI from CAD or even RV infarction from PEs (retros pectively). s/p heart cath Dr Phan on 05/28/20. prior stents patent, but w/ new areas of occlusion including distal LAD which accounts for wall motion abnormality seen on echo. also with left main disease. medical management advised by Dr Phan. cont asa, plavix, beta ruth, nitrates, ranexa LDL 76 earlier this month - changed simvastatin to lipitor 40mg daily. appreciate cardiology consultation no chest pain or pressure for days (3) DVT (deep venous thrombosis): b/l, more prominent on the right, likely from months of being sedentary see "PE" above treat with heparin and Coumadin, started today (4) Rectal bleeding: small hemorrhoid on LAURA on 06/02 last colonoscopy was 2014. had extensive diverticular disease throughout much of the colon. rectal bleeding could be diverticular. bleeding could also be a new malignancy. no significant drop in Hb, actually going up to 13.0 today, no melena or bright red blood, only passed a small clot had a normal BM today GI recommends conservative management plan - * anusol 25mg ME TID * advance diet today Admission and Anticipated Discharge Date Admission Date: May 27, 2020 Subjective patient doing really well today he had a BM that was not bloody, Hb up to 13.0 no chest pain, no dyspnea at rest or on exertion he was able to walk in the hallway with therapy discussed plan to start Coumadin today, transition to Lovenox Cr is still a little too high at 1.48, repeat tomorrow discussed going to [facility] [place] on discharge, he agrees Review of Systems Review of Systems: All systems reviewed & are unremarkable except as noted in Subjective Physical Exam Constitutional: WD/WN, vitals as above Eyes: PERRL, conjunctivae normal, anicteric sclerae ENMT: external ear and nose normal, oropharynx normal Neck: trachea midline, no thyromegaly Respiratory: normal respiratory effort, lungs clear to auscultation Cardiovascular: RRR, no murmur, no edema Gastrointestinal (Abdomen): normal bowel sounds, soft, nontender, no hepatosplenomegaly Musculoskeletal: no cyanosis or clubbing, extremities motor strength 5/5 Skin: no rashes, warm and dry Neurologic: patellar DTR's 2+ bilat, sensation intact and PERRL, EOMI, accommodation nl, no face palsy, no dysarthria Psychiatric: A+Ox3, euthymic affect Lymphatic: no cervical or axillary lymphadenopathy Results & Data Results & Data ([facility]) Vital Signs (Past 12 Hours) Vital Signs Temp Pulse Resp BP Pulse Ox 06/04/20 20:41 64 06/04/20 19:20 36.7 C 59 L 19 110/61 95 06/04/20 15:05 36.6 C 50 L 18 119/68 94 06/04/20 11:54 36.3 C L 49 L 18 103/64 95 Laboratory Results Laboratory Results - last 24 hr 06/04/20 06/04/20 06/04/20 05:01 05:05 05:05 WBC 8.20 RBC 4.04 L Hgb 13.0 L Hct 38.3 L MCV 94.8 MCH 32.2 MCHC 33.9 RDW Std Deviation 49.0 H RDW Coeff of Mike 14.3 Plt Count 169 MPV 10.2 APTT 53.5 H* PTT Ratio 1.9 Sodium 139 Potassium 4.7 Chloride 109 H Carbon Dioxide 25 Anion Gap 5.0 BUN 27 H Creatinine 1.48 H Est Cr Clr Drug Dosing 39.0 Est GFR ( Amer) 49.6 Est GFR (Non-Af Amer) 42.8 BUN/Creatinine Ratio 18.4 Glucose 139 H POC Glucose Calcium 9.3 06/04/20 06/04/20 06/04/20 07:31 11:41 16:12 WBC RBC Hgb Hct MCV MCH MCHC RDW Std Deviation RDW Coeff of Mike Plt Count MPV APTT PTT Ratio Sodium Potassium Chloride Carbon Dioxide Anion Gap BUN Creatinine Est Cr Clr Drug Dosing Est GFR ( Amer) Est GFR (Non-Af Amer) BUN/Creatinine Ratio Glucose POC Glucose 129 H 134 H 149 H Calcium 06/04/20 20:33 WBC RBC Hgb Hct MCV MCH MCHC RDW Std Deviation RDW Coeff of Mike Plt Count MPV APTT PTT Ratio Sodium Potassium Chloride Carbon Dioxide Anion Gap BUN Creatinine Est Cr Clr Drug Dosing Est GFR ( Amer) Est GFR (Non-Af Amer) BUN/Creatinine Ratio Glucose POC Glucose 130 H Calcium Medications Administered Current Inpatient Medications Acetaminophen (Tylenol) 500 mg PO Q6H PRN PRN Reason: Pain Stop: 06/26/20 10:28 Last Admin: 05/29/20 05:57 Dose: 500 mg Documented by: Hydrocodone Bitart/Acetaminophen ([place]ashiers 5/325) 1 tab PO Q4H PRN PRN Reason: Pain Stop: 06/10/20 10:32 Albuterol (Ventolin Hfa) 1 puffs INH QIDR PRN PRN Reason: Shortness Of Breath Or Wheezing Stop: 07/01/20 06:59 Aspirin (Ecotrin Ectab) 81 mg PO QAM [facility] Stop: 06/27/20 08:59 Last Admin: 06/02/20 08:10 Dose: 81 mg Documented by: Atorvastatin Calcium (Lipitor) 40 mg PO HS [facility] Stop: 06/28/20 20:59 Last Admin: 06/04/20 20:34 Dose: 40 mg Documented by: Bismuth Subsalicylate (Pepto-Bismol) 1 tab PO Q4H PRN PRN Reason: diarrhea or stomach upset Stop: 06/29/20 13:40 Last Admin: 05/30/20 21:03 Dose: 1 tab Documented by: Clopidogrel Bisulfate (Plavix) 75 mg PO DAILY SHASHI Stop: 06/27/20 08:59 Last Admin: 06/02/20 08:10 Dose: 75 mg Documented by: Cyanocobalamin (Vitamin B-12) 1,000 mcg PO QAM [facility] Stop: 06/27/20 20:59 Last Admin: 06/04/20 08:01 Dose: 1,000 mcg Documented by: Dextrose (Dextrose 50%) 25 - 50 ml IV UD PRN; Protocol PRN Reason: Hypoglycemia Protocol Stop: 06/26/20 10:44 Gabapentin (Neurontin) 100 mg PO TID [facility] Stop: 06/26/20 13:59 Last Admin: 06/04/20 20:34 Dose: 100 mg Documented by: Glucagon (Glucagen) 1 mg IM UD PRN; Protocol PRN Reason: Hypoglycemia Protocol Stop: 06/26/20 10:44 Glucose (Glucose 40%) 15 - 30 gm PO UD PRN; Protocol PRN Reason: Hypoglycemia Protocol Stop: 06/26/20 10:44 Glucose (Dex4 Glucose) 4 - 8 tabs PO UD PRN; Protocol PRN Reason: Hypoglycemia Protocol Stop: 06/26/20 10:44 Hydrocortisone (Anusol Hc) 25 mg ME TID [facility] Stop: 07/02/20 15:44 Last Admin: 06/04/20 20:36 Dose: Not Given Documented by: Heparin Sodium/Dextrose (Heparin Sodium/Dextrose) 25,000 units in 500 mls @ 18 mls/hr IV .Q24H [facility]; Protocol Stop: 07/01/20 16:44 Last Admin: 06/04/20 11:30 Dose: 900 units/hr, 18 mls/hr Documented by: Insulin Aspart (Novolog Flexpen) 0 units SC ACHS [facility] Stop: 06/26/20 11:29 Last Admin: 06/04/20 20:35 Dose: Not Given Documented by: Ipratropium Yolyn (Atrovent Hfa) 1 puffs INH QIDR PRN PRN Reason: Shortness Of Breath Or Wheezing Stop: 07/01/20 06:59 Isosorbide Mononitrate (Imdur Extended Rel) 30 mg PO QAM [facility] Stop: 06/29/20 08:59 Last Admin: 06/04/20 08:01 Dose: 30 mg Documented by: Metoprolol Tartrate (Lopressor) 50 mg PO BID [facility] Stop: 07/01/20 20:59 Last Admin: 06/04/20 20:36 Dose: 50 mg Documented by: Miscellaneous (Carbohydrates For Hypoglycemia) 15 - 30 gm PO UD PRN PRN Reason: Hypoglycemia Treatment Stop: 06/26/20 10:44 Nitroglycerin (Nitrostat) 0.4 mg SL UD PRN PRN Reason: Chest Pain Stop: 06/26/20 10:28 Nystatin (Mycostatin) 5 ml PO QID [facility] Stop: 06/06/20 12:59 Last Admin: 06/04/20 20:34 Dose: 5 ml Documented by: Olmesartan (Benicar) 5 mg PO BID [facility] Stop: 06/27/20 20:59 Last Admin: 06/01/20 08:31 Dose: 5 mg Documented by: Ondansetron HCl (Zofran) 4 mg IV Q6H PRN PRN Reason: Nausea Stop: 06/26/20 10:28 Prednisone (Prednisone) 5 mg PO BID [facility] Stop: 06/26/20 20:59 Last Admin: 06/04/20 20:34 Dose: 5 mg Documented by: Psyllium Hydrophilic Mucilloid (Metamucil) 1 pkt PO QAM [facility] Stop: 07/05/20 08:59 Ranolazine (Ranexa) 500 mg PO BID [facility] Stop: 06/30/20 20:59 Last Admin: 06/04/20 20:35 Dose: 500 mg Documented by: PG Care Time/CCT Total # of Minutes Spent Total Time Spent with Patient: Total time spent is greater than 50% in coordination of care (as documented) at patient's floor/unit and/or counseling patient: Coding Level of Care Code 59005 Subseq Hosp Care Lvl 3 Diagnoses Pulmonary emboli I26.99 Pulmonary embolism type: unspecified Chronicity: acute Acute cor pulmonale presence: without acute cor pulmonale NSTEMI (non-ST elevated myocardial infarction) I21.4 DVT (deep venous thrombosis) I82.403 DVT location: lower extremity Affected thrombotic vein of extremity: unspecified vein of extremity Chronicity: acute Laterality: bilateral Rectal bleeding K62.5 (1) Pulmonary emboli Pulmonary embolism type: unspecified Chronicity: acute Acute cor pulmonale presence: without acute cor pulmonale Qualified Code(s): I26.99 - Other pulmonary embolism without acute cor pulmonale (2) DVT (deep venous thrombosis) DVT location: lower extremity Affected thrombotic vein of extremity: unspecified vein of extremity Chronicity: acute Laterality: bilateral Qualified Code(s): I82.403 - Acute embolism and thrombosis of unspecified deep veins of lower extremity, bilateral
[2020-06-05 06:01] LABS: Hematocrit (blood only) 39.6 % (42-52); Hemoglobin 13.4 g/dL (14.0-18.0); Mean Corpuscular Hemoglobin 32.1 pg (25-34); Mean Corpuscular Hgb Conc 33.8 g/dL (32-36); Mean Corpuscular Volume 94.7 fL (80-100); Platelet Count 175 K/uL (130-400); RDW Coefficient of Variation 14.6 % (11.5-14.5); RDW Standard Deviation 49.1 fL (36.4-46.3); Red Blood Count 4.18 M/uL (4.7-6.1); White Blood Count 7.38 K/uL (4.8-10.8)
[2020-06-05 06:22] LABS: Partial Thromboplastin Ratio 1.7
[2020-06-05 06:27] LABS: BUN Creatinine Ratio 19.6 (10-20); Calcium 8.7 mg/dl (8.5-10.1); Creatinine Clr Calc Pharmacy 35.5 ml/min; Est GFR (African American) 44.5; Est GFR (Non-African American) 38.4; Partial Thromboplastin Time 48.8 Seconds (21.0-31.0); Potassium 4.3 mmol/L (3.5-5.1)
[2020-06-05] MEDS: INSULIN ASPART 100 UNITS/ML 3 ML PEN SC SCH ×4 (08:31→20:32)
[2020-06-05] MEDS: HYDROCORTISONE ACETATE 25 MG SUPP PR SCH ×3 (08:32→20:23)
[2020-06-05] MEDS: ISOSORBIDE MONO EXTENDED REL 30 MG TABCR PO SCH (08:33)
[2020-06-05] MEDS: PSYLLIUM 58.6% POWDER PACKET PO SCH ×2 (08:33→08:36)
[2020-06-05] MEDS: CYANOCOBALAMIN 500 MCG TABLET (VITAMIN B-12) PO SCH (08:33)
[2020-06-05] MEDS: RANOLAZINE 500 MG ER TAB PO SCH ×2 (08:33→20:24)
[2020-06-05] MEDS: GABAPENTIN 100 MG CAP PO SCH ×3 (08:33→20:23)
[2020-06-05] MEDS: predniSONE 5 MG TAB PO SCH ×2 (08:33→20:23)
[2020-06-05] MEDS: METOPROLOL TARTRATE 50 MG TAB PO SCH ×2 (08:33→20:24)
[2020-06-05] MEDS: NYSTATIN SUSP 500,000 U/5 ML UDC PO SCH ×4 (08:34→20:23)
--- NOTE | 2020-06-05 10:04 | Medical Student Progress Note ---
Date of Service June 05, 2020 Assessment & Plan (1) Pulmonary emboli: Likely secondary to acute right lower extremity DVT (possiblity due to sedentary lifestyle secondary to backpain). Switching from heparin to lovonox bridge to coumadin. SNF can monitor coumadin levels initially. Transferred to SNF once stable. No need for IVC filter with this management. Pulmonary embolism type: unspecified Chronicity: acute Acute cor pulmonale presence: without acute cor pulmonale Qualified Code(s): I26.99 - Other pulmonary embolism without acute cor pulmonale (2) NSTEMI (non-ST elevated myocardial infarction): -may have been secondary to his extensive pulmonary emboli (RV involvement). -he also has evidence of distal LAD disease. - Continue med management with ASA, BB, nitrates, and lipitor. (3) DVT (deep venous thrombosis): Switching to coumadin with lovonox bridge. No need for IVC filter with this management.. DVT location: lower extremity Affected thrombotic vein of extremity: unspecified vein of extremity Chronicity: acute Laterality: bilateral Qualified Code(s): I82.403 - Acute embolism and thrombosis of unspecified deep veins of lower extremity, bilateral (4) Rectal bleeding: Stable at the moment with no bleed for 24h. H/H stable (Hgb 13.4, Hct 39.6). No further work up indicated. Continue metamucil and anusol. Chema Metzger is an 85 yo male with a PMH of 3 acute MIs, 6 prior stents, pacemaker status with T2DM that presented with chest heaviness suspected to be NSTEMI based on rise in troponin and clinical picture. NSTEMI is being treated with medical management. Bilateral DVT's and extensive PE's were found from workup of SOB. Picture was complicated by a lower GI bleed expected to be hemorriods. DVT/PE was treated with heparin (holding ASA and plavix for active bleeding). Gastroenterology was consulted for the lower GI bleed. They recommended conservative treatment with the addition of anosol and metamucil. Today, he has not had a bowel movement. He did not have any bloody bowel movments or bleeding yesterday or overnight. He has gotten up to walk several times and has not felt short of breath. No chest pain. Review of Systems Respiratory: no cough, no chest congestion, no change in sputum, no dyspnea, no dyspnea on exertion and no pain on inspiration Cardiovascular: no chest pain with activity, no dyspnea, no dyspnea at rest, no orthopnea, no edema and no claudication Gastrointestinal: + change in stools; no nausea, no vomiting, no hematemesis, no cramping and no blood in stools Endocrine: + fatigue Physical Exam Constitutional: WD/WN, vitals as above well developed and well nourished; no acute distress and no altered mental status Eyes: PERRL, conjunctivae normal, anicteric sclerae PERRL ENMT: Mallampati Class: III Neck: trachea midline, no thyromegaly normal visual inspection Respiratory: normal respiratory effort, lungs clear to auscultation normal respiratory effort Cardiovascular: RRR, no murmur, no edema Rate/Rhythm: regular rate and regular rhythm Heart Sounds: normal S1 and normal S2; no murmur Vessels: posterior tibial pulses present and dorsalis pedis pulses present; no JVD Extremities: no edema Gastrointestinal (Abdomen): normal bowel sounds, soft, nontender, no hepatosplenomegaly Inspection/Auscultation: abdomen normal to inspection and + visible herniation (ventral - reducible; scar - midline ) Musculoskeletal: no cyanosis or clubbing, extremities motor strength 5/5 Head/Neck/Chest: normocephalic Skin: no rashes, warm and dry no rashes Neurologic: patellar DTR's 2+ bilat, sensation intact and PERRL, EOMI, accommodation nl, no face palsy, no dysarthria deep tendon reflexes 2+ bilaterally and moves all extremities; no focal motor deficits Psychiatric: A+Ox3, euthymic affect Orientation: alert and oriented x 3 Affect: + flat affect Lymphatic: no cervical or axillary lymphadenopathy no cervical lymphadenopathy Results & Data [facility]) Vital Signs (Past 12 Hours) Vital Signs Temp Pulse Pulse Resp BP Pulse Ox 06/05/20 07:03 36.3 C L 52 L 18 148/80 H 93 06/05/20 03:16 36.5 C 66 19 154/98 H 92 06/05/20 00:07 52 L 06/04/20 23:46 36.6 C 52 L 19 118/71 94
[2020-06-05] MEDS: HEPARIN SODIUM/DEXTROSE 25,000 UNITS/500 ML BAG IV SCH (12:36)
[2020-06-05] MEDS: WARFARIN SOD 6 MG TAB PO SCH (17:04)
[2020-06-05] MEDS: ATORVASTATIN 40 MG TAB PO SCH (20:24)
[2020-06-05] MEDS: ACETAMINOPHEN 500 MG TAB PO PRN (21:48)
--- NOTE | 2020-06-05 22:10 | Hospitalist Progress Note ---
Date of Service June 05, 2020 Assessment & Plan (1) Pulmonary emboli: b/l extensive PEs on CTA 06/01/20, significant clot burden in right main pulmonary artery with b/l DVTs as confirmed on 06/02/20 PEs likely the cause of his chest pain at presentation, not NSTEMI PE would explain slight bump in troponin to 0.2 did receive heparin for 48 hours earlier this stay for NSTEMI. then standard dosing heparin initiated 06/01/20 for PEs. BP stable today, okay when ambulating, walked in hallway continue heparin drip, Coumadin 10mg on 06/04, give 5mg today, check INR tomorrow will transition to Lovenox plan to d/c to SNF on Lovenox bridge, Coumadin (2) NSTEMI (non-ST elevated myocardial infarction): mild event at admission. minimal troponin increase with peak at 0.274. could have been NSTEMI from CAD or even RV infarction from PEs (retrospectivel y). s/p heart cath Dr Phan on 05/28/20. prior stents patent, but w/ new areas of occlusion including distal LAD which accounts for wall motion abnormality seen on echo. also with left main disease. medical management advised by Dr Phan. cont asa, plavix, beta ruth, nitrates, ranexa LDL 76 earlier this month - changed simvastatin to lipitor 40mg daily. appreciate cardiology consultation no chest pain or pressure for days (3) DVT (deep venous thrombosis): b/l, more prominent on the right, likely from months of being sedentary see "PE" above treat with heparin and Coumadin, INR in the morning (4) Rectal bleeding: small hemorrhoid on LAURA on 06/02 last colonoscopy was 2014. had extensive diverticular disease throughout much of the colon. rectal bleeding could be diverticular. bleeding could also be a new malignancy. no significant drop in Hb, actually going up to 13.4 today, no melena or bright red blood had a normal BM on 06/04 GI recommends conservative management plan - * anusol 25mg [place] TID * advance diet to heart healthy (5) MINERVA (acute kidney injury): Cr continues to rise slowly likely from contrast that he got with heart cath and then with CT angiogram repeat BMP tomorrow electrolytes stable, making adequate urine Admission and Anticipated Discharge Date Admission Date: May 27, 2020 Subjective patient doing great, he is walking in the halls, no chest pain or dyspnea tolerating diet, no BM today, no bloody stools hb up to 13.4 Cr up slightly at 1.62 in hindsight he had contrast the cath and then for the CT angiogram plan for d/c tomorrow to [facility] Review of Systems Review of Systems: All systems reviewed & are unremarkable except as noted in Subjective Physical Exam Constitutional: WD/WN, vitals as above Eyes: PERRL, conjunctivae normal, anicteric sclerae ENMT: external ear and nose normal, oropharynx normal Neck: trachea midline, no thyromegaly Respiratory: normal respiratory effort, lungs clear to auscultation Cardiovascular: RRR, no murmur, no edema Gastrointestinal (Abdomen): normal bowel sounds, soft, nontender, no hepatosplenomegaly Musculoskeletal: no cyanosis or clubbing, extremities motor strength 5/5 Skin: no rashes, warm and dry Neurologic: patellar DTR's 2+ bilat, sensation intact and PERRL, EOMI, accommodation nl, no face palsy, no dysarthria Psychiatric: A+Ox3, euthymic affect Lymphatic: no cervical or axillary lymphadenopathy Results & Data Results & Data ([facility]) Vital Signs (Past 12 Hours) Vital Signs Temp Pulse Pulse Resp BP Pulse Ox 06/05/20 19:47 36.8 C 62 20 124/69 96 06/05/20 17:42 53 L 06/05/20 16:01 36.8 C 56 L 18 119/63 95 06/05/20 11:19 56 L 06/05/20 11:09 36.4 C L 52 L 19 107/62 96 Laboratory Results Laboratory Results - last 24 hr 06/05/20 06/05/20 06/05/20 05:30 05:30 05:30 WBC 7.38 RBC 4.18 L Hgb 13.4 L Hct 39.6 L MCV 94.7 MCH 32.1 MCHC 33.8 RDW Std Deviation 49.1 H RDW Coeff of Mike 14.6 H Plt Count 175 MPV 10.0 APTT 48.8 H* PTT Ratio 1.7 Sodium 140 Potassium 4.3 Chloride 109 H Carbon Dioxide 24 Anion Gap 7.0 BUN 32 H Creatinine 1.62 H Est Cr Clr Drug Dosing 35.5 Est GFR ( Amer) 44.5 Est GFR (Non-Af Amer) 38.4 BUN/Creatinine Ratio 19.6 Glucose 140 H POC Glucose Calcium 8.7 06/05/20 06/05/20 06/05/20 07:33 11:32 16:14 WBC RBC Hgb Hct MCV MCH MCHC RDW Std Deviation RDW Coeff of Mike Plt Count MPV APTT PTT Ratio Sodium Potassium Chloride Carbon Dioxide Anion Gap BUN Creatinine Est Cr Clr Drug Dosing Est GFR ( Amer) Est GFR (Non-Af Amer) BUN/Creatinine Ratio Glucose POC Glucose 130 H 155 H 180 H Calcium 06/05/20 20:22 WBC RBC Hgb Hct MCV MCH MCHC RDW Std Deviation RDW Coeff of Mike Plt Count MPV APTT PTT Ratio Sodium Potassium Chloride Carbon Dioxide Anion Gap BUN Creatinine Est Cr Clr Drug Dosing Est GFR ( Amer) Est GFR (Non-Af Amer) BUN/Creatinine Ratio Glucose POC Glucose 125 H Calcium Medications Administered Current Inpatient Medications Acetaminophen (Tylenol) 500 mg PO Q6H PRN PRN Reason: Pain Stop: 06/26/20 10:28 Last Admin: 06/05/20 21:48 Dose: 500 mg Documented by: Hydrocodone Bitart/Acetaminophen ([place] 5/325) 1 tab PO Q4H PRN PRN Reason: Pain Stop: 06/10/20 10:32 Albuterol (Ventolin Hfa) 1 puffs INH QIDR PRN PRN Reason: Shortness Of Breath Or Wheezing Stop: 07/01/20 06:59 Aspirin (Ecotrin Ectab) 81 mg PO QAM [facility] Stop: 06/27/20 08:59 Last Admin: 06/02/20 08:10 Dose: 81 mg Documented by: Atorvastatin Calcium (Lipitor) 40 mg PO HS [facility] Stop: 06/28/20 20:59 Last Admin: 06/05/20 20:24 Dose: 40 mg Documented by: Clopidogrel Bisulfate (Plavix) 75 mg PO DAILY [facility] Stop: 06/27/20 08:59 Last Admin: 06/02/20 08:10 Dose: 75 mg Documented by: Cyanocobalamin (Vitamin B-12) 1,000 mcg PO QAM [facility] Stop: 06/27/20 20:59 Last Admin: 06/05/20 08:33 Dose: 1,000 mcg Documented by: Dextrose (Dextrose 50%) 25 - 50 ml IV UD PRN; Protocol PRN Reason: Hypoglycemia Protocol Stop: 06/26/20 10:44 Gabapentin (Neurontin) 100 mg PO TID [facility] Stop: 06/26/20 13:59 Last Admin: 06/05/20 20:23 Dose: 100 mg Documented by: Glucagon (Glucagen) 1 mg IM UD PRN; Protocol PRN Reason: Hypoglycemia Protocol Stop: 06/26/20 10:44 Glucose (Glucose 40%) 15 - 30 gm PO UD PRN; Protocol PRN Reason: Hypoglycemia Protocol Stop: 06/26/20 10:44 Glucose (Dex4 Glucose) 4 - 8 tabs PO UD PRN; Protocol PRN Reason: Hypoglycemia Protocol Stop: 06/26/20 10:44 Hydrocortisone (Anusol Hc) 25 mg MA TID [facility] Stop: 07/02/20 15:44 Last Admin: 06/05/20 20:23 Dose: Not Given Documented by: Heparin Sodium/Dextrose (Heparin Sodium/Dextrose) 25,000 units in 500 mls @ 18 mls/hr IV .Q24H [facility]; Protocol Stop: 07/01/20 16:44 Last Titration: 06/05/20 19:11 Dose: 900 units/hr, 18 mls/hr Documented by: Insulin Aspart (Novolog Flexpen) 0 units SC ACHS [facility] Stop: 06/26/20 11:29 Last Admin: 06/05/20 20:32 Dose: Not Given Documented by: Ipratropium [place] (Atrovent Hfa) 1 puffs INH QIDR PRN PRN Reason: Shortness Of Breath Or Wheezing Stop: 07/01/20 06:59 Isosorbide Mononitrate (Imdur Extended Rel) 30 mg PO QAM [facility] Stop: 06/29/20 08:59 Last Admin: 06/05/20 08:33 Dose: 30 mg Documented by: Metoprolol Tartrate (Lopressor) 50 mg PO BID [facility] Stop: 07/01/20 20:59 Last Admin: 06/05/20 20:24 Dose: 50 mg Documented by: Miscellaneous (Carbohydrates For Hypoglycemia) 15 - 30 gm PO UD PRN PRN Reason: Hypoglycemia Treatment Stop: 06/26/20 10:44 Nitroglycerin (Nitrostat) 0.4 mg SL UD PRN PRN Reason: Chest Pain Stop: 06/26/20 10:28 Nystatin (Mycostatin) 5 ml PO QID [facility] Stop: 06/06/20 12:59 Last Admin: 06/05/20 20:23 Dose: 5 ml Documented by: Olmesartan (Benicar) 5 mg PO BID [facility] Stop: 06/27/20 20:59 Last Admin: 06/01/20 08:31 Dose: 5 mg Documented by: Ondansetron HCl (Zofran) 4 mg IV Q6H PRN PRN Reason: Nausea Stop: 06/26/20 10:28 Prednisone (Prednisone) 5 mg PO BID [facility] Stop: 06/26/20 20:59 Last Admin: 06/05/20 20:23 Dose: 5 mg Documented by: Psyllium Hydrophilic Mucilloid (Metamucil) 1 pkt PO QAM [facility] Stop: 07/05/20 08:59 Last Admin: 06/05/20 08:36 Dose: Not Given Documented by: Ranolazine (Ranexa) 500 mg PO BID [facility] Stop: 06/30/20 20:59 Last Admin: 06/05/20 20:24 Dose: 500 mg Documented by: Warfarin Sodium (Coumadin) 6 mg PO DAILY@1600 [facility] Stop: 07/05/20 15:59 Last Admin: 06/05/20 17:04 Dose: 6 mg Documented by: PG Care Time/CCT Total # of Minutes Spent Total Time Spent with Patient: Total time spent is greater than 50% in coordination of care (as documented) at patient's floor/unit and/or counseling patient: Coding Level of Care Code 05100 Subseq Hosp Care Lvl 3 Diagnoses Pulmonary emboli I26.99 Pulmonary embolism type: unspecified Chronicity: acute Acute cor pulmonale presence: without acute cor pulmonale NSTEMI (non-ST elevated myocardial infarction) I21.4 DVT (deep venous thrombosis) I82.403 DVT location: lower extremity Affected thrombotic vein of extremity: unspecified vein of extremity Chronicity: acute Laterality: bilateral Rectal bleeding K62.5 MINERVA (acute kidney injury) N17.9 (1) Pulmonary emboli Pulmonary embolism type: unspecified Chronicity: acute Acute cor pulmonale presence: without acute cor pulmonale Qualified Code(s): I26.99 - Other pulmonary embolism without acute cor pulmonale (2) DVT (deep venous thrombosis) DVT location: lower extremity Affected thrombotic vein of extremity: unspecified vein of extremity Chronicity: acute Laterality: bilateral Qualified Code(s): I82.403 - Acute embolism and thrombosis of unspecified deep veins of lower extremity, bilateral
[2020-06-06 06:35] LABS: INR 1.5 (0.9-1.1); Prothrombin Time 15.9 Seconds (9.0-12.0)
[2020-06-06] MEDS: HYDROCORTISONE ACETATE 25 MG SUPP PR SCH ×3 (07:41→21:05)
[2020-06-06 08:17] LABS: Partial Thromboplastin Ratio 2.3
[2020-06-06 08:19] LABS: Partial Thromboplastin Time 63.9 Seconds (21.0-31.0)
[2020-06-06 08:22] LABS: Hematocrit (blood only) 39.2 % (42-52); Hemoglobin 12.9 g/dL (14.0-18.0)
[2020-06-06 08:25] LABS: BUN Creatinine Ratio 20.2 (10-20); Calcium 8.9 mg/dl (8.5-10.1); Creatinine Clr Calc Pharmacy 30.9 ml/min; Est GFR (African American) 37.7; Est GFR (Non-African American) 32.5; Potassium 4.2 mmol/L (3.5-5.1)
[2020-06-06] MEDS: PSYLLIUM 58.6% POWDER PACKET PO SCH (08:30)
[2020-06-06] MEDS: RANOLAZINE 500 MG ER TAB PO SCH ×2 (08:30→21:05)
[2020-06-06] MEDS: METOPROLOL TARTRATE 50 MG TAB PO SCH ×2 (08:31→21:06)
[2020-06-06] MEDS: GABAPENTIN 100 MG CAP PO SCH ×3 (08:31→21:05)
[2020-06-06] MEDS: ISOSORBIDE MONO EXTENDED REL 30 MG TABCR PO SCH (08:32)
[2020-06-06] MEDS: predniSONE 5 MG TAB PO SCH ×2 (08:32→21:05)
[2020-06-06] MEDS: CYANOCOBALAMIN 500 MCG TABLET (VITAMIN B-12) PO SCH (08:33)
[2020-06-06] MEDS: NYSTATIN SUSP 500,000 U/5 ML UDC PO SCH (08:33)
[2020-06-06] MEDS: INSULIN ASPART 100 UNITS/ML 3 ML PEN SC SCH ×4 (08:34→21:47)
[2020-06-06] MEDS: HEPARIN SODIUM/DEXTROSE 25,000 UNITS/500 ML BAG IV SCH (12:00)
[2020-06-06] MEDS: ACETAMINOPHEN 500 MG TAB PO PRN (15:09)
[2020-06-06] MEDS: WARFARIN SOD 6 MG TAB PO SCH (15:10)
[2020-06-06] MEDS: ATORVASTATIN 40 MG TAB PO SCH (21:06)
--- NOTE | 2020-06-06 22:20 | Hospitalist Progress Note ---
Date of Service June 06, 2020 Assessment & Plan (1) Pulmonary emboli: b/l extensive PEs on CTA 06/01/20, significant clot burden in right main pulmonary artery with b/l DVTs as confirmed on 06/02/20 PEs likely the cause of his chest pain at presentation, not NSTEMI PE would explain slight bump in troponin to 0.2 did receive heparin for 48 hours earlier this stay for NSTEMI. then standard dosing heparin initiated 06/01/20 for PEs. BP stable today, okay when ambulating, walked in hallway continue heparin drip, Coumadin 10mg on 06/04, give 5mg daily, INR is 1.5 will transition to Lovenox once Cr improves plan to d/c to SNF on Lovenox bridge, Coumadin (2) NSTEMI (non-ST elevated myocardial infarction): mild event at admission. minimal troponin increase with peak at 0.274. could have been NSTEMI from CAD or even RV infarction from PEs (retro spectively). s/p heart cath Dr Phan on 05/28/20. prior stents patent, but w/ new areas of occlusion including distal LAD which accounts for wall motion abnormality seen on echo. also with left main disease. medical management advised by Dr Phan. cont asa, plavix, beta ruth, nitrates, ranexa LDL 76 earlier this month - changed simvastatin to lipitor 40mg daily. appreciate cardiology consultation no chest pain or pressure for days (3) DVT (deep venous thrombosis): b/l, more prominent on the right, likely from months of being sedentary see "PE" above treat with heparin and Coumadin, INR 1.5 (4) Rectal bleeding: small hemorrhoid on LAURA on 06/02 last colonoscopy was 2014. had extensive diverticular disease throughout much of the colon. rectal bleeding could be diverticular. bleeding could also be a new malignancy. no significant drop in Hb, stable at 12.9 today, no melena or bright red blood had a normal BM on 06/04 and 06/05 GI recommends conservative management plan - * anusol 25mg [place] TID * advance diet to heart healthy (5) MINERVA (acute kidney injury): Cr continues to rise slowly likely from contrast that he got with heart cath and then with CT angiogram repeat BMP today shows Cr of 1.8, electrolytes stable making adequate urine check BMP in the morning Admission and Anticipated Discharge Date Admission Date: May 27, 2020 Subjective patient doing really well, eating normally, had two BM yesterday, no blood breathing well, no chest pain he walked in the hallway twice with therapy he says that he feels like he is 40% of baseline, not strong enough to go home alone was planning on discharge but his Cr jamari to 1.8 instead of going down, will make it difficult to use Lovenox INR is 1.5 discussed with patient that he needs to stay to monitor Cr, then will try to get him to SNF Review of Systems Review of Systems: All systems reviewed & are unremarkable except as noted in Subjective Musculoskeletal: + muscle weakness Physical Exam Constitutional: WD/WN, vitals as above Eyes: PERRL, conjunctivae normal, anicteric sclerae ENMT: external ear and nose normal, oropharynx normal Neck: trachea midline, no thyromegaly Respiratory: normal respiratory effort, lungs clear to auscultation Cardiovascular: RRR, no murmur, no edema Gastrointestinal (Abdomen): normal bowel sounds, soft, nontender, no hepatosplenomegaly Musculoskeletal: no cyanosis or clubbing, extremities motor strength 5/5 Skin: no rashes, warm and dry Neurologic: patellar DTR's 2+ bilat, sensation intact and PERRL, EOMI, accommodation nl, no face palsy, no dysarthria Psychiatric: A+Ox3, euthymic affect Lymphatic: no cervical or axillary lymphadenopathy Results & Data Results & Data ([facility]) Vital Signs (Past 12 Hours) Vital Signs Temp Pulse Resp BP Pulse Ox 06/06/20 19:11 37.0 C 56 L 16 130/76 93 06/06/20 15:14 36.9 C 56 L 20 127/67 94 06/06/20 11:00 36.6 C 58 L 20 122/73 98 Laboratory Results Laboratory Results - last 24 hr 06/06/20 06/06/20 06/06/20 05:29 05:33 05:33 Hgb 12.9 L Hct 39.2 L PT 15.9 H INR 1.5 H APTT 63.9 H* PTT Ratio 2.3 Sodium 137 Potassium 4.2 Chloride 106 Carbon Dioxide 24 Anion Gap 7.0 BUN 38 H Creatinine 1.86 H Est Cr Clr Drug Dosing 30.9 Est GFR ( Amer) 37.7 Est GFR (Non-Af Amer) 32.5 BUN/Creatinine Ratio 20.2 H Glucose 143 H POC Glucose Calcium 8.9 06/06/20 06/06/20 06/06/20 07:36 11:23 16:38 Hgb Hct PT INR APTT PTT Ratio Sodium Potassium Chloride Carbon Dioxide Anion Gap BUN Creatinine Est Cr Clr Drug Dosing Est GFR ( Amer) Est GFR (Non-Af Amer) BUN/Creatinine Ratio Glucose POC Glucose 149 H 111 H 154 H Calcium 06/06/20 20:12 Hgb Hct PT INR APTT PTT Ratio Sodium Potassium Chloride Carbon Dioxide Anion Gap BUN Creatinine Est Cr Clr Drug Dosing Est GFR ( Amer) Est GFR (Non-Af Amer) BUN/Creatinine Ratio Glucose POC Glucose 150 H Calcium Medications Administered Current Inpatient Medications Acetaminophen (Tylenol) 500 mg PO Q6H PRN PRN Reason: Pain Stop: 06/26/20 10:28 Last Admin: 06/06/20 15:09 Dose: 500 mg Documented by: Hydrocodone Bitart/Acetaminophen ([place] 5/325) 1 tab PO Q4H PRN PRN Reason: Pain Stop: 06/10/20 10:32 Albuterol (Ventolin Hfa) 1 puffs INH QIDR PRN PRN Reason: Shortness Of Breath Or Wheezing Stop: 07/01/20 06:59 Aspirin (Ecotrin Ectab) 81 mg PO QAM [facility] Stop: 06/27/20 08:59 Last Admin: 06/02/20 08:10 Dose: 81 mg Documented by: Atorvastatin Calcium (Lipitor) 40 mg PO HS [facility] Stop: 06/28/20 20:59 Last Admin: 06/06/20 21:06 Dose: 40 mg Documented by: Clopidogrel Bisulfate (Plavix) 75 mg PO DAILY [facility] Stop: 06/27/20 08:59 Last Admin: 06/02/20 08:10 Dose: 75 mg Documented by: Cyanocobalamin (Vitamin B-12) 1,000 mcg PO QAM [facility] Stop: 06/27/20 20:59 Last Admin: 06/06/20 08:33 Dose: 1,000 mcg Documented by: Dextrose (Dextrose 50%) 25 - 50 ml IV UD PRN; Protocol PRN Reason: Hypoglycemia Protocol Stop: 06/26/20 10:44 Gabapentin (Neurontin) 100 mg PO TID [facility] Stop: 06/26/20 13:59 Last Admin: 06/06/20 21:05 Dose: 100 mg Documented by: Glucagon (Glucagen) 1 mg IM UD PRN; Protocol PRN Reason: Hypoglycemia Protocol Stop: 06/26/20 10:44 Glucose (Glucose 40%) 15 - 30 gm PO UD PRN; Protocol PRN Reason: Hypoglycemia Protocol Stop: 06/26/20 10:44 Glucose (Dex4 Glucose) 4 - 8 tabs PO UD PRN; Protocol PRN Reason: Hypoglycemia Protocol Stop: 06/26/20 10:44 Hydrocortisone (Anusol Hc) 25 mg [place] TID [facility] Stop: 07/02/20 15:44 Last Admin: 06/06/20 21:05 Dose: Not Given Documented by: Heparin Sodium/Dextrose (Heparin Sodium/Dextrose) 25,000 units in 500 mls @ 18 mls/hr IV .Q24H [facility]; Protocol Stop: 07/01/20 16:44 Last Admin: 06/06/20 12:00 Dose: 900 units/hr, 18 mls/hr Documented by: Insulin Aspart (Novolog Flexpen) 0 units SC ACHS [facility] Stop: 06/26/20 11:29 Last Admin: 06/06/20 21:47 Dose: Not Given Documented by: Ipratropium [place] (Atrovent Hfa) 1 puffs INH QIDR PRN PRN Reason: Shortness Of Breath Or Wheezing Stop: 07/01/20 06:59 Isosorbide Mononitrate (Imdur Extended Rel) 30 mg PO QAM [facility] Stop: 06/29/20 08:59 Last Admin: 06/06/20 08:32 Dose: 30 mg Documented by: Metoprolol Tartrate (Lopressor) 50 mg PO BID [facility] Stop: 07/01/20 20:59 Last Admin: 06/06/20 21:06 Dose: 50 mg Documented by: Miscellaneous (Carbohydrates For Hypoglycemia) 15 - 30 gm PO UD PRN PRN Reason: Hypoglycemia Treatment Stop: 06/26/20 10:44 Nitroglycerin (Nitrostat) 0.4 mg SL UD PRN PRN Reason: Chest Pain Stop: 06/26/20 10:28 Olmesartan (Benicar) 5 mg PO BID [facility] Stop: 06/27/20 20:59 Last Admin: 06/01/20 08:31 Dose: 5 mg Documented by: Ondansetron HCl (Zofran) 4 mg IV Q6H PRN PRN Reason: Nausea Stop: 06/26/20 10:28 Prednisone (Prednisone) 5 mg PO BID [facility] Stop: 06/26/20 20:59 Last Admin: 06/06/20 21:05 Dose: 5 mg Documented by: Psyllium Hydrophilic Mucilloid (Metamucil) 1 pkt PO QAM [facility] Stop: 07/05/20 08:59 Last Admin: 06/06/20 08:30 Dose: Not Given Documented by: Ranolazine (Ranexa) 500 mg PO BID [facility] Stop: 06/30/20 20:59 Last Admin: 06/06/20 21:05 Dose: 500 mg Documented by: Warfarin Sodium (Coumadin) 6 mg PO DAILY@1600 [facility] Stop: 07/05/20 15:59 Last Admin: 06/06/20 15:10 Dose: 6 mg Documented by: PG Care Time/CCT Total # of Minutes Spent Total Time Spent with Patient: Total time spent is greater than 50% in coordination of care (as documented) at patient's floor/unit and/or counseling patient: Coding Level of Care Code 91281 Subseq Hosp Care Lvl 3 Diagnoses Pulmonary emboli I26.99 Pulmonary embolism type: unspecified Chronicity: acute Acute cor pulmonale presence: without acute cor pulmonale NSTEMI (non-ST elevated myocardial infarction) I21.4 DVT (deep venous thrombosis) I82.403 DVT location: lower extremity Affected thrombotic vein of extremity: unspecified vein of extremity Chronicity: acute Laterality: bilateral Rectal bleeding K62.5 MINERVA (acute kidney injury) N17.9 (1) Pulmonary emboli Pulmonary embolism type: unspecified Chronicity: acute Acute cor pulmonale presence: without acute cor pulmonale Qualified Code(s): I26.99 - Other pulmonary embolism without acute cor pulmonale (2) DVT (deep venous thrombosis) DVT location: lower extremity Affected thrombotic vein of extremity: unspecified vein of extremity Chronicity: acute Laterality: bilateral Qualified Code(s): I82.403 - Acute embolism and thrombosis of unspecified deep veins of lower extremity, bilateral
[2020-06-07 05:57] LABS: Hematocrit (blood only) 38.1 % (42-52)
[2020-06-07 06:14] LABS: INR 2.3 (0.9-1.1); Partial Thromboplastin Ratio 3.1; Prothrombin Time 23.3 Seconds (9.0-12.0)
[2020-06-07 06:15] LABS: Partial Thromboplastin Time 86.4 Seconds (21.0-31.0)
[2020-06-07 06:37] LABS: BUN Creatinine Ratio 19.4 (10-20); Calcium 8.9 mg/dl (8.5-10.1); Est GFR (Non-African American) 36.2; Potassium 4.3 mmol/L (3.5-5.1)
[2020-06-07] MEDS: ISOSORBIDE MONO EXTENDED REL 30 MG TABCR PO SCH ×2 (07:40→07:42)
[2020-06-07] MEDS: CYANOCOBALAMIN 500 MCG TABLET (VITAMIN B-12) PO SCH (07:43)
[2020-06-07] MEDS: RANOLAZINE 500 MG ER TAB PO SCH ×2 (07:43→20:49)
[2020-06-07] MEDS: predniSONE 5 MG TAB PO SCH ×2 (07:44→20:49)
[2020-06-07] MEDS: GABAPENTIN 100 MG CAP PO SCH ×3 (07:44→20:49)
[2020-06-07] MEDS: METOPROLOL TARTRATE 50 MG TAB PO SCH ×2 (07:45→20:49)
[2020-06-07] MEDS: PSYLLIUM 58.6% POWDER PACKET PO SCH ×2 (07:45→07:52)
[2020-06-07] MEDS: HYDROCORTISONE ACETATE 25 MG SUPP PR SCH ×3 (07:51→20:49)
[2020-06-07] MEDS: INSULIN ASPART 100 UNITS/ML 3 ML PEN SC SCH ×4 (07:54→20:55)
--- NOTE | 2020-06-07 10:15 | Medical Student Progress Note ---
Date of Service June 07, 2020 Assessment & Plan (1) Pulmonary emboli: Likely secondary to acute right lower extremity DVT (possiblity due to sedentary lifestyle secondary to backpain). Cannot switch from heparin to lovonox due to MINERVA. Watch for MINERVA improvement and consider lovonox bridge to heparin on discharge. Pulmonary embolism type: unspecified Chronicity: acute Acute cor pulmonale presence: without acute cor pulmonale Qualified Code(s): I26.99 - Other pulmonary embolism without acute cor pulmonale (2) NSTEMI (non-ST elevated myocardial infarction): -may have been secondary to his extensive pulmonary emboli (RV involvement). -he also has evidence of distal LAD disease. - Continue med management with ASA, BB, nitrates, and lipitor. (3) DVT (deep venous thrombosis): Continue heparin until resolved MINERVA. No need for IVC filter with this management.. DVT location: lower extremity Affected thrombotic vein of extremity: unspecified vein of extremity Chronicity: acute Laterality: bilateral Qualified Code(s): I82.403 - Acute embolism and thrombosis of unspecified deep veins of lower extremity, bilateral (4) Rectal bleeding: Stable at the moment with no bleed for 48h. H/H stable (Hgb 13.4, Hct 38.1). No further work up indicated. Continue metamucil and anusol. Chema Metzger is a 85 y/o M who was admitted on 05/27 for NSTEMI. Bilateral DVT's and PEs were subsequently found after workup for SOB. Heparin and med management (ASA BB Nitrates Lipitor ranexa) were started. Pt had bloody stools during his stay likely secondary to hemorriods. Bleeding has resolved for two days now. Hgb and Hct are also stable at 13 and 38.1 respectively. Pt was seen to have an MINERVA (starting 06/04) consistent with ATN due to contrast. Today BUN and Cr are both downtrending to 33 and 1.7 respectively. BUN/Cr ratio at 19.4 (nl range). Glucose is consistently elevated at 134. Pt states that he is feeling well today. No bloody bowel movements. He has seen physical therapy twice yesterday and once this morning. He was able to walk to the bathroom and wash up alone today without trouble. Strength increasing. Pt discussed the possibility of going home to live with his son rather than SNF but is unsure. Eating and drinking well. Review of Systems Constitutional: + weakness; no fever, no sweats and no fatigue Cardiovascular: no chest pain, no dyspnea, no dyspnea at rest and no claudication Gastrointestinal: + change in stools; no nausea, no vomiting, no hematemesis, no cramping and no blood in stools Endocrine: + fatigue Physical Exam Constitutional: WD/WN, vitals as above well developed and well nourished; no acute distress and no altered mental status Eyes: PERRL, conjunctivae normal, anicteric sclerae PERRL Neck: trachea midline, no thyromegaly normal visual inspection Respiratory: normal respiratory effort, lungs clear to auscultation normal respiratory effort Cardiovascular: RRR, no murmur, no edema Rate/Rhythm: regular rate and regular rhythm Heart Sounds: normal S1 and normal S2; no murmur Vessels: posterior tibial pulses present and dorsalis pedis pulses present; no JVD Extremities: no edema Gastrointestinal (Abdomen): normal bowel sounds, soft, nontender, no hepatosplenomegaly Inspection/Auscultation: abdomen normal to inspection and + visible herniation (ventral - reducible; scar - midline ) Musculoskeletal: no cyanosis or clubbing, extremities motor strength 5/5 Head/Neck/Chest: normocephalic Skin: no rashes, warm and dry no rashes Neurologic: patellar DTR's 2+ bilat, sensation intact and PERRL, EOMI, accommodation nl, no face palsy, no dysarthria deep tendon reflexes 2+ bilaterally and moves all extremities; no focal motor deficits Psychiatric: A+Ox3, euthymic affect Orientation: alert and oriented x 3 Affect: + flat affect Lymphatic: no cervical or axillary lymphadenopathy no cervical lymphadenopathy Results & Data ([facility]) Vital Signs (Past 12 Hours) Vital Signs Temp Pulse Pulse Resp BP Pulse Ox 06/07/20 08:25 59 L 06/07/20 07:13 36.6 C 56 L 18 142/80 H 93 06/07/20 02:54 36.6 C 54 L 19 137/73 91 06/06/20 23:08 36.6 C 53 L 20 136/74 90
[2020-06-07 13:07] LABS: Partial Thromboplastin Ratio 2.4
[2020-06-07 13:09] LABS: Partial Thromboplastin Time 67.9 Seconds (21.0-31.0)
[2020-06-07] MEDS ORDERED: WARFARIN SOD 4 MG TAB PO SCH (16:00)
[2020-06-07] MEDS: HEPARIN SODIUM/DEXTROSE 25,000 UNITS/500 ML BAG IV SCH ×2 (17:19→19:03)
[2020-06-07 20:22] LABS: Partial Thromboplastin Ratio 2.5
[2020-06-07 20:37] LABS: Partial Thromboplastin Time 70.1 Seconds (21.0-31.0)
[2020-06-07] MEDS: ATORVASTATIN 40 MG TAB PO SCH (20:49)
[2020-06-07] MEDS: ACETAMINOPHEN 500 MG TAB PO PRN (20:51)
--- NOTE | 2020-06-07 22:09 | Hospitalist Progress Note ---
Date of Service June 07, 2020 Assessment & Plan (1) Pulmonary emboli: b/l extensive PEs on CTA 06/01/20, significant clot burden in right main pulmonary artery with b/l DVTs as confirmed on 06/02/20 PEs likely the cause of his chest pain at presentation, not NSTEMI PE would explain slight bump in troponin to 0.2 did receive heparin for 48 hours earlier this stay for NSTEMI. then standard dosing heparin initiated 06/01/20 for PEs. BP stable for several days, okay when ambulating, walked in hallway twice today continue heparin drip, Coumadin 10mg on 06/04, give 6mg daily x 2 days, INR is 2.3 will cut Coumadin to 4mg daily, check INR in the AM stop heparin tomorrow AM plan to d/c home tomorrow (2) NSTEMI (non-ST elevated myocardial infarction): mild event at admission. minimal troponin increase with peak at 0.274. could have been NSTEMI from CAD or even RV infarction from PEs (retrospectively). s/p heart cath Dr Phan on 05/28/20. prior stents patent, but w/ new areas of occlusion including distal LAD which accounts for wall motion abnormality seen on echo. also with left main disease. medical management advised by Dr Phan. cont asa, plavix, beta ruth, nitrates, ranexa LDL 76 earlier this month - changed simvastatin to lipitor 40mg daily. appreciate cardiology consultation no chest pain or pressure for days (3) DVT (deep venous thrombosis): b/l, more prominent on the right, likely from months of being sedentary see "PE" above treat with heparin and Coumadin, INR 2.3 (4) Rectal bleeding: small hemorrhoid on LAURA on 06/02 last colonoscopy was 2014. had extensive diverticular disease throughout much of the colon. rectal bleeding could be diverticular. bleeding could also be a new malignancy. no significant drop in Hb, stable at 13, no melena or bright red blood had a normal BM on 06/04 and 06/05 GI recommends conservative management plan - * anusol 25mg LA TID while admitted * advance diet to heart healthy (5) MINERVA (acute kidney injury): Cr peaked at 1.8 likely from contrast that he got with heart cath and then with CT angiogram repeat BMP today shows Cr of 1.7, electrolytes stable making adequate urine, actually made a lot of urine last night check BMP in the morning, feel that Cr plateaued and he is in recovery phase Admission and Anticipated Discharge Date Admission Date: May 27, 2020 Anticipated date of discharge: 06/08/20 Subjective patient getting stronger, so strong in fact that he will likely be able to go home tomorrow discussed that the insurance had already sent a preliminary decision to deny SNF rehab, even more unlikely with his improved strength called to discuss Coumadin dosing with pharmacy, reduce Coumadin to 4mg daily, INR is 2.3 patient is eating well, moving his bowels vitals stable, even when ambulating no chest pain or pressure, no dyspnea at all d/w CM, asked them to arrange for outpatient follow up with the coagulation clinic to manage INR reviewed labs, Cr trending down again, he admits to making a lot of urine, more than normal, likely post ATN diuresis Review of Systems Review of Systems: All systems reviewed & are unremarkable except as noted in Subjective Constitutional: no fever, no sweats, no fatigue and no weakness Respiratory: no cough and no dyspnea Cardiovascular: no chest pain and no edema Gastrointestinal: no abdominal pain, no nausea, no vomiting, no constipation, no diarrhea/loose stools, no blood in stools and no melena Physical Exam Constitutional: WD/WN, vitals as above Eyes: PERRL, conjunctivae normal, anicteric sclerae ENMT: external ear and nose normal, oropharynx normal Neck: trachea midline, no thyromegaly Respiratory: normal respiratory effort, lungs clear to auscultation Cardiovascular: RRR, no murmur, no edema Gastrointestinal (Abdomen): normal bowel sounds, soft, nontender, no hepatosplenomegaly Musculoskeletal: no cyanosis or clubbing, extremities motor strength 5/5 Skin: no rashes, warm and dry Neurologic: patellar DTR's 2+ bilat, sensation intact and PERRL, EOMI, accommodation nl, no face palsy, no dysarthria Psychiatric: A+Ox3, euthymic affect Lymphatic: no cervical or axillary lymphadenopathy Results & Data Results & Data ([facility]) Vital Signs (Past 12 Hours) Vital Signs Temp Pulse Resp BP Pulse Ox 06/07/20 19:34 36.4 C L 55 L 16 149/76 H 96 06/07/20 15:15 36.7 C 55 L 20 132/75 93 06/07/20 11:10 36.7 C 50 L 18 117/68 94 Laboratory Results Laboratory Results - last 24 hr 06/07/20 06/07/20 06/07/20 05:23 05:23 05:23 Hgb 13.0 L Hct 38.1 L PT 23.3 H INR 2.3 H APTT 86.4 H* PTT Ratio 3.1 Sodium 138 Potassium 4.3 Chloride 107 Carbon Dioxide 27 Anion Gap 4.0 BUN 33 H Creatinine 1.70 H Est Cr Clr Drug Dosing 34.0 Est GFR ( Amer) 42.0 Est GFR (Non-Af Amer) 36.2 BUN/Creatinine Ratio 19.4 Glucose 140 H POC Glucose Calcium 8.9 06/07/20 06/07/20 06/07/20 07:19 11:26 12:30 Hgb Hct PT INR APTT 67.9 H* PTT Ratio 2.4 Sodium Potassium Chloride Carbon Dioxide Anion Gap BUN Creatinine Est Cr Clr Drug Dosing Est GFR ( Amer) Est GFR (Non-Af Amer) BUN/Creatinine Ratio Glucose POC Glucose 134 H 128 H Calcium 06/07/20 06/07/20 06/07/20 16:11 19:29 20:12 Hgb Hct PT INR APTT 70.1 H* PTT Ratio 2.5 Sodium Potassium Chloride Carbon Dioxide Anion Gap BUN Creatinine Est Cr Clr Drug Dosing Est GFR ( Amer) Est GFR (Non-Af Amer) BUN/Creatinine Ratio Glucose POC Glucose 123 H 127 H Calcium Medications Administered Current Inpatient Medications Acetaminophen (Tylenol) 500 mg PO Q6H PRN PRN Reason: Pain Stop: 06/26/20 10:28 Last Admin: 06/07/20 20:51 Dose: 500 mg Documented by: Hydrocodone Bitart/Acetaminophen ([place] 5/325) 1 tab PO Q4H PRN PRN Reason: Pain Stop: 06/10/20 10:32 Albuterol (Ventolin Hfa) 1 puffs INH QIDR PRN PRN Reason: Shortness Of Breath Or Wheezing Stop: 07/01/20 06:59 Aspirin (Ecotrin E[facility]ab) [facility] [place] Stop: 06/27/20 08:59 Last Admin: 06/02/20 08:10 Dose: 81 mg Documented by: Atorvastatin Calcium (Lipitor) 40 mg PO HS [facility] Stop: 06/28/20 20:59 Last Admin: 06/07/20 20:49 Dose: 40 mg Documented by: Clopidogrel Bisulfate (Plavix) 75 mg PO DAILY [facility] Stop: 06/27/20 08:59 Last Admin: 06/02/20 08:10 Dose: 75 mg Documented by: Cyanocobalamin (Vitamin B-12) 1,000 mcg PO QAM [facility] Stop: 06/27/20 20:59 Last Admin: 06/07/20 07:43 Dose: 1,000 mcg Documented by: Dextrose (Dextrose 50%) 25 - 50 ml IV UD PRN; Protocol PRN Reason: Hypoglycemia Protocol Stop: 06/26/20 10:44 Gabapentin (Neurontin) 100 mg PO TID [facility] Stop: 06/26/20 13:59 Last Admin: 06/07/20 20:49 Dose: 100 mg Documented by: Glucagon (Glucagen) 1 mg IM UD PRN; Protocol PRN Reason: Hypoglycemia Protocol Stop: 06/26/20 10:44 Glucose (Glucose 40%) 15 - 30 gm PO UD PRN; Protocol PRN Reason: Hypoglycemia Protocol Stop: 06/26/20 10:44 Glucose (Dex4 Glucose) 4 - 8 tabs PO UD PRN; Protocol PRN Reason: Hypoglycemia Protocol Stop: 06/26/20 10:44 Hydrocortisone (Anusol Hc) 25 mg LA TID [facility] Stop: 07/02/20 15:44 Last Admin: 06/07/20 20:49 Dose: Not Given Documented by: Heparin Sodium/Dextrose (Heparin Sodium/Dextrose) 25,000 units in 500 mls @ 13 mls/hr IV .Q24H [facility]; Protocol Stop: 07/01/20 16:44 Last Titration: 06/07/20 20:55 Dose: 650 units/hr, 13 mls/hr Documented by: Insulin Aspart (Novolog Flexpen) 0 units SC ACHS [facility] Stop: 06/26/20 11:29 Last Admin: 06/07/20 20:55 Dose: Not Given Documented by: Ipratropium [place] (Atrovent Hfa) 1 puffs INH QIDR PRN PRN Reason: Shortness Of Breath Or Wheezing Stop: 07/01/20 06:59 Isosorbide Mononitrate (Imdur Extended Rel) 30 mg PO QAM [facility] Stop: 06/29/20 08:59 Last Admin: 06/07/20 07:40 Dose: 30 mg Documented by: Metoprolol Tartrate (Lopressor) 50 mg PO BID [facility] Stop: 07/01/20 20:59 Last Admin: 06/07/20 20:49 Dose: 50 mg Documented by: Miscellaneous (Carbohydrates For Hypoglycemia) 15 - 30 gm PO UD PRN PRN Reason: Hypoglycemia Treatment Stop: 06/26/20 10:44 Nitroglycerin (Nitrostat) 0.4 mg SL UD PRN PRN Reason: Chest Pain Stop: 06/26/20 10:28 Olmesartan (Benicar) 5 mg PO BID [facility] Stop: 06/27/20 20:59 Last Admin: 06/01/20 08:31 Dose: 5 mg Documented by: Ondansetron HCl (Zofran) 4 mg IV Q6H PRN PRN Reason: Nausea Stop: 06/26/20 10:28 Prednisone (Prednisone) 5 mg PO BID [facility] Stop: 06/26/20 20:59 Last Admin: 06/07/20 20:49 Dose: 5 mg Documented by: Psyllium Hydrophilic Mucilloid (Metamucil) 1 pkt PO QAM [facility] Stop: 07/05/20 08:59 Last Admin: 06/07/20 07:52 Dose: Not Given Documented by: Ranolazine (Ranexa) 500 mg PO BID [facility] Stop: 06/30/20 20:59 Last Admin: 06/07/20 20:49 Dose: 500 mg Documented by: Warfarin Sodium (Coumadin) 4 mg PO DAILY@1600 [facility] Stop: 07/07/20 15:59 Last Admin: 06/07/20 16:51 Dose: 4 mg Documented by: PG Care Time/CCT Total # of Minutes Spent Total Time Spent with Patient: Total time spent is greater than 50% in coordination of care (as documented) at patient's floor/unit and/or counseling patient: Coding Level of Care Code 08433 Subseq Hosp Care Lvl 3 Diagnoses Pulmonary emboli I26.99 Acute cor pulmonale presence: without acute cor pulmonale Chronicity: acute Pulmonary embolism type: unspecified NSTEMI (non-ST elevated myocardial infarction) I21.4 DVT (deep venous thrombosis) I82.403 Affected thrombotic vein of extremity: unspecified vein of extremity Chronicity: acute DVT location: lower extremity Laterality: bilateral Rectal bleeding K62.5 MINERVA (acute kidney injury) N17.9 (1) DVT (deep venous thrombosis) Affected thrombotic vein of extremity: unspecified vein of extremity Chronicity: acute DVT location: lower extremity Laterality: bilateral Qualified Code(s): I82.403 - Acute embolism and thrombosis of unspecified deep veins of lower extremity, bilateral (2) Pulmonary emboli Acute cor pulmonale presence: without acute cor pulmonale Chronicity: acute Pulmonary embolism type: unspecified Qualified Code(s): I26.99 - Other pulmonary embolism without acute cor pulmonale
[2020-06-08 03:10] LABS: Hematocrit (blood only) 38.2 % (42-52); Hemoglobin 12.8 g/dL (14.0-18.0)
[2020-06-08 03:27] LABS: BUN Creatinine Ratio 20.6 (10-20); Calcium 8.5 mg/dl (8.5-10.1); Creatinine Clr Calc Pharmacy 34.7 ml/min; Est GFR (African American) 42.9; Potassium 4.5 mmol/L (3.5-5.1)
[2020-06-08 03:47] LABS: INR 2.6 (0.9-1.1); Partial Thromboplastin Time 56.6 Seconds (21.0-31.0); Prothrombin Time 26.5 Seconds (9.0-12.0)
[2020-06-08] MEDS: RANOLAZINE 500 MG ER TAB PO SCH (08:13)
[2020-06-08] MEDS: PSYLLIUM 58.6% POWDER PACKET PO SCH (08:13)
[2020-06-08] MEDS: GABAPENTIN 100 MG CAP PO SCH (08:13)
[2020-06-08] MEDS: predniSONE 5 MG TAB PO SCH (08:13)
[2020-06-08] MEDS: ISOSORBIDE MONO EXTENDED REL 30 MG TABCR PO SCH (08:13)
[2020-06-08] MEDS: METOPROLOL TARTRATE 50 MG TAB PO SCH (08:13)
[2020-06-08] MEDS: HYDROCORTISONE ACETATE 25 MG SUPP PR SCH (08:14)
[2020-06-08] MEDS: CYANOCOBALAMIN 500 MCG TABLET (VITAMIN B-12) PO SCH (08:14)
[2020-06-08] MEDS: INSULIN ASPART 100 UNITS/ML 3 ML PEN SC SCH (08:16)
--- NOTE | 2020-06-08 22:04 | Discharge Summary ---
Date of Service June 08, 2020 Admission HPI Per Admitting Provider Yassine is an 85 yo male with a 85yo male with history of CAD s/p 3 acute MIs and 6 prior stents (last heart cath was at [facility] in 2006), pacemaker status, and T2DM who presented on 05/27 with acute chest pain. Pain started while the patient was making breakfast. It was across his sternal area and left chest with no radiation. Pain was 9/10. He took 2 nitroglycerin, lowering pain to 5/10. He had no diaphoresis or n/v. ED determined this to be an NSTEMI. He was admitted to monitor. Started on ranexa. He also reported rectal bleeding. Hemmorhoid was seen on LAURA as well as + occult bleeding. History of extensive diverticular disease. On 06/01 he was SOB and was found to have extensive PE's on CTA as well as bilateral DVT by martintamarcel. He was placed on heparin. Principal Diagnosis Bilateral pulmonary emboli Discharge Exam Constitutional WD/WN, vitals as above Eyes PERRL, conjunctivae normal, anicteric sclerae ENMT external ear and nose normal, oropharynx normal Neck trachea midline, no thyromegaly Respiratory normal respiratory effort, lungs clear to auscultation Cardiovascular RRR, no murmur, no edema Gastrointestinal (Abdomen) normal bowel sounds, soft, nontender, no hepatosplenomegaly Musculoskeletal no cyanosis or clubbing, extremities motor strength 5/5 Skin no rashes, warm and dry Neurologic patellar DTR's 2+ bilat, sensation intact and PERRL, EOMI, accommodation nl, no face palsy, no dysarthria Psychiatric A+Ox3, euthymic affect Lymphatic no cervical or axillary lymphadenopathy Discharge Data Allergies Allergy/AdvReac Type Severity Reaction Status Date / Time Penicillins Allergy Intermediate HIVES Verified 06/02/20 15:33 shellfish derived Allergy Intermediate HIVES Verified 06/02/20 15:33 Sulfa (Sulfonamide Allergy Intermediate HIVES Verified 06/02/20 15:33 Antibiotics) sulfamethoxazole Allergy Intermediate Hives Verified 06/02/20 15:33 [From Bactrim] trimethoprim [From Bactrim] Allergy Intermediate Hives Verified 06/02/20 15:33 Consultations 05/27/20 08:57 ED Decision to Admit Stat 05/27/20 12:40 Consult Cardiology Routine 05/28/20 18:12 Consult Cardiac Rehabilitation Routine 06/03/20 22:42 Consult Gastroenterology Routine Procedures Performed Operation Date: 05/28/20 15:00 Actual Procedures p Cath, Left with Cors and Vent - Ridge Phan MD s Cineradiography w/Routine Exam - Ridge Phan MD s IVUS Coronary Single Vessel - Ridge Phan MD Ordered Studies 05/28/20 12:32 CL Cath Imgs for PACS use only Urgent 05/28/20 14:37 CL IVUS Coronary Single Vessel Routine 06/01/20 14:58 CT angio chest PE protocol Routine 06/02/20 08:00 US venous doppler LE BI Routine Hospital Course (1) Pulmonary emboli: b/l extensive PEs on CTA 06/01/20, significant clot burden in right main pulmonary artery with b/l DVTs as confirmed on 06/02/20 PEs likely the cause of his chest pain at presentation, not NSTEMI PE would explain slight bump in troponin to 0.2 did receive heparin for 48 hours earlier this stay for NSTEMI. then standard dosing heparin initiated 06/01/20 for PEs. BP stable all week, okay when ambulating, walked in hallway twice day prior to discharge Coumadin 10mg on 06/04, give 6mg daily x 2 days, INR 2.3 and Coumadin changed to 4mg daily INR is 2.6 on 06/08, day of discharge will continue Coumadin 4mg daily, check INR in two days with home nursing has follow up with coagulation clinic on 06/12 to establish management of INR he was continued on heparin drip until he was discharged for adequate overlap of heparin and Coumadin will need Coumadin therapy for at least 12 months given bilateral PE and DVT (2) NSTEMI (non-ST elevated myocardial infarction): mild event at admission. minimal troponin increase with peak at 0.274. could have been NSTEMI from CAD or even RV infarction from PEs (retrospect ively). s/p heart cath Dr Phan on 05/28/20. prior stents patent, but w/ new areas of occlusion including distal LAD which accounts for wall motion abnormality seen on echo. also with left main disease. medical management advised by Dr Phan. cont asa, beta ruth, nitrates, ranexa LDL 76 earlier this month - changed simvastatin to lipitor 40mg daily. appreciate cardiology consultation no chest pain or pressure for days of note, will stop Plavix since he will be on Coumadin, given his age and some mild rectal bleeding earlier in stay continue on aspirin alone for antiplatelet therapy (3) DVT (deep venous thrombosis): b/l, more prominent on the right, likely from months of being sedentary see "PE" above treat with heparin and Coumadin, INR 2.6 on day of discharge d/c on Coumadin 4mg daily (4) Rectal bleeding: small hemorrhoid on LAURA on 06/02 last colonoscopy was 2014. had extensive diverticular disease throughout much of the colon. rectal bleeding could be diverticular but most likely related to hemorrhoid no significant drop in Hb all week, stable at 13, no melena or bright red blood had a normal BM on 06/04 and 06/05 and 06/07 GI recommends conservative management plan - * anusol 25mg LA TID, no need to continue on discharge (5) MINERVA (acute kidney injury): Cr starting to come down slowly, it is 1.6 on day of discharge making a lot of urine Cr peaked at 1.86 on 06/05 likely represents Contrast induced nephropathy from contrast that he got with heart cath and then with CT angiogram will continue to hold olmesartan, may not even need this going forward as blood pressure stable off of it can use Lasix PRN if he gets lower extremity edema check BMP in two days on 06/10 with results to PCP electrolytes stable at time of discharge Total Time Total Time Spent Total Time Spent (In Minutes): 40 minutes Total Time Includes: Examination of the Patient, Discharge Planning, Medication Reconciliation and Other (spoke with patient's daughter at the bedside) Discharge Plan Discharge Items Patient Disposition: Home - Home Health Services Reason For Visit: PULMONARY EMBOLISM Discharge Diagnosis: Pulmonary embolism DVT Acute kidney injury, likely contrast induced nephropathy Diabetes type II Coronary artery disease Rectal bleeding from hemorrhoids Condition on Discharge: Good Goals: continue Coumadin for treatment of pulmonary emboli and DVT follow up lab work on Wednesday for renal function, INR, results to PCP, home maria guadalupe sing can draw this increase strength and mobility with home therapy continue to stay well nourished and well hydrated Activity: Per Instructions section Lifting: None Bathing: No limitations Exercise/Sports: Gradually increase as tolerated Weightbearing: Full weightbearing Non-emergency contact: Primary Care Provider Call non-emergency contact if: you have any medication questions, your symptoms worsen and you have a fever Follow-up/Referrals: Lavelle Parker DO [Primary Care Provider] - (one week) Diet: Carb Consistent or DM2 and Heart Healthy Ambulatory Orders: Basic Metabolic Panel (Routine) Timeframe: 2 Days Location: Determined by Patient Ordered By: Isac Wright Prothrombin Time INR (Routine) Timeframe: 2 Days Location: Determined by Patient Ordered By: Isac Wright Addkwan Attending Provider Instructions: Medications: - COUMADIN: take 4mg daily, will check INR on Wednesday and will follow up with coagulation clinic on 06/12 - METOPROLOL: dose reduced to 50mg twice a day due to low heart rates, continue this on discharge - IMDUR: new blood pressure medication, 30mg daily, tolerating well - RANEXA: new medication started for chest pain, take twice a day scheduled - LIPITOR: replaces Zocor as there was interaction with Ranexa PLAVIX: stop this medication as you are on Coumadin and aspirin, being on Plavix would put you at further risk of bleeding OLMESARTAN: continue to hold this medication until renal function returns to baseline, may consider stopping completely if blood pressure stable, talk with PCP METFORMIN: do not take this medication as renal function too high to start, follow up with PCP for other options for diabetes Bilateral pulmonary emboli, DVT in legs treated with heparin drip, transitioned to coumadin once there were no signs of bleeding INR today is 2.6 on Coumadin 4mg daily, will continue this dose on discharge will have home nursing check INR on Wednesday, send results to PCP and also coagulation clinic will follow up with coagulation clinic on 06/12, appointment has been scheduled no hypoxia, vitals stable all week will require anticoagulation for at least 12 months, may require longer, will follow with PCP initially felt to have heart attack but heart cath did not show any new areas of thrombus, no evidence of acute heart attack chest pain and elevated heart enzyme was likely due to blood clots in lungs Acute kidney injury, in recovery phase most likely cause was being exposed to contrast twice with the heart cath and then with CT angiogram of chest Cr jamari to 1.8, drifting down slowly at 1.67 today electrolytes are all stable, making adequate urine, will need to be followed as outpatient check labs on Wednesday with results to PCP continue to hold olmesartan can use Lasix as needed if you develop leg swelling Diabetes: do not take Metformin as your kidney function is too high follow up with PCP for other options in the meantime, follow low carbohydrate diet, avoid eating too much breads, pasta, rice, sweets Pending Studies at Discharge: No Stand-Alone Forms: My [facility] [email or web address], Smoking Cessation Medications and DC Order Prescriptions: New atorvastatin 40 mg Tablet 40 mg PO HS 30 Days Qty: 30 RF: 3 isosorbide mononitrate 30 mg Tablet Extended Release 24 Hr 30 mg PO QAM 30 Days Qty: 30 RF: 3 warfarin [Coumadin] 4 mg Tablet 4 mg PO DAILY@1600 30 Days Qty: 30 RF: 1 metoprolol tartrate 50 mg Tablet 50 mg PO BID 30 Days Qty: 60 RF: 3 ranolazine [Ranexa] 500 mg Tablet Extended Release 12 Hr 500 mg PO BID 30 Days Qty: 60 RF: 3 Continued nitroglycerin 0.4 mg tablet, sublingual 0.4 mg SL DIRECTED PRN (Reason: Chest Pain) Qty: 25 RF: 3 (DME) Lift Chair Misc See Rx Instructions .ROUTE .MEDSUPPLY Qty: 1 RF: 0 hydrocodone-acetaminophen [[place]] 5-325 mg tablet 1 tab PO Q4H PRN (Reason: pain) Qty: 20 RF: 0 gabapentin 100 mg capsule 100 mg PO .COMPLEX Qty: 90 RF: 5 furosemide 40 mg tablet 40 mg PO DAILY PRN (Reason: edema) Qty: 30 RF: 2 melatonin 1 mg tablet 1 mg PO HS PRN (Reason: Sleep) RF: 0 [id number] 150 unit tablet 1 tab PO QAM RF: 0 ascorbic acid (vitamin C) 500 mg tablet 500 mg PO QAM RF: 0 prednisone 5 mg tablet 5 mg PO BID Qty: 180 RF: 0 acetaminophen [Tylenol Extra Strength] 500 mg Tablet 500 mg PO Q6H PRN (Reason: Pain) RF: 0 Stool Softener 325mg 325 mg PO HS RF: 0 Vitamin E 500 Iu 500 unit PO QAM RF: 0 aspirin 81 mg Tablet,Delayed Release (Dr/Ec) 81 mg PO QAM RF: 0 Discontinued clopidogrel [Plavix] 75 mg tablet 75 mg PO DAILY RF: 0 simvastatin 40 mg tablet 40 mg PO QPM Qty: 90 RF: 3 metoprolol tartrate 100 mg tablet 100 mg PO BID Qty: 60 RF: 11 olmesartan 5 mg tablet 5 mg PO DAILY Qty: 30 RF: 2 metformin 500 mg tablet 500 mg PO DAILY Qty: 30 RF: 2 Discharge Orders: Discharge Order (Routine); Ordered 06/08/20 Ordered By: Isac Ontiveros/Other Patient Handouts: Managing Type 2 Diabetes, Diabetes: Meal Planning, A1C Admission Data Admit Date/Time: 05/27/20 18:13 Attending Provider: Isac Wright Admit Provider: Moise Petit Primary Care Provider: Lavelle Parker Other Providers: Nitin Rainey ; [facility] ; Moise Petit ; Zachariah Kellogg Other Interventions: Discharge Summary Assessment (RN) Last Done: 06/08/20 12:02 DC Date/Time DO NOT enter until pt leaves facility: 06/08/20 13:37 Coding Level of Care Code D/C Day Management >30 mins Diagnoses Pulmonary emboli I26.99 Acute cor pulmonale presence: without acute cor pulmonale Chronicity: acute Pulmonary embolism type: unspecified NSTEMI (non-ST elevated myocardial infarction) I21.4 DVT (deep venous thrombosis) I82.403 Affected thrombotic vein of extremity: unspecified vein of extremity Chronicity: acute DVT location: lower extremity Laterality: bilateral Rectal bleeding K62.5 MINERVA (acute kidney injury) N17.9
== END 2020-06-08 13:37 | disposition home health service (06) | DRG 175 ==
LOC: 2S 06:59 → ED 06:59 → 2S 09:52 → SUATTDRO 18:13

== ENCOUNTER 2020-10-12 02:12 | Inpatient (IN) ==
--- NOTE | 2020-10-12 02:40 | Emergency Department Note ---
Impression & Plan Perforated bowel, Diverticulitis, Aspiration pneumonia of left lower lobe, Elevated troponin, Elevated lactic acid level ED Provider Note Name: CONSTANTINO WEIR Age: 85 Sex: M Arrives Via: Walk-In Informant: Patient ED Provider: Zachery Hinton MD Chief Complaint: Abdominal pain Impression: Perforated Bowel Diverticulitis Aspiration Pneumonia of Left Lower Lobe Elevated Troponin Elevated Lactic Acid level Medical Decision Makin yr old male with extensive PMH including DMII, PE on Coumadin, CAD, CHF, amongst others who has had previous colectomy arrives for lower abdominal pain. Ongoing for last 12 hours with radiation to back. Does have TTP RLQ but with description felt that rule out dissection essential (rapid Cr elevated but with concerns felt benefit outweigh risks dye load). Patient declining pain meds, though of note he states feeling much better just with some IV fluids. Labs with trop elevation, similar to earlier this summer for which Cath was done and no intervention as felt distal ischemia. He has no chest pain and given lower abdominal pain seems unlikely ACS is primary issue tonight. EKG is a-sensed v paced without clear evidence ischemia. Already therapeautic on Coumadin and given other issues adding in further anticoagulant would not be indicated at this time. Labs otherwise without acute issues initially. CT obtained which reveals what overnight rad reads as likely diverticulitis with small perforation and no abscess, in addition to LLL infiltrate. Patient was re-evaluated several times and notes feeling much better with fluids. Vitals stable throughout and patient comfortable. He does have mildly bumped Cr from his baseline, which may be further contributing to trop bump. Reviewed with gen surg, and given patient feeling much better just with fluids, is very poor surgical candidate, and clearly has multiple issues at once, advised hospitalist admission and gen surg to consult. Dr Ellis consulted and down to evaluate further. Of note patient evaluated multiple times and is feeling much better. I did opt to get Lactate (and then cultures) given the ct read as well as my concern that initial issue may be more ischemic in nature. LA is bumped some, which a small second bolus fluid was ordered. By this time abdominal pain is essentially gone, patient is stable and vitals and stable. Patient does have LLL infiltrate on CT. After discussion patient does admit a cough, though he states ongoing for the last several years. Suspect this is aspiration given his TIA history and location. Discussed with Pharmacist regarding optimal meds given abx vyas. Patient was not given 30ml/kg IV fluids as this would likely put him in to severe fluid overload. Prior Medical Record and Triage/Nursing Notes reviewed by Me Additional history obtained from Differentials:Dissection, SBO, Ischemia, Appendicitis, diverticulitis, UTI, renal colic, PUD, pancreatitis, biliary pathology, hernia, volvulus, constipation, as well as other pathologies. Vital Signs: reviewed and remarkable for no significant abnormalities Interventions: Nss bolus 500ml x 2, Meropenem IV, Vanco IV Labs:Reviewed and remarkable for trop elevation, lactate elevation Imaging:[facility] Radiologist interpretation reviewed by me: "CTA ABDOMEN & PELVIS W/WO Contrast: Status post subtotal colectomy. Extensive small bowel and colonic diverticulosis. Inflamed small bowel within the right abdomen with free air in the right abdominal mesentery (image [id number]). Findings favored to represent diverticulitis with perforation. No abscess. Mucosal thickening within the sigmoid colon the appearance of which is suggestive of low-grade acute diverticulitis. Mucus plugging and airspace opacities within the left lower lobe and lingula suspicious for aspiration and/or pneumonia. Cholelithiasis. Advanced atherosclerotic calcifications of the abdominal aorta and iliac vessels. SMA is patent. Likely severe stenosis at the ostia of the [place]. Multifocal cortical scarring within the kidneys. There is abnormal soft tissue within the proximal right ureter with mild upstream dilatation. Transitional cell carcinoma can have this appearance. Radiologist: Brandon Hein MD" EKG:Per My Interpretation: Indication Elevated Trop:Atrial Sensed, Ventricular Paced 58 bpm no clear ischemia, no ectopy, it is similar to EKG done on 05/27/20 Cardiac/Tele Monitoring: Cardiac Monitoring: An Order was placed for continuous cardiac monitoring. The monitor shows a rate of 60 with a paced rhythm. Consults:Dr Benjamin - Gen Surg- If patient feeling well, stable and comfortable, admit to medicine for management and will follow along as consult. Dr Caleb MODI Hospitalist - will admit patient. Plan: Disposition:Hospitalization. Condition: Fair History of Present Illness:85 yr old male on Coumadin for previous PE amongst multiple medical issues arrives for evaluation of lower abdominal pain. 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 Radiates to back and bilateral sides of abdomen and in to upper legs. Associated with nothing else. Continuous throughout evening though mildly improved with PO Tylenol earlier. Denies nausea, vomiting, fevers, chills, syncope, chest pain, sob, headache, neck pain, weakness, leg swelling (beyond normal) nor other symptoms. Denies recent bleeding issues while being on Coumadin. No falls, trauma, injuries since ED visit last month when noted to have broken right clavicle. ROS: See above HPI for pertinent positives & negatives. A total of 10 systems reviewed and were otherwise negative. Past Medical History:See Below Past Surgical History:See Below Family History:See Below Social History:See Below Home Medications:See Below Allergies:See Below Vitals:Blood Pressure: 116/70, Pulse 59, RR 18, T 36.4C, O2 98% on RA Physical Exam: GENERAL: Patient is uncomfortable appearing and in mild distress. Declines pain medications EYES: No scleral icterus, unremarkable pupils. ENT: Mucous membranes moist, no nasal congestion. NECK: No masses appreciated, nomeningismus, trachea is midline. RESPIRATORY: No dyspnea. Clear to auscultation and equal bilaterally. No wheeze, no rhonchi. CARDIOVASCULAR: Regular rate and rhythm.No murmurs, rubs, gallops appreciated. GASTROINTESTINAL: Mildly distended with large ventral hernia easily reduced with hyperactive bowel sounds, moderate RLQ TTP, soft throughout and no peritonitis. No pulsatile mass appreciated. BACK: No midline tenderness, no CVA tenderness EXTREMITIES: Normal motion all extremities, no cyanosis, 3+ edema bilateral lower legs NEUROLOGIC: Alert and oriented, no acute motor or sensory deficits, no focal weakness, cranial nerves grossly intact. SKIN: No rash, no jaundice, no diaphoresis. PSYCH: Appropriate GCS: 15 ED Course: Times/Reassessments: Feeling better with IV fluids Critical Care: I have personally spent 35 minutes of critical care time in the direct management of this patient. Acute bowel perforation in setting of lactic acidosis and elevated troponin. This was a life/limb threatening event. This 35 minutes is in excess of all separately billable procedures. 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) Coronary artery arteriosclerosis Cough DM (diabetes mellitus), type 2 Heart disease History of WI (myocardial infarction) History of pacemaker Hyperlipidemia Hypertension Lumbar radicular pain Mobitz (type) I (Wenckebach's) atrioventricular block Mobitz (type) II atrioventricular block Obesity, diabetes, and hypertension syndrome Rheumatoid arthritis Right hip pain Stable angina pectoris Steroid dependent Ventral hernia Surgical History History of bladder surgery History of coronary artery stent placement History of cystoscopy with insertion of ureteral stent History of partial colectomy History of tonsillectomy Status post placement of cardiac pacemaker Family History Sister Cancer Mother Colorectal cancer Diabetes Father Myocardial infarction Stroke Other Allergies Asthma Heart disease TIA (transient ischemic attack) Denies family history of Tuberculosis Ovarian cancer Prostate cancer Breast cancer Emphysema, unspecified Lung disease Social History Smoking Status: Former smoker Tobacco Type: Cigarettes Age Started Using Tobacco: 17; packs per day: 1; Number of Years Since Quit: 30; Second Hand Exposure: No; Hx Alcohol Use: No Hx Substance Use: No Preferred Language: Maldivian Communication Ability: Effective Visual Impairment: No Limitations Hearing Ability: Normal 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 Feels Safe at Home: Yes caffeine: No Dental Care, Regularly: Yes Physical Activity Frequency: 3-4 Times per Week Seatbelt Use: always Sunscreen Use: No Assistive Devices: None Allergies Allergies Allergy/AdvReac Type Severity Reaction Status Date / Time Penicillins Allergy Intermediate HIVES Verified 10/12/20 02:34 shellfish derived Allergy Intermediate HIVES Verified 10/12/20 02:34 Sulfa (Sulfonamide Allergy Intermediate HIVES Verified 10/12/20 02:34 Antibiotics) sulfamethoxazole Allergy Intermediate Hives Verified 10/12/20 02:34 [From Bactrim] trimethoprim [From Bactrim] Allergy Intermediate Hives Verified 10/12/20 02:34 Home Meds Home Medications Medication Instructions Recorded Confirmed melatonin 1 mg tablet 1 mg PO HS PRN 05/05/19 10/12/20 [id number] 150 unit 1 tab PO QAM tab 08/22/19 10/12/20 tablet ascorbic acid (vitamin C) 500 mg 500 mg PO QAM tab 08/22/19 10/12/20 tablet prednisone 5 mg tablet 5 mg PO DAILY #180 tab 10/02/19 10/12/20 aspirin 81 mg PO QAM 02/06/20 10/12/20 acetaminophen [Tylenol Extra 500 mg PO Q6H PRN 04/22/20 10/12/20 Strength] docusate sodium 50 mg capsule 50 mg PO DAILY 07/26/20 10/12/20 Previous Rx's Medication Instructions Recorded nitroglycerin 0.4 mg sublingual 0.4 mg SL DIRECTED PRN #25 tab 03/22/20 tablet furosemide 40 mg tablet 40 mg PO DAILY PRN #30 tab 05/03/20 Lift Chair #1 ea 05/09/20 hydrocodone 5 mg-acetaminophen 325 1 tab PO Q4H PRN #20 tab 05/28/20 mg tablet fluticasone propionate 50 1 spray INTRANASAL DAILY #16 g 07/26/20 mcg/actuation nasal spray,suspension levocetirizine 5 mg tablet 5 mg PO DAILY PRN #60 tab 07/26/20 albuterol sulfate 90 mcg/actuation 1 inh INHALATION QID PRN #18 g 09/03/20 aerosol inhaler montelukast 10 mg tablet 10 mg PO DAILY #30 tab 09/03/20 atorvastatin 40 mg tablet 40 mg PO HS 30 Days #30 tab 09/23/20 isosorbide mononitrate 30 mg 30 mg PO QAM 30 Days #30 tab 09/23/20 tablet,extended release 24 hr metoprolol tartrate 50 mg tablet 50 mg PO BID 30 Days #60 tab 09/23/20 ranolazine 500 mg tablet,extended 500 mg PO BID 30 Days #60 tab 09/23/20 release,12 hr warfarin 2.5 mg tablet See Rx Instructions PO DAILY #120 09/23/20 tab Results & Data (ED) Vital Signs Vital Signs - 24 hr 10/12/20 02:18 10/12/20 04:13 Temperature 36.4 C L Temperature Source Oral Pulse Rate 59 L Pulse Rate [Apical] 62 Respiratory Rate 18 18 Respiratory Effort / Characteristics Non-Labored Non-Labored Respiratory Depth Normal Normal Blood Pressure 116/70 Blood Pressure [Right Arm] 117/58 L Blood Pressure Mean 85 Blood Pressure Mean [Right Arm] 77 Pulse Oximetry 98 98 Oxygen Delivery Method Room Air Room Air Sepsis Recent Fever Within 48 Hours No Sepsis New/Unexplained Change in Mental Status No Sepsis Action Taken by Nursing No Action Required Laboratory Data Result diagrams: 10/12/20 03:02 10/12/20 03:02 Lab Results 10/12/20 10/12/20 10/12/20 Range/Units 03:02 03:02 03:02 WBC 8.88 (4.8-10.8) K/uL RBC 4.00 L (4.7-6.1) M/uL Hgb 12.9 L (14.0-18.0) g/dL Hct 38.8 L (42-52) % MCV 97.0 (80-100) fL MCH 32.3 (25-34) pg MCHC 33.2 (32-36) g/dL RDW Std Deviation 51.3 H (36.4-46.3) fL RDW Coeff of Mike 14.5 (11.5-14.5) % Plt Count 146 (130-400) K/uL MPV 9.9 (7.4-10.4) fL Immature Gran % (Auto) 0.5 % Neut % (Auto) 95.5 % Lymph % (Auto) 2.8 % [place] % (Auto) 1.2 % Eos % (Auto) 0.0 % Baso % (Auto) 0.0 % Neut # (Auto) 8.48 H (1.4-6.5) K/uL Lymph # (Auto) 0.25 L (1.2-3.4) K/uL [place] # (Auto) 0.11 (0.11-0.59) K/uL Eos # (Auto) 0.00 (0-0.5) K/uL Baso # (Auto) 0.00 (0-0.2) K/uL Immature Gran # (Auto) 0.04 H (0.00-0.02) K/uL PT 34.5 H (9.0-12.0) Seconds INR 3.5 H (0.9-1.1) Sodium 140 (136-145) mmol/L Potassium 4.1 (3.5-5.1) mmol/L Chloride 108 H (98-107) mmol/L Carbon Dioxide 27 (21-32) mmol/L Anion Gap 5.0 (3-11) BUN 33 H (7-18) mg/dl Creatinine 1.89 H (0.6-1.4) mg/dl Est Cr Clr Drug Dosing 29.8 ml/min Est GFR ( Amer) 36.9 Est GFR (Non-Af Amer) 31.9 BUN/Creatinine Ratio 17.6 (10-20) Glucose 157 H (70-99) mg/dl Lactate (0.4-2.0) mmol/L Calcium 8.6 (8.5-10.1) mg/dl Magnesium 1.9 (1.8-2.4) mg/dl Total Bilirubin 0.8 (0.2-1) mg/dl Direct Bilirubin 0.3 H (0-0.2) mg/dl AST 18 (15-37) U/L ALT 19 (12-78) U/L Alkaline Phosphatase 62 (45-117) U/L Troponin I 0.351 H* (0-0.045) ng/ml Total Protein 6.0 L (6.4-8.2) gm/dl Albumin 3.0 L (3.4-5.0) gm/dl Lipase 128 (73-393) U/L SARS-CoV-2 Ag (Rapid) (Negative) 10/12/20 10/12/20 Range/Units 04:06 Unknown WBC (4.8-10.8) K/uL RBC (4.7-6.1) M/uL Hgb (14.0-18.0) g/dL Hct (42-52) % MCV (80-100) fL MCH (25-34) pg MCHC (32-36) g/dL RDW Std Deviation (36.4-46.3) fL RDW Coeff of Mike (11.5-14.5) % Plt Count (130-400) K/uL MPV (7.4-10.4) fL Immature Gran % (Auto) % Neut % (Auto) % Lymph % (Auto) % [place] % (Auto) % Eos % (Auto) % Baso % (Auto) % Neut # (Auto) (1.4-6.5) K/uL Lymph # (Auto) (1.2-3.4) K/uL [place] # (Auto) (0.11-0.59) K/uL Eos # (Auto) (0-0.5) K/uL Baso # (Auto) (0-0.2) K/uL Immature Gran # (Auto) (0.00-0.02) K/uL PT (9.0-12.0) Seconds INR (0.9-1.1) Sodium (136-145) mmol/L Potassium (3.5-5.1) mmol/L Chloride (98-107) mmol/L Carbon Dioxide (21-32) mmol/L Anion Gap (3-11) BUN (7-18) mg/dl Creatinine (0.6-1.4) mg/dl Est Cr Clr Drug Dosing ml/min Est GFR ( Amer) Est GFR (Non-Af Amer) BUN/Creatinine Ratio (10-20) Glucose (70-99) mg/dl Lactate 2.4 H* (0.4-2.0) mmol/L Calcium (8.5-10.1) mg/dl Magnesium (1.8-2.4) mg/dl Total Bilirubin (0.2-1) mg/dl Direct Bilirubin (0-0.2) mg/dl AST (15-37) U/L ALT (12-78) U/L Alkaline Phosphatase (45-117) U/L Troponin I (0-0.045) ng/ml Total Protein (6.4-8.2) gm/dl Albumin (3.4-5.0) gm/dl Lipase (73-393) U/L SARS-CoV-2 Ag (Rapid) Negative (Negative) Administered Medications Meropenem 500 mg/ Syringe 10 mls @ 2 mls/min IV Q6H SHASHI; Protocol Stop: 10/22/20 04:14 Last Admin: 10/12/20 05:02 Dose: 2 mls/min Documented by: [id number] Vancomycin HCl 1,500 mg/ (Sodium Chloride) 530 mls @ 200 mls/hr IV UD SHASHI Stop: 10/22/20 04:14 Last Admin: 10/12/20 05:23 Dose: 200 mls/hr Documented by: [id number] Albumin Human (Albumin 25%) 12.5 gm in 50 mls @ 50 mls/hr IV Q1H SHASHI Stop: 10/12/20 07:14 Last Admin: 10/12/20 06:04 Dose: 50 mls/hr Documented by: [id number] Infusion: 10/12/20 06:04 Dose: 50 mls/hr Documented by: [id number] Admin: 10/12/20 05:51 Dose: 50 mls/hr Documented by: [id number] Discontinued Medications Famotidine (Famotidine 20mg/5ml Iv Push) Confirm Administered Dose 20 mg IV .STK-MED ONE Stop: 10/12/20 05:55 Last Admin: 10/12/20 06:05 Dose: 20 mg Documented by: [id number] Sodium Chloride (Nss) 500 mls @ 999 mls/hr IV .Q31M ONE Stop: 10/12/20 04:04 Last Infusion: 10/12/20 04:30 Dose: 0 mls/hr Documented by: [id number] Admin: 10/12/20 03:44 Dose: 999 mls/hr Documented by: [id number] Sodium Chloride (Nss 1000ml) 500 mls @ 999 mls/hr IV .Q31M ONE Stop: 10/12/20 05:05 Last Admin: 10/12/20 05:24 Dose: 999 mls/hr Documented by: [id number] Ioversol (Optiray 320 125ml) 119 ml IV ONCE ONE Stop: 10/12/20 03:14 Last Admin: 10/12/20 03:13 Dose: 119 ml Documented by: [id number] Discharge Plan Visit Data Chief Complaint: Back Injury/Pain Stated Complaint: BACK AND ABDOMINAL PAIN ED Provider: Zachery Hinton Discharge Problem: Perforated bowel, Diverticulitis, Aspiration pneumonia of left lower lobe, Elevated troponin, Elevated lactic acid level Forms Stand Alone Forms: [facility] [employer] Prescriptions Prescriptions: No Action warfarin 2.5 mg tablet See Rx Instructions PO DAILY Qty: 120 RF: 0 nitroglycerin 0.4 mg tablet, sublingual 0.4 mg SL DIRECTED PRN (Reason: Chest Pain) Qty: 25 RF: 3 (DME) Lift Chair Misc See Rx Instructions .ROUTE .MEDSUPPLY Qty: 1 RF: 0 hydrocodone-acetaminophen [[place]] 5-325 mg tablet 1 tab PO Q4H PRN (Reason: pain) Qty: 20 RF: 0 atorvastatin 40 mg tablet 40 mg PO HS 30 Days Qty: 30 RF: 5 isosorbide mononitrate 30 mg tablet extended release 24 hr 30 mg PO QAM 30 Days Qty: 30 RF: 5 metoprolol tartrate 50 mg tablet 50 mg PO BID 30 Days Qty: 60 RF: 5 ranolazine [Ranexa] 500 mg tablet extended release 12 hr 500 mg PO BID 30 Days Qty: 60 RF: 5 furosemide 40 mg tablet 40 mg PO DAILY PRN (Reason: edema) Qty: 30 RF: 2 Stool Softener 50 mg capsule 50 mg PO DAILY RF: 0 fluticasone propionate [Allergy Relief (fluticasone)] 50 mcg/actuation spray,suspension 1 spray intranasal DAILY Qty: 16 RF: 2 levocetirizine 5 mg tablet 5 mg PO DAILY PRN (Reason: allergy symptoms) Qty: 60 RF: 2 melatonin 1 mg tablet 1 mg PO HS PRN (Reason: Sleep) RF: 0 [id number] 150 unit tablet 1 tab PO QAM RF: 0 ascorbic acid (vitamin C) 500 mg tablet 500 mg PO QAM RF: 0 prednisone 5 mg tablet 5 mg PO DAILY Qty: 180 RF: 0 montelukast [Singulair] 10 mg tablet 10 mg PO DAILY Qty: 30 RF: 5 albuterol sulfate 90 mcg/actuation HFA aerosol inhaler 1 inh inhalation QID PRN (Reason: shortness of breath or wheezing) Qty: 18 RF: 5 acetaminophen [Tylenol Extra Strength] 500 mg Tablet 500 mg PO Q6H PRN (Reason: Pain) RF: 0 aspirin 81 mg Tablet,Delayed Release (Dr/Ec) 81 mg PO QAM RF: 0 Discharge Problem: Aspiration pneumonia of left lower lobe Qualifiers: Aspiration pneumonia type: unspecified Qualified Code(s): J69.0 - Pneumonitis due to inhalation of food and vomit
[2020-10-12 03:10] LABS: Hematocrit (blood only) 38.8 % (42-52); Hemoglobin 12.9 g/dL (14.0-18.0); Immature Granulocytes # (auto) 0.04 K/uL (0.00-0.02); Immature Granulocytes % (auto) 0.5 %; Lymphocytes # (auto) 0.25 K/uL (1.2-3.4); Lymphocytes % (auto) 2.8 %; Mean Corpuscular Hemoglobin 32.3 pg (25-34); Mean Corpuscular Hgb Conc 33.2 g/dL (32-36); Mean Platelet Volume 9.9 fL (7.4-10.4); Monocytes # (auto) 0.11 K/uL (0.11-0.59); Monocytes % (auto) 1.2 %; Neutrophils # (auto) 8.48 K/uL (1.4-6.5); Neutrophils % (auto) 95.5 %; Platelet Count 146 K/uL (130-400); RDW Coefficient of Variation 14.5 % (11.5-14.5); RDW Standard Deviation 51.3 fL (36.4-46.3); White Blood Count 8.88 K/uL (4.8-10.8)
[2020-10-12] MEDS ORDERED: OPTIRAY 320 125ml IV ONE (03:13)
[2020-10-12 03:26] LABS: INR 3.5 (0.9-1.1); Prothrombin Time 34.5 Seconds (9.0-12.0)
[2020-10-12 03:29] LABS: BUN Creatinine Ratio 17.6 (10-20); Bilirubin Direct 0.3 mg/dl (0-0.2); Calcium 8.6 mg/dl (8.5-10.1); Creatinine Clr Calc Pharmacy 29.8 ml/min; Est GFR (African American) 36.9; Est GFR (Non-African American) 31.9; Magnesium 1.9 mg/dl (1.8-2.4); Potassium 4.1 mmol/L (3.5-5.1)
[2020-10-12] MEDS ORDERED: SODIUM CHLORIDE 0.9% 500 ML IV ONE (03:34)
[2020-10-12 03:46] LABS: Bilirubin,Total 0.8 mg/dl (0.2-1); Troponin I 0.351 ng/ml (0-0.045)
[2020-10-12] MEDS ORDERED: VANCOMYCIN CONSULT ACTIVE PRN ×2 (04:09→09:37)
[2020-10-12] MEDS ORDERED: MEROPENEM CONSULT ACITVE PRN ×2 (04:09→09:37)
[2020-10-12] MEDS ORDERED: VANCOMYCIN HCL 1,500 MG in SODIUM CHLORIDE 0.9% 500 ML IV SCH (04:15)
[2020-10-12] MEDS ORDERED: SODIUM CHLORIDE 0.9% 1000ML 500 ML IV ONE (04:35)
[2020-10-12] MEDS: MEROPENEM 500 MG in SYRINGE 0 ML IV SCH ×3 (05:02→20:44)
--- NOTE | 2020-10-12 05:14 | History & Physical Report ---
Date of Service October 12, 2020 Assessment & Plan (1) Perforated bowel: As noted on CT. There is also ostial stenosis of the OTTONIEL noted. Would be concerned about the possibility of ischemic bowel versus perforated diverticulum Place on vancomycin IV and meropenem IV N.p.o. NSS at 40 mils per hour Zofran 4 mg IV every 6 hours as needed Famotidine 20 mg IV every 12 hours Consult general surgery Dr. Benjamin Present on Admission?: Yes (2) Aspiration pneumonia of left lower lobe: Cover with vancomycin IV and meropenem IV as noted above Duonebs every 4 hours while awake and every 2 hours when necessary. Present on Admission?: Yes (3) NSTEMI (non-ST elevated myocardial infarction): Troponin 0.351 upon admission. The patient will be admitted to telemetry for serial cardiac enzymes, serial EKG's, cardiac rhythm monitoring and a 2-D echocardiogram with Dopplers. 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 Cutler Present on Admission?: Yes (4) Anticoagulated on Coumadin: 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 INR presently 3.5. Will not reverse due to concerns regarding worsening the issues with coronary ischemia and bowel ischemia. Present on Admission?: Yes (5) Pulmonary emboli: See above Present on Admission?: Yes (6) Acute kidney injury superimposed on chronic kidney disease: Creatinine 1.89 upon admission, with baseline 1.30. Repeat in the a.m. after hydration Present on Admission?: Yes (7) Rheumatoid arthritis: History of Present Illness Chief Complaint: The patient presents to the emergency department with complaint of lower abdominal pain which radiates toward his back which began about 12 hours prior to arrival Primary Care Provider: Lavelle Parker DO The patient is an 85-year-old male with a past medical history including right clavicle fracture, diverticulosis, CAD, upper airway cough syndrome, MINERVA, history of colon cancer, DVT, PE, esophageal candidiasis, chronic systolic CHF, non-STEMI, cardiac pacemaker, diabetes mellitus type 2, ventral hernia, RA, hyperlipidemia, anemia, chronic steroid dependence, lumbar spinal stenosis with neurogenic claudication, hypertension, Mobitz type II atrioventricular block, lower extremity edema, TIA and insomnia. As noted above, he reports to the emergency department with 12 hours of lower abdominal pain that radiates toward his back. He has no indications why this may have occurred. He has not had any dietary indiscretions, is drinking regular amounts of fluids as well. Allergies Allergy/AdvReac Type Severity Reaction Status Date / Time Penicillins Allergy Intermediate HIVES Verified 10/12/20 02:34 shellfish derived Allergy Intermediate HIVES Verified 10/12/20 02:34 Sulfa (Sulfonamide Allergy Intermediate HIVES Verified 10/12/20 02:34 Antibiotics) sulfamethoxazole Allergy Intermediate Hives Verified 10/12/20 02:34 [From Bactrim] trimethoprim [From Bactrim] Allergy Intermediate Hives Verified 10/12/20 02:34 Home Medications Medication Instructions Recorded Confirmed Type melatonin 1 mg tablet 1 mg PO HS PRN 05/05/19 10/12/20 History [id number] 150 unit 1 tab PO QAM tab 08/22/19 10/12/20 History tablet ascorbic acid (vitamin C) 500 mg 500 mg PO QAM tab 08/22/19 10/12/20 History tablet prednisone 5 mg tablet 5 mg PO DAILY #180 tab 10/02/19 10/12/20 History aspirin 81 mg PO QAM 02/06/20 10/12/20 History nitroglycerin 0.4 mg sublingual 0.4 mg SL DIRECTED PRN #25 tab 03/22/20 10/12/20 Rx tablet acetaminophen [Tylenol Extra 500 mg PO Q6H PRN 04/22/20 10/12/20 History Strength] furosemide 40 mg tablet 40 mg PO DAILY PRN #30 tab 05/03/20 10/12/20 Rx Lift Chair #1 ea 05/09/20 10/01/20 Rx hydrocodone 5 mg-acetaminophen 325 1 tab PO Q4H PRN #20 tab 05/28/20 10/12/20 Rx mg tablet docusate sodium 50 mg capsule 50 mg PO DAILY 07/26/20 10/12/20 History fluticasone propionate 50 1 spray INTRANASAL DAILY #16 g 07/26/20 10/12/20 Rx mcg/actuation nasal spray,suspension levocetirizine 5 mg tablet 5 mg PO DAILY PRN #60 tab 07/26/20 10/12/20 Rx albuterol sulfate 90 mcg/actuation 1 inh INHALATION QID PRN #18 g 09/03/20 10/12/20 Rx aerosol inhaler montelukast 10 mg tablet 10 mg PO DAILY #30 tab 09/03/20 10/12/20 Rx atorvastatin 40 mg tablet 40 mg PO HS 30 Days #30 tab 09/23/20 10/12/20 Rx isosorbide mononitrate 30 mg 30 mg PO QAM 30 Days #30 tab 09/23/20 10/12/20 Rx tablet,extended release 24 hr metoprolol tartrate 50 mg tablet 50 mg PO BID 30 Days #60 tab 09/23/20 10/12/20 Rx ranolazine 500 mg tablet,extended 500 mg PO BID 30 Days #60 tab 09/23/20 10/12/20 Rx release,12 hr warfarin 2.5 mg tablet See Rx Instructions PO DAILY #120 09/23/20 10/12/20 Rx tab Past Med/Surg History Medical History (Updated 10/12/20 @ 05:21 by João Ellis MD) Chest pain Chronic anticoagulation Colon adenoma (09/20/13) Coronary artery arteriosclerosis Cough DM (diabetes mellitus), type 2 Heart disease History of RI (myocardial infarction) History of pacemaker Hyperlipidemia Hypertension Lumbar radicular pain Mobitz (type) I (Wenckebach's) atrioventricular block Mobitz (type) II atrioventricular block Obesity, diabetes, and hypertension syndrome Rheumatoid arthritis Right hip pain Stable angina pectoris Steroid dependent Ventral hernia Surgical History History of bladder surgery History of coronary artery stent placement History of cystoscopy with insertion of ureteral stent History of partial colectomy History of tonsillectomy Status post placement of cardiac pacemaker Family History Sister Cancer Mother Colorectal cancer Diabetes Father Myocardial infarction Stroke Other Allergies Asthma Heart disease TIA (transient ischemic attack) Denies family history of Tuberculosis Ovarian cancer Prostate cancer Breast cancer Emphysema, unspecified Lung disease Social History Smoking Status: Former smoker Tobacco Type: Cigarettes Age Started Using Tobacco: 17; packs per day: 1; Number of Years Since Quit: 30; Second Hand Exposure: No; Hx Alcohol Use: No Hx Substance Use: No Preferred Language: Albanian Communication Ability: Effective Visual Impairment: No Limitations Hearing Ability: Normal President/[employer] & Live Experiences Required: No Beliefs That Will Affect Care: None marital status: / Current Living Situation: Parent Current Living Situation Comment: Patient's youngest son lives with him. 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 Feels Safe at Home: Yes caffeine: No Dental Care, Regularly: Yes Physical Activity Frequency: 3-4 Times per Week Seatbelt Use: always Sunscreen Use: No Assistive Devices: None Review of Systems Review of Systems: The patient denies chest pain, palpitations, sore throat, fevers, chills, sweats, vomiting, blood in urine or stool, dysuria, urinary frequency or urgency, lightheadedness, dizziness, headache, memory loss, loss of consciousness, rash, abnormal bruising or bleeding, imbalance, focal or generalized weakness, numbness or tingling in arms or legs, generalized arthralgias or myalgias, neck pain, or night sweats. The review of systems is otherwise negative other than for that already noted above, and at least 10 systems have been reviewed. Physical Exam Physical Exam: The patient is awake, alert and oriented 3, well developed and well nourished, normocephalic and atraumatic, lying in bed and in no acute distress. HEENT--PERRL, EOMI, mucous membranes and oropharynx dry. Neck--supple. No JVD. No bruits. Thyroid normal, trachea midline, no adenopathy. Heart--normal S1 and S2. No murmurs, rubs or gallops. Lungs--clear bilaterally, no respiratory distress, no accessory muscle use. Abdomen--normal bowel sounds and soft. Nontender. Mildly distended and tympanitic Extremities--no cyanosis or clubbing. No edema. Dermatologic--normal skin turgor, normal color, no abnormal lymph nodes, no rash. Neurologic--cranial nerves II through XII grossly intact. Rheumatologic--normal range of motion. Psychiatric--normal affect. Results & Data Results & Data ([facility]) Vital Signs (Past 12 Hours) Vital Signs Temp Pulse Resp BP Pulse Ox 10/12/20 02:18 97.5 F L 59 L 18 116/70 98 Laboratory Results Laboratory Results WBC 8.88 K/uL (4.8-10.8) 12/12/20 03:02 RBC 4.00 M/uL (4.7-6.1) L 10/12/20 03:02 Hgb 12.9 g/dL (14.0-18.0) L 10/12/20 03:02 Hct 38.8 % (42-52) L 10/12/20 03:02 MCV 97.0 fL (80-100) 10/12/20 03:02 MCH 32.3 pg (25-34) 10/12/20 03:02 MCHC 33.2 g/dL (32-36) 10/12/20 03:02 RDW Std Deviation 51.3 fL (36.4-46.3) H 10/12/20 03:02 RDW Coeff of Mike 14.5 % (11.5-14.5) 10/12/20 03:02 Plt Count 146 K/uL (130-400) 10/12/20 03:02 MPV 9.9 fL (7.4-10.4) 10/12/20 03:02 Immature Gran % (Auto) 0.5 % 10/12/20 03:02 Neut % (Auto) 95.5 % 10/12/20 03:02 Lymph % (Auto) 2.8 % 10/12/20 03:02 [place] % (Auto) 1.2 % 10/12/20 03:02 Eos % (Auto) 0.0 % 10/12/20 03:02 Baso % (Auto) 0.0 % 10/12/20 03:02 Neut # (Auto) 8.48 K/uL (1.4-6.5) H 10/12/20 03:02 Lymph # (Auto) 0.25 K/uL (1.2-3.4) L 10/12/20 03:02 [place] # (Auto) 0.11 K/uL (0.11-0.59) 10/12/20 03:02 Eos # (Auto) 0.00 K/uL (0-0.5) 10/12/20 03:02 Baso # (Auto) 0.00 K/uL (0-0.2) 10/12/20 03:02 Immature Gran # (Auto) 0.04 K/uL (0.00-0.02) H 10/12/20 03:02 PT 34.5 Seconds (9.0-12.0) H 10/12/20 03:02 INR 3.5 (0.9-1.1) H 10/12/20 03:02 Sodium 140 mmol/L (136-145) 10/12/20 03:02 Potassium 4.1 mmol/L (3.5-5.1) 10/12/20 03:02 Chloride 108 mmol/L (98-107) H 10/12/20 03:02 Carbon Dioxide 27 mmol/L (21-32) 10/12/20 03:02 Anion Gap 5.0 (3-11) 10/12/20 03:02 BUN 33 mg/dl (7-18) H 10/12/20 03:02 Creatinine 1.89 mg/dl (0.6-1.4) H 10/12/20 03:02 Est Cr Clr Drug Dosing 29.8 ml/min 10/12/20 03:02 Est GFR ( Amer) 36.9 10/12/20 03:02 Est GFR (Non-Af Amer) 31.9 10/12/20 03:02 BUN/Creatinine Ratio 17.6 (10-20) 10/12/20 03:02 Glucose 157 mg/dl (70-99) H 10/12/20 03:02 Lactate 2.4 mmol/L (0.4-2.0) H* 10/12/20 04:06 Calcium 8.6 mg/dl (8.5-10.1) 10/12/20 03:02 Magnesium 1.9 mg/dl (1.8-2.4) 10/12/20 03:02 Total Bilirubin 0.8 mg/dl (0.2-1) 10/12/20 03:02 Direct Bilirubin 0.3 mg/dl (0-0.2) H 10/12/20 03:02 AST 18 U/L (15-37) 10/12/20 03:02 ALT 19 U/L (12-78) 10/12/20 03:02 Alkaline Phosphatase 62 U/L (45-117) 10/12/20 03:02 Troponin I 0.351 ng/ml (0-0.045) H* 10/12/20 03:02 Total Protein 6.0 gm/dl (6.4-8.2) L 10/12/20 03:02 Albumin 3.0 gm/dl (3.4-5.0) L 10/12/20 03:02 Lipase 128 U/L (73-393) 10/12/20 03:02 Diagnostic Findings [facility] Patient: CONSTANTINO WEIR (Male) : 37 Status: ER Date: 10/12/20 03:36 Room #: History: ABD PAIN , LOW BACK PAIN RADIATING DOWN BOTH LEGS , APPENDIX PRESENT , 119 ML OPTIRAY 320 Slices: [id number] Priors: Tech: Justyn Samayoa @ [id number] Exams: CTA ABDOMEN & PELVIS W/WO Contrast Contrast: IV Amt: 119 ML Accession Numbers: [id number] Preliminary Findings Only See Final Report For Complete Findings CTA ABDOMEN & PELVIS W/WO Contrast: Status post subtotal colectomy. Extensive small bowel and colonic diverticulosis. Inflamed small bowel within the right abdomen with free air in the right abdominal mesentery (image [id number]). Findings favored to represent diverticulitis with perforation. No abscess. Mucosal thickening within the sigmoid colon the appearance of which is suggestive of low-grade acute diverticulitis. Mucus plugging and airspace opacities within the left lower lobe and lingula suspicious for aspiration and/or pneumonia. Cholelithiasis. Advanced atherosclerotic calcifications of the abdominal aorta and iliac vessels. SMA is patent. Likely severe stenosis at the ostia of the OTTONIEL. Multifocal cortical scarring within the kidneys. There is abnormal soft tissue within the proximal right ureter with mild upstream dilatation. Transitional cell carcinoma can have this appearance. Radiologist: Brandon Hein MD Study ready at 03:42 and initial results transmitted at 03:52 Communications: Clear Time Type Notes 10/12/20 04:06 Verify Receipt Verified receipt with Dr. Lopez on 10/12 04:06 (-05:00) *This report constitutes a preliminary interpretation only. Non-acute findings felt to be unrelated to the clinical presentation may not be discussed in this report. The study will be interpreted and a final report will be generated by the local Radiologist the following shift. To reach the hospital radiology department call [phone]. If a discrepancy is found between the preliminary and final interpretations of this study, please notify us via our Client Portal at [email or web address] under QA Exams.You can also fax this report with a description of the discrepancy, or include the final report, to our daytime fax number [phone].If faxing, please indicate the severity of discrepancy using one of the following categories: [ ] 1 - Agree/Informational [ ] 2 - Unlikely to Affect Management [ ] 3 - Possible Eventual Change of Management [ ] 4 - Probable Immediate Change of Management For all other patient related information, please fax us at [phone]. [id number] Code Status & VTE Plan Code Status Full code VTE Prophylaxis Plan VTE Prophylaxis will be ordered: Yes PG Care Time/CCT Total # of Minutes Spent Total Time Spent with Patient: Total time spent is greater than 50% in coordination of care (as documented) at patient's floor/unit and/or counseling patient: Coding Level of Care Code 20647 Initial Inpt Care Lvl 3 Diagnoses Perforated bowel K63.1 Aspiration pneumonia of left lower lobe J69.0 Aspiration pneumonia type: unspecified NSTEMI (non-ST elevated myocardial infarction) I21.4 Anticoagulated on Coumadin Z79.01 Pulmonary emboli I26.99 Pulmonary embolism type: unspecified Chronicity: acute Acute cor pulmonale presence: without acute cor pulmonale Acute kidney injury superimposed on chronic kidney disease N17.9; N18.9 Rheumatoid arthritis M06.9 Rheumatoid arthritis location: unspecified site Rheumatoid factor presence: unspecified presence (1) Aspiration pneumonia of left lower lobe Aspiration pneumonia type: unspecified Qualified Code(s): J69.0 - Pneumonitis due to inhalation of food and vomit (2) Pulmonary emboli Pulmonary embolism type: unspecified Chronicity: acute Acute cor pulmonale presence: without acute cor pulmonale Qualified Code(s): I26.99 - Other pulmonary embolism without acute cor pulmonale (3) Rheumatoid arthritis Rheumatoid arthritis location: unspecified site Rheumatoid factor presence: unspecified presence Qualified Code(s): M06.9 - Rheumatoid arthritis, unsp ecified
[2020-10-12] MEDS ORDERED: SODIUM CHLORIDE 0.9% 1000ML 1,000 ML IV SCH (05:15)
[2020-10-12] MEDS: ALBUMIN 25% 12.5 GM/50 ML VIAL IV SCH ×2 (05:51→06:04)
[2020-10-12] MEDS ORDERED: FAMOTIDINE 20MG/5ML IV PUSH IV ONE ×2 (05:54→08:56)
[2020-10-12] MEDS: ALBUMIN 25% 12.5 GM/50 ML VIAL IV STA ×2 (06:45→06:51)
[2020-10-12] MEDS ORDERED: ALBUT/IPRATROP 3MG/0.5MG NEB 3 ML VIAL NEB SCH (07:00)
--- NOTE | 2020-10-12 07:03 | XRay Report ---
SINGLE VIEW CHEST CLINICAL HISTORY: Dyspnea. FINDINGS: An AP, portable, upright chest radiograph is compared to study performed earlier the same d ay 10/12/2020 and correlated with chest CT dated 06/01/2020. The examination is degraded by portable te chnique and patient rotation. A 2-lead cardiac pacemaker is unchanged in position. The heart is enlar ged noting atherosclerotic calcification of the thoracic aorta. The pulmonary vasculature is nonconge sted. Chronic interstitial thickening is similar to previous. Airspace consolidation is seen at the l eft lung base with a small left pleural effusion. Scarring/atelectasis is noted at the right lung bas e. No pneumothorax is seen. The skeletal structures are osteopenic. There are healed left-sided rib f ractures. IMPRESSION: 1. Cardiomegaly and cardiac pacemaker without radiographic evidence of congestive failure. 2. Airspace consolidation is seen at the left lung base with a small left pleural effusion. Correlate clinically for evidence of pneumonia/aspiration pneumonitis. This is unchanged from today's earlier examination. ACT 112: Negative or not required by law. Electronically signed by: Rakesh Lanier M.D. 10/12/2020 7:01 AM
--- NOTE | 2020-10-12 07:03 | XRay Report ---
SINGLE VIEW CHEST CLINICAL HISTORY: Dyspnea. FINDINGS: An AP, portable, upright chest radiograph is compared to study dated 07/12/2020 and correlat ed with chest CT dated 06/01/2020. The examination is degraded by portable technique and patient rotati on. A 2-lead cardiac pacemaker is unchanged in position. The heart is enlarged noting atherosclerotic calcification of the thoracic aorta. The pulmonary vasculature is noncongested. Chronic interstitial thickening is similar to previous. Airspace consolidation is seen at the left lung base with a small left pleural effusion. Scarring/atelectasis is noted at the right lung base. No pneumothorax is seen . The skeletal structures are osteopenic. There are healed left-sided rib fractures. IMPRESSION: 1. Cardiomegaly and cardiac pacemaker without radiographic evidence of congestive failure. 2. Airspace consolidation is seen at the left lung base with a small left pleural effusion. Correlate clinically for evidence of pneumonia/aspiration pneumonitis. Radiographic follow-up to resolution is recommended. ACT 112: Negative or not required by law. Electronically signed by: Rakesh Lanier M.D. 10/12/2020 7:02 AM
--- NOTE | 2020-10-12 08:00 | CT Scan Report ---
CT ANGIOGRAM OF THE ABDOMEN AND PELVIS COMBO CLINICAL HISTORY: Lower abdominal pain. Low back pain radiating into the legs. COMPARISON STUDY: Abdominal CT dated 09/07/2020. TECHNIQUE: Before and following the IV administration of 119 cc of Optiray 320, CT angiogram of the a bdomen and pelvis was performed from the lung bases the proximal femora. Images are reviewed in the a xial, sagittal, and coronal planes. 3-D MIPS images are created and assessed. IV contrast was adminis tered without complication. A dose lowering technique was utilized adhering to the principles of ALA RA. CT DOSE: 1593.92 mGy.cm FINDINGS: Lower chest: The heart is enlarged and without pericardial effusion. Pacemaker leads are noted. There is patchy airspace consolidation at the left lung base. There is right basilar scarring/atelectasis. There is a small hiatal hernia. A 3.5 cm soft tissue lipoma is seen in the left lower back on image #30. Liver: The contrast-enhanced liver is normal in size, contour, and attenuation. There is no intrahepa tic or ductal dilatation. The main portal veins appear patent. Gallbladder: The gallbladder is distended and there are calcified gallstones. There is no clear CT ev idence of acute cholecystitis. Spleen: Normal in size and attenuation. Pancreas: Moderately atrophic and grossly unremarkable. Adrenal glands: Unremarkable. Kidneys: The contrast enhanced kidneys are atrophic and without hydronephrosis. A large extrarenal pe lvis is seen on the right. Foci of parenchymal scarring are seen bilaterally. No renal calculi are id entified in either kidney on the unenhanced series. There are bilateral renal cysts. The largest lexi es from the right kidney and measures 8.5 cm. Additional subcentimeter cortical hypodensities also li theodore represent cysts but are too small for definitive characterization. There is an approximately 3.7 cm enhancing lesion identified in the right proximal ureter on image #212. This is unchanged from and highly concerning for urothelial neoplasm. The kidneys enhance symmetrically. Abdominal aorta and iliac arteries: There is advanced atherosclerotic plaque seen throughout the abdo reta aorta. The abdominal aorta is mildly ectatic. No dissection is seen. No high-grade stenosis is identified. There is advanced atherosclerotic plaque and irregularity seen throughout the iliac arter ies. There is approximately 50% focal stenosis of the right common iliac artery seen on image #280. 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 Major branches of the abdominal aorta: The celiac trunk and superior mesenteric artery are widely pat ent. There is high-grade stenosis at the origin of the inferior mesenteric artery which is otherwise clear. Hepatic arterial anatomy is conventional. The splenic artery is patent. There are 3 left renal arteries and a single right renal artery. There is high-grade stenosis at the origin of the right re nal artery, and also the origins of the left renal arteries. Bowel: There is postoperative change from subtotal colectomy with ileocolic anastomosis in the left l ower quadrant. No bowel obstruction is seen. There is moderate to advanced diverticulosis of the yuli ining left colon, as well as extensive diverticulosis of the small bowel. There is wall thickening wi th significant surrounding inflammation involving loops of small bowel in the right midabdomen. Mild inflammatory changes also seen around loops of bowel in the left lower quadrant. There are large duod enal diverticula. There is asymmetric rectal wall thickening, best seen on image #400. Peritoneum: Interloop fluid is seen in the right midabdomen and the left lower quadrant. Foci of intr aperitoneal free air are seen in the right lower quadrant on image #225. Postoperative change and lax ity is seen throughout the ventral abdominal wall with diastases of the rectus musculature. Lymphadenopathy: None. Pelvic viscera: The bladder is distended but otherwise normal in appearance. There is a small right-s ided ureterocele. The prostate gland is diminutive and heterogeneous. Skeletal structures: The skeletal structures are osteopenic. No lytic or blastic lesions are seen. IMPRESSION: 1. There is postoperative change from subtotal colectomy with ileocolic anastomosis. No bowel obstruc tion is identified. 2. There is moderate to advanced diverticulosis of the remaining colon and the small bowel. Inflammat ory change in the right mid abdomen involving small bowel loops with adjacent intraperitoneal free ai r and fluid likely represents acute perforated diverticulitis. There may also be mild diverticulitis of small bowel/colon in the left mid to lower abdomen. 3. No organized fluid collection is seen to suggest abscess. 4. There is a 3.7 cm enhancing lesion identified in the right proximal ureter. This is unchanged from 09/07/2020 and highly concerning for urothelial neoplasm. 5. There is asymmetric rectal wall thickening. This is nonspecific and neoplasm can have this appeara nce. Consider follow-up with colonoscopy for further assessment. 6. Cholelithiasis without clear evidence of acute cholecystitis. 7. There is airspace consolidation at the left lung base. Correlate clinically for evidence of pneumo stanley/aspiration pneumonitis. 8. There is advanced atherosclerotic calcification of the abdominal aorta and its major branches. 9. There is high-grade stenosis at the origin of the OTTONIEL as well as bilateral renal arteries. 10. 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 11. Additional findings as above. ACT 112: Negative or not required by law. Electronically signed by: Rakesh Lanier M.D. 10/12/2020 7:58 AM
--- NOTE | 2020-10-12 08:53 | Surgery Consultation ---
Date of Consultation October 12, 2020 Assessment & Plan (1) Diverticulitis: This is an 85y M with a PMH of colon ca and subtotal colectomy, CAD, CHF, pacemaker placement, DM2, RA, spinal stenosis, h/o PE, on coumadin, HTN, h/o TIA who presents to the [facility] ED on 10/12/20 with complaints of lower abdominal pain since yesterday. Workup in the ED with a CTA revealed inflammatory change in the right mid abdomen involving small bowel loops with adjacent intraperitoneal free air and fluid likely representing acute perforated diverticulitis, along with mild diverticulitis of small bowel/colon in the left mid to lower abdomen. There is no organized fluid collection is seen to suggest abscess. Patients WBC normal at 8.8 and patient is afebrile with stable vitals. On examination patient is TTP majority in the RLQ. Of note on imaging the patient also has a 3.7 cm enhancing lesion identified in the right proximal ureter that per report is highly concerning for urothelial neoplasm of which he was planning on seeing urology for. From our standpoint at this time we recommended a course of IV abx and supportive care. Likely plan to keep NPO with ice chips/sips for today. Appreciate hospitalists admitting patient. We will continue to follow the patient closely, but do not have any plans for acute surgical intervention at this time. Patient was seen and examined with Dr. Benjamin. History of Present Illness History of Present Illness This is an 85y M with a PMH of colon ca and subtotal colectomy, CAD, CHF, pacemaker placement, DM2, RA, spinal stenosis, h/o PE, on coumadin, HTN, h/o TIA who presents to the [facility] ED on 10/12/20 with complaints of lower abdominal pain. Patient reports his abdominal pain started yesterday. He states he had some associated back pain with this, but that the back pain is not new to him. As his lower abdominal pain continued to worsen he decided to come to the ER for further evaluation. In the ER a CTA was obtained that revealed moderate to advanced diverticulosis of the remaining colon and the small bowel with inflammatory change in the right mid abdomen involving small bowel loops with adjacent intraperitoneal free air and fluid likely represents acute perforated diverticulitis. There may also be mild diverticulitis of small bowel/colon in the left mid to lower abdomen. There is no organized fluid collection is seen to suggest abscess. Patients WBC normal at 8.8 and patient afebrile with stable vitals. He denies any fevers/chills, nausea/vomiting, or issues with food intake. He does report some lower chest pain and states his lower abdominal pain is improved since arrival. Surgery was consulted for further evaluation. Allergies Allergy/AdvReac Type Severity Reaction Status Date / Time Penicillins Allergy Intermediate HIVES Verified 10/12/20 02:34 shellfish derived Allergy Intermediate HIVES Verified 10/12/20 02:34 Sulfa (Sulfonamide Allergy Intermediate HIVES Verified 10/12/20 02:34 Antibiotics) sulfamethoxazole Allergy Intermediate Hives Verified 10/12/20 02:34 [From Bactrim] trimethoprim [From Bactrim] Allergy Intermediate Hives Verified 10/12/20 02:34 Home Medications Medication Instructions Recorded Confirmed Type melatonin 1 mg tablet 1 mg PO HS PRN 05/05/19 10/12/20 History mjwia-m-naizlorfrcftz 150 unit 1 tab PO QAM tab 08/22/19 10/12/20 History tablet ascorbic acid (vitamin C) 500 mg 500 mg PO QAM tab 08/22/19 10/12/20 History tablet prednisone 5 mg tablet 5 mg PO DAILY #180 tab 10/02/19 10/12/20 History aspirin 81 mg PO QAM 02/06/20 10/12/20 History nitroglycerin 0.4 mg sublingual 0.4 mg SL DIRECTED PRN #25 tab 03/22/20 10/12/20 Rx tablet acetaminophen [Tylenol Extra 500 mg PO Q6H PRN 04/22/20 10/12/20 History Strength] furosemide 40 mg tablet 40 mg PO DAILY PRN #30 tab 05/03/20 10/12/20 Rx Lift Chair #1 ea 05/09/20 10/01/20 Rx hydrocodone 5 mg-acetaminophen 325 1 tab PO Q4H PRN #20 tab 05/28/20 10/12/20 Rx mg tablet docusate sodium 50 mg capsule 50 mg PO DAILY 07/26/20 10/12/20 History fluticasone propionate 50 1 spray INTRANASAL DAILY #16 g 07/26/20 10/12/20 Rx mcg/actuation nasal spray,suspension levocetirizine 5 mg tablet 5 mg PO DAILY PRN #60 tab 07/26/20 10/12/20 Rx albuterol sulfate 90 mcg/actuation 1 inh INHALATION QID PRN #18 g 09/03/20 10/12/20 Rx aerosol inhaler montelukast 10 mg tablet 10 mg PO DAILY #30 tab 09/03/20 10/12/20 Rx atorvastatin 40 mg tablet 40 mg PO HS 30 Days #30 tab 09/23/20 10/12/20 Rx isosorbide mononitrate 30 mg 30 mg PO QAM 30 Days #30 tab 09/23/20 10/12/20 Rx tablet,extended release 24 hr metoprolol tartrate 50 mg tablet 50 mg PO BID 30 Days #60 tab 09/23/20 10/12/20 Rx ranolazine 500 mg tablet,extended 500 mg PO BID 30 Days #60 tab 09/23/20 10/12/20 Rx release,12 hr warfarin 2.5 mg tablet See Rx Instructions PO DAILY #120 09/23/20 10/12/20 Rx tab Patient History Medical History Chest pain Chronic anticoagulation Colon adenoma (09/20/13) Coronary artery arteriosclerosis Cough DM (diabetes mellitus), type 2 Heart disease History of PR (myocardial infarction) History of pacemaker Hyperlipidemia Hypertension Lumbar radicular pain Mobitz (type) I (Wenckebach's) atrioventricular block Mobitz (type) II atrioventricular block Obesity, diabetes, and hypertension syndrome Rheumatoid arthritis Right hip pain Stable angina pectoris Steroid dependent Ventral hernia Surgical History History of bladder surgery History of coronary artery stent placement History of cystoscopy with insertion of ureteral stent History of partial colectomy History of tonsillectomy Status post placement of cardiac pacemaker Family History Sister Cancer Mother Colorectal cancer Diabetes Father Myocardial infarction Stroke Other Allergies Asthma Heart disease TIA (transient ischemic attack) Denies family history of Tuberculosis Ovarian cancer Prostate cancer Breast cancer Emphysema, unspecified Lung disease Social History Smoking Status: Former smoker Tobacco Type: Cigarettes Age Started Using Tobacco: 17; packs per day: 1; Number of Years Since Quit: 30; Second Hand Exposure: No; Hx Alcohol Use: No Hx Substance Use: No Preferred Language: Surinamese Communication Ability: Effective Visual Impairment: No Limitations Hearing Ability: Normal Law Enforcement Instructor Required: No Beliefs That Will Affect Care: None marital status: / Current Living Situation: Parent Current Living Situation Comment: Patient's youngest son lives with him. 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 Feels Safe at Home: Yes caffeine: No Dental Care, Regularly: Yes Physical Activity Frequency: 3-4 Times per Week Seatbelt Use: always Sunscreen Use: No Assistive Devices: None Review of Systems Constitutional: no fever and no chills Respiratory: no dyspnea Cardiovascular: + chest pain (lower chest pain) Gastrointestinal: + abdominal pain (lower abdominal pain); no nausea and no vomiting Physical Exam Physical Exam: awake Constitutional: no acute distress Respiratory: saturating well on supplemental O2 Gastrointestinal (Abdomen): Inspection/Auscultation: + abdomen distended (mild) and + abdominal surgical scar (midline abdominal scar) Percussion/Pa lpation: + abdomen tender (ttp in lower midline and RLQ) and abdomen soft Results & Data ([facility]) Vital Signs (Past 12 Hours) Vital Signs Temp Pulse Pulse Resp BP BP Pulse Ox 10/12/20 08:44 81 16 96 10/12/20 08:13 80 20 135/76 95 10/12/20 07:05 75 20 120/63 99 10/12/20 06:00 68 18 124/66 98 10/12/20 04:13 62 18 117/58 L 98 10/12/20 02:18 36.4 C L 59 L 18 116/[address] ANGIOGRAM OF THE ABDOMEN AND PELVIS COMBO CLINICAL HISTORY: Lower abdominal pain. Low back pain radiating into the legs. COMPARISON STUDY: Abdominal CT dated 09/07/2020. TECHNIQUE: Before and following the IV administration of 119 cc of Optiray 320, CT angiogram of the abdomen and pelvis was performed from the lung bases the proximal femora. Images are reviewed in the axial, sagittal, and coronal planes. 3-D MIPS images are created and assessed. IV contrast was administered without complication. A dose lowering technique was utilized adhering to the principles of ALARA. CT DOSE: 1593.92 mGy.cm FINDINGS: Lower chest: The heart is enlarged and without pericardial effusion. Pacemaker leads are noted. There is patchy airspace consolidation at the left lung base. There is right basilar scarring/atelectasis. There is a small hiatal hernia. A 3.5 cm soft tissue lipoma is seen in the left lower back on image #30. Liver: The contrast-enhanced liver is normal in size, contour, and attenuation. There is no intrahepatic or ductal dilatation. The main portal veins appear patent. Gallbladder: The gallbladder is distended and there are calcified gallstones. There is no clear CT evidence of acute cholecystitis. Spleen: Normal in size and attenuation. Pancreas: Moderately atrophic and grossly unremarkable. Adrenal glands: Unremarkable. Kidneys: The contrast enhanced kidneys are atrophic and without hydronephrosis. A large extrarenal pelvis is seen on the right. Foci of parenchymal scarring are seen bilaterally. No renal calculi are identified in either kidney on the unenhanced series. There are bilateral renal cysts. The largest arises from the right kidney and measures 8.5 cm. Additional subcentimeter cortical hypodensities also likely represent cysts but are too small for definitive characterization. There is an approximately 3.7 cm enhancing lesion identified in the right proximal ureter on image #212. This is unchanged from 09/07/2020 and highly concerning for urothelial neoplasm. The kidneys enhance symmetrically. Abdominal aorta and iliac arteries: There is advanced atherosclerotic plaque seen throughout the abdominal aorta. The abdominal aorta is mildly ectatic. No dissection is seen. No high-grade stenosis is identified. There is advanced atherosclerotic plaque and irregularity seen throughout the iliac arteries. There is approximately 50% focal stenosis of the right common iliac artery seen on image #280. 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 Major branches of the abdominal aorta: The celiac trunk and superior mesenteric artery are widely patent. There is high-grade stenosis at the origin of the inferior mesenteric artery which is otherwise clear. Hepatic arterial anatomy is conventional. The splenic artery is patent. There are 3 left renal arteries and a single right renal artery. There is high-grade stenosis at the origin of the right renal artery, and also the origins of the left renal arteries. Bowel: There is postoperative change from subtotal colectomy with ileocolic anastomosis in the left lower quadrant. No bowel obstruction is seen. There is m oderate to advanced diverticulosis of the remaining left colon, as well as extensive diverticulosis of the small bowel. There is wall thickening with significant surrounding inflammation involving loops of small bowel in the right midabdomen. Mild inflammatory changes also seen around loops of bowel in the left lower quadrant. There are large duodenal diverticula. There is asymmetric rectal wall thickening, best seen on image #400. Peritoneum: Interloop fluid is seen in the right midabdomen and the left lower quadrant. Foci of intraperitoneal free air are seen in the right lower quadrant on image #225. Postoperative change and laxity is seen throughout the ventral abdominal wall with diastases of the rectus musculature. Lymphadenopathy: None. Pelvic viscera: The bladder is distended but otherwise normal in appearance. There is a small right-sided ureterocele. The prostate gland is diminutive and heterogeneous. Skeletal structures: The skeletal structures are osteopenic. No lytic or blastic lesions are seen. IMPRESSION: 1. There is postoperative change from subtotal colectomy with ileocolic anastomosis. No bowel obstruction is identified. 2. There is moderate to advanced diverticulosis of the remaining colon and the small bowel. Inflammatory change in the right mid abdomen involving small bowel loops with adjacent intraperitoneal free air and fluid likely represents acute perforated diverticulitis. There may also be mild diverticulitis of small bowel/colon in the left mid to lower abdomen. 3. No organized fluid collection is seen to suggest abscess. 4. There is a 3.7 cm enhancing lesion identified in the right proximal ureter. This is unchanged from 09/07/2020 and highly concerning for urothelial neoplasm. 5. There is asymmetric rectal wall thickening. This is nonspecific and neoplasm can have this appearance. Consider follow-up with colonoscopy for further assessment. 6. Cholelithiasis without clear evidence of acute cholecystitis. 7. There is airspace consolidation at the left lung base. Correlate clinically for evidence of pneumonia/aspiration pneumonitis. 8. There is advanced atherosclerotic calcification of the abdominal aorta and its major branches. 9. There is high-grade stenosis at the origin of the OTTONIEL as well as bilateral renal arteries. 10. 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 11. Additional findings as above. ACT 112: Negative or not required by law. Electronically signed by: Rakesh Lanier M.D. 10/12/2020 7:58 AM PG Care Time/CCT Total # of Minutes Spent Total Time Spent with Patient: Total time spent is greater than 50% in coordination of care (as documented) at patient's floor/unit and/or counseling patient: Coding Level of Care Code 21907 Office/Outpt Visit, New Diagnoses Diverticulitis K57.92
[2020-10-12] MEDS ORDERED: ACETAMINOPHEN 1,000 MG/100 ML VIAL IV PRN (09:37)
[2020-10-12] MEDS ORDERED: VANCOMYCIN HCL 1,000 MG in SODIUM CHLORIDE 0.9% 250 ML IV SCH (09:37)
[2020-10-12] MEDS ORDERED: ONDANSETRON INJ 2 MG/ML 2 ML VIAL IV PRN (09:37)
[2020-10-12] MEDS: FLUTICASONE PROPIONATE NA SPR 16 GM BTL NAE SCH (11:13)
[2020-10-12 13:50] LABS: Appearance Urine Cloudy (Clear); Blood Urine 3+ (Negative); Color Urine Dark Yellow; Epithelial Cell Urine Auto >30 /lpf (0-5); Glucose Urine UA Negative (Negative); Ketones Urine Trace (Negative); Leukocyte Esterase Urine Trace (Negative); Nitrite Urine Negative (Negative); Protein Urine 1+ (Negative); RBC Urine Automated >30 /hpf (0-4); Specific Gravity Urine > 1.045 (1.000-1.030); Urobilinogen Urine Negative (Negative)
[2020-10-12 13:55] LABS: Bilirubin Urine Negative (Negative); Ictotest Urine Negative (Negative)
--- NOTE | 2020-10-12 14:04 | Hospitalist Progress Note ---
Date of Service October 12, 2020 Assessment & Plan (1) Perforated bowel: As noted on CT. There is also ostial stenosis of the OTTONIEL noted. Would be concerned about the possibility of ischemic bowel versus perforated diverticulum Place on vancomycin IV and meropenem IV N.p.o. NSS at 40 mils per hour Zofran 4 mg IV every 6 hours as needed Famotidine 20 mg IV every 12 hours Consult general surgery Dr. Benjamin, planning conservative management Blood cx pending CTAP not for possible rectal wall neoplasm, will need to pursue further once acute issue is resolved Hx of colon cancer (2) Aspiration pneumonia of left lower lobe: Cover with vancomycin IV and meropenem IV as noted above Duonebs every 4 hours while awake and every 2 hours when necessary. (3) NSTEMI (non-ST elevated myocardial infarction): Troponin 0.351 upon admission, now at 0.186 ECHO pending Holding aspirin, atorvastatin, isosorbide mononitrate, ranolazine, metoprolol titrate and warfarin Cardiology c/s pending Pt has been having chest pain with activity requiring nitro most days for the last 6 weeks, but not all activity (4) Anticoagulated on Coumadin: 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 INR 3.5 on admission, monitor Will not reverse due to concerns regarding worsening the issues with coronary ischemia and bowel ischemia. (5) Pulmonary emboli: See above (6) Acute kidney injury superimposed on chronic kidney disease: Creatinine 1.89 upon admission, with baseline 1.30. Repeat in the a.m. after hydration (7) Rheumatoid arthritis: chronic steroid use, prednisone 5mg QD Start solu-medrol 20mg QD for stress dose steroids Pt is very weak, PT/OT pending Admission and Anticipated Discharge Date Admission Date: October 12, 2020 Subjective Pt states he only has abd pain when he coughs. Denies SOB on O2, but no prior hx of O2 use. Pt denies fever, n/v/c/d, LE pain. Pt has LE swelling that is at his baseline. States he has been getting chest pain 1-5x/day that require nitro over the last 6 weeks. He has an appt to discuss this later this month. Review of Systems Review of Systems: Pertinent positives and negatives reviewed in HPI--all others negative Physical Exam Constitutional: WD/WN, vitals as above Eyes: normal visual bailey by confrontation and + anicteric sclerae Neck: normal visual inspection and trachea midline Respiratory: normal respiratory effort, lungs clear to auscultation Cardiovascular: Rate/Rhythm: regular rate and regular rhythm Gastrointestinal (Abdomen): Inspection/Auscultation: + abdomen distended Percussion/Palpation: abdomen soft; abdomen nontender Musculoskeletal: Head/Neck/Chest: normocephalic and head atraumatic negative for edema, peripheral pulses intact Skin: no rashes, warm and dry Neurologic: awake; not confused Speech / Cognition: normal speech Psychiatric: A+Ox3, euthymic affect Results & Data Results & Data ([facility]) Vital Signs (Past 12 Hours) Vital Signs Temp Pulse Pulse Resp BP BP Pulse Ox 10/12/20 11:32 36.6 C 81 20 130/77 95 10/12/20 09:41 36.6 C 85 20 138/75 98 10/12/20 09:01 82 20 135/80 95 10/12/20 08:44 81 16 96 10/12/20 08:13 80 20 135/76 95 10/12/20 07:05 75 20 120/63 99 10/12/20 06:00 68 18 124/66 98 10/12/20 04:13 62 18 117/58 L 98 10/12/20 02:18 36.4 C L 59 L 18 116/70 98 PG Care Time/CCT Total # of Minutes Spent Total Time Spent with Patient: Total time spent is greater than 50% in coordination of care (as documented) at patient's floor/unit and/or counseling patient: Coding Level of Care Code 33505 Subseq Hosp Care Lvl 3 Diagnoses Perforated bowel K63.1 Aspiration pneumonia of left lower lobe J69.0 Aspiration pneumonia type: unspecified NSTEMI (non-ST elevated myocardial infarction) I21.4 Anticoagulated on Coumadin Z79.01 Pulmonary emboli I26.99 Pulmonary embolism type: unspecified Chronicity: acute Acute cor pulmonale presence: without acute cor pulmonale Acute kidney injury superimposed on chronic kidney disease N17.9; N18.9 Rheumatoid arthritis M06.9 Rheumatoid arthritis location: unspecified site Rheumatoid factor presence: unspecified presence (1) Aspiration pneumonia of left lower lobe Aspiration pneumonia type: unspecified Qualified Code(s): J69.0 - Pneumonitis due to inhalation of food and vomit (2) Pulmonary emboli Pulmonary embolism type: unspecified Chronicity: acute Acute cor pulmonale presence: without acute cor pulmonale Qualified Code(s): I26.99 - Other pulmonary embolism without acute cor pulmonale (3) Rheumatoid arthritis Rheumatoid arthritis location: unspecified site Rheumatoid factor presence: unspecified presence Qualified Code(s): M06.9 - Rheumatoid arthritis, unspecified
[2020-10-12 14:06] LABS: Bacteria Urine Automated 1+ (Negative)
[2020-10-12] MEDS: methylPREDNISolone 20 MG in SYRINGE 0 ML IV SCH (14:46)
--- NOTE | 2020-10-12 16:05 | Pharmacy Report ---
Pharmacy Abx Initial Consult - Date of Service October 12, 2020 - Pharmacy Dosing Scope Date of Consult: 10/12 Consultation requested by: Dr. Ellis Pharmacy is consulted to initiate Vancomcyin IV/PO dosing therapy, order appropriate labs and adjust drug dose/frequency. - Subjective The patient is a 85 year old M admitted on 10/12/20 05:08. - Objective Height: 5 ft 7 in Weight: 87.1 kg Vital Signs (Past 12hrs): Vital Signs Temp Pulse Pulse Resp BP Pulse Ox 10/12/20 15:26 36.8 C 83 20 113/69 93 10/12/20 11:32 36.6 C 81 20 130/77 95 10/12/20 09:41 36.6 C 85 20 138/75 98 10/12/20 09:01 82 20 135/80 95 10/12/20 08:44 81 16 96 10/12/20 08:13 80 20 135/76 95 10/12/20 07:05 75 20 120/63 99 10/12/20 06:00 68 18 124/66 98 10/12/20 04:13 62 18 117/58 L 98 Lab Results (24hrs): Laboratory Tests (24 Hours) 10/12/20 10/12/20 03:02 03:02 WBC 8.88 Neut # (Auto) 8.48 H Creatinine 1.89 H Est Cr Clr Drug Dosing 29.8 Micro Results: 10/12/20 13:34 Urine Culture - Pending Urine,Straight Cath 10/12/20 04:50 Aerobic Blood Culture - Pending Blood Anaerobic Blood Culture - Pending 10/12/20 04:51 Aerobic Blood Culture - Pending Blood Anaerobic Blood Culture - Pending - Risk Factors for Resistance * Immunocompromised (chronic steroid therapy) - Assessment & Plan Assessment 85 year old M presents to ER with complaints of lower abdominal pain which radiates toward his back. Concern about ischemic bowel vs perforated diverticulum. Also concern for aspiration pneumonia of left lower lobe. There is airspace consolidation at the left lung base. Correlate clinically for evidence of pneumonia/aspiration pneumonitis. Plan Vancomycin for treatment of pneumonia Vancomycin IV * Estimated PK Parameters: Vd 0.6 L/kg, Akash 0.029 hr-1, t1/2 23.9 hr * Loading dose: 1500 mg (17.2 mg/kg) * Maintenance dose: 1250 mg IV (14.4 mg/kg) every 24 hours * Goal trough level for pneumonia : 15 to 20 mcg/mL * A less than traditional dose and/or extended dosing interval has/have been selected due to likelihood of drug accumulation in obese patient/patient with h/o CKD. Pharmacy will continue to follow and will adjust dose/frequency as necessary. Thank you.
[2020-10-12] MEDS ORDERED: NITROGLYCERIN SL 0.4 MG/TAB TAB SL PRN (18:47)
[2020-10-12] MEDS: FAMOTIDINE 20 MG in SYRINGE 3 ML IV SCH (20:44)
[2020-10-12] MEDS: NITROGLYCERIN 2% OINTMENT 30GM TUBE EXT SCH (21:58)
--- NOTE | 2020-10-12 22:00 | XRay Report ---
SINGLE VIEW CHEST CLINICAL HISTORY: Hypoxia. FINDINGS: An AP, portable, upright chest radiograph is compared to studies performed earlier the same day 10/12/2020 and correlated with chest CT dated 06/01/2020. The examination is degraded by portable technique and patient rotation. A 2-lead cardiac pacemaker is unchanged in position. The heart is enl arged noting atherosclerotic calcification of the thoracic aorta. There is pulmonary vascular congest ion. Bilateral airspace opacities are new from previous. There are layering pleural effusions with bi basilar consolidation. No pneumothorax is seen. The skeletal structures are osteopenic. There are hea led left-sided rib fractures. IMPRESSION: 1. Cardiomegaly and cardiac pacemaker with evidence of congestive failure. This is new from today's e arlier examination. 2. Bilateral airspace opacities are new from previous and likely represent pulmonary edema. 3. Layering pleural effusions with bibasilar consolidation. ACT 112: Negative or not required by law. Electronically signed by: Rakesh Lanier M.D. 10/12/2020 9:58 PM
[2020-10-12] MEDS ORDERED: ALBUMIN 25% 12.5 GM/50 ML VIAL IV ONE (22:16)
[2020-10-12] MEDS ORDERED: FUROSEMIDE 40 MG in SYRINGE 0 ML IV ONE (22:16)
[2020-10-12 22:25] LABS: Hematocrit (blood only) 39.4 % (42-52); Immature Granulocytes # (auto) 0.12 K/uL (0.00-0.02); Immature Granulocytes % (auto) 0.7 %; Lymphocytes # (auto) 0.33 K/uL (1.2-3.4); Mean Corpuscular Hemoglobin 31.9 pg (25-34); Mean Corpuscular Volume 96.6 fL (80-100); Mean Platelet Volume 10.4 fL (7.4-10.4); Monocytes # (auto) 0.52 K/uL (0.11-0.59); Monocytes % (auto) 3.2 %; Neutrophils # (auto) 15.41 K/uL (1.4-6.5); Neutrophils % (auto) 94.1 %; Platelet Count 135 K/uL (130-400); RDW Coefficient of Variation 14.9 % (11.5-14.5); RDW Standard Deviation 52.5 fL (36.4-46.3); Red Blood Count 4.08 M/uL (4.7-6.1); White Blood Count 16.38 K/uL (4.8-10.8)
[2020-10-12 22:35] LABS: INR 2.9 (0.9-1.1); Prothrombin Time 28.8 Seconds (9.0-12.0)
[2020-10-12 22:42] LABS: Albumin Level 3.3 gm/dl (3.4-5.0); BUN Creatinine Ratio 20.7 (10-20); Calcium 8.8 mg/dl (8.5-10.1); Creatinine Clr Calc Pharmacy 32.9 ml/min; Est GFR (African American) 40.3; Est GFR (Non-African American) 34.7; Potassium 3.8 mmol/L (3.5-5.1)
[2020-10-12 22:45] LABS: Albumin Globulin Ratio 1.1 (0.9-2); Bilirubin,Total 1.1 mg/dl (0.2-1); Globulin 3.1 gm/dl (2.5-4.0); Total Protein 6.4 gm/dl (6.4-8.2)
--- NOTE | 2020-10-13 01:35 | Communication Note ---
Date of Service: October 13, 2020 Acute care management provided since start of shift. Worsening Oxygen requirement. CXR ordered which showed congestive failure which was new from earlier CXR at 6am. Lasix 40mg IV x1 with Albumin ordered. Transient improvement with Lasxi/albumin treatment and noted 850ml output. Still, Increasing supplemental oxygen requirement step vyas escalation with NRB still hypoxic and then improved finally with BiPAP placement. Discussion with Yassine about concerns that would need intubation and concerns that illness will lead to despite full medical management. Yassine wishes not to have intubation or CPR performed. He is resting comfortably on bipap. Will defer further lasix dose as suspect sepsis and worried that will bottom out pressure. Will be difficulty to fluid resuscitate as currently NPO but still had new congestion on CXR in this setting of NPO. Will continue to follow. Labs were checked when CXR was taken, new leukocytosis but on IV steroids. He did also have elevated trop which I was notified of early into the shift. Nursing staff mentioned that he had chest pain earlier today but none currently. He was refusing NTG SL. Nitropaste ordered. There is consideration for possibe ST elevation in II, III, aVF but this was seen as ECG earlier around 6am. No current chest pain. Perforated bowel so not an ideal candidate for anticoagulation. Checked Hgb for acute bleed as cause of decompensation as was previously supratherapeutic INR but no changes noted in Hgb from recent and also INR now 2.9. Orders placed to trend trop. Case reviewed with hospitalist after notification of elevated trop and review of ECGs. Resident Activity Tracking Resident Involvement: Resident Care Provided Care Provided: Adult Hospital Medicine
[2020-10-13] MEDS ORDERED: ALBUMIN 25% 12.5 GM/50 ML VIAL IV ONE (01:53)
[2020-10-13] MEDS ORDERED: FUROSEMIDE 40 MG in SYRINGE 0 ML IV ONE ×2 (01:53→14:30)
[2020-10-13 02:28] LABS: Hematocrit (blood only) 41.3 % (42-52); Hemoglobin 13.7 g/dL (14.0-18.0); Mean Corpuscular Hemoglobin 32.5 pg (25-34); Mean Corpuscular Hgb Conc 33.2 g/dL (32-36); Mean Corpuscular Volume 97.9 fL (80-100); Mean Platelet Volume 10.3 fL (7.4-10.4); Platelet Count 156 K/uL (130-400); RDW Coefficient of Variation 14.9 % (11.5-14.5); RDW Standard Deviation 53.2 fL (36.4-46.3); Red Blood Count 4.22 M/uL (4.7-6.1); White Blood Count 17.73 K/uL (4.8-10.8)
[2020-10-13 02:44] LABS: Partial Thromboplastin Ratio 1.4; Partial Thromboplastin Time 39.8 Seconds (21.0-31.0)
[2020-10-13 02:48] LABS: Echinocytes 1+; Immature Granulocytes # (auto) 0.07 K/uL (0.00-0.02); Immature Granulocytes % (auto) 0.4 %; Lymphocytes # (auto) 0.49 K/uL (1.2-3.4); Lymphocytes % (auto) 2.8 %; Monocytes # (auto) 0.58 K/uL (0.11-0.59); Monocytes % (auto) 3.3 %; Neutrophils # (auto) 16.59 K/uL (1.4-6.5); Neutrophils % (auto) 93.5 %
[2020-10-13 02:51] LABS: Albumin Level 3.4 gm/dl (3.4-5.0); BUN Creatinine Ratio 18.1 (10-20); Calcium 8.9 mg/dl (8.5-10.1); Creatinine Clr Calc Pharmacy 28.7 ml/min; Est GFR (African American) 34.1; Est GFR (Non-African American) 29.4; Potassium 3.3 mmol/L (3.5-5.1)
[2020-10-13 02:54] LABS: Globulin 3.4 gm/dl (2.5-4.0); Total Protein 6.8 gm/dl (6.4-8.2)
[2020-10-13] MEDS ORDERED: MoRPHine SULFATE 2 MG/ML CARP IV STA (03:08)
[2020-10-13] MEDS: POTASSIUM CHLORIDE / WTR 10 MEQ/100 ML PLCT IV SCH ×2 (03:49→04:43)
[2020-10-13] MEDS: NITROGLYCERIN 2% OINTMENT 30GM TUBE EXT SCH ×4 (03:50→23:16)
[2020-10-13] MEDS ORDERED: LORazepam 1 MG/2 ML VIAL IV STA (05:33)
[2020-10-13] MEDS ORDERED: VANCOMYCIN HCL 1,250 MG in SODIUM CHLORIDE 0.9% 250 ML IV SCH (06:00)
[2020-10-13] MEDS ORDERED: PERFLUTREN LIPID MICROSPHERE (DEFINITY) IV ONE (07:29)
[2020-10-13] MEDS: FLUTICASONE PROPIONATE NA SPR 16 GM BTL NAE SCH (07:30)
[2020-10-13] MEDS: methylPREDNISolone 20 MG in SYRINGE 0 ML IV SCH (07:30)
[2020-10-13] MEDS: FAMOTIDINE 20 MG in SYRINGE 3 ML IV SCH ×2 (07:34→21:26)
[2020-10-13 08:18] LABS: INR 2.1 (0.9-1.1); Prothrombin Time 21.7 Seconds (9.0-12.0)
--- NOTE | 2020-10-13 08:25 | Surgery Progress Note ---
Date of Service October 13, 2020 Assessment & Plan (1) Perforated bowel: Events from yesterday and last evening were noted including marked deterioration what appears to be his cardiac status elevated troponins Regarding his abdominal findings are pretty much improved from yesterday except localized tenderness in the right lower quadrant area towards the flank but the rest of the abdomen appears benign by exam At this point I would continue with antibiotic therapy for possible perforation of the diverticular process certainly the patient is not a candidate for any surgery and even without the other issues including cardiac vyas and failure I would still not recommend to take him to surgery unless continue with extremely deteriorated and point toward abdominal process is primary cause of the system failure at this point I do not think we that is the issue Also noted that he was made a DNR by his son which I feel is appropriate with given all the multiple issues that this gentleman is having Present on Admission?: Yes (2) Diverticulitis: Admission and Anticipated Discharge Date Admission Date: October 12, 2020 Subjective Resting comfortably and voices no real acute issues states his belly is only tender on the right side Physical Exam Physical Exam: Patient mental status is similar to what it was yesterday in the emergency room appeared to be slightly confused but at times coherent This time the abdominal exam there is actually softer overall than yesterday there is no localized tenderness except in the right lower quadrant up towards the anterior superior iliac crest area the ventral hernia which was more prominent yesterday appears less prominent today Results & Data ([facility]) Vital Signs (Past 12 Hours) Vital Signs Temp Pulse Pulse Pulse Resp BP Pulse Ox 10/13/20 07:48 90 10/13/20 07:11 99 H 21 93 10/13/20 03:29 36.9 C 99 H 22 159/97 H 92 10/13/20 02:15 104 H 24 94 10/13/20 01:13 95 H 157/95 H 96 10/13/20 01:05 98 H 23 94 10/13/20 00:55 86 L 10/13/20 00:54 110 H 142/88 H 81 L 10/12/20 23:53 36.7 C 94 H 18 148/90 H 92 10/12/20 21:45 104 H 151/94 H 91 noted PG Care Time/CCT Total # of Minutes Spent Total Time Spent with Patient: Total time spent is greater than 50% in coordination of care (as documented) at patient's floor/unit and/or counseling patient: Coding Level of Care Code 12149 Subseq Hosp Care Lvl 3 Diagnoses Perforated bowel K63.1 Diverticulitis K57.92
[2020-10-13] MEDS ORDERED: Heparin IV Standard *NO* Bolus IV SCH (08:46)
[2020-10-13] MEDS: MEROPENEM 500 MG in SYRINGE 0 ML IV SCH ×2 (09:35→21:26)
[2020-10-13] MEDS: HEPARIN SODIUM/DEXTROSE 25,000 UNITS/500 ML BAG IV SCH (09:35)
--- NOTE | 2020-10-13 11:06 | Cardiology Consultation ---
Date of Consultation October 13, 2020 Assessment & Plan (1) Elevated troponin: He has a markedly elevated troponin which is rising currently. This could indicate ongoing demand ischemia since he has severe disease, or could represent an acute myocardial infarction. In either case I do not think there is any role for intervention at this point, we could consider it if things worsen. He will remain n.p.o. overnight and we can reevaluate in the morning, I certainly would not take him to the lab today. (2) Coronary artery arteriosclerosis: He has known severe inoperable coronary artery disease. Conceivably if there is some acute event occurring at this point we could consider intervention, however given his presentation it seems unlikely that this is a primary cardiac event. (3) Cardiac pacemaker: His pacemaker appears to be working well on telemetry. We can interrogate it but that would not alter therapy. (4) Acute systolic CHF (congestive heart failure): He seems to have developed acute congestive heart failure, this could be on the basis of an acute cardiac event or his underlying rhythm and stress resulting in myocardial dysfunction. I would treat him with diuresis and respiratory management as you are doing. History of Present Illness Reason for Consultation: Elevated troponin, CHF Attending Physician: Loren Ferreira, History of Present Illness This is a 85-year-old male who has a history of hypertension, dyslipidemia, AV block for which a dual-chamber pacemaker was implanted here on February 01, 2020, as well as longstanding coronary artery disease. Historically his procedures were done at [facility] where he had multiple stents placed. We did perform cardiac catheterization here May 28, 2020 where severe inoperable three-vessel coronary artery disease was confirmed. He presented here on October 12, 2020 with lower abdominal pain and was identified as having a perforated bowel. This is being followed medically at the moment in part due to his other medical situation including his cardiac status. As I understand it and talking to the staff he was conversational and appropriate yesterday but overnight took a turn to the worse, required sedation and appeared to be in congestive heart failure. Today at the time of my examination he is fidgety however not responding appropriately and he is on BiPAP. From the cardiac standpoint he may have been having worsening of anginal symptoms over the last several months but that was not evaluated in our office as yet although he has an upcoming appointment he was waiting for, his electrocardiogram shows a ventricularly paced rhythm and he has had multiple electrocardiograms done but they cannot be read for ischemia due to his ventricular pacing and wide QRS complex. His troponin is markedly elevated however, it was 0.186 on arrival however has been steadily rising and most recently was 9.48. His echocardiogram done this morning shows severe left ventricular dysfunction, I looked at his echocardiogram but did not compare directly to his last 1 which was reported as showing ejection fraction of 35%. Currently I suspect it is less. Allergies Allergy/AdvReac Type Severity Reaction Status Date / Time Penicillins Allergy Intermediate HIVES Verified 10/12/20 02:34 shellfish derived Allergy Intermediate HIVES Verified 10/12/20 02:34 Sulfa (Sulfonamide Allergy Intermediate HIVES Verified 10/12/20 02:34 Antibiotics) sulfamethoxazole Allergy Intermediate Hives Verified 10/12/20 02:34 [From Bactrim] trimethoprim [From Bactrim] Allergy Intermediate Hives Verified 10/12/20 02:34 Home Medications Medication Instructions Recorded Confirmed Type melatonin 1 mg tablet 1 mg PO HS PRN 05/05/19 10/12/20 History [id number]-[id number] 150 unit 1 tab PO QAM tab 08/22/19 10/12/20 History tablet ascorbic acid (vitamin C) 500 mg 500 mg PO QAM tab 08/22/19 10/12/20 History tablet prednisone 5 mg tablet 5 mg PO DAILY #180 tab 10/02/19 10/12/20 History aspirin 81 mg PO QAM 02/06/20 10/12/20 History nitroglycerin 0.4 mg sublingual 0.4 mg SL DIRECTED PRN #25 tab 03/22/20 10/12/20 Rx tablet acetaminophen [Tylenol Extra 500 mg PO Q6H PRN 04/22/20 10/12/20 History Strength] furosemide 40 mg tablet 40 mg PO DAILY PRN #30 tab 05/03/20 10/12/20 Rx Lift Chair #1 ea 05/09/20 10/01/20 Rx hydrocodone 5 mg-acetaminophen 325 1 tab PO Q4H PRN #20 tab 05/28/20 10/12/20 Rx mg tablet docusate sodium 50 mg capsule 50 mg PO DAILY 07/26/20 10/12/20 History fluticasone propionate 50 1 spray INTRANASAL DAILY #16 g 07/26/20 10/12/20 Rx mcg/actuation nasal spray,suspension levocetirizine 5 mg tablet 5 mg PO DAILY PRN #60 tab 07/26/20 10/12/20 Rx albuterol sulfate 90 mcg/actuation 1 inh INHALATION QID PRN #18 g 09/03/20 10/12/20 Rx aerosol inhaler montelukast 10 mg tablet 10 mg PO DAILY #30 tab 09/03/20 10/12/20 Rx atorvastatin 40 mg tablet 40 mg PO HS 30 Days #30 tab 09/23/20 10/12/20 Rx isosorbide mononitrate 30 mg 30 mg PO QAM 30 Days #30 tab 09/23/20 10/12/20 Rx tablet,extended release 24 hr metoprolol tartrate 50 mg tablet 50 mg PO BID 30 Days #60 tab 09/23/20 10/12/20 Rx ranolazine 500 mg tablet,extended 500 mg PO BID 30 Days #60 tab 09/23/20 10/12/20 Rx release,12 hr warfarin 2.5 mg tablet See Rx Instructions PO DAILY #120 09/23/20 10/12/20 Rx tab Patient History Medical History (Updated 10/13/20 @ 11:50 by Nitin Rainey MD) Chest pain Chronic anticoagulation Colon adenoma (09/20/13) Coronary artery arteriosclerosis Cough DM (diabetes mellitus), type 2 Heart disease History of CA (myocardial infarction) History of pacemaker Hyperlipidemia Hypertension Lumbar radicular pain Mobitz (type) I (Wenckebach's) atrioventricular block Mobitz (type) II atrioventricular block Obesity, diabetes, and hypertension syndrome Rheumatoid arthritis Right hip pain Stable angina pectoris Steroid dependent Ventral hernia Surgical History History of bladder surgery History of coronary artery stent placement History of cystoscopy with insertion of ureteral stent History of partial colectomy History of tonsillectomy Status post placement of cardiac pacemaker Family History Sister Cancer Mother Colorectal cancer Diabetes Father Myocardial infarction Stroke Other Allergies Asthma Heart disease TIA (transient ischemic attack) Denies family history of Tuberculosis Ovarian cancer Prostate cancer Breast cancer Emphysema, unspecified Lung disease Social History Smoking Status: Former smoker Tobacco Type: Cigarettes Age Started Using Tobacco: 17; packs per day: 1; Number of Years Since Quit: 30; Second Hand Exposure: No; Hx Alcohol Use: No Hx Substance Use: No Preferred Language: Chinese Communication Ability: Effective Visual Impairment: No Limitations Hearing Ability: Normal 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 He is on BiPAP. HEENT: Unremarkable Neck: No jugular venous distention, carotid pulses are normal and equal bilaterally without bruits. Pulmonary: Bilateral rales on auscultation. Cardiac: Regular rhythm with no murmur, gallop or rub. Abdomen: Soft, nontender with diminished bowel sounds. Extremities: No edema. Neurologic: No focal findings on limited exam. Gait was not tested. Skin: The device site is well-healed without erythema, swelling or tenderness. No rash, ecchymoses or petechiae. Results & Data ([facility]) Vital Signs (Past 12 Hours) Vital Signs Temp Pulse Pulse Resp BP Pulse Ox 10/13/20 08:40 36.8 C 88 20 150/92 H 96 10/13/20 07:48 90 10/13/20 07:11 99 H 21 93 10/13/20 03:29 36.9 C 99 H 22 159/97 H 92 10/13/20 02:15 104 H 24 94 10/13/20 01:13 95 H 157/95 H 96 10/13/20 01:05 98 H 23 94 10/13/20 00:55 86 L 10/13/20 00:54 110 H 142/88 H 81 L 10/12/20 23:53 36.7 C 94 H 18 148/90 H 92 Laboratory Results Cardiac Enzymes 10/12/20 10/12/20 10/12/20 Range/Units 11:24 19:50 22:16 AST 51 H (15-37) U/L Troponin I 0.186 H* 3.330 H* (0-0.045) ng/ml 10/13/20 10/13/20 10/13/20 Range/Units 02:06 02:06 07:42 AST 65 H (15-37) U/L Troponin I 6.300 H* 9.480 H* (0-0.045) ng/ml Coagulation 10/12/20 10/13/20 10/13/20 Range/Units 22:16 02:06 07:42 PT 28.8 H 21.7 H (9.0-12.0) Seconds APTT 39.8 H (21.0-31.0) Seconds CBC 10/12/20 10/13/20 Range/Units 22:16 02:06 WBC 16.38 H 17.73 H (4.8-10.8) K/uL RBC 4.08 L 4.22 L (4.7-6.1) M/uL Hgb 13.0 L 13.7 L (14.0-18.0) g/dL Hct 39.4 L 41.3 L (42-52) % Plt Count 135 156 (130-400) K/uL Neut # (Auto) 15.41 H 16.59 H (1.4-6.5) K/uL Lymph # (Auto) 0.33 L 0.49 L (1.2-3.4) K/uL [place] # (Auto) 0.52 0.58 (0.11-0.59) K/uL Eos # (Auto) 0.00 0.00 (0-0.5) K/uL Baso # (Auto) 0.00 0.00 (0-0.2) K/uL Comprehensive Metabolic Panel 10/12/20 10/13/20 Range/Units 22:16 02:06 Sodium 141 141 (136-145) mmol/L Potassium 3.8 3.3 L (3.5-5.1) mmol/L Chloride 110 H 107 (98-107) mmol/L Carbon Dioxide 22 25 (21-32) mmol/L BUN 36 H 37 H (7-18) mg/dl Creatinine 1.76 H 2.02 H (0.6-1.4) mg/dl Glucose 160 H 169 H (70-99) mg/dl Calcium 8.8 8.9 (8.5-10.1) mg/dl AST 51 H 65 H (15-37) U/L ALT 20 23 (12-78) U/L Alkaline Phosphatase 57 62 (45-117) U/L Total Protein 6.4 6.8 (6.4-8.2) gm/dl Albumin 3.3 L 3.4 (3.4-5.0) gm/dl Intake and Output 10/12/20 10/13/20 10/13/20 22:59 06:59 14:59 Intake Total 565 / 1179 Output Total 350 / 2200 950 / 2200 Balance -350 / -1021 -385 / -1021 Intake: IV 565 / 1179 ALBUMIN 25% 12.5 gm In 50 ml @ 100 / 100 50 mls/hr IV ONE ONE Rx#: [id number] K RIDER / WTR 10 meq In 100 ml 190 / 190 @ 100 mls/hr IV Q1H [facility] Rx#: [id number] Vancomycin HCl 1,250 mg In Nss 275 / 275 250 ml @ 200 mls/hr IV Q24H [facility] Rx#:[id number] Output: Urine Amount (Catheter) 350 / 2050 950 / 2050 López/Indwelling 950 / 950 Straight 350 / 1100 Other: Other Intake Source oral care Weight 87.1 kg 86 kg Weight Measurement Method Built in [facility] Diagnostic Findings Telemetry: Sinus rhythm with ventricular pacing, appropriate heart rates. PG Care Time/CCT Total # of Minutes Spent Total Time Spent with Patient: Total time spent is greater than 50% in coordination of care (as documented) at patient's floor/unit and/or counseling patient: Coding Level of Care Code 79404 Initial Inpt Care Lvl 3 Diagnoses Elevated troponin R77.8 Coronary artery arteriosclerosis I25.10 Cardiac pacemaker Z95.0 Acute systolic CHF (congestive heart failure) I50.21
--- NOTE | 2020-10-13 12:12 | XCELERA ---
[id number]
--- NOTE | 2020-10-13 13:54 | Hospitalist Progress Note ---
Date of Service October 13, 2020 Assessment & Plan (1) Perforated bowel: As noted on CT. There is also ostial stenosis of the OTTONIEL noted. Would be concerned about the possibility of ischemic bowel versus perforated diverticulum Place on vancomycin IV and meropenem IV on admission, d/c vanco given neg MRSA N.p.o. NSS at 40 mils per hour Zofran 4 mg IV every 6 hours as needed Famotidine 20 mg IV every 12 hours Consult general surgery Dr. Benjamin, planning conservative management given status Blood cx pending Abn UA noted, urine cx pending CTAP not for possible rectal wall neoplasm, will need to pursue further once acute issue is resolved Hx of colon cancer (2) Aspiration pneumonia of left lower lobe: Cover with vancomycin IV and meropenem IV as noted above Duonebs every 4 hours while awake and every 2 hours when necessary. (3) NSTEMI (non-ST elevated myocardial infarction): Troponin 0.351 upon admission with initial decrease, however now elevated to 9.4 ECHO with EF 25-30%, areas of hypokinesis, conduction abnormality Holding aspirin, atorvastatin, isosorbide mononitrate, ranolazine, metoprolol titrate and warfarin Cardiology concerns for acute DE vs worsening demand ischemia in the setting of above Started on heparin drip this AM, no bolus due to hx of coumadin use and supratherapeutic on admission INR down to 2.1, will hold coumadin given heparin drip Pt has been having chest pain with activity requiring nitro most days for the last 6 weeks, but not all activity Cath 05/28/20 noted for severe multilevel disease, however not a candidate for aggressive intervention per cardiology call to [facility] at that time (4) Anticoagulated on Coumadin: 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 INR 3.5 on admission and improved to 2.1 with holdiing coumadin Was not reversed due to concerns regarding worsening the issues with coronary ischemia and bowel ischemia. (5) Pulmonary emboli: See above (6) Acute kidney injury superimposed on chronic kidney disease: Creatinine 1.89 upon admission, with baseline 1.30. Repeat in the a.m. after hydration (7) Rheumatoid arthritis: chronic steroid use, prednisone 5mg QD Start solu-medrol 20mg QD for stress dose steroids Admission and Anticipated Discharge Date Admission Date: October 12, 2020 Subjective Pt with decompensation overnight. Increased to BIPAP and stable, however pt is not answering questions today. Review of Systems Review of Systems: Unable to obtain Physical Exam Constitutional: WD/WN, vitals as above Eyes: normal visual bailey by confrontation and + anicteric sclerae Neck: normal visual inspection and trachea midline Respiratory: + labored breathing Auscultation: + crackles Cardiovascular: Rate/Rhythm: regular rate and regular rhythm Gastrointestinal (Abdomen): Inspection/Auscultation: + abdomen distended Percussion/Palpation: abdomen soft; abdomen nontender Musculoskeletal: Head/Neck/Chest: normocephalic and head atraumatic Skin: no rashes, warm and dry Neurologic: + obtunded; + not awake Psychiatric: Orientation: + not alert Results & Data Results & Data ([facility]) Vital Signs (Past 12 Hours) Vital Signs Temp Pulse Pulse Resp BP Pulse Ox 10/13/20 11:53 36.7 C 105 H 22 145/93 H 90 10/13/20 11:22 91 H 19 98 10/13/20 08:40 36.8 C 88 20 150/92 H 96 10/13/20 07:48 90 10/13/20 07:11 99 H 21 93 10/13/20 03:29 36.9 C 99 H 22 159/97 H 92 10/13/20 02:15 104 H 24 94 PG Care Time/CCT Total # of Minutes Spent Total Time Spent with Patient: Total time spent is greater than 50% in coordination of care (as documented) at patient's floor/unit and/or counseling patient: Coding Level of Care Code 12692 Subseq Hosp Care Lvl 3 Diagnoses Perforated bowel K63.1 Aspiration pneumonia of left lower lobe J69.0 Aspiration pneumonia type: unspecified NSTEMI (non-ST elevated myocardial infarction) I21.4 Anticoagulated on Coumadin Z79.01 Pulmonary emboli I26.99 Pulmonary embolism type: unspecified Chronicity: acute Acute cor pulmonale presence: without acute cor pulmonale Acute kidney injury superimposed on chronic kidney disease N17.9; N18.9 Rheumatoid arthritis M06.9 Rheumatoid arthritis location: unspecified site Rheumatoid factor presence: unspecified presence (1) Aspiration pneumonia of left lower lobe Aspiration pneumonia type: unspecified Qualified Code(s): J69.0 - Pneumonitis due to inhalation of food and vomit (2) Pulmonary emboli Pulmonary embolism type: unspecified Chronicity: acute Acute cor pulmonale presence: without acute cor pulmonale Qualified Code(s): I26.99 - Other pulmonary embolism without acute cor pulmonale (3) Rheumatoid arthritis Rheumatoid arthritis location: unspecified site Rheumatoid factor presence: unspecified presence Qualified Code(s): M06.9 - Rheumatoid arthritis, unspecified
[2020-10-13] MEDS ORDERED: LORazepam 0.5 MG/1 ML VIAL IV STA (15:55)
[2020-10-13] MEDS ORDERED: LORazepam 2 MG/4 ML VIAL ONE (15:57)
[2020-10-13 16:27] LABS: Partial Thromboplastin Ratio 3.9
[2020-10-13 16:41] LABS: Partial Thromboplastin Time 109.1 Seconds (21.0-31.0)
[2020-10-13] MEDS: ALBUT/IPRATROP 3MG/0.5MG NEB 3 ML VIAL NEB PRN (23:40)
[2020-10-14 00:59] LABS: Partial Thromboplastin Ratio 2.6
[2020-10-14 01:04] LABS: Partial Thromboplastin Time 73.3 Seconds (21.0-31.0)
[2020-10-14] MEDS: NITROGLYCERIN 2% OINTMENT 30GM TUBE EXT SCH ×4 (03:18→22:05)
[2020-10-14] MEDS: ALBUT/IPRATROP 3MG/0.5MG NEB 3 ML VIAL NEB PRN (05:37)
--- NOTE | 2020-10-14 06:15 | Electrocardiogram Report ---
Test Reason : Blood Pressure : / mmHG Vent. Rate : 058 BPM Atrial Rate : 058 BPM P-R Int : 182 ms QRS Dur : 204 ms QT Int : 508 ms P-R-T Axes : 088 -66 113 degrees QTc Int : 498 ms Poor data quality, interpretation may be adversely affected Atrial-sensed ventricular-paced rhythm Abnormal ECG When compared with ECG of 27-MAY-2020 12:51, Premature ventricular complexes are no longer Present Vent. rate has decreased BY 18 BPM Confirmed by Nitin Rainey ([id number]) on 10/14/2020 6:15:29 AM Referred By: REFERRED SELF Confirmed By:Nitin Rainey
--- NOTE | 2020-10-14 06:16 | Electrocardiogram Report ---
Test Reason : Blood Pressure : / mmHG Vent. Rate : 075 BPM Atrial Rate : 075 BPM P-R Int : 218 ms QRS Dur : 196 ms QT Int : 466 ms P-R-T Axes : 066 -67 111 degrees QTc Int : 520 ms Poor data quality, interpretation may be adversely affected Atrial-sensed ventricular-paced rhythm with prolonged AV conduction Abnormal ECG When compared with ECG of 12-OCT-2020 03:52, (unconfirmed) Vent. rate has increased BY 17 BPM Confirmed by Nitin Rainey ([id number]) on 10/14/2020 6:15:45 AM Referred By: REFERRED SELF Confirmed By:Nitin Rainey
--- NOTE | 2020-10-14 06:34 | Electrocardiogram Report ---
Test Reason : Blood Pressure : / mmHG Vent. Rate : 097 BPM Atrial Rate : 097 BPM P-R Int : 218 ms QRS Dur : 162 ms QT Int : 384 ms P-R-T Axes : 036 -72 101 degrees QTc Int : 487 ms Atrial-sensed ventricular-paced rhythm with prolonged AV conduction Abnormal ECG When compared with ECG of 12-OCT-2020 06:22, (unconfirmed) Vent. rate has increased BY 22 BPM Confirmed by Nitin Rainey ([id number]) on 10/14/2020 6:34:00 AM Referred By: REFERRED SELF Confirmed By:Nitin Rainey
--- NOTE | 2020-10-14 06:36 | Electrocardiogram Report ---
Test Reason : Blood Pressure : / mmHG Vent. Rate : 086 BPM Atrial Rate : 086 BPM P-R Int : 210 ms QRS Dur : 198 ms QT Int : 452 ms P-R-T Axes : 061 -69 094 degrees QTc Int : 540 ms Atrial-sensed ventricular-paced rhythm with prolonged AV conduction Abnormal ECG When compared with ECG of 12-OCT-2020 06:22, (unconfirmed) Vent. rate has increased BY 11 BPM Confirmed by Nitin Rainey ([id number]) on 10/14/2020 6:35:50 AM Referred By: REFERRED SELF Confirmed By:Nitin Rainey
--- NOTE | 2020-10-14 06:41 | Electrocardiogram Report ---
Test Reason : Blood Pressure : / mmHG Vent. Rate : 094 BPM Atrial Rate : 094 BPM P-R Int : 182 ms QRS Dur : 196 ms QT Int : 432 ms P-R-T Axes : 055 -81 090 degrees QTc Int : 540 ms Poor data quality, interpretation may be adversely affected Atrial-sensed ventricular-paced rhythm with Premature ventricular complexes Abnormal ECG When compared with ECG of 12-OCT-2020 20:38, (unconfirmed) Premature ventricular complexes is now Present Vent. rate has increased BY 8 BPM Confirmed by Nitin Rainey ([id number]) on 10/14/2020 6:41:46 AM Referred By: REFERRED SELF Confirmed By:Nitin Rainey
[2020-10-14] MEDS: HEPARIN SODIUM/DEXTROSE 25,000 UNITS/500 ML BAG IV SCH ×2 (07:36→19:13)
[2020-10-14 07:51] LABS: Basophils # (auto) 0.01 K/uL (0-0.2); Basophils % (auto) 0.1 %; Hematocrit (blood only) 40.7 % (42-52); Hemoglobin 13.4 g/dL (14.0-18.0); Immature Granulocytes # (auto) 0.07 K/uL (0.00-0.02); Immature Granulocytes % (auto) 0.4 %; Lymphocytes # (auto) 0.71 K/uL (1.2-3.4); Lymphocytes % (auto) 4.1 %; Mean Corpuscular Hemoglobin 31.7 pg (25-34); Mean Corpuscular Hgb Conc 32.9 g/dL (32-36); Mean Corpuscular Volume 96.2 fL (80-100); Monocytes # (auto) 0.92 K/uL (0.11-0.59); Monocytes % (auto) 5.3 %; Neutrophils # (auto) 15.58 K/uL (1.4-6.5); Neutrophils % (auto) 90.1 %; Platelet Count 163 K/uL (130-400); RDW Coefficient of Variation 14.9 % (11.5-14.5); RDW Standard Deviation 52.2 fL (36.4-46.3); Red Blood Count 4.23 M/uL (4.7-6.1); White Blood Count 17.29 K/uL (4.8-10.8)
[2020-10-14 08:15] LABS: INR 1.4 (0.9-1.1); Partial Thromboplastin Ratio 2.4; Prothrombin Time 14.9 Seconds (9.0-12.0)
[2020-10-14 08:18] LABS: BUN Creatinine Ratio 27.1 (10-20); Calcium 9.5 mg/dl (8.5-10.1); Creatinine Clr Calc Pharmacy 30.4 ml/min; Est GFR (African American) 36.9; Est GFR (Non-African American) 31.9; Magnesium 2.2 mg/dl (1.8-2.4); Potassium 3.6 mmol/L (3.5-5.1)
--- NOTE | 2020-10-14 08:18 | Surgery Progress Note ---
Date of Service October 14, 2020 Assessment & Plan (1) Perforated bowel: At this point we will start the patient on some clear liquids continue with IV antibiotics and continue with nonoperative management given all the comorbid condition Present on Admission?: Yes Admission and Anticipated Discharge Date Admission Date: October 12, 2020 Subjective Appears more alert this morning wanting something to drink denies any abdominal pain except in his right lower quadrant Physical Exam Physical Exam: Much more alert and coherent yesterday overall he looks much better The abdomen is minimally distended right lower quadrant tenderness persists but not significantly changed from yesterday Results & Data ([facility]) Vital Signs (Past 12 Hours) Vital Signs Temp Pulse Pulse Resp BP BP Pulse Ox 10/14/20 07:39 36.7 C 96 H 15 143/92 H 92 10/14/20 05:37 102 H 24 87 L 10/14/20 03:31 37 C 106 H 22 149/93 H 91 10/14/20 02:05 110 H 10/13/20 23:40 101 H 18 92 10/13/20 23:31 36.4 C L 105 H 22 148/97 H 90 PG Care Time/CCT Total # of Minutes Spent Total Time Spent with Patient: Total time spent is greater than 50% in coordination of care (as documented) at patient's floor/unit and/or counseling patient: Coding Level of Care Code 99081 Subseq Hosp Care Lvl 2 Diagnoses Perforated bowel K63.1
[2020-10-14 08:21] LABS: Partial Thromboplastin Time 66.5 Seconds (21.0-31.0)
[2020-10-14 08:23] LABS: Albumin Globulin Ratio 0.9 (0.9-2); Globulin 3.5 gm/dl (2.5-4.0); Total Protein 6.5 gm/dl (6.4-8.2)
[2020-10-14] MEDS: FLUTICASONE PROPIONATE NA SPR 16 GM BTL NAE SCH (09:08)
[2020-10-14] MEDS: methylPREDNISolone 20 MG in SYRINGE 0 ML IV SCH (09:08)
[2020-10-14] MEDS: MEROPENEM 500 MG in SYRINGE 0 ML IV SCH ×2 (09:12→18:35)
[2020-10-14] MEDS: FAMOTIDINE 20 MG in SYRINGE 3 ML IV SCH ×2 (10:24→20:14)
--- NOTE | 2020-10-14 10:56 | Hospitalist Progress Note ---
Date of Service October 14, 2020 Assessment & Plan (1) Perforated bowel: As noted on CT. There is also ostial stenosis of the OTTONIEL noted. Would be concerned about the possibility of ischemic bowel versus perforated diverticulum Placed on vancomycin IV and meropenem IV on admission, d/c vanco given neg MRSA surgery has permitted clear diet and Dr Benjamin is following Zofran 4 mg IV every 6 hours as needed Famotidine 20 mg IV every 12 hours Blood cx negative to date Abn UA noted, urine cx < 1000 CTAP not for possible rectal wall neoplasm, will need to pursue further once acute issue is resolved Hx of colon cancer (2) Aspiration pneumonia of left lower lobe: Cover with vancomycin IV and meropenem IV as noted above Duonebs every 4 hours while awake and every 2 hours when necessary. (3) NSTEMI (non-ST elevated myocardial infarction): Troponin 0.351 upon admission with initial decrease, however now elevated to 9.4 ECHO with EF 25-30%, areas of hypokinesis, conduction abnormality Holding aspirin, atorvastatin, isosorbide mononitrate, ranolazine, metoprolol titrate and warfarin Cardiology concerns for acute CO vs worsening demand ischemia in the setting of above Started on heparin drip no bolus due to hx of coumadin use and supratherapeutic on admission Pt has been having chest pain with activity requiring nitro most days for the last 6 weeks, but not all activity Cath 05/28/20 noted for severe multilevel disease, however not a candidate for aggressive intervention per cardiology call to [facility] at that time (4) Anticoagulated on Coumadin: 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 INR 3.5 on admission and improved to 2.1 with holdiing coumadin Was not reversed due to concerns regarding worsening the issues with coronary ischemia and bowel ischemia. (5) Pulmonary emboli: See above (6) Acute kidney injury superimposed on chronic kidney disease: Creatinine 1.89 upon admission, staying in that range (7) Rheumatoid arthritis: chronic steroid use, prednisone 5mg QD Start solu-medrol 20mg QD for stress dose steroids Admission and Anticipated Discharge Date Admission Date: October 12, 2020 Subjective This pt is delirious and confused, he cannot offer focal complaints, has had various issue through the day with heart rate being slow and occasional ectopy, will have palliative consult now is DNR Review of Systems Review of Systems: Mild to moderate distress and fatigue no c/o headache, blurry or double vision no speech or swallowing issues no chest pain, pressure or palpitations seems to have shortness of breath but denies, cough or wheezes no abdominal pain, nausea or vomiting, diarrhea or constipation no dysuria, hematuria or frequency no focal joint pain or swelling no back pain, CVA tenderness or radicular pain no bruising, bleeding or rashes PT states " Im " Physical Exam Physical Exam: The patient appeared chronically Ill and debilitated Vital signs as documented. Head exam is normocephalic atraumatic no scleral icterus Neck is without JVD, thyromegaly, or carotid bruits. Lungs are diminished at the bases Cardiac exam, Rhythm is bradycardic at times.. No murmurs, rubs or gallops. Abdominal exam reveals normal bowel sounds, soft non tender, no masses Extremities are nonedematous Neurologic exam is alert and follows commands Results & Data Results & Data ([facility]) Vital Signs (Past 12 Hours) Vital Signs Temp Pulse Pulse Resp BP BP Pulse Ox 10/14/20 07:39 98.1 F 96 H 15 143/92 H 92 10/14/20 07:00 99 H 10/14/20 05:37 102 H 24 87 L 10/14/20 03:31 98.6 F 106 H 22 149/93 H 91 10/14/20 02:05 110 H 10/13/20 23:40 101 H 18 92 10/13/20 23:31 97.5 F L 105 H 22 148/97 H 90 PG Care Time/CCT Total # of Minutes Spent Total Time Spent with Patient: Total time spent is greater than 50% in coordination of care (as documented) at patient's floor/unit and/or counseling patient: Coding Level of Care Code 05648 Subseq Hosp Care Lvl 3 Diagnoses Perforated bowel K63.1 Aspiration pneumonia of left lower lobe J69.0 Aspiration pneumonia type: unspecified NSTEMI (non-ST elevated myocardial infarction) I21.4 Anticoagulated on Coumadin Z79.01 Pulmonary emboli I26.99 Acute cor pulmonale presence: without acute cor pulmonale Chronicity: acute Pulmonary embolism type: unspecified Acute kidney injury superimposed on chronic kidney disease N17.9; N18.9 Rheumatoid arthritis M06.9 Rheumatoid arthritis location: unspecified site Rheumatoid factor presence: unspecified presence (1) Rheumatoid arthritis Rheumatoid arthritis location: unspecified site Rheumatoid factor presence: unspecified presence Qualified Code(s): M06.9 - Rheumatoid arthritis, unspecified (2) Aspiration pneumonia of left lower lobe Aspiration pneumonia type: unspecified Qualified Code(s): J69.0 - Pneumonitis due to inhalation of food and vomit (3) Pulmonary emboli Acute cor pulmonale presence: without acute cor pulmonale Chronicity: acute Pulmonary embolism type: unspecified Qualified Code(s): I26.99 - Other pulmonary embolism without acute cor pulmonale
[2020-10-14 16:18] LABS: Partial Thromboplastin Ratio 2.1
[2020-10-14 16:45] LABS: Partial Thromboplastin Time 57.5 Seconds (21.0-31.0)
[2020-10-14] MEDS ORDERED: GLUCAGON FOR INJ 1 MG VIAL SQ PRN (17:05)
[2020-10-14] MEDS ORDERED: GLUCOSE 40% GEL 15 GM TUBE PO PRN (17:05)
[2020-10-14] MEDS ORDERED: GLUCOSE 10 TABS/TUBE PO PRN (17:05)
[2020-10-14] MEDS ORDERED: CARBOHYDRATES FOR HYPOGLYCEMIA PO PRN (17:05)
[2020-10-14] MEDS ORDERED: DEXTROSE 50% 50 ML SYRINGE IV PRN (17:05)
[2020-10-14] MEDS ORDERED: PHARMACY GLYCEMIC MGMT CONSULT PRN (17:08)
[2020-10-14] MEDS ORDERED: LANTUS PER UNIT CHARGE SQ ONE (17:45)
--- NOTE | 2020-10-14 18:02 | Pharmacy Report ---
Glycemic Control Consultation - Date of Service October 14, 2020 - Scope Scope: Glycemic Pharmacist consulted for glycemic control and to write orders per [facility] inpatient glycemic control protocol. - Objective Weight: 85.5 kg Accuchecks BSG (last 24hrs): 10/14/20 10/14/20 07:28 16:22 Glucose 188 H POC Glucose 247 H Laboratory Data (last 24hrs): 10/14/20 07:28 Potassium 3.6 Carbon Dioxide 23 Anion Gap 9.0 Creatinine 1.89 H Est Cr Clr Drug Dosing 30.4 - Recent Pertinent Medications Outpatient Anti-diabetic Regimen: * None * A1c = 7.3% (09/16/2020) Risk Factors for Insulin Resistance: * Steroids: * Methylprednisolone 20 mg IV daily * Infection: * Meropenem 500 mg IV Q8H * Diet: * Clear Liquid - Assessment & Plan Assessment & Plan: ASSESSMENT: * 85 yo M admitted on 10/12/2020 secondary to perforated bowel. Pharmacy was consulted this evening (10/14/2020) for inpatient glycemic management. Patient has a h/o T2DM previously on Metformin but now does not take any antidiabetic medications. * 10/12: Patient was NPO and started on methylprednisolone 20 mg IV daily. BSGs were 129 and 177 mg/dL. No insulin was ordered. * 10/13: Patient remained NPO and continued steroids. He was also started on a heparin gtt. Only BSG was 169 mg/dL in the AM. * 10/14: Patient started on clear liquid diet, continued steroids and heparin gtt. BSG this evening was 247 mg/dL which prompted a pharmacy glycemic consult. * Starting patient on Novolog based on a weight/stress of 1-2 along with a one time dose of Lantus 10 units. PLAN FOR INPATIENT GLYCEMIC CONTROL: * Basal insulin * Lantus 10 units SQ x 1 * Bolus insulin * NovoLog per scale ACHS or Q6hrs while NPO * Goal Range: Low 120 mg/dL - High 150 mg/dL * Correction Factor: 30 mg/dL/unit * Nutritional / Prandial insulin per carb ratio of 1 unit per 10 grams CHO consumed * Please note that the plan above was derived based on current level of insulin resistance and hospital stress. These recommendations are appropriate for inpatient admission only. Plan of care upon discharge will need to be reassessed to avoid potential outpatient hypo/hyperglycemia. Thank you.
[2020-10-14] MEDS: INSULIN ASPART 100 UNITS/ML 3 ML PEN SC SCH ×3 (18:36→23:35)
[2020-10-15] MEDS: MEROPENEM 500 MG in SYRINGE 0 ML IV SCH ×2 (02:14→10:35)
[2020-10-15] MEDS ORDERED: LORazepam 0.5 MG/1 ML VIAL IV STA (04:16)
[2020-10-15] MEDS ORDERED: LORazepam 2 MG/4 ML VIAL ONE (04:26)
[2020-10-15] MEDS: HEPARIN SODIUM/DEXTROSE 25,000 UNITS/500 ML BAG IV SCH ×2 (04:33→06:43)
[2020-10-15] MEDS: NITROGLYCERIN 2% OINTMENT 30GM TUBE EXT SCH ×4 (04:35→23:32)
[2020-10-15] MEDS: INSULIN ASPART 100 UNITS/ML 3 ML PEN SC SCH ×3 (04:37→12:23)
--- NOTE | 2020-10-15 05:21 | Electrocardiogram Report ---
Test Reason : Blood Pressure : / mmHG Vent. Rate : 096 BPM Atrial Rate : 096 BPM P-R Int : 222 ms QRS Dur : 164 ms QT Int : 386 ms P-R-T Axes : 043 -69 098 degrees QTc Int : 487 ms Atrial-sensed ventricular-paced rhythm with prolonged AV conduction Abnormal ECG When compared with ECG of 13-OCT-2020 07:06, Premature ventricular complexes are no longer Present Vent. rate has increased BY 2 BPM Confirmed by Josse Bell ([id number]) on 10/15/2020 5:20:48 AM Referred By: REFERRED SELF Confirmed By:Josse Bell
[2020-10-15 06:03] LABS: Basophils # (auto) 0.02 K/uL (0-0.2); Basophils % (auto) 0.1 %; Hemoglobin 13.5 g/dL (14.0-18.0); Immature Granulocytes # (auto) 0.09 K/uL (0.00-0.02); Immature Granulocytes % (auto) 0.6 %; Lymphocytes # (auto) 0.62 K/uL (1.2-3.4); Lymphocytes % (auto) 3.8 %; Mean Corpuscular Hemoglobin 32.6 pg (25-34); Mean Corpuscular Hgb Conc 33.8 g/dL (32-36); Mean Corpuscular Volume 96.6 fL (80-100); Mean Platelet Volume 11.1 fL (7.4-10.4); Monocytes # (auto) 0.99 K/uL (0.11-0.59); Monocytes % (auto) 6.1 %; Neutrophils # (auto) 14.49 K/uL (1.4-6.5); Neutrophils % (auto) 89.4 %; Platelet Count 170 K/uL (130-400); RDW Coefficient of Variation 14.8 % (11.5-14.5); RDW Standard Deviation 52.2 fL (36.4-46.3); Red Blood Count 4.14 M/uL (4.7-6.1); White Blood Count 16.21 K/uL (4.8-10.8)
[2020-10-15 06:26] LABS: INR 1.3 (0.9-1.1); Partial Thromboplastin Ratio 1.6
[2020-10-15 06:28] LABS: Partial Thromboplastin Time 45.6 Seconds (21.0-31.0)
[2020-10-15 06:30] LABS: Estimated Average Glucose 169 mg/dl; Hemoglobin A1C 7.5 % (4.5-5.6)
[2020-10-15 06:33] LABS: BUN Creatinine Ratio 32.2 (10-20); Calcium 9.5 mg/dl (8.5-10.1); Creatinine Clr Calc Pharmacy 31.3 ml/min; Est GFR (African American) 38.2; Est GFR (Non-African American) 32.9; Magnesium 2.5 mg/dl (1.8-2.4); Potassium 3.6 mmol/L (3.5-5.1)
[2020-10-15 06:35] LABS: Albumin Globulin Ratio 0.8 (0.9-2); Globulin 3.5 gm/dl (2.5-4.0); Total Protein 6.5 gm/dl (6.4-8.2)
--- NOTE | 2020-10-15 06:49 | Surgery Progress Note ---
Date of Service October 15, 2020 Assessment & Plan (1) Perforated bowel: At this time I would increase to full liquid diet His white count is still elevated although trending down ideally would be beneficial to repeat a CT scan of the abdomen to follow-up on the alleged perforation but given overall is comorbid conditions and no think it would change the medical management nonoperative but more specifically on a clinical basis is improving and I probably would go with that at this time Present on Admission?: Yes Admission and Anticipated Discharge Date Admission Date: October 12, 2020 Subjective Patient is one-on-one during the night and apparently had a hard time keeping his oxygen on and appropriately speaking at times Physical Exam Physical Exam: Patient is fidgety oxygen is on at the present time The abdominal exam is greatly improved with the virtually no right lower quadrant guarding or tenderness at this time as to the abdomen is completely benign Results & Data ([facility]) Vital Signs (Past 12 Hours) Vital Signs Temp Pulse Resp BP Pulse Ox 10/15/20 03:40 36.4 C L 60 24 165/92 H 92 10/14/20 22:58 36.3 C L 68 18 167/87 H 90 PG Care Time/CCT Total # of Minutes Spent Total Time Spent with Patient: Total time spent is greater than 50% in coordination of care (as documented) at patient's floor/unit and/or counseling patient: Coding Level of Care Code 80148 Subseq Hosp Care Lvl 3 Diagnoses Perforated bowel K63.1
[2020-10-15] MEDS: methylPREDNISolone 20 MG in SYRINGE 0 ML IV SCH (08:15)
[2020-10-15] MEDS: FLUTICASONE PROPIONATE NA SPR 16 GM BTL NAE SCH (08:15)
[2020-10-15] MEDS: FAMOTIDINE 20 MG in SYRINGE 3 ML IV SCH (08:16)
[2020-10-15] MEDS ORDERED: INSULIN GLARGINE SOLOSTAR 100 UNITS/ML 3 ML PEN SC SCH (09:00)
--- NOTE | 2020-10-15 09:02 | Hospitalist Progress Note ---
Date of Service October 15, 2020 Assessment & Plan (1) Perforated bowel: - As noted on CT. - ostial stenosis of the OTTONIEL noted. - Would be concerned about the possibility of ischemic bowel versus perforated diverticulum - possible recatl wall neoplasm, will need to pursue further once acute issue resolved - will ask palliative care to become involved with hx of colon cx - Placed on vancomycin IV and meropenem IV on admission, d/c vanco given neg MRSA - surgery has permitted clear diet and Dr Benjamin is following - BCx neg - UA abd, urine culture < 1000 - Zofran 4 mg IV every 6 hours as needed - Famotidine 20 mg IV every 12 hours (2) Aspiration pneumonia of left lower lobe: Cover with vancomycin IV and meropenem IV as noted above Duonebs every 4 hours while awake and every 2 hours when necessary. (3) NSTEMI (non-ST elevated myocardial infarction): - Troponin 0.351 upon admission with initial decrease, however now elevated to 9.4-- has bloody sputum on exam, discussed with Dr. Cutler, will recheck troponin to show not further elevated and with bloody sputum will dc the heparin gtt for now. Going towards conservative tx. Palliative care as above. - ECHO with EF 25-30%, areas of hypokinesis, conduction abnormality Holding aspirin, atorvastatin, isosorbide mononitrate, ranolazine, metoprolol titrate and warfarin - Cardiology concerns for acute TN vs worsening demand ischemia - appreciate recs - hx of significant angina where he uses nitro nearly daily. Hx of being on ranazoline which worked well for him. 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 - INR 3.5 on admission and improved to 1.3 with holding coumadin, heparin gtt as above - Was not reversed due to concerns regarding worsening the issues with coronary ischemia and bowel ischemia. (5) Pulmonary emboli: -See above (6) Acute kidney injury superimposed on chronic kidney disease: -Creatinine 1.89 upon admission, remains at baseline (7) Rheumatoid arthritis: - chronic steroid use, prednisone 5mg QD - Start solu-medrol 20mg QD for stress dose steroids CODE: DNR/DNI Dispo: From home, poor prognosis, likely to remain in the hospital x at least 1 more day, palliative care consult Admission and Anticipated Discharge Date Admission Date: October 12, 2020 Subjective The patient was seen and examined this morning. Pt states he is doing well. Bedside sitter is with him for increased confusion but reports pt is able to be reoriented without much difficulty. Overnight had 200mL out in urine. Pt wearing oxygen and reports mouth is dry. He has been coughing with some bloody sputum production. He denies any issues with breathing, chest pain, or abdominal complaints. We discussed palliative care consultation and comfort care vs hospice, and he is agreeable to this. Review of Systems Review of Systems: Constitutional: No fever, sweats or chills Eyes: No diplopia, no worsening or blurred vision ENT: normal hearing, no trouble swallowing Respiratory: + cough, + occasionally bloody sputum, no dyspnea at rest or on exertion on supplemental O2. Cardiovascular: No chest pain, tightness or palpitations Abdomen: No pain, nausea, vomiting, diarrhea or constipation Musculoskeletal: No joint pain, calf pain, swelling Neurologic: No weakness, numbness/tingling, or balance problems Psychiatric: No anxiety or depression Skin: No rash or itch Physical Exam Physical Exam: General: awake, alert, no apparent distress, + appears weak, + falling asleep during my exam where he awakens easily to verbal stimuli. Head: Normocephalic, atraumatic ENT: PERRL, EOMI, + dry bloody pharyngeal exudate, mucous membranes moist Chest: Clear to auscultation, on room air, no adventitious breath sounds Cardiac: Regular rate and rhythm, no murmur, no JVD, normal peripheral pulses, good capillary refill Abdominal: NABS x 4 quadrants, soft, nondistended, +typanic to percussion, nontender to palpation, no rebound or guarding Extremities: +2+ pitting edema in ankles bilaterally, no peripheral erythema, calfs nontender to palpation Psych: Normal mood and affect Neuro: AAO x 3, strength intact bilaterally and rated 5/5, no motor deficits, speech is clear, no peripheral sensory deficits Results & Data Results & Data ([facility]) Vital Signs (Past 12 Hours) Vital Signs Temp Pulse Resp BP Pulse Ox 10/15/20 08:23 36.7 C 67 21 156/95 H 91 10/15/20 03:40 36.4 C L 60 24 165/92 H 92 10/14/20 22:58 36.3 C L 68 18 167/87 H 90 PG Care Time/CCT Total # of Minutes Spent Total Time Spent with Patient: Total time spent is greater than 50% in coordination of care (as documented) at patient's floor/unit and/or counseling patient: Coding Level of Care Code 74635 Subseq Hosp Care Lvl 3 Diagnoses Perforated bowel K63.1 Aspiration pneumonia of left lower lobe J69.0 Aspiration pneumonia type: unspecified NSTEMI (non-ST elevated myocardial infarction) I21.4 Anticoagulated on Coumadin Z79.01 Pulmonary emboli I26.99 Acute cor pulmonale presence: without acute cor pulmonale Chronicity: acute Pulmonary embolism type: unspecified Acute kidney injury superimposed on chronic kidney disease N17.9; N18.9 Rheumatoid arthritis M06.9 Rheumatoid arthritis location: unspecified site Rheumatoid factor presence: unspecified presence (1) Rheumatoid arthritis Rheumatoid arthritis location: unspecified site Rheumatoid factor presence: unspecified presence Qualified Code(s): M06.9 - Rheumatoid arthritis, unspecified (2) Aspiration pneumonia of left lower lobe Aspiration pneumonia type: unspecified Qualified Code(s): J69.0 - Pneumonitis due to inhalation of food and vomit (3) Pulmonary emboli Acute cor pulmonale presence: without acute cor pulmonale Chronicity: acute Pulmonary embolism type: unspecified Qualified Code(s): I26.99 - Other pulmonary embolism without acute cor pulmonale
--- NOTE | 2020-10-15 09:56 | Cardiology Progress Note ---
Date of Service October 15, 2020 Assessment & Plan (1) Elevated troponin: -troponin up to 9.48. -remains on intravenous heparin. -would continue with conservative care. (2) Coronary artery arteriosclerosis: -severe, inoperable coronary artery disease at time of catheterization and June. -has history of chronic stable angina pectoris. -has tolerated ranolazine in the outpatient setting. -continue conservative medical care. 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 -appropriate pacemaking noted on telemetry. (4) Acute systolic CHF (congestive heart failure): -severe left ventricular dysfunction with multiple wall motion abnormalities noted on current echocardiogram. -seems compensated at this time. -conservative medical care. Admission and Anticipated Discharge Date Admission Date: October 12, 2020 Subjective The patient is resting comfortably in bed without complaints of chest discomfort. He is experiencing a productive cough. Physical Exam Physical Exam: In general this is a well-developed well-nourished white male in no acute distress. HEENT exam is negative. Neck reveals normal carotid upstrokes without bruits. No JVD. There is no thyromegaly. Cardiovascular exam reveals a regular rhythm with a normal S1 and S2. No murmurs, S3, or S4 are noted. Chest reveals a palpable pacemaker in the left subclavicular region. Lungs distant breath sounds with scattered rhonchi. Abdomen is soft without bruits. There is no peripheral edema. 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 PG Care Time/CCT Total # of Minutes Spent Total Time Spent with Patient: Total time spent is greater than 50% in coordination of care (as documented) at patient's floor/unit and/or counseling patient: Coding Level of Care Code 78423 Subseq Hosp Care Lvl 3 Diagnoses Elevated troponin R77.8 Coronary artery arteriosclerosis I25.10 Cardiac pacemaker Z95.0 Acute systolic CHF (congestive heart failure) I50.21
--- NOTE | 2020-10-15 10:34 | Pharmacy Report ---
Pharmacy Glycemic Short Note 2 - Date of Service October 15, 2020 - Glycemic Short BSG Results (Last 24 hours): 10/14/20 10/14/20 10/14/20 16:22 20:06 23:33 Glucose POC Glucose 247 H 235 H 214 H 10/15/20 10/15/20 10/15/20 04:24 05:28 07:41 Glucose 205 H POC Glucose 208 H 199 H OUTPATIENT ANTIDIABETIC REGIMEN: * None * A1c = 7.3% (09/16/2020) Risk Factors for Insulin Resistance: * Steroids: * Methylprednisolone 20 mg IV daily * Infection: * Meropenem 500 mg IV Q8H * Diet: * Clear Liquid ASSESSMENT: 10/15: * Yassine received 21 units of SQ insulin yesterday (10 units of basal and 11 units of bolus) * He remains on solu medrol 20 mg IV daily and a heparin infusion (prepared in dextrose) * BSG has remained > 200 mg/dL despite the addition of basal + bolus insulin yesterday evening * increase basal insulin (0.2 units/kg) * tighten Novolog correction factor and carb ratio 10/14 * 85 yo M admitted on 10/12/2020 secondary to perforated bowel. Pharmacy was consulted this evening (10/14/2020) for inpatient glycemic management. Patient has a h/o T2DM previously on Metformin but now does not take any antidiabetic medications. * 10/12: Patient was NPO and started on methylprednisolone 20 mg IV daily. BSGs were 129 and 177 mg/dL. No insulin was ordered. * 10/13: Patient remained NPO and continued steroids. He was also started on a heparin gtt. Only BSG was 169 mg/dL in the AM. * 10/14: Patient started on clear liquid diet, continued steroids and heparin gtt. BSG this evening was 247 mg/dL which prompted a pharmacy glycemic consult. * Starting patient on Novolog based on a weight/stress of 1-2 along with a one time dose of Lantus 10 units. PLAN FOR INPATIENT GLYCEMIC CONTROL: * Hold outpatient oral diabetes medications * Basal insulin - increase * Lantus 18 units SQ qAM * Bolus insulin - tighten * NovoLog per scale ACHS or Q6hrs while NPO * Goal Range: Low 120 mg/dL - High 150 mg/dL * Correction Factor: 20 mg/dL/unit * Nutritional / Prandial insulin per carb ratio of 1 unit per 7 grams CHO consumed PLAN FOR DISCHARGE: * A1c of 7.3 % indicates diagnosis of DM * Of note, patient is on chronic prednisone 5 mg daily which is likely contributing to A1c elevation * Patient is not a candidate for metformin due to renal function * A1c may be acceptable based on patient age. If better control is desired, may consider once daily NPH (dose to be determined).
[2020-10-15] MEDS ORDERED: LORazepam 0.5 MG/1 ML VIAL IV PRN (14:16)
--- NOTE | 2020-10-15 14:34 | Palliative Care Consultation ---
Date of Consultation October 15, 2020 Assessment & Plan (1) Palliative care encounter: Talked with patient at bedside. He has agitated delirium likely exacerbated by pain. He is confused but does seem to understand that his prognosis is poor. He new that he had a hole in his bowel. I spoke with is son, Yassine, on the phone. He has good understanding of his father's multiple medical problems and tells me that they had talked about this in the past and that his father would not want aggressive measures for care or CPR or intubation. Unfortunately he is not a surgical candidate even if he did desire surgery. His son wants focus of care to be comfort directed at this point. He asked about prognosis. I expect that he will within hours to a day or two. I offered to request approval for him to visit his father, but he is having a sore throat and should not come in at this point. I also offered zoom meeting but he does not have the technology for that. He will call and talk with his father on the phone. (2) Perforated bowel: with severe abdominal pain. Morphine ordered for pain. He was resting comfortably after dose. Will continue to monitor. Would consider morphine infusion if needed to control pain. (3) Acute systolic CHF (congestive heart failure): (4) Aspiration pneumonia of left lower lobe: Aspiration pneumonia type: unspecified Qualified Code(s): J69.0 - Pneumonitis due to inhalation of food and vomit (5) NSTEMI (non-ST elevated myocardial infarction): History of Present Illness Reason for Consultation: Goals of care Requesting Physician: Dr. Humphrey Attending Physician: Kyle Humphrey MD History of Present Illness 85 yo gentleman with h/o diverticulosis and partial colectomy. He was admitted with abdominal pain and found to have bowel perforation and diverticulitis. He has also had troponin I elevation over 10 and acute systolic CHF. Echo shows EF of 25-30%. He is being treated for aspiration pneumonia. He has a h/o rheumatoid arthritis and is steroid dependent with Type II diabetes. He is awake and confused on exam but c/o severe abdominal pain. He is agitated and pulling at O2. Allergies Allergy/AdvReac Type Severity Reaction Status Date / Time Penicillins Allergy Intermediate HIVES Verified 10/12/20 02:34 shellfish derived Allergy Intermediate HIVES Verified 10/12/20 02:34 Sulfa (Sulfonamide Allergy Intermediate HIVES Verified 10/12/20 02:34 Antibiotics) sulfamethoxazole Allergy Intermediate Hives Verified 10/12/20 02:34 [From Bactrim] trimethoprim [From Bactrim] Allergy Intermediate Hives Verified 10/12/20 02:34 Home Medications Medication Instructions Recorded Confirmed Type melatonin 1 mg tablet 1 mg PO HS PRN 05/05/19 10/12/20 History wzglz-u-xinnymnuqqvgm 150 unit 1 tab PO QAM tab 08/22/19 10/12/20 History tablet ascorbic acid (vitamin C) 500 mg 500 mg PO QAM tab 08/22/19 10/12/20 History tablet prednisone 5 mg tablet 5 mg PO DAILY #180 tab 10/02/19 10/12/20 History aspirin 81 mg PO QAM 02/06/20 10/12/20 History nitroglycerin 0.4 mg sublingual 0.4 mg SL DIRECTED PRN #25 tab 03/22/20 10/12/20 Rx tablet acetaminophen [Tylenol Extra 500 mg PO Q6H PRN 04/22/20 10/12/20 History Strength] furosemide 40 mg tablet 40 mg PO DAILY PRN #30 tab 05/03/20 10/12/20 Rx Lift Chair #1 ea 05/09/20 10/01/20 Rx hydrocodone 5 mg-acetaminophen 325 1 tab PO Q4H PRN #20 tab 05/28/20 10/12/20 Rx mg tablet docusate sodium 50 mg capsule 50 mg PO DAILY 07/26/20 10/12/20 History fluticasone propionate 50 1 spray INTRANASAL DAILY #16 g 07/26/20 10/12/20 Rx mcg/actuation nasal spray,suspension levocetirizine 5 mg tablet 5 mg PO DAILY PRN #60 tab 07/26/20 10/12/20 Rx albuterol sulfate 90 mcg/actuation 1 inh INHALATION QID PRN #18 g 09/03/20 10/12/20 Rx aerosol inhaler montelukast 10 mg tablet 10 mg PO DAILY #30 tab 09/03/20 10/12/20 Rx atorvastatin 40 mg tablet 40 mg PO HS 30 Days #30 tab 09/23/20 10/12/20 Rx isosorbide mononitrate 30 mg 30 mg PO QAM 30 Days #30 tab 09/23/20 10/12/20 Rx tablet,extended release 24 hr metoprolol tartrate 50 mg tablet 50 mg PO BID 30 Days #60 tab 09/23/20 10/12/20 Rx ranolazine 500 mg tablet,extended 500 mg PO BID 30 Days #60 tab 09/23/20 10/12/20 Rx release,12 hr warfarin 2.5 mg tablet See Rx Instructions PO DAILY #120 09/23/20 10/12/20 Rx tab Patient History Medical History (Updated 10/15/20 @ 16:12 by Naomie Akhtar MD) Chest pain Chronic anticoagulation Colon adenoma (09/20/13) Coronary artery arteriosclerosis Cough DM (diabetes mellitus), type 2 Heart disease History of HI (myocardial infarction) History of pacemaker Hyperlipidemia Hypertension Lumbar radicular pain Mobitz (type) I (Wenckebach's) atrioventricular block Mobitz (type) II atrioventricular block Obesity, diabetes, and hypertension syndrome Rheumatoid arthritis Right hip pain Stable angina pectoris Steroid dependent Ventral hernia Surgical History History of bladder surgery History of coronary artery stent placement History of cystoscopy with insertion of ureteral stent History of partial colectomy History of tonsillectomy Status post placement of cardiac pacemaker Family History Sister Cancer Mother Colorectal cancer Diabetes Father Myocardial infarction Stroke Other Allergies Asthma Heart disease TIA (transient ischemic attack) Denies family history of Tuberculosis Ovarian cancer Prostate cancer Breast cancer Emphysema, unspecified Lung disease Social History Smoking Status: Former smoker Tobacco Type: Cigarettes Age Started Using Tobacco: 17; packs per day: 1; Number of Years Since Quit: 30; Second Hand Exposure: No; Hx Alcohol Use: No Hx Substance Use: No Preferred Language: Chinese Communication Ability: Effective Visual Impairment: No Limitations Hearing Ability: Normal Corporate Safety Coordinator Required: No Beliefs That Will Affect Care: None marital status: / Current Living Situation: Family Current Living Situation Comment: Patient's youngest son lives with him. 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 Feels Safe at Home: Yes caffeine: No Dental Care, Regularly: Yes Physical Activity Frequency: 3-4 Times per Week Seatbelt Use: always Sunscreen Use: No Assistive Devices: Oxygen - Continuous Review of Systems Review of Systems: Unobtainable due to cognitive status [place] Symptom Assessment Score Pain 3/3 Nausea 0/3 Dyspnea 1/3 Delirium 2/3 Drowsiness 0/3 Palliative Performance Score 30% Physical Exam Constitutional: + in distress and + combative Eyes: EOM intact bilaterally ENMT: Nose: + dry nasal mucous membranes Respiratory: + uses accessory muscles Gastrointestinal (Abdomen): Percussion/Palpation: + abdomen tender and + guarding Musculoskeletal: Feet pale and cool to touch Skin: no mottling Neurologic: + confused; no focal motor deficits Psychiatric: Orientation: alert Results & Data ([facility]) Vital Signs (Past 12 Hours) Vital Signs Temp Pulse Pulse Resp BP BP Pulse Ox 10/15/20 12:00 98.2 F 70 16 158/96 H 91 10/15/20 08:23 98.1 F 67 21 156/95 H 91 10/15/20 08:00 68 10/15/20 03:40 97.5 F L 60 24 165/92 H 92 PG Care Time/CCT Total # of Minutes Spent Total Time Spent with Patient: Total time spent is greater than 50% in coordination of care (as documented) at patient's floor/unit and/or counseling patient: 60 minutes total time with more than 50% of time spent on discussing goals of care, prognosis, code status and symptom management. Coding Level of Care Code 23049 Inpt Consult Level 3 Diagnoses Palliative care encounter Z51.5 Perforated bowel K63.1 Acute systolic CHF (congestive heart failure) I50.21 Aspiration pneumonia of left lower lobe J69.0 Aspiration pneumonia type: unspecified NSTEMI (non-ST elevated myocardial infarction) I21.4
[2020-10-15] MEDS ORDERED: GLYCOPYRROLATE 0.2 MG/ML VIAL IV PRN (14:45)
[2020-10-15] MEDS: MoRPHine SULFATE 2 MG/ML CARP IV PRN (14:47)
[2020-10-16] MEDS: MoRPHine SULFATE 2 MG/ML CARP IV PRN ×5 (03:18→11:41)
[2020-10-16] MEDS: NITROGLYCERIN 2% OINTMENT 30GM TUBE EXT SCH ×4 (03:19→22:14)
[2020-10-16] MEDS ORDERED: STAT IV Infusion **Titration per Protocol STA (10:31)
[2020-10-16] MEDS ORDERED: MoRPHine SULF/NSS 250 MG/250 ML BTL IV SCH (10:45)
--- NOTE | 2020-10-16 12:30 | Palliative Care Progress Note ---
Date of Service October 16, 2020 Assessment & Plan (1) Palliative care encounter: Patient remains on comfort measures only. Patient received 3 doses of Roxanol over past 24 hours. On evaluation, patient moaning, having furrowed brow and appears generally uncomfortable. Morphine drip ordered by Hospitalist for hopeful better comfort focus. Nursing to increase drip per protocol: any breathing changes, furrowed brow, increased o2 needs, moaning. Life expectancy hours to a few days. We will follow for symptom management needs. (2) Perforated bowel: with severe abdominal pain. Morphine drip infusing. (3) Acute systolic CHF (congestive heart failure): (4) Aspiration pneumonia of left lower lobe: (5) NSTEMI (non-ST elevated myocardial infarction): Admission and Anticipated Discharge Date Admission Date: October 12, 2020 Subjective Pt lying in bed, moaning. no response to verbal or tactile stimulation. Se A/P for further details. Review of Systems Review of Systems: Unobtainable due to reduced consciousness Physical Exam Constitutional: + in distress and + combative Eyes: EOM intact bilaterally ENMT: Nose: + dry nasal mucous membranes Respiratory: + uses accessory muscles Gastrointestinal (Abdomen): Percussion/Palpation: + abdomen tender and + guarding Neurologic: + confused; no focal motor deficits Psychiatric: Orientation: alert Results & Data ([facility]) Vital Signs (Past 12 Hours) Vital Signs BP 10/16/20 04:22 168/92 H 10/16/20 04:17 166/94 H PG Care Time/CCT Total # of Minutes Spent Total Time Spent with Patient: Total time spent is greater than 50% in coordination of care (as documented) at patient's floor/unit and/or counseling patient: 35 Coding Level of Care Code 90782 Subseq Hosp Care Lvl 3 Diagnoses Palliative care encounter Z51.5 Perforated bowel K63.1 Acute systolic CHF (congestive heart failure) I50.21 Aspiration pneumonia of left lower lobe J69.0 Aspiration pneumonia type: unspecified NSTEMI (non-ST elevated myocardial infarction) I21.4 Time Spent (min) 35 Time Spent Midlevel Total time spent 35 minutes with > 50% of that time spent assessing the patient, providing symptom management and collaborating with IDT (1) Aspiration pneumonia of left lower lobe Aspiration pneumonia type: unspecified Qualified Code(s): J69.0 - Pneumonitis due to inhalation of food and vomit
--- NOTE | 2020-10-16 15:55 | Hospitalist Progress Note ---
Date of Service October 16, 2020 Assessment & Plan (1) Need for comfort care: Patient was formally transition to comfort care on 10/15 on 10/16 he was escalated to morphine infusion due to increased need of parenteral opiates to control pain. Son is at the bedside and updated. His demise is expected. The listed problems will lower from earlier in his hospital stay we have elected with the direction of the family to not acutely treat any of these problems that are listed (2) Perforated bowel: - As noted on CT. - ostial stenosis of the O[place]ON[place] noted. - Would be concerned about the possibility of ischemic bowel versus perforated diverticulum - p ossible recatl wall neoplasm, (3) Aspiration pneumonia of left lower lobe: Antibiotics stopped supplemental oxygen offered (4) NSTEMI (non-ST elevated myocardial infarction): - Troponin 0.351 upon admission with initial decrease, however elevated to 9.4- - ECHO with EF 25-30%, areas of hypokinesis, conduction abnormality - Cardiology concerns for acute SC vs worsening demand ischemia - appreciate recs - hx of significant angina where he uses nitro nearly daily. Hx of being on ranazoline which worked well for him. Cath 05/28/20 noted for severe multilevel disease, however not a candidate for aggressive intervention per cardiology call to [facility] at that time Given overall concern for perforated viscus pursuant into the interventional catheterization was undertaken with the likelihood that this patient will have progressive decline given his pre-existing history of heart failure reduced ejection fraction. 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 All anticoagulation is ceased (6) Pulmonary emboli: (7) Acute kidney injury superimposed on chronic kidney disease: -Creatinine 1.89 upon admission, chronic kidney disease stage III (8) Rheumatoid arthritis: - chronic steroid use, prednisone 5mg QD - CODE: DNR/DNI Patient will likely in our facility Admission and Anticipated Discharge Date Admission Date: October 12, 2020 Subjective Pt lying in bed, moaning. no response to verbal or tactile stimulation. HIs son is at the bedside, informed that with start of continuous morphine infusion for pain control outlook is poor and will likley expier soon Review of Systems Review of Systems: Unobtainable due to reduced consciousness Physical Exam Physical Exam: The patient appeared chronically Ill and debilitated he appears in moderate discomfort prior to morphine gtt Vital signs as documented. Head exam is normocephalic atraumatic Neck is with midline tracheae, no stridor Lungs are diminished shallow breaths Cardiac exam, Rhythm is bradycardic at times.. No murmurs, rubs or gallops. Abdominal exam reveals normal bowel sounds, soft Extremities are mildly edematous Neurologic exam now obtunded Results & Data Results & Data ([facility]) Vital Signs (Past 12 Hours) Vital Signs BP 10/16/20 04:22 168/92 H 10/16/20 04:17 166/94 H PG Care Time/CCT Total # of Minutes Spent Total Time Spent with Patient: Total time spent is greater than 50% in coordination of care (as documented) at patient's floor/unit and/or counseling patient: Coding Level of Care Code 94069 Subseq Hosp Care Lvl 2 Diagnoses Need for comfort care Perforated bowel K63.1 Aspiration pneumonia of left lower lobe J69.0 Aspiration pneumonia type: unspecified NSTEMI (non-ST elevated myocardial infarction) I21.4 Anticoagulated on Coumadin Z79.01 Pulmonary emboli I26.99 Pulmonary embolism type: unspecified Chronicity: acute Acute cor pulmonale presence: without acute cor pulmonale Acute kidney injury superimposed on chronic kidney disease N17.9; N18.9 Rheumatoid arthritis M06.9 Rheumatoid arthritis location: unspecified site Rheumatoid factor presence: unspecified presence (1) Aspiration pneumonia of left lower lobe Aspiration pneumonia type: unspecified Qualified Code(s): J69.0 - Pneumonitis due to inhalation of food and vomit (2) Pulmonary emboli Pulmonary embolism type: unspecified Chronicity: acute Acute cor pulmonale presence: without acute cor pulmonale Qualified Code(s): I26.99 - Other pulm onary embolism without acute cor pulmonale (3) Rheumatoid arthritis Rheumatoid arthritis location: unspecified site Rheumatoid factor presence: unspecified presence Qualified Code(s): M06.9 - Rheumatoid arthritis, unspecifi ed
--- NOTE | 2020-10-16 23:37 | Death Pronouncement Note ---
Date of Service October 16, 2020 Pronouncement Note Admission Date Admission Date: October 12, 2020 Contributing Factors (1) Need for comfort care: Contributing factors: Nursing staff paged me to examine patient at 23:12. Patient unresponsive, even to painful stimuli, pupils fixed and non-reactive. Patient has no spontaneous breathing, no heart sounds or breath sounds. No carotid or femoral pulses present. No heart sounds or breath sounds heard. Time of pronounced at 23:15 on 10/16/2020. Family Notified by myself. Grievance services offered to family. Body to be released to home of family's choice. (2) Perforated bowel: (3) Aspiration pneumonia of left lower lobe: (4) NSTEMI (non-ST elevated myocardial infarction): (5) Anticoagulated on Coumadin: (6) Pulmonary emboli: (7) Acute kidney injury superimposed on chronic kidney disease: (8) Rheumatoid arthritis: Additional Data Confirmation of : no pulse Family: contacted Attending/PCP notified?: No Attending physician: Kyle Humphrey MD Was code activated?: No Autopsy requested?: No bank examiner notified?: No Organ bank notified?: No Resident Activity Tracking Resident Involvement: Resident Care Provided Care Provided: Adult Hospital Medicine
--- NOTE | 2020-10-17 19:08 | Discharge Summary ---
Date of Service October 17, 2020 Admission HPI Per Admitting Provider The patient is an 85-year-old male with a past medical history including right clavicle fracture, diverticulosis, CAD, upper airway cough syndrome, MINERVA, history of colon cancer, DVT, PE, esophageal candidiasis, chronic systolic CHF, non-STEMI, cardiac pacemaker, diabetes mellitus type 2, ventral hernia, RA, hyperlipidemia, anemia, chronic steroid dependence, lumbar spinal stenosis with neurogenic claudication, hypertension, Mobitz type II atrioventricular block, lower extremity edema, TIA and insomnia. As noted above, he reports to the emergency department with 12 hours of lower abdominal pain that radiates toward his back. He has no indications why this may have occurred. He has not had any dietary indiscretions, is drinking regular amounts of fluids as well. Principal Diagnosis pt 23:15 on 10/16/2020. cause of was covid pneumonia while on comfort cafe Discharge Exam exam was not performed as pt was pronounced by resident Discharge Data Allergies Allergy/AdvReac Type Severity Reaction Status Date / Time Penicillins Allergy Intermediate HIVES Verified 10/12/20 02:34 shellfish derived Allergy Intermediate HIVES Verified 10/12/20 02:34 Sulfa (Sulfonamide Allergy Intermediate HIVES Verified 10/12/20 02:34 Antibiotics) sulfamethoxazole Allergy Intermediate Hives Verified 10/12/20 02:34 [From Bactrim] trimethoprim [From Bactrim] Allergy Intermediate Hives Verified 10/12/20 02:34 Consultations 10/12/20 04:14 ED Decision to Admit Stat 10/15/20 10:32 Consult Palliative Care Routine Ordered Studies 10/12/20 02:34 CT angio abd pelvis wo/w con Urgent Hospital Course (1) Need for comfort care: Patient was formally transition to comfort care on 10/15 on 10/16 He 23:15 on 10/16/2020. (2) Perforated bowel: - As noted on CT. - ostial stenosis of the [place] noted. - Would be concerned about the possibility of ischemic bowel versus perforated diverticulum - possible recatl wall neoplasm, (3) Aspiration pneumonia of left lower lobe: Antibiotics stopped supplemental oxygen offered (4) NSTEMI (non-ST elevated myocardial infarction): - Troponin 0.351 upon admission with initial decrease, however elevated to 9.4- - ECHO with EF 25-30%, areas of hypokinesis, conduction abnormality - Cardiology concerns for acute OR vs worsening demand ischemia - appreciate recs - hx of significant angina where he uses nitro nearly daily. Hx of being on ranazoline which worked well for him. Cath 05/28/20 noted for severe multilevel disease, however not a candidate for aggressive intervention per cardiology call to [facility] at that time Given overall concern for perforated viscus pursuant into the interventional catheterization was undertaken with the likelihood that this patient will have progressive decline given his pre-existing history of heart failure reduced ejection fraction. 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 All anticoagulation is ceased (6) Pulmonary emboli: -See above (7) Acute kidney injury superimposed on chronic kidney disease: -Creatinine 1.89 upon admission, chronic kidney disease stage III (8) Rheumatoid arthritis: - chronic steroid use, prednisone 5mg QD - CODE: DNR/DNI Patient will likely in our facility Total Time Total Time Spent Total Time Spent (In Minutes): less than 30 minutes were spent doing cert and completeing documents Discharge Plan Discharge Items Patient Disposition: Coding Level of Care Code D/C Day Management <30 mins Diagnoses Need for comfort care Perforated bowel K63.1 Aspiration pneumonia of left lower lobe J69.0 Aspiration pneumonia type: unspecified NSTEMI (non-ST elevated myocardial infarction) I21.4 Anticoagulated on Coumadin Z79.01 Pulmonary emboli I26.99 Pulmonary embolism type: unspecified Chronicity: acute Acute cor pulmonale presence: without acute cor pulmonale Acute kidney injury superimposed on chronic kidney disease N17.9; N18.9 Rheumatoid arthritis M06.9 Rheumatoid arthritis location: unspecified site Rheumatoid factor presence: unspecified presence
--- NOTE | 2020-10-20 06:42 | Coding Query ---
CODING QUERY To promote full compliance with coding requirements relating to patient care, provider participation is requested in all cases of health information coder uncertainty. Please assist us with the question(s) below: Coding Question(s): Acute Systolic Heart Failure is documented on the Cardiology notes. This did not make the Discharge Summary or Hospitalist Progress notes. Please Clarify below: ( ) Patient had Acute Systolic Heart Failure ( ) Acute Systolic Heart Failure Ruled Out ( xx) Other Please Explain: acute systolic heart failure did not contribute to his Thank you Lucas Rojas Principal Diagnosis: "that condition established after study, to be chiefly responsible for occasioning the admission of the patient to the hospital for care." Co-Existing Principal Diagnosis: "when two or more diagnoses equally meet the criteria for principal diagnosis as determined by the circumstances of admission, diagnostic work up, and/or therapy provided, and the Alphabetic Index, Tabular List, or another coding guideline does not provide sequencing direction, any one of the diagnoses may be sequenced first." "When the physician has documented what appears to be a current diagnosis in the body of the record, but has not included the diagnosis in the final diagnostic statement, the physician should be asked whether the diagnosis should be added." (Source Coding Clinic 2 QTR90. p3-4) ALAINA
== END 2020-10-16 23:10 | disposition expired | DRG 393 ==
LOC: ED 02:12 → SUATTDRO 05:08 → 2S 05:08 → 3N 10-15 20:29